=== PATIENT | female | born 1975 | race Caucasian/White ===

== ENCOUNTER 2017-10-17 12:09 | Inpatient (IN) | payer OTHER ==
[~2017-10-17] VITALS: Ht 172.7 cm; Wt 99.3 kg
[~2017-10-17 12:09] MED LIST: ALPRAZOLAM1 M2 PO; DILAUDID2 M1 PO; FISH OIL500 M1 PO; FLEXERIL10 MG PO; MOTRIN800 MG PO; NAPROXEN500 M2 PO; NEXIUM 40MG40 MG PO; NEXIUM40 M1 PO; PERCOCET 325 MG1 TA2 PO; PERCOCET 5-3251 EACH PO; PRILOSEC OTC20 M1 PO; TRAMADOL HCL50 M1 PO; ULTRAM50 M1 PO; VENTOLIN HFA18 GM INH; ZITHROMAX250 M2 PO; ZOFRAN ODT4 M1 SL
--- NOTE | 2017-10-17 15:16 | ED GI/GU/ABDOMINAL COMPLAINT ---
History of Present Illness General Chief Complaint: Abdominal Pain/Flank Pain Stated Complaint: BIBA FOR ABD PAIN Source: patient, old records, EMS Exam Limitations: no limitations Vital Signs & Intake/Output Vital Signs & Intake/Output Vital Signs Date Time Temp Pulse Resp B/P B/P Pulse O2 O2 Flow FiO2 Mean Ox Delivery Rate 10/19 1414 98.8 100 18 132/80 98 Room Air 10/19 1139 98.1 97 18 126/76 95 Room Air 10/19 0623 98.6 84 18 134/82 96 Room Air 10/18 2206 99.1 95 20 130/80 95 Room Air 10/18 1450 98.1 84 20 118/70 95 Room Air ED Intake and Output 10/19 0000 10/18 1200 Intake Total 2450 1250 Output Total 600 Balance 1850 1250 Intake, IV 2400 1200 Intake, Oral 50 50 Number 0 Bowel Movements Output, Urine 600 Allergies Coded Allergies: lisinopril (ABD PAIN AND COLD SWEATS, DIZZY, NAUSEA 08/21/17) Reconcile Medications Albuterol Sulfate (Ventolin Hfa) 18 GM HFA.AER.AD 2 PUF INH Q4-6 PRN PRN breathing (Reported) Alprazolam 1 MG TABLET 1 TAB PO TIDPRN ANXIETY (Reported) Esomeprazole (Nexium) 40 MG CAPSULE.DR 1 CAP PO DAILY GI (Reported) Hydromorphone HCl (Dilaudid) 2 MG TABLET 1 TAB PO Q6P PRN PAIN Omeprazole Magnesium (Prilosec Otc) 20 MG TABLET.DR 1 TAB PO DAILY UPSET STOMACH Ondansetron (Zofran Odt) 4 MG TAB.RAPDIS 1 TAB SL TID PRN NAUSEA Oxycodone HCl/Acetaminophen (Percocet 5-325 MG Tablet) 5 MG-325 MG TABLET 1 TAB PO 4XDP PRN PAIN SIX...[id number] Triage Note: PT BIBA TO TRIAGE FROM WORK FOR C/O ABD PAIN AND BACK PAIN SINCE 0930 THIS AM. C/O N/V. DENIES DIARRHEA. Triage Nurses Notes Reviewed? yes ? N Is pt currently ? No Duration: hour(s): (SEVERAL) Timing: multiple episodes today Quality/Severity: cramping, sharpness, severe Severity Numbers: 10 Location: epigastric Radiation: back Activities at Onset: DRANK ALCOHOL ON NEW YEARS ARMANDO Prior Abdominal Problems: similar symptoms Modifying Factors: Worsens With: eating. Associated Symptoms: abdominal pain, nausea/vomiting HPI: This is a 41 year old female with history of alcohol abuse, recurrent pancreatitis who presents via EMS from work for chief complaint of epigastric abdominal pain, nausea and vomiting. She states "I have pancreatitis again". Patient states she last drank on new armando at home. Today at work she was vomiting and her boss called 911. Past History Travel History Traveled to [place] past 21 day No Medical History Any Pertinent Medical History? 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 No Review of Systems Review of Systems Constitutional: Denies: chills, fever. EENTM: Reports: no symptoms. Respiratory: Denies: cough, short of breath, sputum production. Cardiovascular: Denies: chest pain, palpitations. GI: Reports: abdominal pain, nausea, vomiting. Genitourinary: Reports: no symptoms. Musculoskeletal: Reports: back pain. Skin: Reports: no symptoms. Neurological/Psychological: Reports: no symptoms. Hematologic/Endocrine: Denies: bruising, bleeding, polyuria, polydipsia. Immunologic/Allergic: Denies: splenectomy. All Other Systems: Reviewed and Negative Physical Exam Physical Exam General Appearance: well developed/nourished, alert, awake, anxious, moderate distress, severe distress, obese Head: atraumatic, normal appearance Eyes: Bilateral: normal appearance, PERRL, EOMI. Ears, Nose, Throat, Mouth: hearing grossly normal, moist mucous membrane Neck: normal inspection, supple, full range of motion Respiratory: normal breath sounds, chest non-tender, no respiratory distress Cardiovascular: regular rate/rhythm Peripheral Pulses: 2+ radial (R), 2+ radial (L) Gastrointestinal: normal bowel sounds, soft, tenderness (EPIGASTRIC, RUQ, LUQ) Back: normal inspection, normal range of motion Extremities: normal range of motion Neurologic/Psych: no motor/sensory deficits, awake, alert, oriented x 3 Skin: intact, normal color, warm/dry Core Measures ACS in differential dx? No Sepsis Present: No Sepsis Focused Exam Completed? No Progress Differential Diagnosis: biliary colic, cholecystitis, esophageal varices, gastritis, hepatitis, hernia, pancreatitis, peptic ulcer, PUD/GERD, perforated viscous, SBO Plan of Care: Orders Procedure Date/time Status Clear Liquid Diet 10/19 B Active LIPASE 10/19 08 Complete HEPATIC FUNCTION PANEL 10/19 08 Complete MAGNESIUM 10/19 06 Complete IgG SUBCLASSES Ref$ 10/19 0600 Active HIGH SENSITIVITY CRP 10/19 06 Complete C-REACTIVE PROTEIN 10/19 0600 Complete CBC WITHOUT DIFFERENTIAL 10/19 0600 Complete BASIC ELECTROLYTES PLUS BUN&CR 10/19 0600 Complete CIWA 10/19 0017 Active Lab Add-on Test 10/19 UNK Active Nothing by Mouth 10/18 D Complete MAGNESIUM 10/18 0757 Complete LDH (LACT ACID DEHYDROGENASE) 10/18 0757 Complete Lab Add-on Test 10/18 UNK Active Current Medications Sig/Adam Start time Last Medication Dose Stop Time Status Admin Magnesium Sulfate 1 GM Q2H 10/19 1415 AC (Mag Sulfate in D5) 10/19 1814 Dextrose/Water 100 ML (D5W) Potassium Chloride 10 MEQ Q1H 10/19 1415 AC 10/19 1516 Pantoprazole Sodium 40 MG DAILY 10/19 1400 AC (Protonix) Oxycodone HCl 10 MG Q12 10/19 1100 AC 10/19 (OxyCONTIN) 1337 Hydromorphone HCl 1 MG Q4P PRN 10/19 1045 AC 10/19 (Dilaudid) 1309 Enoxaparin Sodium 40 MG DAILY 10/18 1000 AC 10/19 (Lovenox) 0925 Fenofibrate 48 MG DAILY 10/18 1000 AC 10/19 (Tricor) 0924 Lorazepam 0 Q1P PRN 10/17 1830 AC 10/19 (Ativan) 0024 Acetaminophen 650 MG Q6P PRN 10/17 1730 AC (Tylenol) Acetaminophen 1,000 MG Q6P PRN 10/17 1730 AC 10/18 (Ofirmev) 0700 Lactated Ringer's 1,000 ML .Q5H 10/17 1730 AC 10/19 (Lactated Ringers) 0652 Ondansetron HCl 4 MG Q6-PRN PRN 10/17 173 AC 10/18 (Zofran) 0015 Laboratory Tests 10/19/17 1040: Total Bilirubin Cancelled, Direct Bilirubin Cancelled, AST Cancelled, ALT Cancelled, Alkaline Phosphatase Cancelled, Total Protein Cancelled, Albumin Cancelled, Lipase Cancelled 10/19/17 0805: Anion Gap 7, Estimated GFR > 60, BUN/Creatinine Ratio 6.7 L, Magnesium 1.6, Total Bilirubin 1.0, Direct Bilirubin 0.5 H, AST 19, ALT 33, Alkaline Phosphatase 59, C-Reactive Prot, Quant > 9.0 H, C-React Prot High Sens > 15.0 H, Total Protein 4.9 L, Albumin 2.6 L, Lipase 745 H, CBC w Diff NO MAN DIFF REQ, RBC 3.11 L, MCV 93.1, MCH 32.4 H, RDW 14.0, MPV 6.7 L, Gran % 74.0, Lymphocytes % 19.5 L, Monocytes % 3.7, Eosinophils % 2.5, Basophils % 0.3, Absolute Granulocytes 4.3, Absolute Lymphocytes 1.1 L, Absolute Monocytes 0.2, Absolute Eosinophils 0.1, Absolute Basophils 0, PUBS MCHC 34.8, IgG Total Pending, IgG1 Pending, IgG2 Pending, IgG3 Pending, IgG4 Pending 10/19/17 0600: Ref Lab Test Result Cancelled NO RELIEF WITH MORPHINE/PHENERGEN. IV DILAUDID, LR ORDERED. LIPASE OVER 6000, HIGHEST COMPARED WITH PREVIOUS. OUTPATIENT MRI 2 WEEKS AGO WHICH SHOWED MILD ACUTE PANCREATITIS, NO NECROSIS OR COLLECTIONS. PAIN SINCE THIS MORNING. WILL DEFER IMAGING TO GI. ADMITTED TO HOSPITALIST SERVICE. Initial ED EKG: none Departure Departure Time of Disposition: 1711 Disposition: STILL A PATIENT Condition: Stable Clinical Impression Primary Impression: Acute pancreatitis Referrals: Marjorie De Santiago (PCP/Family) Departure Forms: Customer Survey General Discharge Information Admission Note Spoke With: Christen Coffman MD Documentation of Exam: Documentation of any treatments & extenuating circumstances including Concerns Regarding Discharge (functional status, medication knowledge or non-compliance, living conditions, etc.) that warrant an admission rather than observation: [ LACTATED RINGERS, PAIN CONTROL, ANTIEMETICS, MONITOR ELECTROLYTES, GI CONSULTATION ([facility] HAD MRI WITH DR VU)]
[2017-10-17 16:01] LABS: ABSOLUTE BASOPHIL COUNT 0 /CUMM (0.0-0.2); ABSOLUTE EOSINOPHIL COUNT 0 /CUMM (0.0-0.7); ABSOLUTE GRANULOCYTE CT 8.5 /CUMM (1.4-6.5); ABSOLUTE LYMPH COUNT 0.7 /CUMM (1.2-3.4); ABSOLUTE MONOCYTE COUNT 0.2 /CUMM (0.10-0.60); BASOPHIL % 0 % (0.0-2.0); EOSINOPHIL % 0.1 % (0-5); GRANULOCYTE % 90.3 % (42.2-75.2); HEMATOCRIT 39.4 % (37-47); MEAN CORPUSCULAR HGB CONC 34.1 G/DL (33.0-37.0); MEAN CORPUSCULAR VOLUME 93.8 FL (81.0-99.0); PLATELET COUNT 330 /CUMM (130-400); RBC DISTRIBUTION WIDTH 14.6 % (11.5-14.5); WHITE BLOOD CELL COUNT 9.4 /CUMM (4.8-10.8)
[2017-10-17 16:43] LABS: PT 11.5 SEC (9.4-12.5); PTT 26 SEC (25-37)
--- NOTE | 2017-10-17 17:26 | History & Physical ---
See Addendum Micah ALBA,[facility] 10/17/17 9860: General Information and HPI MD Statement: I have seen and personally examined ISRAEL TJIERINA and documented this H&P. The patient is a 41 year old F who presented with a patient stated chief complaint of [pancreatits]. Source of Information: patient History of Present Illness: 41 yo F pmhx of pancreatitis (etoh vs hypertriglycerides), ?etoh abuse, htn - no longer on hctz, asthma, gerd, IBS, fibromyalgia, chronic back pain presenting for acute epigastric pain. States that the pain started 930 AM this AM. States her last etoh drink was new years. Unsure of how many drinks she had but at least several glasses of wine. States the pain is a 10/10 constant band likke pain around her upper abd. Has had 3 episodes of nonbloody bilious vomiting. States she was supposed to be started on a statin by her pcp. Allergies/Medications Allergies: Coded Allergies: lisinopril (ABD PAIN AND COLD SWEATS, DIZZY, NAUSEA 08/21/17) Home Med list Albuterol Sulfate (Ventolin Hfa) 18 GM HFA.AER.AD 2 PUF INH Q4-6 PRN PRN breathing (Reported) Alprazolam 1 MG TABLET 1 TAB PO TIDPRN ANXIETY (Reported) Esomeprazole (Nexium) 40 MG CAPSULE.DR 1 CAP PO DAILY GI (Reported) Hydromorphone HCl (Dilaudid) 2 MG TABLET 1 TAB PO Q6P PRN PAIN Omeprazole Magnesium (Prilosec Otc) 20 MG TABLET.DR 1 TAB PO DAILY UPSET STOMACH Ondansetron (Zofran Odt) 4 MG TAB.RAPDIS 1 TAB SL TID PRN NAUSEA Oxycodone HCl/Acetaminophen (Percocet 5-325 MG Tablet) 5 MG-325 MG TABLET 1 TAB PO 4XDP PRN PAIN SIX...[id number] Past History Travel History Traveled to [place] past 21 day No Medical History Neurological: NONE EENT: NONE Cardiovascular: hypertension, hyperlipidemia Respiratory: asthma Gastrointestinal: GERD, pancreatitis Hepatic: fatty liver Renal: NONE Musculoskeletal: disk herniation Psychiatric: anxiety Endocrine: NONE Blood Disorders: NONE Cancer(s): endometrial cancer, BARTHOLIN'S 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 child Services at Home: None Primary Language: Libyan ETOH Use: denies use Illicit Drug Use: denies illicit drug use Living Will? no Power of Brand Marketing Manager/HCP? no Functional Ability ADLs Independent: dressing, eating, toileting, bathing. Ambulation: independent IADLs Independent: shopping, housework, finances, food prep, telephone, transportation , medication admin. Review of Systems Review of Systems Constitutional: Reports: see HPI. Denies: chills, fever. Cardiovascular: Denies: chest pain. Respiratory: Denies: short of breath. GI: Reports: abdominal pain. Denies: melena, changes in stool. Genitourinary: Reports: no symptoms. Exam & Diagnostic Data Last 24 Hrs of Vital Signs/I&O Vital Signs Date Time Temp Pulse Resp B/P B/P Pulse O2 O2 Flow FiO2 Mean Ox Delivery Rate 10/17 2011 99.0 94 20 150/92 98 10/17 1830 99.0 97 18 151/89 98 Room Air Room Air 10/17 1540 98.4 91 20 155/87 96 10/17 1223 97.0 90 20 166/100 98 Room Air Intake & Output 10/18 0800 10/18 0000 10/17 1600 Intake Total 3100 Output Total Balance 3100 Intake, IV 3100 Patient 220 lb 220 lb Weight Weight Estimated Measurement Method Physical Exam General Appearance Alert, Oriented X3, Cooperative, Severe Distress Cardiovascular Regular Rate, Normal S1, Normal S2 Lungs decrease air movement b/l due to effort Abdomen Soft, diffusely tender ruq and luq tenderness., decrease bowel sounds Extremities no back tenderness Vascular 2+ radial pulses Last 24 Hrs of Labs/Hansel: Laboratory Tests 10/17/17 1740: Urinalysis LIGHT H, Urine Color YEL, Urine Clarity HAZY H, Urine pH 6.0, Ur Specific Ideal >= 1.030, Urine Protein TRACE H, Urine Ketones NEG, Urine Nitrite NEG, Urine Bilirubin NEG, Urine Urobilinogen 0.2, Ur Leukocyte Esterase NEG, Ur Microscopic SEDIMENT EXAMINED, Urine RBC RARE, Urine WBC RARE, Ur Epithelial Cells RARE, Urine Bacteria RARE H, Urine Mucus FEW, Urine Hemoglobin NEG, Urine Glucose NEG, Urine Test NEGATIVE 10/17/17 1535: Anion Gap 14, Estimated GFR > 60, BUN/Creatinine Ratio 12.9, Glucose 106 H, Calcium 9.6, Magnesium 1.4 L, Total Bilirubin 0.7, AST 43 H, ALT 43, Alkaline Phosphatase 106, Total Protein 7.5, Albumin 4.4, Globulin 3.1, Albumin/Globulin Ratio 1.4, Triglycerides 912 H, Cholesterol 284 H, LDL Cholesterol Direct 87.63, LDL Cholesterol, Calc ND, HDL Cholesterol 62 H, Cholesterol/HDL Ratio 4.6 H, Amylase 255 H, Lipase 6057 H, Total Beta HCG NEGATIVE, PT 11.5, INR 1.10, APTT 26, CBC w Diff MAN DIFF ORDERED, RBC 4.20, MCV 93.8, MCH 32.0 H, RDW 14.6 H, MPV 6.0 L, Gran % 90.3 H, Lymphocytes % 7.6 L, Monocytes % 2.0, Eosinophils % 0.1, Basophils % 0, Absolute Granulocytes 8.5 H, Absolute Lymphocytes 0.7 L, Absolute Monocytes 0.2, Absolute Eosinophils 0, Absolute Basophils 0, Platelet Estimate ADEQUATE, Normocytic RBCs VERIFIED, Normochromic RBCs VERIFIED, PUBS MCHC 34.1, Serum Alcohol < 10.0 10/17/17 1525: Magnesium Cancelled, Serum Alcohol Cancelled Assessment/Plan As Ranked By This Provider Problem List: 1. Acute pancreatitis 2. Hypomagnesemia 3. Hypertriglyceridemia Core Measures/Misc (07/02) Acute Coronary Syndrome ACS Diagnosis: No Congestive Heart Failure Congestive Heart Failure Diagnosis No Cerebrovascular Accident CVA/TIA Diagnosis: No VTE (View Protocol) VTE Risk Factors Acute Medical Illness No Mechanical VTE Prophylaxis d/t Other No VTE Pharm Prophylaxis d/t NA PharmProphylax ordered Sepsis (View protocol) Sepsis Present: No Tati Horton 10/17/17 1815: Assessment/Plan Assessment: Resident Review Statement Resident Statement: examined this patient, discussed with commander internal affairs Other Findings: Pt is a 41-year-old obese woman with past medical history significant for asthma recurrent pancreatitis (? Alcohol related/hypertriglyceridemia), anxiety, GERD, irritable bowel syndrome (diarrhea-type), chronic pain syndrome 2/2 cervical/ lumbar disc herniation, fibromyalgia presented to the ED through ambulance with a chief complaint of sudden onset epigastric pain started this morning. Patient mentioned that her symptoms were sudden onset, started around 9:30 this morning described the pain as epigastric colicky in character, constant, radiating to back getting worse. Pain was associated with nonbloody bilious vomiting without any diarrhea or constipation. At work her symptoms goten worse , to the point that she couldn't tolerate any more pain and was brought in to the ER for further assessment. In the ED patient was having 10 on 10 severe epigastric pain labs revealed elevated lipase. She denied any recent infections fevers denies any chest discomfort or trouble breathing palpitations no urinary complaints. As mentioned above patient has been repeatedly admitted for pancreatitis related to probable alcohol abuse, last drink was on new year had couple of glasses of red wine. She also mentioned that apparently she has a history of hypertriglyceridemia, and has been prescribed statin(but not started yet). On examination : General Appearance :Alert, Oriented X3, moderate distress. Skin No Rashes, No Breakdown HEENT Atraumatic, PERRLA Neck Supple, No JVD Cardiovascular Regular Rate, Normal S1, Normal S2 Lungs decreased breath sounds bilaerally Abdomen: Normal Bowel Sounds, Soft with epigastric tenderness without any rebound Neurological Normal Gait, Normal Speech Extremities bilateral skin changes Vascular Normal Pulses. Vitals on admission temp: 97.0, pulse 90, respiratory rate 20, blood pressure 166/100 room air Pertinent labs on admission normal WBC count, H&H stable, hypomagnesemia 1.4, elevated lipase 6057: Amylase 255, elevated TGs:912 Assessment and plan: Pt is a 41-year-old obese woman with past medical history significant for asthma recurrent pancreatitis (? Alcohol related/hypertriglyceridemia), anxiety, GERD, irritable bowel syndrome (diarrhea-type), chronic pain syndrome 2/2 cervical/ lumbar disc herniation, fibromyalgia presented to the ED through ambulance with a chief complaint of sudden onset epigastric pain started this morning. Labs are in consistent with acute appendicitis likely related to alcohol abuse. Problem list Severe epigastric pain acute appendicitis likely related to alcohol abuse History of alcohol abuse/dependence Hypomagnesemia history of anxiety and depression History of irritable bowel syndrome Plan Severe epigastric pain acute appendicitis likely related to alcohol abuse / hypertriglyceridemia * Admit the patient Gen[facility] floor * Keep the patient nothing by mouth for now * Aggressive hydration with Ringer lactate at the rate of 200 mL per our * Adequate pain control with Dilaudid and IV Tylenol and * Zofran as needed for nausea and vomiting. * start the pt on ticor(Fenofibrate ) * Monitor vitals every 4 hours * Watch for any hemodynamic instability. History of alcohol abuse/dependence : * Start the patient on Ativan as per [facility] protocol. * Maintain seizure and aspiration precautions. Hypomagnesemia * Repeat and repeat magnesium. history of anxiety and depression * Continue as needed Xanax. History of irritable bowel syndrome * Bentyl as needed for cramps Moderate to severe pain control with Dilaudid DVT prophylaxis with subcutaneous Lovenox Patient is full code Christen Coffman MD 10/17/17 1830: Attending MD Review Statement Attending Statement Attending MD Statement: examined this patient, discuss w/resident/PA/CARD HAND, agreed w/resident/PA/CARD HAND, reviewed EMR data (avail) Attending Assessment/Plan: 41F PMH HTN, HLD, IBS-D, chronic pain, fibromyalgia, history of pancreatitis presenting with severe epigastric pain in the setting of acute pancreatitis. Drank on BILLY, has abdominal pain with nausea and vomiting today. Afebrile, vitals stable, labs show elevated triglycerides and lipase, otherwise normal. Will admit to general medicine for nicole treatment of acute pancreatitis, IV hydration, Morphine PRN, start Fenofibrate for triglycerides, continue home meds , advance diet as tolerated, DVT PPx
[2017-10-17 20:12] VITALS: BP 150/92
[2017-10-18 06:56] VITALS: BP 128/74
--- NOTE | 2017-10-18 07:50 | PN- Housestaff ---
Micah ALBA,[facility] 10/18/17 0750: Subjective Follow-up For: pancreatitis Subjective: Pt still having severe abd pain, better than yday but worst with movement. Still cant take breaths due to pain. Unable to sleep last night. States she would like to try clears. Review of Systems Constitutional: Reports: see HPI (insomnia). Cardiovascular: Reports: no symptoms. Respiratory: Reports: see HPI. Gastrointestinal: Reports: abdominal pain. Genitourinary: Reports: no symptoms. Musculoskeletal: Reports: no symptoms. Objective Last 24 Hrs of Vital Signs/I&O Vital Signs Date Time Temp Pulse Resp B/P B/P Pulse O2 O2 Flow FiO2 Mean Ox Delivery Rate 10/18 1450 98.1 84 20 118/70 95 Room Air 10/18 0656 98.6 96 18 128/74 96 Room Air 10/18 0000 98 Room Air Intake & Output 10/18 1600 10/18 0800 10/18 0000 Intake Total 1650 1250 3100 Output Total 600 Balance 1050 1250 3100 Intake, IV 1600 1200 3100 Intake, Oral 50 50 Number 0 Bowel Movements Output, Urine 600 Patient 220 lb Weight Physical Exam General Appearance: Alert, Oriented X3, Cooperative Skin Temp/Moisture Exam: Warm/Dry Cardiovascular: Regular Rate, Normal S1, Normal S2 Lungs: Clear to Auscultation, Normal Air Movement Abdomen: diffusely tender, more prominent on left Extremities: 2+ radial pulses Current Medications: Current Medications Sig/Adam Start time Last Medication Dose Route Stop Time Status Admin Acetaminophen 1,000 MG .STK-MED ONE 10/18 0659 DC IV 10/18 0700 Acetaminophen 650 MG Q6P PRN 10/17 1730 AC PO Acetaminophen 1,000 MG Q6P PRN 10/17 1730 AC 10/18 IV 0700 Enoxaparin Sodium 40 MG DAILY 10/18 1000 AC 10/18 SC 0923 Fenofibrate 48 MG DAILY 10/18 1000 AC 10/18 PO 0923 Hydromorphone HCl 1 MG Q4-6 PRN PRN 10/18 1030 AC 10/18 IV 1827 Hydromorphone HCl 1 MG ONCE ONE 10/18 0015 DC 10/18 IV 10/18 0016 0015 Hydromorphone HCl 1 MG Q6P PRN 10/17 1730 DC 10/18 IV 0927 Lactated Ringer's 1,000 ML .Q5H 10/17 1730 AC 10/18 IV 2042 Lactated Ringer's 1,000 ML ONCE ONE 10/17 1700 DC IV 10/17 2339 Lorazepam 0 Q1P PRN 10/17 1830 AC IV Ondansetron HCl 4 MG Q6-PRN PRN 10/17 1730 AC 10/18 PO 0015 Patient Medication 1 ED ONE ONE 10/18 1230 DC Teaching ED 10/18 1231 Last 24 Hrs of Lab/Hansel Results Last 24 Hrs of Labs/Mics: Laboratory Tests 10/18/17 0757: Anion Gap 6, Estimated GFR > 60, BUN/Creatinine Ratio 7.1, Magnesium 1.6, Lactate Dehydrogenase 367, CBC w Diff NO MAN DIFF REQ, RBC 3.36 L, MCV 94.4, MCH 32.4 H, RDW 14.6 H, MPV 6.6 L, Gran % 75.5 H, Lymphocytes % 19.0 L, Monocytes % 2.7, Eosinophils % 2.4, Basophils % 0.4, Absolute Granulocytes 3.2, Absolute Lymphocytes 0.8 L, Absolute Monocytes 0.1, Absolute Eosinophils 0.1, Absolute Basophils 0, PUBS MCHC 34.3 Assessment/Plan Assessment: 41 yo F pmhx of pancreatitis (etoh vs hypertriglycerides), ?etoh abuse, htn - no longer on hctz, asthma, gerd, IBS, fibromyalgia, chronic back pain presenting for acute pancreatitis #acute pancreatitis WBC 9.4 AST 43, ALT 43, ALP 106 Triglycerides 912, cholesterol 284 amylase 255, l ipase 6047 beta hcg negative CXR: Unremarkable examination. There is no pleural effusion. LDH normal -NPO for now per GI, zofran prn -continue fenofibrate -cont lactated ringers, zofran prn, pain control -strict I/O -consider endo consult -AVOID NSAIDS -Risk factor modification for fatty liver -crp for prognostic purposes -consider fecal elastase, outpatient EUS #hx of ?etoh abuse -continue CIWA and ativan prn #low mg MG 1.6 -replenish as needed #GERD -start PPI #lovenox for DVT prophylaxis #FULL CODE Problem List: 1. Acute pancreatitis Pain Ratin Pain Location: left abd Pain Goal: Pain 4 or less Pain Plan: pain pathway Tomorrow's Labs & Rationales: cbc bep mg crp Aparna,Manik 10/18/17 1107: Attending MD Review Statement Attending Statement Attending MD Statement: examined this patient, discuss w/resident/PA/REPAIRER GENERAL, agreed w/resident/PA/REPAIRER GENERAL, discussed with family, reviewed EMR data (avail), discussed with nursing, discussed with case mgmt, reviewed images, amended to note Attending Assessment/Plan: 41F PMH HTN, HLD, IBS-D, chronic pain, fibromyalgia, history of pancreatitis presenting with severe epigastric pain in the setting of acute and recurrent pancreatitis. Afebrile, vitals stable, labs show elevated triglycerides and lipase, Abnormal MRI abdomen with dilated CBD and pancreatic duct 2 weeks ago. LFTS AST/ALT 43/43 ALP 106 Bili 0.7 c/w NPO, IV hydration, Morphine PRN, Fenofibrate for triglycerides, GI conuslt for recurrent pancereatitis and abnormal MRI abdomen findings. continue home meds, advance diet as tolerated, DVT PPx.
[2017-10-18 10:22] LABS: ABSOLUTE BASOPHIL COUNT 0 /CUMM (0.0-0.2); ABSOLUTE EOSINOPHIL COUNT 0.1 /CUMM (0.0-0.7); ABSOLUTE GRANULOCYTE CT 3.2 /CUMM (1.4-6.5); ABSOLUTE LYMPH COUNT 0.8 /CUMM (1.2-3.4); ABSOLUTE MONOCYTE COUNT 0.1 /CUMM (0.10-0.60); BASOPHIL % 0.4 % (0.0-2.0); EOSINOPHIL % 2.4 % (0-5); GRANULOCYTE % 75.5 % (42.2-75.2); MEAN CORPUSCULAR HGB 32.4 PG (27.0-31.0); MEAN CORPUSCULAR HGB CONC 34.3 G/DL (33.0-37.0); MEAN CORPUSCULAR VOLUME 94.4 FL (81.0-99.0); MEAN PLATELET VOLUME 6.6 FL (7.4-10.4); PLATELET COUNT 203 /CUMM (130-400); RBC DISTRIBUTION WIDTH 14.6 % (11.5-14.5); RED BLOOD CELL CT 3.36 /CUMM (4.20-5.40)
[2017-10-18 10:38] LABS: HEMATOCRIT 31.7 % (37-47); WHITE BLOOD CELL COUNT 4.2 /CUMM (4.8-10.8)
[2017-10-18 14:50] VITALS: BP 118/70
--- NOTE | 2017-10-18 15:27 | Cons- Gastroenterology ---
General Information and HPI Consulting Request Date of Consult: 10/18/17 Requested By: Christen Coffman MD Reason for Consult: Called today at 11:18 a.m. to assess pancreatitis in a patient with hyperTG, EtOH & cigarette smkoking Source of Information: patient, old records Exam Limitations: andrea historian; nost of the patient's GI records are in the [place] area. History of Present Illness: 41 y/o female, fair historian, HTN, non-DM, HLD, obese, FCBD, fibromyalgia, asthma, seen by myself in inpatient GI consultation 05/25/16 for hypertriglyceride-induced pancreatitis, with TG 1277 then. For some reason, she was never put on anti-lipid medications. She has a history of cigarette smoking & moderate EtOH, the latter of which she appeared to be down playing. She previously drank heavily years ago, but now admitted to "a few drinks a week". She drank again over New Year's. She denied any illicit drug use. Her gallbladder is intact. Additionally, she has fatty liver. Since I last saw her year and a half ago, she changed essentially all of her physicians. She previously was followed by Dr. Ayse Angeles for GI, in [place], [place], but switched to Dr. Linares, whom she saw as an outpt in 08/2017. She also switched to Marjorie Valdivia for primary care, & sees Dr. Guajardo for SIGNAL PERSON, who apparently put her on HCTZ (*note- hx pancreatitis). Finally, she saw Dr. Mcneill, of cardiology, for atypical CP & reportedly had a negative w/u, with : echocardiogram- WNL. She does not follow up with outpatient endocrine for her HLD. The patient claimed she had EGD and colonoscopy in 04/2016 at [facility] in [place], [place], per Dr. Luna, & was told of "IBS, gastritis, & GERD". There is a family history of Crohn's disease (pt's F). The patient's mother who passed her lungs CTA had diverticulitis. There is no family history of any additional GI disease, GI CA, inherited pancreatitis, GBD, PUD, hypertriglyceridemia, or inherited liver disease. She claimed she had multiple ultrasounds and HIDA scans per Dr. Angeles, all "negative except fatty liver". She claimed she had a FibroScan of her liver in [address] Angeles, which reportedly showed "fatty liver & some fibrosis". She never had a liver biopsy. She denied any hx cirrhosis or prior abdominal surgery. Her last 08/21/17: CT AP with IV cont- no acute pancreatic process, just chronic dilated CBD. *She was on chronic narcotics for back pain, which could be contributing to her chronically dilated CBD, by increasing tone at the Sphincter of Oddi. After switching from Dr. Angeles to Dr. Linares, she had: 09/25/17: MR ABDOMEN WITH AND WITHOUT CONTRAST- 1. Mild acute pancreatitis at the pancreatic head at the pancreaticoduodenal groove. No evidence of fluid collections or pancreatic necrosis. No obstructing lesions or calculi. 2. Dilatation of the common bile duct 1.6 cm (w/o change) and pancreatic duct (6 mm), likely related to the inflammation at the pancreatic head. No pancreatic cysts or lesions seen. Mild intrahepatic dilitation. No choledocholithiasis. 3. Hydropic GB without cholelithiasis or cholecystitis. 4. Tiny fat-containing umbilical hernia. When last seen at [facility] 05/25/16, Utox was positive for benzodiazepines. She denied any Sulfa medications, NSAIDs, or herbal medications. Aparently, she was on HCTZ, as above. She was not admitted to the hospital again for pancreatitis until 10/17/17, although she had multiple ER visits for abdominal pain. The patient presented to the [facility] ER 10/17/17 at 12:09 p.m., c/o upper abdominal/epigastric sharp, burning, stabbing pain ("10 out of 10") x 1 day, in a bandlike pattern to the back, somewhat worse with deep inspiration. There was no definite positional component. She had nausea and vomiting x 2-> clear/bile, without blood. There was no melena. She had no sx of odynophagia, dysphagia, or early satiety, but noted occasional GERD. She denied any fevers (but ? chills), FFI, jaundice, dark urine, light stool, pruritus, or weight loss. She noted weight gain. She denied any prior abdominal surgery. Upon arrival to the ER, BP 166/100, P 90, R 20, T 97, O2 sat RA 98%. She was txd in the ER with IV NS/RL, MS, Phenergan, Zofran, Dilaudid, & Mg. She seemed to have poor insight into her HLD. She denied any constipation, obstipation, tnesmus, or BRBPR. She initially denied diarrhea, then admitted to it intermittently as an outpt (? IBS-D). She was NPO at the time of her GI consult. 10/17/17: Admission labs- WBC 9.4 (90% gran/9 gran Ab), H/H 13.4/39.4, MCV 93.8, RDW 14.6, PLT 330, PT 11.5, INR 1.10, PTt 26, glu 106, BUN/Cr 9/0.7, GFR > 60, Na 138, K 4,4, HCO3 23, AG 14, amylase 255, *lipase 6057, Mg 1.4, Ca 9.6, alb 4.4, glob 2.9, TBil 0.7, alk phos 106, AST 43, ALT 43, *[EtOH] < 10, *TG 912, TChol 284, HDL 62 (not able to calculate LDL due to TG), serum HCG- neg. 10/17/16: U/A- hazy, yellow, > 1.030, 6.0, tr prot, micro- otherwise essentially negative; negative nitrite, negative esterase; Urine - negative: Utox- not sent. 10/18/16: WBC 4.2, H/H 10.9/31.7, PLT 203, BUN/Cr 5/0.7, GFR > 60, Na 136, K 3.5 , HCO3 25, AG 6. Allergies/Medications Allergies: Coded Allergies: lisinopril (ABD PAIN AND COLD SWEATS, DIZZY, NAUSEA 08/21/17) Home Med List: Albuterol Sulfate (Ventolin Hfa) 18 GM HFA.AER.AD 2 PUF INH Q4-6 PRN PRN breathing (Reported) Alprazolam 1 MG TABLET 1 TAB PO TIDPRN ANXIETY (Reported) Esomeprazole (Nexium) 40 MG CAPSULE.DR 1 CAP PO DAILY GI (Reported) Hydromorphone HCl (Dilaudid) 2 MG TABLET 1 TAB PO Q6P PRN PAIN Omeprazole Magnesium (Prilosec Otc) 20 MG TABLET.DR 1 TAB PO DAILY UPSET STOMACH Ondansetron (Zofran Odt) 4 MG TAB.RAPDIS 1 TAB SL TID PRN NAUSEA Oxycodone HCl/Acetaminophen (Percocet 5-325 MG Tablet) 5 MG-325 MG TABLET 1 TAB PO 4XDP PRN PAIN SIX...[id number] Past History Travel History Traveled to [place] past 21 day No Medical History Blood Transfusion Hx: No Neurological: NONE EENT: NONE Cardiovascular: hypertension, hyperlipidemia (TG) Respiratory: asthma Gastrointestinal: GERD, pancreatitis Hepatic: fatty liver Renal: NONE Musculoskeletal: disk herniation Psychiatric: anxiety, opioid dependence (on rx percocet) Endocrine: obesity Blood Disorders: NONE Cancer(s): NONE SIGNAL PERSON/Reproductive: NONE Surgical History Surgical History: breast biopsy (FCBD) Family History Relations & Conditions If Any: FATHER (Crohns). MOTHER (diverticulitis). , Age 55; Cause: Lung cancer. Psychosocial History Where Do You Live? Home Who Do You Live With? child Services at Home: None Primary Language: Slovak Smoking Status: Light Tobacco Smoker ETOH Use: occasional use (previously heavy yrs ago) Illicit Drug Use: denies illicit drug use (on rx percocet) Living Will? no Power of Yard Associate/HCP? no Other Social History: Single. 2 daughters and 1 son- alive and well. Lives with her children. > 1 pack of cigarettes per week. Moderate EtOH (3 margaritas & 3 shots vodka/wk). Denies illicit drug use, but on rx Percocet. Moderate caffeine. 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 Functional Ability ADLs Independent: dressing, eating, toileting, bathing. Ambulation: independent IADLs Independent: shopping, housework, finances, food prep, telephone, transportation , medication admin. Employment History Employment: Employed Profession/Employer: [employer] ECHO Results (as available) Date of last Echo 08/31/15 EF% 65 Review of Systems Review of Systems: Full 14 point ROS otherwise noncontributory and as per HPI. Review of Systems Constitutional: Reports: chills (possible). Denies: diaphoresis, fever, malaise, weakness, unexplained weight loss. EENTM: Denies: blurred vision, double vision, visual changes, eye pain, eye drainage, eye tearing, icterus, ear discharge, ear pain, ear redness, hearing changes, nasal congestion, epistaxis, nasal pain, throat pain, throat swelling, mouth pain, tooth pain. Cardiovascular: Denies: chest pain, edema, orthopena, palpitations, peripheral edema, syncope. Respiratory: Denies: cough, hemoptysis, orthopnea, short of breath, sputum production, stridor, wheezing. GI: Reports: abdominal pain, nausea, vomiting. Denies: bloating, constipation, diarrhea, distention, bowel incontinence, melena, bloody stool, changes in stool , steatorrhea. Genitourinary: Denies: discharge, dysuria, frequency, hematuria, hesitation, nocturia, pain, urgency. Musculoskeletal: Reports: back pain (chronic). Denies: gout, joint pain, joint swelling, muscle pain, muscle stiffness, neck pain. Skin: Denies: cysts, change in skin color, change in hair/nails, dryness, erythema, jaundice, lesions, lymphangitis, lumps, moles, rash. Neurological/Psychological: Reports: anxiety, emotional problems. Denies: ataxia, cognitive dysfunction, confusion, depressed, dementia, headache, numbness, paresthesia, pre-existing deficit, petit mal seizures, tingling, tremors, tonic-clonic seizures, unable to move lower ext, unable to move upper ext, weakness. Hematologic/Endocrine: Denies: bruising, bleeding, polyuria, polydipsia. Immunologic/Allergic: Denies: splenectomy, HIV/AIDS, lymphadenopathy. All Other Systems: Reviewed and Negative Exam & Diagnostic Data Vital Signs and I&O Vital Signs Date Time Temp Pulse Resp B/P B/P Pulse O2 O2 Flow FiO2 Mean Ox Delivery Rate 10/18 1450 98.1 84 20 118/70 95 Room Air 10/18 0656 98.6 96 18 128/74 96 Room Air 10/18 0000 98 Room Air 10/17 2011 99.0 94 20 150/92 98 10/17 1830 99.0 97 18 151/89 98 Room Air Room Air Intake & Output 10/18 1600 10/18 0400 10/17 1600 10/17 0400 10/16 1600 10/16 0400 Intake Total 2900 3100 Output Total 600 Balance 2300 3100 Intake, IV 2800 3100 Intake, Oral 100 Number 0 Bowel Movements Output, Urine 600 Patient 220 lb 220 lb Weight Weight Estimated Measurement Method Physical Exam: Well-developed, well-nourished, obese female, in NAD. Sclera anicteric. Conjunctiva pink. Oropharynx clear. No oral thrush. No apthous ulcers. There is no adenopathy, thyromegaly, or JVD. No peripheral stigmata of inflammatory bowel disease or chronic liver disease on exam. No spiders on the anterior chest wall. No CVA tenderness. Lungs: clear to A&P. No wheezing, rales, or rhonchi. Heart exam: regular rate rhythm, S1 and S2, without any murmur. Abdominal exam: normal bowel sounds, soft obese belly, diffuse epigastric tenderness, without guarding or rebound. Tiny reducible umbilical hernia, otherwise, no mass. No splenomegaly. Enlarged liver approximately 15 cm. Negative Naik sign. No fluid shift. No pulsatile mass. Digital rectal exam: deferred by patient ( "recently normal at Dr. Guajardo"). Extremities: without cyanosis or clubbing. Trace pedal edema B/L. No palpable cords. No acute arthropathy. No rash. No palmar erythema. No Dupuytren's contractures. Distal pulses 1+ bilaterally. DTRs 1+ bilaterally. Alert and oriented x 3. No tremor or asterixis. Results Pertinent Lab Results: Laboratory Tests 10/18 10/17 0757 1740 Chemistry Sodium (137 - 145 mmol/L) 136 L Potassium (3.5 - 5.1 mmol/L) 3.5 Chloride (98 - 107 mmol/L) 105 Carbon Dioxide (22 - 30 mmol/L) 25 Anion Gap (5 - 16) 6 BUN (7 - 17 mg/dL) 5 L Creatinine (0.5 - 1.0 mg/dL) 0.7 Estimated GFR (>60 ml/min) > 60 BUN/Creatinine Ratio (7 - 25 %) 7.1 Hematology CBC w Diff NO MAN DIFF REQ WBC (4.8 - 10.8 /CUMM) 4.2 L RBC (4.20 - 5.40 /CUMM) 3.36 L Hgb (12.0 - 16.0 G/DL) 10.9 L Hct (37 - 47 %) 31.7 L MCV (81.0 - 99.0 FL) 94.4 MCH (27.0 - 31.0 PG) 32.4 H RDW (11.5 - 14.5 %) 14.6 H Plt Count (130 - 400 /CUMM) 203 MPV (7.4 - 10.4 FL) 6.6 L Gran % (42.2 - 75.2 %) 75.5 H Lymphocytes % (20.5 - 51.1 %) 19.0 L Monocytes % (1.7 - 9.3 %) 2.7 Eosinophils % (0 - 5 %) 2.4 Basophils % (0.0 - 2.0 %) 0.4 Absolute Granulocytes (1.4 - 6.5 /CUMM) 3.2 Absolute Lymphocytes (1.2 - 3.4 /CUMM) 0.8 L Absolute Monocytes (0.10 - 0.60 /CUMM) 0.1 Absolute Eosinophils (0.0 - 0.7 /CUMM) 0.1 Absolute Basophils (0.0 - 0.2 /CUMM) 0 PUBS MCHC (33.0 - 37.0 G/DL) 34.3 Urines Urinalysis LIGHT H Urine Color (YEL,AMB,STR) YEL Urine Clarity (CLEAR) HAZY H Urine pH (5.0 - 8.0) 6.0 Ur Specific Lehr (1.001 - 1.035) >= 1.030 Urine Protein (NEG,<30 MG/DL) TRACE H Urine Ketones (NEG) NEG Urine Nitrite (NEG) NEG Urine Bilirubin (NEG) NEG Urine Urobilinogen (0.1 - 1.0 EU/dl) 0.2 Ur Leukocyte Esterase (NEG) NEG Ur Microscopic SEDIMENT EXAMINED Urine RBC (0 - 5 /HPF) RARE Urine WBC (0 - 2 /HPF) RARE Ur Epithelial Cells (NONE,FEW) RARE Urine Bacteria (NEG/NONE) RARE H Urine Mucus (FEW,NONE) FEW Urine Hemoglobin (NEG) NEG Urine Glucose (N MG/DL) NEG Urine Test NEGATIVE 10/17 10/17 1535 1525 Chemistry Sodium (137 - 145 mmol/L) 138 Potassium (3.5 - 5.1 mmol/L) 4.4 Chloride (98 - 107 mmol/L) 101 Carbon Dioxide (22 - 30 mmol/L) 23 Anion Gap (5 - 16) 14 BUN (7 - 17 mg/dL) 9 Creatinine (0.5 - 1.0 mg/dL) 0.7 Estimated GFR (>60 ml/min) > 60 BUN/Creatinine Ratio (7 - 25 %) 12.9 Glucose (65 - 99 mg/dL) 106 H Calcium (8.4 - 10.2 mg/dL) 9.6 Magnesium (1.6 - 2.3 mg/dL) 1.4 L Cancelled Total Bilirubin (0.2 - 1.3 mg/dL) 0.7 AST (14 - 36 U/L) 43 H ALT (9 - 52 U/L) 43 Alkaline Phosphatase (<127 U/L) 106 Total Protein (6.3 - 8.2 g/dL) 7.5 Albumin (3.5 - 5.0 g/dL) 4.4 Globulin (1.9 - 4.2 gm/dL) 3.1 Albumin/Globulin Ratio (1.1 - 2.2 %) 1.4 Triglycerides (<150 mg/dL) 912 H Cholesterol (<200 MG/DL) 284 H LDL Cholesterol Direct (<100 mg/dL) 87.63 LDL Cholesterol, Calc (65 - 129 mg/dL) ND HDL Cholesterol (40 - 60 mg/dL) 62 H Cholesterol/HDL Ratio (0.00 - 4.23 %) 4.6 H Amylase (30 - 110 U/L) 255 H Lipase (23 - 300 U/L) 6057 H Total Beta HCG (NEGATIVE) NEGATIVE Coagulation PT (9.4 - 12.5 SEC) 11.5 INR (0.90 - 1.19) 1.10 APTT (25 - 37 SEC) 26 Hematology CBC w Diff MAN DIFF ORDERED WBC (4.8 - 10.8 /CUMM) 9.4 RBC (4.20 - 5.40 /CUMM) 4.20 Hgb (12.0 - 16.0 G/DL) 13.4 Hct (37 - 47 %) 39.4 MCV (81.0 - 99.0 FL) 93.8 MCH (27.0 - 31.0 PG) 32.0 H RDW (11.5 - 14.5 %) 14.6 H Plt Count (130 - 400 /CUMM) 330 MPV (7.4 - 10.4 FL) 6.0 L Gran % (42.2 - 75.2 %) 90.3 H Lymphocytes % (20.5 - 51.1 %) 7.6 L Monocytes % (1.7 - 9.3 %) 2.0 Eosinophils % (0 - 5 %) 0.1 Basophils % (0.0 - 2.0 %) 0 Absolute Granulocytes (1.4 - 6.5 /CUMM) 8.5 H Absolute Lymphocytes (1.2 - 3.4 /CUMM) 0.7 L Absolute Monocytes (0.10 - 0.60 /CUMM) 0.2 Absolute Eosinophils (0.0 - 0.7 /CUMM) 0 Absolute Basophils (0.0 - 0.2 /CUMM) 0 Platelet Estimate (ADEQUATE) ADEQUATE Normocytic RBCs VERIFIED Normochromic RBCs VERIFIED PUBS MCHC (33.0 - 37.0 G/DL) 34.1 Toxicology Serum Alcohol (<10 MG/DL) < 10.0 Cancelled Imaging/Other Studies: [No EKG this admission, as of yet]. 09/25/17: MR ABDOMEN WITH AND WITHOUT CONTRAST- 1. Mild acute pancreatitis at the pancreatic head at the pancreaticoduodenal groove. No evidence of fluid collections or pancreatic necrosis. No obstructing lesions or calculi. 2. Dilatation of the common bile duct 1.6 cm (w/o change) and pancreatic duct (6 mm), likely related to the inflammation at the pancreatic head. No pancreatic cysts or lesions seen. Mild intrahepatic dilitation. No choledocholithiasis. 3. Hydropic GB without cholelithiasis or cholecystitis. 4. Tiny fat-containing umbilical hernia. [No imaging studies on 10/17/17 admission] Assessment/Plan Assessment/Recommendations: 41 y/o female, fair historian, HTN, non-DM, HLD, obese, FCBD, fibromyalgia, asthma, seen by myself in inpatient GI consultation 05/25/16 for hypertriglyceride-induced pancreatitis, with TG 1277 then. For some reason, she was never put on anti-lipid medications. She has a history of cigarette smoking & moderate EtOH, the latter of which she appeared to be down playing. She previously drank heavily years ago, but now admitted to "a few drinks a week". She drank again over New Year's. She denied any illicit drug use. Her gallbladder is intact. Additionally, she has fatty liver. Since I last saw her year and a half ago, she changed essentially all of her physicians. She previously was followed by Dr. Ayse Angeles for GI, in [place], [place], but switched to Dr. Linares, whom she saw as an outpt in 08/2017. She also switched to [facility] Valdivia for primary care, & sees Dr. Guajardo for SIGNAL PERSON, who apparently put her on HCTZ (*note- hx pancreatitis). Finally, she saw Dr. Mcneill, of cardiology, for atypical CP & reportedly had a negative w/u, with : echocardiogram- WNL. She does not follow up with outpatient endocrine for her HLD. The patient claimed she had EGD and colonoscopy in 04/2016 at [facility] in [place], [place], per Dr. Luna, & was told of "IBS, gastritis, & GERD". There is a family history of Crohn's disease (pt's F). The patient's mother who passed her lungs CTA had diverticulitis. There is no family history of any additional GI disease, GI CA, inherited pancreatitis, GBD, PUD, hypertriglyceridemia, or inherited liver disease. She claimed she had multiple ultrasounds and HIDA scans per Dr. Angeles, all "negative except fatty liver". She claimed she had a FibroScan of her liver in [address] Angeles, which reportedly showed "fatty liver & some fibrosis". She never had a liver biopsy. She denied any hx cirrhosis or prior abdominal surgery. Her last 08/21/17: CT AP with IV cont- no acute pancreatic process, just chronic dilated CBD. *She was on chronic narcotics for back pain, which could be contributing to her chronically dilated CBD, by increasing tone at the Sphincter of Oddi. After switching from Dr. Angeles to Dr. Linares, she had: 09/25/17: MR ABDOMEN WITH AND WITHOUT CONTRAST- 1. Mild acute pancreatitis at the pancreatic head at the pancreaticoduodenal groove. No evidence of fluid collections or pancreatic necrosis. No obstructing lesions or calculi. 2. Dilatation of the common bile duct 1.6 cm (w/o change) and pancreatic duct (6 mm), likely related to the inflammation at the pancreatic head. No pancreatic cysts or lesions seen. Mild intrahepatic dilitation. No choledocholithiasis. 3. Hydropic GB without cholelithiasis or cholecystitis. 4. Tiny fat-containing umbilical hernia. When last seen at [facility] 05/25/16, Utox was positive for benzodiazepines. She denied any Sulfa medications, NSAIDs, or herbal medications. Aparently, she was on HCTZ, as above. She was not admitted to the hospital again for pancreatitis until 10/17/17, although she had multiple ER visits for abdominal pain. The patient presented to the [facility] ER 10/17/17 at 12:09 p.m., c/o upper abdominal/epigastric sharp, burning, stabbing pain ("10 out of 10") x 1 day, in a bandlike pattern to the back, somewhat worse with deep inspiration. There was no definite positional component. She had nausea and vomiting x 2-> clear/bile, without blood. There was no melena. She had no sx of GERD, odynophagia, dysphagia, or early satiety, She denied any fevers (but ? chills), FFI, jaundice , dark urine, light stool, pruritus, or weight loss. She noted weight gain. She denied any prior abdominal surgery. Upon arrival to the ER, BP 166/100, P 90, R 20, T 97, O2 sat RA 98%. She was txd in the ER with IV NS/RL, MS, Phenergan, Zofran, Dilaudid, & Mg. She seemed to have poor insight into her HLD. She denied any constipation, obstipation, tnesmus, or BRBPR. She initially denied diarrhea, then admitted to it intermittently as an outpt (? IBS-D). She was NPO at the time of her GI consult. 10/17/17: Admission labs- WBC 9.4 (90% gran/9 gran Ab), H/H 13.4/39.4, MCV 93.8, RDW 14.6, PLT 330, PT 11.5, INR 1.10, PTt 26, glu 106, BUN/Cr 9/0.7, GFR > 60, Na 138, K 4,4, HCO3 23, AG 14, amylase 255, *lipase 6057, Mg 1.4, Ca 9.6, alb 4.4, glob 2.9, TBil 0.7, alk phos 106, AST 43, ALT 43, *[EtOH] < 10, *TG 912, TChol 284, HDL 62 (not able to calculate LDL due to TG), serum HCG- neg. 10/17/16: U/A- hazy, yellow, > 1.030, 6.0, tr prot, micro- otherwise essentially negative; negative nitrite, negative esterase; Urine - negative: Utox- not sent. 10/18/16: WBC 4.2, H/H 10.9/31.7, PLT 203, BUN/Cr 5/0.7, GFR > 60, Na 136, K 3.5 , HCO3 25, AG 6. *The patient's recurrent pancreatitis is undoubtedly due to her poorly controlled hyperTG, superimposed on additional risk factors for pancreatitis, including cigarette smoking and intermittent EtOH. Numerous imaging studies have failed to reveal any acute biliary process.*She is on chronic narcotics ( Percocet & Dilaudid) for chronic back pain, which could be contributing to her chronically dilated CBD, by increasing tone at the Sphincter of Oddi. Her LFTs were essentially normal, keeping in mind her fatty liver. *On admission, 0 grave signs by Mabel criteria, but no LDH sent. *On admission, 0 grave signs by BiSAP criteria, but no CXR done to rule out pleural effusions. *She had no imaging studies on admission, however she recently had 08/21/17: CT AP with IV contrast & 09/25/17: MRI abdomen with & w/o contrast, failure to reveal any evidence of pancreatic necrosis. I feel that at present, the only reason to repeat a CT AP with IV contrast would be to exclude pancreatic necrosis, which clinically is unlikely. I would only pursue this if the patient deteriorated. Her mildly decreased magnesium is noted, and it should be kept in mind that she is on PPI, which can cause this. Please note, the level of lipase elevation has no bearing on prognosis regarding pancreatitis. In fact, lipase levels may go up when the TG improve. *SUGGEST- NPO for now. *Aggressive IVF-> increase IVF to Ringer's lactate to 200cc/hr. Strict I/O's. Supplemental O2 as needed. *Get CXR (r/o pleural effusion). *Add LDH to 10/17/17: admission labs. *Continue Tricor as per medical team. *Consider endocrine consult re: HLD. Discontiue cigarettes & EtOH (poor insight). Analgesics per medical team. Avoid NSAIDs. Ativan as needed. DVT prophylaxis. Replete Mg. Carefully continue PPI for GERD. *Zofran as needed. Risk factor modification for fatty liver (ie.- strict control of body weight, glucose, lipids, BP, avoid EtOH, etc). Consider eventual Vitamin E 800 IU po daily. Watch for hemoconcentration (i.e.- rising BUN or Hgb), despite IV fluids, which would be a poor prognostic sign. *Check CRP for prognostic purposes. *Consider checking fecal elastase (probable IBS-D; rule out pancreatic insufficiency, but no pancreatic calcifications seen on previous imaging studies). *Consider outpt EUS to better define CBD, PD, ampulla, & pancreatic head, but most likely, the patient's chronically dilated ducts are from chronic narcotic use for her back pain. In view of the markedly elevated TG, will defer checking IgG4 levels ( doubt autoimmune pancreatitis), and/or genetic markers such as CFTR, SPINK mutation, and/or PRSS1 (in view of the patient's age, as well). The above was discussed with the medical house staff. The patient will follow-up with Dr. Linares for GI after discharge. Further GI recommendations to follow, depending on clinical course. Problem List: 1. Pancreatitis 2. Abdominal pain 3. Nausea & vomiting 4. Hypertriglyceridemia 5. Fatty liver 6. GERD (gastroesophageal reflux disease) Copies To: Augustus ALBA,Christen; Bennett ALBA,Chevy; Shea MEDINA,Marjorie Monge; Vijay ALBA, Lois; Osito ALBA PHD,Arash Sam Consult Acknowledgment - Thank you for your consult request.
--- NOTE | 2017-10-18 19:10 | RADIOLOGY REPORT ---
EXAMINATION: XR PORTABLE CHEST CLINICAL INFORMATION: Pleural effusion due to pancreatitis. Abdominal pain. COMPARISON: Chest x-ray 08/21/2017. MR abdomen 09/25/2017 TECHNIQUE: Portable frontal view of the chest was obtained. 5:50 PM FINDINGS: No significant abnormality is noted involving the heart, lungs, mediastinum, bony thorax or soft tissues. There is no pleural effusion. IMPRESSION: Unremarkable examination. There is no pleural effusion.
[2017-10-18 22:06] VITALS: BP 130/80
[2017-10-19 06:23] VITALS: BP 134/82
--- NOTE | 2017-10-19 07:51 | PN- Housestaff ---
Micah ALBA,[facility] 10/19/17 0751: Subjective Follow-up For: Pancreatitis Subjective: Patient states that her shortness of breath abdominal pain with the same. Continues to have worsening left-sided abdominal pain compared to the right or epigastric pain.. Review of Systems Constitutional: Reports: no symptoms. Cardiovascular: Reports: no symptoms. Respiratory: Reports: short of breath. Gastrointestinal: Reports: see HPI, abdominal pain. Genitourinary: Reports: no symptoms. Objective Last 24 Hrs of Vital Signs/I&O Vital Signs Date Time Temp Pulse Resp B/P B/P Pulse O2 O2 Flow FiO2 Mean Ox Delivery Rate 10/19 1414 98.8 100 18 132/80 98 Room Air 10/19 1139 98.1 97 18 126/76 95 Room Air 10/19 0623 98.6 84 18 134/82 96 Room Air 10/18 2206 99.1 95 20 130/80 95 Room Air Intake & Output 10/19 1600 10/19 0800 10/19 0000 Intake Total 1600 800 Output Total Balance 1600 800 Intake, IV 1600 800 Physical Exam General Appearance: Alert, Oriented X3, Cooperative, Moderate Distress Skin Temp/Moisture Exam: Warm/Dry Cardiovascular: Regular Rate, Normal S1, Normal S2 Lungs: Clear to Auscultation, Normal Air Movement Abdomen: hyperactive bowel sounds, diffuse abd tenderness more prominent on L Extremities: 2+ radial pulses Current Medications: Current Medications Sig/Adam Start time Last Medication Dose Route Stop Time Status Admin Acetaminophen 650 MG Q6P PRN 10/17 1730 AC PO Acetaminophen 1,000 MG Q6P PRN 10/17 1730 AC 10/18 IV 0700 Enoxaparin Sodium 40 MG DAILY 10/18 1000 10/19 SC 0925 Fenofibrate 48 MG DAILY 10/18 1000 10/19 PO 0924 Hydromorphone HCl 1 MG Q4P PRN 10/19 1045 AC 10/19 IV 1309 Hydromorphone HCl 1 MG Q4-6 PRN PRN 10/18 1030 DC 10/19 IV 0835 Lactated Ringer's 1,000 ML .Q5H 10/17 1730 AC 10/19 IV 0652 Lorazepam 0 Q1P PRN 10/17 1830 AC 10/19 IV 0024 Magnesium Sulfate 1 GM Q2H 10/19 1415 AC Dextrose/Water 100 ML IV 10/19 1814 Magnesium Sulfate 1 GM ONCE ONE 10/19 0545 DC 10/19 Dextrose/Water 100 ML IV 10/19 0944 0926 Ondansetron HCl 4 MG Q6-PRN PRN 10/17 1730 AC 10/18 PO 0015 Oxycodone HCl 10 MG Q12 10/19 1100 AC 10/19 PO 1337 Pantoprazole Sodium 40 MG DAILY 10/19 1400 AC IV Potassium Chloride 10 MEQ Q1H 10/19 1415 AC IV 10/19 1516 Last 24 Hrs of Lab/Hansel Results Last 24 Hrs of Labs/Mics: Laboratory Tests 10/19/17 1040: Total Bilirubin Cancelled, Direct Bilirubin Cancelled, AST Cancelled, ALT Cancelled, Alkaline Phosphatase Cancelled, Total Protein Cancelled, Albumin Cancelled, Lipase Cancelled 10/19/17 0805: Anion Gap 7, Estimated GFR > 60, BUN/Creatinine Ratio 6.7 L, Magnesium 1.6, Total Bilirubin 1.0, Direct Bilirubin 0.5 H, AST 19, ALT 33, Alkaline Phosphatase 59, C-Reactive Prot, Quant > 9.0 H, C-React Prot High Sens > 15.0 H, Total Protein 4.9 L, Albumin 2.6 L, Lipase 745 H, CBC w Diff NO MAN DIFF REQ, RBC 3.11 L, MCV 93.1, MCH 32.4 H, RDW 14.0, MPV 6.7 L, Gran % 74.0, Lymphocytes % 19.5 L, Monocytes % 3.7, Eosinophils % 2.5, Basophils % 0.3, Absolute Granulocytes 4.3, Absolute Lymphocytes 1.1 L, Absolute Monocytes 0.2, Absolute Eosinophils 0.1, Absolute Basophils 0, PUBS MCHC 34.8, IgG Total Pending, IgG1 Pending, IgG2 Pending, IgG3 Pending, IgG4 Pending 10/19/17 0600: Ref Lab Test Result Cancelled Orders CIWA Score (last 24 hrs): 0 Assessment/Plan Assessment: 41 yo F pmhx of pancreatitis (etoh vs hypertriglycerides), ?etoh abuse, htn - no longer on hctz, asthma, gerd, IBS, fibromyalgia, chronic back pain presenting for acute pancreatitis #acute pancreatitis WBC 5.8 AST 19, ALT 33, ALP 59 Total bili 1.0, direct bili 0.5, Triglycerides 912, cholesterol 284 amylase 255, lipase 6047 -> 745 beta hcg negative CXR: Unremarkable examination. There is no pleural effusion. LDH normal CRP elevated >9 -f/u endocrinology consult for HLD -Currently on clear liquid diet, -continue fenofibrate -cont lactated ringers, zofran prn, pain control -strict I/O -consider endo consult -AVOID NSAIDS -Risk factor modification for fatty liver -crp for prognostic purposes -consider fecal elastase, outpatient EUS #hx of ?etoh abuse -continue CIWA and ativan prn #low mg, low K+ MG 1.6, k 3.5 -replenish as needed #GERD -CONT protonix #lovenox for DVT prophylaxis #FULL CODE Problem List: 1. Acute pancreatitis Pain Ratin Pain Location: L abd Pain Goal: Pain 4 or less Pain Plan: pain pathway Tomorrow's Labs & Rationales: cbc bep mg Carlos Braun 10/19/17 1128: Attending MD Review Statement Attending Statement Attending MD Statement: examined this patient, discuss w/resident/PA/AIRCRAFT MACHINIST HELPER, agreed w/resident/PA/AIRCRAFT MACHINIST HELPER, discussed with family, reviewed EMR data (avail), discussed with nursing, discussed with case mgmt, reviewed images, amended to note Attending Assessment/Plan: 41F PMH HTN, HLD, IBS-D, chronic pain, fibromyalgia, history of pancreatitis presenting with severe epigastric pain in the setting of acute and recurrent pancreatitis. Patient is still c.o severe pain and requesting increase of pain meds. Afebrile, vitals stable, labs show elevated triglycerides and lipase, Abnormal MRI abdomen with dilated CBD and pancreatic duct 2 weeks ago. LFTS AST/ALT 43/43 ALP 106 Bili 0.7 Obtain LFTs today c/w advance diet as tolerated,, IV hydration, pain control with dialudid, Fenofibrate for triglycerides, GI f/u recurrent pancereatitis and abnormal MRI abdomen findings. Follow LFTs. Endo consult. continue home meds, DVT PPx. F/u O /P GI for possible EUS in future.
[2017-10-19 09:27] LABS: ABSOLUTE BASOPHIL COUNT 0 /CUMM (0.0-0.2); ABSOLUTE EOSINOPHIL COUNT 0.1 /CUMM (0.0-0.7); ABSOLUTE GRANULOCYTE CT 4.3 /CUMM (1.4-6.5); ABSOLUTE LYMPH COUNT 1.1 /CUMM (1.2-3.4); ABSOLUTE MONOCYTE COUNT 0.2 /CUMM (0.10-0.60); BASOPHIL % 0.3 % (0.0-2.0); EOSINOPHIL % 2.5 % (0-5); HEMATOCRIT 28.9 % (37-47); MEAN CORPUSCULAR HGB 32.4 PG (27.0-31.0); MEAN CORPUSCULAR HGB CONC 34.8 G/DL (33.0-37.0); MEAN CORPUSCULAR VOLUME 93.1 FL (81.0-99.0); MEAN PLATELET VOLUME 6.7 FL (7.4-10.4); PLATELET COUNT 189 /CUMM (130-400); RED BLOOD CELL CT 3.11 /CUMM (4.20-5.40); WHITE BLOOD CELL COUNT 5.8 /CUMM (4.8-10.8)
[2017-10-19 11:39] VITALS: BP 126/76
[2017-10-19 14:14] VITALS: BP 132/80
--- NOTE | 2017-10-19 16:42 | PN- Gastroenterology ---
Assessment/Plan Assessment/Recommendations: 41 y/o female, fair historian, HTN, non-DM, HLD, obese, FCBD, fibromyalgia, asthma, seen by myself in inpatient GI consultation 05/25/16 for hypertriglyceride-induced pancreatitis, with TG 1277 then. For some reason, she was never put on anti-lipid medications. She has a history of cigarette smoking & moderate EtOH, the latter of which she appeared to be down playing. She previously drank heavily years ago, but now admitted to "a few drinks a week". She drank again over New Year's. She denied any illicit drug use. Her gallbladder is intact. Additionally, she has fatty liver. Since I last saw her year and a half ago, she changed essentially all of her physicians. She previously was followed by Dr. Ayse Angeles for GI, in [place], [place], but switched to Dr. Linares, whom she saw as an outpt in 08/2017. She also switched to [facility] for primary care, & sees Dr. Guajardo for [facility], who apparently put her on HCTZ (*note- hx pancreatitis). Finally, she saw Dr. Mcneill, of cardiology, for atypical CP & reportedly had a negative w/u, with : echocardiogram- WNL. She does not follow up with outpatient endocrine for her HLD. The patient claimed she had EGD and colonoscopy in 04/2016 at [facility] in [place], [place], per Dr. Luna, & was told of "IBS, gastritis, & GERD". There is a family history of Crohn's disease (pt's F). The patient's mother who passed her lungs CTA had diverticulitis. There is no family history of any additional GI disease, GI CA, inherited pancreatitis, GBD, PUD, hypertriglyceridemia, or inherited liver disease. She claimed she had multiple ultrasounds and HIDA scans per Dr. Angeles, all "negative except fatty liver". She claimed she had a FibroScan of her liver in [address] Angeles, which reportedly showed "fatty liver & some fibrosis". She never had a liver biopsy. She denied any hx cirrhosis or prior abdominal surgery. Her last 08/21/17: CT AP with IV cont- no acute pancreatic process, just chronic dilated CBD. *She was on chronic narcotics for back pain, which could be contributing to her chronically dilated CBD, by increasing tone at the Sphincter of Oddi. After switching from Dr. Angeles to Dr. Linares, she had: 09/25/17: MR ABDOMEN WITH AND WITHOUT CONTRAST- 1. Mild acute pancreatitis at the pancreatic head at the pancreaticoduodenal groove. No evidence of fluid collections or pancreatic necrosis. No obstructing lesions or calculi. 2. Dilatation of the common bile duct 1.6 cm (w/o change) and pancreatic duct (6 mm), likely related to the inflammation at the pancreatic head. No pancreatic cysts or lesions seen. Mild intrahepatic dilitation. No choledocholithiasis. 3. Hydropic GB without cholelithiasis or cholecystitis. 4. Tiny fat-containing umbilical hernia. When last seen at [facility] 05/25/16, Utox was positive for benzodiazepines. She denied any Sulfa medications, NSAIDs, or herbal medications. Aparently, she was on HCTZ, as above. She was not admitted to the hospital again for pancreatitis until 10/17/17, although she had multiple ER visits for abdominal pain. The patient presented to the [facility] ER 10/17/17 at 12:09 p.m., c/o upper abdominal/epigastric sharp, burning, stabbing pain ("10 out of 10") x 1 day, in a bandlike pattern to the back, somewhat worse with deep inspiration. There was no definite positional component. She had nausea and vomiting x 2-> clear/bile, without blood. There was no melena. She had no sx of GERD, odynophagia, dysphagia, or early satiety, She denied any fevers (but ? chills), FFI, jaundice , dark urine, light stool, pruritus, or weight loss. She noted weight gain. She denied any prior abdominal surgery. Upon arrival to the ER, BP 166/100, P 90, R 20, T 97, O2 sat RA 98%. She was txd in the ER with IV NS/RL, MS, Phenergan, Zofran, Dilaudid, & Mg. She seemed to have poor insight into her HLD. She denied any constipation, obstipation, tnesmus, or BRBPR. She initially denied diarrhea, then admitted to it intermittently as an outpt (? IBS-D). She was NPO at the time of her GI consult. 10/17/17: Admission labs- WBC 9.4 (90% gran/9 gran Ab), H/H 13.4/39.4, MCV 93.8, RDW 14.6, PLT 330, PT 11.5, INR 1.10, PTt 26, glu 106, BUN/Cr 9/0.7, GFR > 60, Na 138, K 4,4, HCO3 23, AG 14, amylase 255, *lipase 6057, Mg 1.4, Ca 9.6, alb 4.4, glob 2.9, TBil 0.7, alk phos 106, AST 43, ALT 43, *[EtOH] < 10, *TG 912, TChol 284, HDL 62 (not able to calculate LDL due to TG), serum HCG- neg. 10/17/16: U/A- hazy, yellow, > 1.030, 6.0, tr prot, micro- otherwise essentially negative; negative nitrite, negative esterase; Urine - negative: Utox- not sent. 10/18/16: WBC 4.2, H/H 10.9/31.7, PLT 203, BUN/Cr 5/0.7, GFR > 60, Na 136, K 3.5 , HCO3 25, AG 6. *The patient's recurrent pancreatitis is undoubtedly due to her poorly controlled hyperTG, superimposed on additional risk factors for pancreatitis, including cigarette smoking and intermittent EtOH. Numerous imaging studies have failed to reveal any acute biliary process.*She is on chronic narcotics ( Percocet & Dilaudid) for chronic back pain, which could be contributing to her chronically dilated CBD, by increasing tone at the Sphincter of Oddi. Her LFTs were essentially normal, keeping in mind her fatty liver. *On admission, 0 grave signs by [place] criteria, but no LDH sent. *On admission, 0 grave signs by [facility] criteria, but no CXR done to rule out pleural effusions. *She had no imaging studies on admission, however she recently had 08/21/17: CT AP with IV contrast & 09/25/17: MRI abdomen with & w/o contrast, failure to reveal any evidence of pancreatic necrosis. I feel that at present, the only reason to repeat a CT AP with IV contrast would be to exclude pancreatic necrosis, which clinically is unlikely. I would only pursue this if the patient deteriorated. Her mildly decreased magnesium is noted, and it should be kept in mind that she is on PPI, which can cause this. Please note, the level of lipase elevation has no bearing on prognosis regarding pancreatitis. In fact, lipase levels may go up when the TG improve. 10/18/17: XRY-PORTABLE CHEST XRAY- Unremarkable examination. There is no pleural effusion, CHF, or infiltrate. 10/18/17: LDH 367 (*obtained HD #2). 10/19/17: WBC 5.8, H/H 10.1/28.9, MCV 93.1, RDW 14.0, PLT 189, BUN/Cr 4/0.6, GFR > 60, Na 136, K 3.5, HCO3 24, AG 7, Mg 1.6, albumin 2.6, globulin 2.3, TBil 1.0, DBil 0.5, alk phos 59, AST 19, ALT 33, lipase 745 (6057) 10/19/17: *CRP > 9.0 (< 1.0). 10/19/17: *IgG4 level- pending. *As of 10/19/17, the patient remained hemodynamically stable (borderline tachycardic) & afebrile, with O2 sat RA 98%. There was no evidence of hemoconcentration. The patient's Hgb & BUN dropped appropriately after IVF. * Tricor 48 mg daily was rxd by the medical team 10/18/17 for hyperTG. Endocrine consult was pending. She tolerated clears po. Her abdominal pain was much improved. She denied any significant nausea or vomiting. She did have chronic symptoms of fibromyalgia and her usual chronic IBS. There was no jaundice. She denied any fevers or chills. She was ambulating. *SUGGEST- *Continue clears po as tolerated & if stable, full liquids po tomorrow a.m. * Aggressive IVF-> Ringer's lactate @ 200cc/hr. Strict I/O's. Supplemental O2 as needed. *Continue Tricor as per medical team. *Consider endocrine consult re: HLD. Discontiue cigarettes & EtOH (poor insight). Analgesics per medical team. Avoid NSAIDs. Ativan as needed. DVT prophylaxis. Replete Mg. Carefully continue PPI for GERD. *Zofran as needed. Risk factor modification for fatty liver (ie. - strict control of body weight, glucose, lipids, BP, avoid EtOH, etc). Consider eventual Vitamin E 800 IU po daily. Watch for hemoconcentration (i.e.- rising BUN or Hgb), despite IV fluids, which would be a poor prognostic sign. Consider checking fecal elastase (probable IBS-D; rule out pancreatic insufficiency, but no pancreatic calcifications seen on previous imaging studies ). Consider outpt EUS to better define CBD, PD, ampulla, & pancreatic head, but most likely, the patient's chronically dilated ducts are from chronic narcotic use for her back pain. In view of the markedly elevated TG & age, will defer checking genetic markers such as CFTR, SPINK mutation, and/or PRSS1. Await 10/19/17: *IgG4 level (doubt autoimmune pancreatitis). The above was discussed with the medical house staff. The patient will follow-up with Dr. Linares for GI after discharge. Further GI recommendations to follow, depending on clinical course. Hopeful D/C to home soon, if the patient continues to clinically improve. Problem List: 1. Pancreatitis 2. Abdominal pain 3. Nausea & vomiting 4. Hypertriglyceridemia 5. Fatty liver 6. GERD (gastroesophageal reflux disease) 7. Malnutrition Subjective Subjective: 10/18/17: XRY-PORTABLE CHEST XRAY- Unremarkable examination. There is no pleural effusion, CHF, or infiltrate. 10/18/17: LDH 367 (*obtained HD #2). 10/19/17: WBC 5.8, H/H 10.1/28.9, MCV 93.1, RDW 14.0, PLT 189, BUN/Cr 4/0.6, GFR > 60, Na 136, K 3.5, HCO3 24, AG 7, Mg 1.6, albumin 2.6, globulin 2.3, TBil 1.0, DBil 0.5, alk phos 59, AST 19, ALT 33, lipase 745 (6057) 10/19/17: *CRP > 9.0 (< 1.0). 10/19/17: *IgG4 level- pending. *As of 10/19/17, the patient remained hemodynamically stable (borderline tachycardic) & afebrile, with O2 sat RA 98%. There was no evidence of hemoconcentration. The patient's Hgb & BUN dropped appropriately after IVF. * Tricor 48 mg daily was rxd by the medical team 10/18/17 for hyperTG. Endocrine consult was pending. She tolerated clears po. Her abdominal pain was much improved. She denied any significant nausea or vomiting. She did have chronic symptoms of fibromyalgia and her usual chronic IBS. There was no jaundice. She denied any fevers or chills. She was ambulating. Review of Systems: Full 14 point ROS otherwise noncontributory and as per HPI. Review of Systems Constitutional: Denies: diaphoresis, fever, chills, malaise, weakness, unexplained weight loss. EENTM: Denies: blurred vision, double vision, visual changes, eye pain, eye drainage, eye tearing, icterus, ear discharge, ear pain, ear redness, hearing changes, nasal congestion, epistaxis, nasal pain, throat pain, throat swelling, mouth pain, tooth pain. Cardiovascular: Denies: chest pain, edema, orthopena, palpitations, peripheral edema, syncope. Respiratory: Denies: cough, hemoptysis, orthopnea, short of breath, sputum production, stridor, wheezing. GI: Reports: abdominal pain- much improved; nausea & vomiting- resolved. Denies: bloating, constipation, diarrhea, distention, bowel incontinence, melena , bloody stool, changes in stool, steatorrhea. Genitourinary: Denies: discharge, dysuria, frequency, hematuria, hesitation, nocturia, pain, urgency. Musculoskeletal: Reports: back pain (chronic). Denies: gout, joint pain, joint swelling, muscle pain, muscle stiffness, neck pain. Skin: Denies: cysts, change in skin color, change in hair/nails, dryness, erythema, jaundice, lesions, lymphangitis, lumps, moles, rash. Neurological/Psychological: Reports: anxiety, emotional problems. Denies: ataxia, cognitive dysfunction, confusion, depressed, dementia, headache, numbness, paresthesia, pre-existing deficit, petit mal seizures, tingling, tremors, tonic-clonic seizures, unable to move lower ext, unable to move upper ext, weakness. Hematologic/Endocrine: Denies: bruising, bleeding, polyuria, polydipsia. Immunologic/Allergic: Denies: splenectomy, HIV/AIDS, lymphadenopathy. All Other Systems: Reviewed and Negative Objective Vital Signs and I&Os Vital Signs Date Time Temp Pulse Resp B/P B/P Pulse O2 O2 Flow FiO2 Mean Ox Delivery Rate 10/19 1414 98.8 100 18 132/80 98 Room Air 10/19 1139 98.1 97 18 126/76 95 Room Air 10/19 0623 98.6 84 18 134/82 96 Room Air 10/18 2206 99.1 95 20 130/80 95 Room Air Intake & Output 10/19 1600 10/19 0400 10/18 1600 10/18 0400 10/17 1600 10/17 0400 Intake Total 2000 800 2900 3100 Output Total 600 Balance 2000 800 2300 3100 Intake, IV 0727 105 8232 3100 Intake, Oral 400 100 Number 0 Bowel Movements Output, Urine 600 Patient 220 lb 220 lb Weight Weight Estimated Measurement Method Physical Exam: Well-developed, well-nourished, obese female, in NAD. Sclera anicteric. Conjunctiva pink. Oropharynx clear. No oral thrush. No apthous ulcers. There is no adenopathy, thyromegaly, or JVD. No peripheral stigmata of inflammatory bowel disease or chronic liver disease on exam. No spiders on the anterior chest wall. No CVA tenderness. Lungs: clear to A&P. No wheezing, rales, or rhonchi. Heart exam: regular rate rhythm, S1 and S2, without any murmur. Abdominal exam: normal bowel sounds, soft obese belly, currently nontender, without guarding or rebound. Tiny reducible umbilical hernia, otherwise, no mass. No splenomegaly. Enlarged liver approximately 15 cm. Negative Naik sign. No fluid shift. No pulsatile mass. Digital rectal exam: deferred by patient ("recently normal at Dr. Guajardo"). Extremities: without cyanosis or clubbing. Trace pedal edema B/ L. No palpable cords. No acute arthropathy. No rash. No palmar erythema. No Dupuytren's contractures. Distal pulses 1+ bilaterally. DTRs 1+ bilaterally. Alert and oriented x 3. No tremor or asterixis. Current Medications: Current Medications Sig/Adam Start time Last Medication Dose Route Stop Time Status Admin Acetaminophen 650 MG Q6P PRN 10/17 1730 AC PO Acetaminophen 1,000 MG Q6P PRN 10/17 1730 AC 10/18 IV 0700 Enoxaparin Sodium 40 MG DAILY 10/18 1000 AC 10/19 SC 0925 Fenofibrate 48 MG DAILY 10/18 1000 AC 10/19 PO 0924 Hydromorphone HCl 1 MG Q4P PRN 10/19 1045 AC 10/19 IV 1309 Hydromorphone HCl 1 MG Q4-6 PRN PRN 10/18 1030 DC 10/19 IV 0835 Lactated Ringer's 1,000 ML .Q5H 10/17 1730 AC 10/19 IV 0652 Lorazepam 0 Q1P PRN 10/17 1830 AC 10/19 IV 0024 Magnesium Sulfate 1 GM Q2H 10/19 1415 AC Dextrose/Water 100 ML IV 10/19 1814 Magnesium Sulfate 1 GM ONCE ONE 10/19 0545 DC 10/19 Dextrose/Water 100 ML IV 10/19 0944 0926 Ondansetron HCl 4 MG Q6-PRN PRN 10/17 1730 AC 10/18 PO 0015 Oxycodone HCl 10 MG Q12 10/19 1100 AC 10/19 PO 1337 Pantoprazole Sodium 40 MG DAILY 10/19 1400 AC IV Potassium Chloride 10 MEQ Q1H 10/19 1415 DC IV 10/19 1516 Results Pertinent Lab Results: Laboratory Tests 10/19 10/19 10/19 1040 0805 0600 Chemistry Sodium (137 - 145 mmol/L) 136 L Potassium (3.5 - 5.1 mmol/L) 3.5 Chloride (98 - 107 mmol/L) 104 Carbon Dioxide (22 - 30 mmol/L) 24 Anion Gap (5 - 16) 7 BUN (7 - 17 mg/dL) 4 L Creatinine (0.5 - 1.0 mg/dL) 0.6 Estimated GFR (>60 ml/min) > 60 BUN/Creatinine Ratio (7 - 25 %) 6.7 L Magnesium (1.6 - 2.3 mg/dL) 1.6 Total Bilirubin (0.2 - 1.3 mg/dL) Cancelled 1.0 Direct Bilirubin (< 0.4 mg/dL) Cancelled 0.5 H AST (14 - 36 U/L) Cancelled 19 ALT (9 - 52 U/L) Cancelled 33 Alkaline Phosphatase (<127 U/L) Cancelled 59 C-Reactive Prot, Quant (<1.0 mg/dL) > 9.0 H C-React Prot High Sens (1.0 - 3.0 mg/L) > 15.0 H Total Protein (6.3 - 8.2 g/dL) Cancelled 4.9 L Albumin (3.5 - 5.0 g/dL) Cancelled 2.6 L Lipase (23 - 300 U/L) Cancelled 745 H Hematology CBC w Diff NO MAN DIFF REQ WBC (4.8 - 10.8 /CUMM) 5.8 RBC (4.20 - 5.40 /CUMM) 3.11 L Hgb (12.0 - 16.0 G/DL) 10.1 L Hct (37 - 47 %) 28.9 L MCV (81.0 - 99.0 FL) 93.1 MCH (27.0 - 31.0 PG) 32.4 H RDW (11.5 - 14.5 %) 14.0 Plt Count (130 - 400 /CUMM) 189 MPV (7.4 - 10.4 FL) 6.7 L Gran % (42.2 - 75.2 %) 74.0 Lymphocytes % (20.5 - 51.1 %) 19.5 L Monocytes % (1.7 - 9.3 %) 3.7 Eosinophils % (0 - 5 %) 2.5 Basophils % (0.0 - 2.0 %) 0.3 Absolute Granulocytes (1.4 - 6.5 /CUMM) 4.3 Absolute Lymphocytes (1.2 - 3.4 /CUMM) 1.1 L Absolute Monocytes (0.10 - 0.60 /CUMM) 0.2 Absolute Eosinophils (0.0 - 0.7 /CUMM) 0.1 Absolute Basophils (0.0 - 0.2 /CUMM) 0 PUBS MCHC (33.0 - 37.0 G/DL) 34.8 Immunology IgG Total Pending IgG1 Pending IgG2 Pending IgG3 Pending IgG4 Pending Miscellaneous Ref Lab Test Result Cancelled 10/18 10/17 8188 5130 Chemistry Sodium (137 - 145 mmol/L) 136 L Potassium (3.5 - 5.1 mmol/L) 3.5 Chloride (98 - 107 mmol/L) 105 Carbon Dioxide (22 - 30 mmol/L) 25 Anion Gap (5 - 16) 6 BUN (7 - 17 mg/dL) 5 L Creatinine (0.5 - 1.0 mg/dL) 0.7 Estimated GFR (>60 ml/min) > 60 BUN/Creatinine Ratio (7 - 25 %) 7.1 Magnesium (1.6 - 2.3 mg/dL) 1.6 Lactate Dehydrogenase (313 - 618 U/L) 367 Hematology CBC w Diff NO MAN DIFF REQ WBC (4.8 - 10.8 /CUMM) 4.2 L RBC (4.20 - 5.40 /CUMM) 3.36 L Hgb (12.0 - 16.0 G/DL) 10.9 L Hct (37 - 47 %) 31.7 L MCV (81.0 - 99.0 FL) 94.4 MCH (27.0 - 31.0 PG) 32.4 H RDW (11.5 - 14.5 %) 14.6 H Plt Count (130 - 400 /CUMM) 203 MPV (7.4 - 10.4 FL) 6.6 L Gran % (42.2 - 75.2 %) 75.5 H Lymphocytes % (20.5 - 51.1 %) 19.0 L Monocytes % (1.7 - 9.3 %) 2.7 Eosinophils % (0 - 5 %) 2.4 Basophils % (0.0 - 2.0 %) 0.4 Absolute Granulocytes (1.4 - 6.5 /CUMM) 3.2 Absolute Lymphocytes (1.2 - 3.4 /CUMM) 0.8 L Absolute Monocytes (0.10 - 0.60 /CUMM) 0.1 Absolute Eosinophils (0.0 - 0.7 /CUMM) 0.1 Absolute Basophils (0.0 - 0.2 /CUMM) 0 PUBS MCHC (33.0 - 37.0 G/DL) 34.3 Urines Urinalysis LIGHT H Urine Color (YEL,AMB,STR) YEL Urine Clarity (CLEAR) HAZY H Urine pH (5.0 - 8.0) 6.0 Ur Specific [place] (1.001 - 1.035) >= 1.030 Urine Protein (NEG,<30 MG/DL) TRACE H Urine Ketones (NEG) NEG Urine Nitrite (NEG) NEG Urine Bilirubin (NEG) NEG Urine Urobilinogen (0.1 - 1.0 EU/dl) 0.2 Ur Leukocyte Esterase (NEG) NEG Ur Microscopic SEDIMENT EXAMINED Urine RBC (0 - 5 /HPF) RARE Urine WBC (0 - 2 /HPF) RARE Ur Epithelial Cells (NONE,FEW) RARE Urine Bacteria (NEG/NONE) RARE H Urine Mucus (FEW,NONE) FEW Urine Hemoglobin (NEG) NEG Urine Glucose (N MG/DL) NEG Urine Test NEGATIVE 10/17 10/17 1535 1526 Chemistry Sodium (137 - 145 mmol/L) 138 Potassium (3.5 - 5.1 mmol/L) 4.4 Chloride (98 - 107 mmol/L) 101 Carbon Dioxide (22 - 30 mmol/L) 23 Anion Gap (5 - 16) 14 BUN (7 - 17 mg/dL) 9 Creatinine (0.5 - 1.0 mg/dL) 0.7 Estimated GFR (>60 ml/min) > 60 BUN/Creatinine Ratio (7 - 25 %) 12.9 Glucose (65 - 99 mg/dL) 106 H Calcium (8.4 - 10.2 mg/dL) 9.6 Magnesium (1.6 - 2.3 mg/dL) 1.4 L Total Bilirubin (0.2 - 1.3 mg/dL) 0.7 AST (14 - 36 U/L) 43 H ALT (9 - 52 U/L) 43 Alkaline Phosphatase (<127 U/L) 106 Total Protein (6.3 - 8.2 g/dL) 7.5 Albumin (3.5 - 5.0 g/dL) 4.4 Globulin (1.9 - 4.2 gm/dL) 3.1 Albumin/Globulin Ratio (1.1 - 2.2 %) 1.4 Triglycerides (<150 mg/dL) 912 H Cholesterol (<200 MG/DL) 284 H LDL Cholesterol Direct (<100 mg/dL) 87.63 LDL Cholesterol, Calc (65 - 129 mg/dL) ND HDL Cholesterol (40 - 60 mg/dL) 62 H Cholesterol/HDL Ratio (0.00 - 4.23 %) 4.6 H Amylase (30 - 110 U/L) 255 H Lipase (23 - 300 U/L) 6057 H Total Beta HCG (NEGATIVE) NEGATIVE Coagulation PT (9.4 - 12.5 SEC) 11.5 INR (0.90 - 1.19) 1.10 APTT (25 - 37 SEC) 26 Hematology CBC w Diff MAN DIFF ORDERED WBC (4.8 - 10.8 /CUMM) 9.4 RBC (4.20 - 5.40 /CUMM) 4.20 Hgb (12.0 - 16.0 G/DL) 13.4 Hct (37 - 47 %) 39.4 MCV (81.0 - 99.0 FL) 93.8 MCH (27.0 - 31.0 PG) 32.0 H RDW (11.5 - 14.5 %) 14.6 H Plt Count (130 - 400 /CUMM) 330 MPV (7.4 - 10.4 FL) 6.0 L Gran % (42.2 - 75.2 %) 90.3 H Lymphocytes % (20.5 - 51.1 %) 7.6 L Monocytes % (1.7 - 9.3 %) 2.0 Eosinophils % (0 - 5 %) 0.1 Basophils % (0.0 - 2.0 %) 0 Absolute Granulocytes (1.4 - 6.5 /CUMM) 8.5 H Absolute Lymphocytes (1.2 - 3.4 /CUMM) 0.7 L Absolute Monocytes (0.10 - 0.60 /CUMM) 0.2 Absolute Eosinophils (0.0 - 0.7 /CUMM) 0 Absolute Basophils (0.0 - 0.2 /CUMM) 0 Platelet Estimate (ADEQUATE) ADEQUATE Normocytic RBCs VERIFIED Normochromic RBCs VERIFIED PUBS MCHC (33.0 - 37.0 G/DL) 34.1 Toxicology Methadone Screen Cancelled Barbiturate Screen Cancelled Ur Phencyclidine Scrn Cancelled Amphetamines Screen Cancelled U Benzodiazepines Scrn Cancelled Urine Cocaine Screen Cancelled Urine Cannabis Screen Cancelled Serum Alcohol (<10 MG/DL) < 10.0 10/17 1525 Chemistry Magnesium Cancelled Toxicology Serum Alcohol Cancelled Imaging/Other Studies: [No EKG this admission, as of yet]. 09/25/17: MR ABDOMEN WITH AND WITHOUT CONTRAST- 1. Mild acute pancreatitis at the pancreatic head at the pancreaticoduodenal groove. No evidence of fluid collections or pancreatic necrosis. No obstructing lesions or calculi. 2. Dilatation of the common bile duct 1.6 cm (w/o change) and pancreatic duct (6 mm), likely related to the inflammation at the pancreatic head. No pancreatic cysts or lesions seen. Mild intrahepatic dilitation. No choledocholithiasis. 3. Hydropic GB without cholelithiasis or cholecystitis. 4. Tiny fat-containing umbilical hernia. [No imaging studies at time of 10/17/17: admission] 10/18/17: XRY-PORTABLE CHEST XRAY- Unremarkable examination. There is no pleural effusion, CHF, or infiltrate.
[2017-10-19 22:01] VITALS: BP 132/80
[2017-10-20 07:01] VITALS: BP 122/78
--- NOTE | 2017-10-20 07:14 | PN- Housestaff ---
Micah ALBA,[facility] 10/20/17 0714: Subjective Follow-up For: pancreatitis Subjective: No acute events overnight. Patient still complaining of diffuse abdominal pain. States that is worse on left side. States it is better than before. States the pain is 7 out of 10. States that she was tolerating clear liquids without any nausea. Review of Systems Constitutional: Reports: see HPI. Cardiovascular: Reports: no symptoms. Respiratory: Reports: no symptoms. Gastrointestinal: Reports: abdominal pain. Genitourinary: Reports: no symptoms. Musculoskeletal: Reports: no symptoms. Objective Last 24 Hrs of Vital Signs/I&O Vital Signs Date Time Temp Pulse Resp B/P B/P Pulse O2 O2 Flow FiO2 Mean Ox Delivery Rate 10/20 1512 97.9 98 18 128/72 97 10/20 0701 98.2 84 20 122/78 97 Room Air 10/19 2201 98.1 88 20 132/80 96 Intake & Output 10/20 1600 10/20 0800 10/20 0000 Intake Total 500 1720 540 Output Total Balance 500 1720 540 Intake, IV 1600 400 Intake, Oral 500 120 140 Patient 219 lb Weight Physical Exam General Appearance: Alert, Oriented X3, Cooperative, No Acute Distress Skin Temp/Moisture Exam: Warm/Dry Cardiovascular: Regular Rate, Normal S1, Normal S2 Lungs: Clear to Auscultation, Normal Air Movement Abdomen: Normal Bowel Sounds, diffuse abd tenderness worst on L side Extremities: 2+ radial pulses Current Medications: Current Medications Sig/Adam Start time Last Medication Dose Route Stop Time Status Admin Acetaminophen 650 MG Q6P PRN 10/17 1730 AC PO Acetaminophen 1,000 MG Q6P PRN 10/17 1730 AC 10/18 IV 0700 Enoxaparin Sodium 40 MG DAILY 10/18 1000 AC 10/20 SC 1322 Fenofibrate 48 MG DAILY 10/18 1000 AC 10/20 PO 1009 Fish Oil 2,100 MG DAILY 10/20 1445 AC PO Hydromorphone HCl 1 MG Q4P PRN 10/19 1045 AC 10/20 IV 1518 Lactated Ringer's 1,000 ML .Q8H 10/17 1730 AC 10/20 IV 1534 Lorazepam 0 Q1P PRN 10/17 1830 AC 10/19 IV 0024 Magnesium Sulfate 1 GM Q2H 10/19 1415 DC 10/19 Dextrose/Water 100 ML IV 10/19 [id number] Omeprazole 40 MG DAILY AC 10/21 0700 AC PO Ondansetron HCl 4 MG Q6-PRN PRN 10/17 1730 AC 10/18 PO 0015 Oxycodone HCl 10 MG Q12 10/19 1100 AC 10/20 PO 1010 Pantoprazole Sodium 40 MG DAILY 10/19 1400 DC 10/19 IV 1711 Potassium Chloride 40 MEQ ONCE ONE 10/19 184 DC 10/19 PO 10/19 Last 24 Hrs of Lab/Hansel Results Last 24 Hrs of Labs/Mics: Laboratory Tests 10/20/17 0730: Magnesium 2.0, Total Bilirubin 0.7, Direct Bilirubin 0.3, AST 22, ALT 34, Alkaline Phosphatase 70, Total Protein 5.1 L, Albumin 2.6 L, Triglycerides 204 H, Cholesterol 166, LDL Cholesterol, Calc 89, HDL Cholesterol 37 L, Cholesterol/HDL Ratio 5 H, Lipase 384 H Assessment/Plan Assessment: 41 yo F pmhx of pancreatitis (etoh vs hypertriglycerides), ?etoh abuse, htn - no longer on hctz, asthma, gerd, IBS, fibromyalgia, chronic back pain presenting for acute pancreatitis #acute pancreatitis AST 19, ALT 33, ALP 59 Total bili 1.0, direct bili 0.5, Triglycerides 912 -> 204, cholesterol 284 ->166 amylase 255, lipase 6047 -> 384 beta hcg negative CXR: Unremarkable examination. There is no pleural effusion. LDH normal CRP elevated >9 HgbA1c 5.0 -Currently on full liquid diet -continue fenofibrate, add fish oil 2gm daily -cont lactated ringers, zofran prn, pain control -strict I/O -AVOID NSAIDS -Risk factor modification for fatty liver -consider fecal elastase, outpatient EUS -monitor lft, fasting lipid panel in 1 month #hx of ?etoh abuse -continue CIWA and ativan prn #low mg, low K+ MG 1.6, k 3.5 -replenish as needed #GERD -CONT protonix #lovenox for DVT prophylaxis #FULL CODE Problem List: 1. Acute pancreatitis Pain Ratin Pain Location: abd Pain Goal: Pain 4 or less Pain Plan: pain pathway Tomorrow's Labs & Rationales: cbc bep Carlos Braun 10/20/17 1213: Attending MD Review Statement Attending Statement Attending MD Statement: examined this patient, discuss w/resident/PA/BAND BIAS MACHINE OPERATOR, agreed w/resident/PA/BAND BIAS MACHINE OPERATOR, discussed with family, reviewed EMR data (avail), discussed with nursing, discussed with case mgmt, reviewed images, amended to note Attending Assessment/Plan: 41F PMH HTN, HLD, IBS-D, chronic pain, fibromyalgia, history of pancreatitis presenting with severe epigastric pain in the setting of acute and recurrent pancreatitis. Patient is feeling better than yesterday, feels hungry. Afebrile, vitals stable, labs show elevated triglycerides and lipase, Abnormal MRI abdomen with dilated CBD and pancreatic duct 2 weeks ago. LFTS trend stable. c/w advance diet as tolerated, taper IV hydration, pain control with dialudid and oxycodone. Fenofibrate for triglycerides, GI f/u recurrent pancereatitis and abnormal MRI abdomen findings. Follow LFTs. Endo consulted for hypertriglyceridemia. continue home meds, DVT PPx. F/u O/P GI for possible EUS in future. Consider pain management referral as outpatient. Patient encouraged complaince with outpatient follow up visits and her medications. There is insurance issues also, f/u case management.
--- NOTE | 2017-10-20 08:48 | PN- Gastroenterology ---
Assessment/Plan Assessment/Recommendations: 41 y/o female, fair historian, HTN, non-DM, HLD, obese, FCBD, fibromyalgia, asthma, seen by myself in inpatient GI consultation 05/25/16 for hypertriglyceride-induced pancreatitis, with TG 1277 then. For some reason, she was never put on anti-lipid medications. She has a history of cigarette smoking & moderate EtOH, the latter of which she appeared to be down playing. She previously drank heavily years ago, but now admitted to "a few drinks a week". She drank again over New Year's. She denied any illicit drug use. Her gallbladder is intact. Additionally, she has fatty liver. Since I last saw her year and a half ago, she changed essentially all of her physicians. She previously was followed by Dr. Ayse Angeles for GI, in [place], [place], but switched to Dr. Linares, whom she saw as an outpt in 08/2017. 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 Finally, she saw Dr. Mcneill, of cardiology, for atypical CP & reportedly had a negative w/u, with : echocardiogram- WNL. She does not follow up with outpatient endocrine for her HLD. The patient claimed she had EGD and colonoscopy in 04/2016 at [facility] in [place], [place], per Dr. Luna, & was told of "IBS, gastritis, & GERD". There is a family history of Crohn's disease (pt's F). The patient's mother who passed her lungs CTA had diverticulitis. There is no family history of any additional GI disease, GI CA, inherited pancreatitis, GBD, PUD, hypertriglyceridemia, or inherited liver disease. She claimed she had multiple ultrasounds and HIDA scans per Dr. Angeles, all "negative except fatty liver". She claimed she had a FibroScan of her liver in [address] Angeles, which reportedly showed "fatty liver & some fibrosis". She never had a liver biopsy. She denied any hx cirrhosis or prior abdominal surgery. Her last 08/21/17: CT AP with IV cont- no acute pancreatic process, just chronic dilated CBD. *She was on chronic narcotics for back pain, which could be contributing to her chronically dilated CBD, by increasing tone at the Sphincter of Oddi. After switching from Dr. Angeles to Dr. Linares, she had: 09/25/17: MR ABDOMEN WITH AND WITHOUT CONTRAST- 1. Mild acute pancreatitis at the pancreatic head at the pancreaticoduodenal groove. No evidence of fluid collections or pancreatic necrosis. No obstructing lesions or calculi. 2. Dilatation of the common bile duct 1.6 cm (w/o change) and pancreatic duct (6 mm), likely related to the inflammation at the pancreatic head. No pancreatic cysts or lesions seen. Mild intrahepatic dilitation. No choledocholithiasis. 3. Hydropic GB without cholelithiasis or cholecystitis. 4. Tiny fat-containing umbilical hernia. When last seen at [facility] 05/25/16, Utox was positive for benzodiazepines. She denied any Sulfa medications, NSAIDs, or herbal medications. Aparently, she was on HCTZ, as above. She was not admitted to the hospital again for pancreatitis until 10/17/17, although she had multiple ER visits for abdominal pain. The patient presented to the [facility] ER 10/17/17 at 12:09 p.m., c/o upper abdominal/epigastric sharp, burning, stabbing pain ("10 out of 10") x 1 day, in a bandlike pattern to the back, somewhat worse with deep inspiration. There was no definite positional component. She had nausea and vomiting x 2-> clear/bile, without blood. There was no melena. She had no sx of GERD, odynophagia, dysphagia, or early satiety, She denied any fevers (but ? chills), FFI, jaundice , dark urine, light stool, pruritus, or weight loss. She noted weight gain. She denied any prior abdominal surgery. Upon arrival to the ER, BP 166/100, P 90, R 20, T 97, O2 sat RA 98%. She was txd in the ER with IV NS/RL, MS, Phenergan, Zofran, Dilaudid, & Mg. She seemed to have poor insight into her HLD. She denied any constipation, obstipation, tnesmus, or BRBPR. She initially denied diarrhea, then admitted to it intermittently as an outpt (? IBS-D). She was NPO at the time of her GI consult. 10/17/17: Admission labs- WBC 9.4 (90% gran/9 gran Ab), H/H 13.4/39.4, MCV 93.8, RDW 14.6, PLT 330, PT 11.5, INR 1.10, PTt 26, glu 106, BUN/Cr 9/0.7, GFR > 60, Na 138, K 4,4, HCO3 23, AG 14, amylase 255, *lipase 6057, Mg 1.4, Ca 9.6, alb 4.4, glob 2.9, TBil 0.7, alk phos 106, AST 43, ALT 43, *[EtOH] < 10, *TG 912, TChol 284, HDL 62 (not able to calculate LDL due to TG), serum HCG- neg. 10/17/16: U/A- hazy, yellow, > 1.030, 6.0, tr prot, micro- otherwise essentially negative; negative nitrite, negative esterase; Urine - negative: Utox- not sent. 10/18/16: WBC 4.2, H/H 10.9/31.7, PLT 203, BUN/Cr 5/0.7, GFR > 60, Na 136, K 3.5 , HCO3 25, AG 6. *The patient's recurrent pancreatitis is undoubtedly due to her poorly controlled hyperTG, superimposed on additional risk factors for pancreatitis, including cigarette smoking and intermittent EtOH. Numerous imaging studies have failed to reveal any acute biliary process.*She is on chronic narcotics ( Percocet & Dilaudid) for chronic back pain, which could be contributing to her chronically dilated CBD, by increasing tone at the Sphincter of Oddi. Her LFTs were essentially normal, keeping in mind her fatty liver. *On admission, 0 grave signs by [place] criteria, but no LDH sent. *On admission, 0 grave signs by BiSAP criteria, but no CXR done to rule out pleural effusions. *She had no imaging studies on admission, however she recently had 08/21/17: CT AP with IV contrast & 09/25/17: MRI abdomen with & w/o contrast, failure to reveal any evidence of pancreatic necrosis. I feel that at present, the only reason to repeat a CT AP with IV contrast would be to exclude pancreatic necrosis, which clinically is unlikely. I would only pursue this if the patient deteriorated. Her mildly decreased magnesium is noted, and it should be kept in mind that she is on PPI, which can cause this. Please note, the level of lipase elevation has no bearing on prognosis regarding pancreatitis. In fact, lipase levels may go up when the TG improve. 10/18/17: XRY-PORTABLE CHEST XRAY- Unremarkable examination. There is no pleural effusion, CHF, or infiltrate. 10/18/17: LDH 367 (*obtained HD #2). 10/19/17: WBC 5.8, H/H 10.1/28.9, MCV 93.1, RDW 14.0, PLT 189, BUN/Cr 4/0.6, GFR > 60, Na 136, K 3.5, HCO3 24, AG 7, Mg 1.6, albumin 2.6, globulin 2.3, TBil 1.0, DBil 0.5, alk phos 59, AST 19, ALT 33, lipase 745 (6057) 10/19/17: *CRP > 9.0 (< 1.0). 10/19/17: *IgG4 level- pending. *As of 10/19/17, the patient remained hemodynamically stable (borderline tachycardic) & afebrile, with O2 sat RA 98%. There was no evidence of hemoconcentration. The patient's Hgb & BUN dropped appropriately after IVF. * Tricor 48 mg daily was rxd by the medical team 10/18/17 for hyperTG. Endocrine consult was pending. She tolerated clears po. Her abdominal pain was much improved. She denied any significant nausea or vomiting. She did have chronic symptoms of fibromyalgia and her usual chronic IBS. There was no jaundice. She denied any fevers or chills. She was ambulating. *As of 10/20/17, the patient remained hemodynamically stable & afebrile, with O2 sat RA 97%. She remained on IV RL @ 200cc/hr. She tolerated clears po & was ambulating in her room. She had minimal epigastric discomfort (superimposed on her IBS & fibromyalgia). She denied any nausea, vomiting, jaundice, fevers, chills, CP, or SOB. *SUGGEST- *Low fat, full liquids po today, & advance diet as tolerated. *May taper IVF-> Ringer's lactate, as po intake improves. Strict I/O's. Supplemental O2 as needed. *Continue Tricor as per medical team. *Consider endocrine consult re: HLD. *Follow-up TG levels. *Discontinue cigarettes & EtOH (poor insight). No need for serial lipase levels (this has no prognostic implications). Analgesics per medical team. Avoid NSAIDs. Ativan as needed. DVT prophylaxis. Replete Mg. Carefully continue PPI for GERD. *Zofran as needed. Risk factor modification for fatty liver (ie.- strict control of body weight, glucose, lipids, BP, avoid EtOH, etc). Consider eventual Vitamin E 800 IU po daily. Watch for hemoconcentration (i.e.- rising BUN or Hgb), despite IV fluids, which would be a poor prognostic sign. Consider checking fecal elastase (probable IBS-D; rule out pancreatic insufficiency, but no pancreatic calcifications seen on previous imaging studies). Consider outpt EUS to better define CBD, PD, ampulla, & pancreatic head, but most likely, the patient's chronically dilated ducts are from chronic narcotic use for her back pain. *Doubt need for biliary manometry ( r/o Type III SOD with essentially nl LFTs, which is now classified as a variant of IBS, & is high risk for complications if papillotomy is performed). In view of the markedly elevated TG & age, will defer checking genetic markers such as CFTR, SPINK mutation, and/or PRSS1. Await 10/19/17: *IgG4 level (doubt autoimmune pancreatitis). The above was again discussed with the medical house staff. *Further inpt GI follow-up as needed. *Hopeful D/C to home soon, if the patient continues to clinically improve. *The patient will follow-up with Dr. Linares for GI after discharge. Problem List: 1. Pancreatitis 2. Abdominal pain 3. Nausea & vomiting 4. Hypertriglyceridemia 5. Fatty liver 6. GERD (gastroesophageal reflux disease) 7. Malnutrition Subjective Subjective: *As of 10/20/17, the patient remained hemodynamically stable & afebrile, with O2 sat RA 97%. She remained on IV RL @ 200cc/hr. She tolerated clears po & was ambulating in her room. She had minimal epigastric discomfort (superimposed on her IBS & fibromyalgia). She denied any nausea, vomiting, jaundice, fevers, chills, CP, or SOB. Review of Systems: Full 14 point ROS otherwise noncontributory and as per HPI. Review of Systems Constitutional: Denies: diaphoresis, fever, chills, malaise, weakness, unexplained weight loss. EENTM: Denies: blurred vision, double vision, visual changes, eye pain, eye drainage, eye tearing, icterus, ear discharge, ear pain, ear redness, hearing changes, nasal congestion, epistaxis, nasal pain, throat pain, throat swelling, mouth pain, tooth pain. Cardiovascular: Denies: chest pain, edema, orthopena, palpitations, peripheral edema, syncope. Respiratory: Denies: cough, hemoptysis, orthopnea, short of breath, sputum production, stridor, wheezing. GI: Reports: abdominal pain- much improved; nausea & vomiting- resolved. Denies: bloating, constipation, diarrhea, distention, bowel incontinence, melena , bloody stool, changes in stool, steatorrhea. Genitourinary: Denies: discharge, dysuria, frequency, hematuria, hesitation, nocturia, pain, urgency. Musculoskeletal: Reports: back pain (chronic). Denies: gout, joint pain, joint swelling, muscle pain, muscle stiffness, neck pain. Skin: Denies: cysts, change in skin color, change in hair/nails, dryness, erythema, jaundice, lesions, lymphangitis, lumps, moles, rash. Neurological/Psychological: Reports: anxiety, emotional problems. Denies: ataxia, cognitive dysfunction, confusion, depressed, dementia, headache, numbness, paresthesia, pre-existing deficit, petit mal seizures, tingling, tremors, tonic-clonic seizures, unable to move lower ext, unable to move upper ext, weakness. Hematologic/Endocrine: Denies: bruising, bleeding, polyuria, polydipsia. Immunologic/Allergic: Denies: splenectomy, HIV/AIDS, lymphadenopathy. All Other Systems: Reviewed and Negative Objective Vital Signs and I&Os Vital Signs Date Time Temp Pulse Resp B/P B/P Pulse O2 O2 Flow FiO2 Mean Ox Delivery Rate 10/20 0701 98.2 84 20 122/78 97 Room Air 10/19 2201 98.1 88 20 132/80 96 10/19 1414 98.8 100 18 132/80 98 Room Air 10/19 1139 98.1 97 18 126/76 95 Room Air Intake & Output 10/20 1600 10/20 0400 10/19 1600 10/19 0400 10/18 1600 10/18 0400 Intake Total 9395 575 6799 800 2900 3100 Output Total 600 Balance 7276 492 3193 800 2300 3100 Intake, IV 9356 053 6722 800 2800 3100 Intake, Oral 120 140 400 100 Number 0 Bowel Movements Output, Urine 600 Patient 220 lb Weight Physical Exam: Well-developed, well-nourished, obese female, in NAD. Sclera anicteric. Conjunctiva pink. Oropharynx clear. No oral thrush. No apthous ulcers. There is no adenopathy, thyromegaly, or JVD. No peripheral stigmata of inflammatory bowel disease or chronic liver disease on exam. No spiders on the anterior chest wall. No CVA tenderness. Lungs: clear to A&P. No wheezing, rales, or rhonchi. Heart exam: regular rate rhythm, S1 and S2, without any murmur. Abdominal exam: normal bowel sounds, soft obese belly, minimal epigastric/LUQ tenderness, without guarding or rebound. Tiny reducible umbilical hernia, otherwise, no mass. No splenomegaly. Enlarged liver approximately 15 cm. Negative Naik sign. No fluid shift. No pulsatile mass. Digital rectal exam: deferred by patient ("recently normal at Dr. Guajardo"). Extremities: without cyanosis or clubbing. Trace pedal edema B/L. No palpable cords. No acute arthropathy. No rash. No palmar erythema. No Dupuytren's contractures. Distal pulses 1+ bilaterally. DTRs 1+ bilaterally.Alert and oriented x 3. No tremor or asterixis. Current Medications: Current Medications Sig/Adam Start time Last Medication Dose Route Stop Time Status Admin Acetaminophen 650 MG Q6P PRN 10/17 1730 AC PO Acetaminophen 1,000 MG Q6P PRN 10/17 1730 AC 10/18 IV 0700 Enoxaparin Sodium 40 MG DAILY 10/18 1000 AC 10/19 SC 0925 Fenofibrate 48 MG DAILY 10/18 1000 AC 10/19 PO 0924 Hydromorphone HCl 1 MG Q4P PRN 10/19 1045 AC 10/20 IV 0621 Hydromorphone HCl 1 MG Q4-6 PRN PRN 10/18 1030 DC 10/19 IV 0835 Lactated Ringer's 1,000 ML .Q8H 10/17 1730 10/20 IV 0411 Lorazepam 0 Q1P PRN 10/17 1830 AC 10/19 IV 0024 Magnesium Sulfate 1 GM Q2H 10/19 1415 DC 10/19 Dextrose/Water 100 ML IV 10/19 1814 2030 Magnesium Sulfate 1 GM ONCE ONE 10/19 0545 DC 10/19 Dextrose/Water 100 ML IV 10/19 0944 0926 Ondansetron HCl 4 MG Q6-PRN PRN 10/17 1730 AC 10/18 PO 0015 Oxycodone HCl 10 MG Q12 10/19 1100 AC 10/19 PO 2208 Pantoprazole Sodium 40 MG DAILY 10/19 1400 AC 10/19 IV 1711 Potassium Chloride 40 MEQ ONCE ONE 10/19 1845 DC 10/19 PO 10/19 1846 2030 Potassium Chloride 10 MEQ Q1H 10/19 1415 DC IV 10/19 1516 Results Pertinent Lab Results: Laboratory Tests 10/20 10/19 10/19 0730 1040 0805 Chemistry Sodium (137 - 145 mmol/L) 136 L Potassium (3.5 - 5.1 mmol/L) 3.5 Chloride (98 - 107 mmol/L) 104 Carbon Dioxide (22 - 30 mmol/L) 24 Anion Gap (5 - 16) 7 BUN (7 - 17 mg/dL) 4 L Creatinine (0.5 - 1.0 mg/dL) 0.6 Estimated GFR (>60 ml/min) > 60 BUN/Creatinine Ratio (7 - 25 %) 6.7 L Magnesium (1.6 - 2.3 mg/dL) Pending 1.6 Total Bilirubin (0.2 - 1.3 mg/dL) Cancelled 1.0 Direct Bilirubin (< 0.4 mg/dL) Cancelled 0.5 H AST (14 - 36 U/L) Cancelled 19 ALT (9 - 52 U/L) Cancelled 33 Alkaline Phosphatase (<127 U/L) Cancelled 59 C-Reactive Prot, Quant (<1.0 mg/dL) > 9.0 H C-React Prot High Sens (1.0 - 3.0 mg/L) > 15.0 H Total Protein (6.3 - 8.2 g/dL) Cancelled 4.9 L Albumin (3.5 - 5.0 g/dL) Cancelled 2.6 L Lipase (23 - 300 U/L) Pending Cancelled 745 H Hematology CBC w Diff NO MAN DIFF REQ WBC (4.8 - 10.8 /CUMM) 5.8 RBC (4.20 - 5.40 /CUMM) 3.11 L Hgb (12.0 - 16.0 G/DL) 10.1 L Hct (37 - 47 %) 28.9 L MCV (81.0 - 99.0 FL) 93.1 MCH (27.0 - 31.0 PG) 32.4 H RDW (11.5 - 14.5 %) 14.0 Plt Count (130 - 400 /CUMM) 189 MPV (7.4 - 10.4 FL) 6.7 L Gran % (42.2 - 75.2 %) 74.0 Lymphocytes % (20.5 - 51.1 %) 19.5 L Monocytes % (1.7 - 9.3 %) 3.7 Eosinophils % (0 - 5 %) 2.5 Basophils % (0.0 - 2.0 %) 0.3 Absolute Granulocytes (1.4 - 6.5 /CUMM) 4.3 Absolute Lymphocytes (1.2 - 3.4 /CUMM) 1.1 L Absolute Monocytes (0.10 - 0.60 /CUMM) 0.2 Absolute Eosinophils (0.0 - 0.7 /CUMM) 0.1 Absolute Basophils (0.0 - 0.2 /CUMM) 0 PUBS MCHC (33.0 - 37.0 G/DL) 34.8 Immunology IgG Total Pending IgG1 Pending IgG2 Pending IgG3 Pending IgG4 Pending 10/19 10/18 0600 0757 Chemistry Sodium (137 - 145 mmol/L) 136 L Potassium (3.5 - 5.1 mmol/L) 3.5 Chloride (98 - 107 mmol/L) 105 Carbon Dioxide (22 - 30 mmol/L) 25 Anion Gap (5 - 16) 6 BUN (7 - 17 mg/dL) 5 L Creatinine (0.5 - 1.0 mg/dL) 0.7 Estimated GFR (>60 ml/min) > 60 BUN/Creatinine Ratio (7 - 25 %) 7.1 Magnesium (1.6 - 2.3 mg/dL) 1.6 Lactate Dehydrogenase (313 - 618 U/L) 367 Hematology CBC w Diff NO MAN DIFF REQ WBC (4.8 - 10.8 /CUMM) 4.2 L RBC (4.20 - 5.40 /CUMM) 3.36 L Hgb (12.0 - 16.0 G/DL) 10.9 L Hct (37 - 47 %) 31.7 L MCV (81.0 - 99.0 FL) 94.4 MCH (27.0 - 31.0 PG) 32.4 H RDW (11.5 - 14.5 %) 14.6 H Plt Count (130 - 400 /CUMM) 203 MPV (7.4 - 10.4 FL) 6.6 L Gran % (42.2 - 75.2 %) 75.5 H Lymphocytes % (20.5 - 51.1 %) 19.0 L Monocytes % (1.7 - 9.3 %) 2.7 Eosinophils % (0 - 5 %) 2.4 Basophils % (0.0 - 2.0 %) 0.4 Absolute Granulocytes (1.4 - 6.5 /CUMM) 3.2 Absolute Lymphocytes (1.2 - 3.4 /CUMM) 0.8 L Absolute Monocytes (0.10 - 0.60 /CUMM) 0.1 Absolute Eosinophils (0.0 - 0.7 /CUMM) 0.1 Absolute Basophils (0.0 - 0.2 /CUMM) 0 PUBS MCHC (33.0 - 37.0 G/DL) 34.3 Miscellaneous Ref Lab Test Result Cancelled 10/17 10/17 1740 1535 Chemistry Sodium (137 - 145 mmol/L) 138 Potassium (3.5 - 5.1 mmol/L) 4.4 Chloride (98 - 107 mmol/L) 101 Carbon Dioxide (22 - 30 mmol/L) 23 Anion Gap (5 - 16) 14 BUN (7 - 17 mg/dL) 9 Creatinine (0.5 - 1.0 mg/dL) 0.7 Estimated GFR (>60 ml/min) > 60 BUN/Creatinine Ratio (7 - 25 %) 12.9 Glucose (65 - 99 mg/dL) 106 H Calcium (8.4 - 10.2 mg/dL) 9.6 Magnesium (1.6 - 2.3 mg/dL) 1.4 L Total Bilirubin (0.2 - 1.3 mg/dL) 0.7 AST (14 - 36 U/L) 43 H ALT (9 - 52 U/L) 43 Alkaline Phosphatase (<127 U/L) 106 Total Protein (6.3 - 8.2 g/dL) 7.5 Albumin (3.5 - 5.0 g/dL) 4.4 Globulin (1.9 - 4.2 gm/dL) 3.1 Albumin/Globulin Ratio (1.1 - 2.2 %) 1.4 Triglycerides (<150 mg/dL) 912 H Cholesterol (<200 MG/DL) 284 H LDL Cholesterol Direct (<100 mg/dL) 87.63 LDL Cholesterol, Calc (65 - 129 mg/dL) ND HDL Cholesterol (40 - 60 mg/dL) 62 H Cholesterol/HDL Ratio (0.00 - 4.23 %) 4.6 H Amylase (30 - 110 U/L) 255 H Lipase (23 - 300 U/L) 6057 H Total Beta HCG (NEGATIVE) NEGATIVE Coagulation PT (9.4 - 12.5 SEC) 11.5 INR (0.90 - 1.19) 1.10 APTT (25 - 37 SEC) 26 Hematology CBC w Diff MAN DIFF ORDERED WBC (4.8 - 10.8 /CUMM) 9.4 RBC (4.20 - 5.40 /CUMM) 4.20 Hgb (12.0 - 16.0 G/DL) 13.4 Hct (37 - 47 %) 39.4 MCV (81.0 - 99.0 FL) 93.8 MCH (27.0 - 31.0 PG) 32.0 H RDW (11.5 - 14.5 %) 14.6 H Plt Count (130 - 400 /CUMM) 330 MPV (7.4 - 10.4 FL) 6.0 L Gran % (42.2 - 75.2 %) 90.3 H Lymphocytes % (20.5 - 51.1 %) 7.6 L Monocytes % (1.7 - 9.3 %) 2.0 Eosinophils % (0 - 5 %) 0.1 Basophils % (0.0 - 2.0 %) 0 Absolute Granulocytes (1.4 - 6.5 /CUMM) 8.5 H Absolute Lymphocytes (1.2 - 3.4 /CUMM) 0.7 L Absolute Monocytes (0.10 - 0.60 /CUMM) 0.2 Absolute Eosinophils (0.0 - 0.7 /CUMM) 0 Absolute Basophils (0.0 - 0.2 /CUMM) 0 Platelet Estimate (ADEQUATE) ADEQUATE Normocytic RBCs VERIFIED Normochromic RBCs VERIFIED PUBS MCHC (33.0 - 37.0 G/DL) 34.1 Toxicology Serum Alcohol (<10 MG/DL) < 10.0 Urines Urinalysis LIGHT H Urine Color (YEL,AMB,STR) YEL Urine Clarity (CLEAR) HAZY H Urine pH (5.0 - 8.0) 6.0 Ur Specific [place] (1.001 - 1.035) >= 1.030 Urine Protein (NEG,<30 MG/DL) TRACE H Urine Ketones (NEG) NEG Urine Nitrite (NEG) NEG Urine Bilirubin (NEG) NEG Urine Urobilinogen (0.1 - 1.0 EU/dl) 0.2 Ur Leukocyte Esterase (NEG) NEG Ur Microscopic SEDIMENT EXAMINED Urine RBC (0 - 5 /HPF) RARE Urine WBC (0 - 2 /HPF) RARE Ur Epithelial Cells (NONE,FEW) RARE Urine Bacteria (NEG/NONE) RARE H Urine Mucus (FEW,NONE) FEW Urine Hemoglobin (NEG) NEG Urine Glucose (N MG/DL) NEG Urine Test NEGATIVE 10/17 10/17 1526 1525 Chemistry Magnesium Cancelled Toxicology Methadone Screen Cancelled Barbiturate Screen Cancelled Ur Phencyclidine Scrn Cancelled Amphetamines Screen Cancelled U Benzodiazepines Scrn Cancelled Urine Cocaine Screen Cancelled Urine Cannabis Screen Cancelled Serum Alcohol Cancelled Imaging/Other Studies: [No EKG this admission, as of yet]. 09/25/17: MR ABDOMEN WITH AND WITHOUT CONTRAST- 1. Mild acute pancreatitis at the pancreatic head at the pancreaticoduodenal groove. No evidence of fluid collections or pancreatic necrosis. No obstructing lesions or calculi. 2. Dilatation of the common bile duct 1.6 cm (w/o change) and pancreatic duct (6 mm), likely related to the inflammation at the pancreatic head. No pancreatic cysts or lesions seen. Mild intrahepatic dilitation. No choledocholithiasis. 3. Hydropic GB without cholelithiasis or cholecystitis. 4. Tiny fat-containing umbilical hernia. [No imaging studies at time of 10/17/17: admission] 10/18/17: XRY-PORTABLE CHEST XRAY- Unremarkable examination. There is no pleural effusion, CHF, or infiltrate.
--- NOTE | 2017-10-20 11:45 | Cons- Endocrinology ---
General Information and HPI Consulting Request Date of Consult: 10/20/17 Requested By: Medical team Reason for Consult: management of hypertriglyceridemia Source of Information: patient, old records Exam Limitations: no limitations History of Present Illness: 41 yo female with PMH significant for HTN, dyslipidemia, asthma, anxiety, GERD, irritable bowel syndrome and chronic pain syndrome due to cervical/lumbar disc, weight gain of 60 pounds since 2014, was admitted on 10/17/2017 for acute pancreatitis ( lipase 6057 )due to elevated triglyceride of 912 and ? ETOH (she had several drinks on ). Repeat am lab on 10/20/2017 showed TRIG 204, CHOL 166, HDL 37 and LDL 89; lipasr 384. She still has 7/10 pain at epigatric area. Allergies/Medications Allergies: Coded Allergies: lisinopril (ABD PAIN AND COLD SWEATS, DIZZY, NAUSEA 08/21/17) Home Med List: Albuterol Sulfate (Ventolin Hfa) 18 GM HFA.AER.AD 2 PUF INH Q4-6 PRN PRN breathing (Reported) Alprazolam 1 MG TABLET 1 TAB PO TIDPRN ANXIETY (Reported) Esomeprazole (Nexium) 40 MG CAPSULE.DR 1 CAP PO DAILY GI (Reported) Hydromorphone HCl (Dilaudid) 2 MG TABLET 1 TAB PO Q6P PRN PAIN Omeprazole Magnesium (Prilosec Otc) 20 MG TABLET.DR 1 TAB PO DAILY UPSET STOMACH Ondansetron (Zofran Odt) 4 MG TAB.RAPDIS 1 TAB SL TID PRN NAUSEA Oxycodone HCl/Acetaminophen (Percocet 5-325 MG Tablet) 5 MG-325 MG TABLET 1 TAB PO 4XDP PRN PAIN SIX...[id number] Review of Systems Review of Systems Constitutional: Reports: see HPI. Cardiovascular: Denies: chest pain. Respiratory: Denies: short of breath. GI: Reports: abdominal pain. Genitourinary: Denies: dysuria. Musculoskeletal: Reports: back pain (chronic). Hematologic/Endocrine: Reports: see HPI. 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 MOTHER (diverticulitis). , Age 55; Cause: Lung cancer. Psychosocial History Where Do You Live? Home Who Do You Live With? child Services at Home: None Primary Language: Swazi Smoking Status: Light Tobacco Smoker ETOH Use: occasional use (previously heavy yrs ago) Illicit Drug Use: denies illicit drug use (on rx percocet) Living Will? no Power of Library Science Instructor/HCP? no Other Social History: Single. 2 daughters and 1 son- alive and well. Lives with her children. > 1 pack of cigarettes per week. Moderate EtOH (3 margaritas & 3 shots vodka/wk). Denies illicit drug use, but on rx Percocet. Moderate caffeine. 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 Functional Ability ADLs Independent: dressing, eating, toileting, bathing. Ambulation: independent IADLs Independent: shopping, housework, finances, food prep, telephone, transportation , medication admin. Employment History Employment: Employed Profession/Employer: [employer] company ECHO Results (as available) Date of last Echo 08/31/15 EF% 65 Exam & Diagnostic Data Last 24 Hrs of Vital Signs/I&O Vital Signs Date Time Temp Pulse Resp B/P B/P Pulse O2 O2 Flow FiO2 Mean Ox Delivery Rate 10/20 0701 98.2 84 20 122/78 97 Room Air 10/19 2201 98.1 88 20 132/80 96 10/19 1414 98.8 100 18 132/80 98 Room Air 10/19 1139 98.1 97 18 126/76 95 Room Air Intake & Output 10/20 1600 10/20 0800 10/20 0000 Intake Total 1720 540 Output Total Balance 1720 540 Intake, IV 1600 400 Intake, Oral 120 140 Patient 219 lb Weight Physical Exam General Appearance: no apparent distress Neck: normal inspection, supple Respiratory: lungs clear Cardiovascular: regular rate/rhythm Gastrointestinal: tenderness (at epigastric area) Extremities: no edema Labs/Hansel Results: Laboratory Tests 10/20 10/19 10/19 0730 1040 0805 Chemistry Sodium (137 - 145 mmol/L) 136 L Potassium (3.5 - 5.1 mmol/L) 3.5 Chloride (98 - 107 mmol/L) 104 Carbon Dioxide (22 - 30 mmol/L) 24 Anion Gap (5 - 16) 7 BUN (7 - 17 mg/dL) 4 L Creatinine (0.5 - 1.0 mg/dL) 0.6 Estimated GFR (>60 ml/min) > 60 BUN/Creatinine Ratio (7 - 25 %) 6.7 L Magnesium (1.6 - 2.3 mg/dL) 2.0 1.6 Total Bilirubin (0.2 - 1.3 mg/dL) 0.7 Cancelled 1.0 Direct Bilirubin (< 0.4 mg/dL) 0.3 Cancelled 0.5 H AST (14 - 36 U/L) 22 Cancelled 19 ALT (9 - 52 U/L) 34 Cancelled 33 Alkaline Phosphatase (<127 U/L) 70 Cancelled 59 C-Reactive Prot, Quant (<1.0 mg/dL) > 9.0 H C-React Prot High Sens (1.0 - 3.0 mg/L) > 15.0 H Total Protein (6.3 - 8.2 g/dL) 5.1 L Cancelled 4.9 L Albumin (3.5 - 5.0 g/dL) 2.6 L Cancelled 2.6 L Triglycerides (<150 mg/dL) 204 H Cholesterol (<200 MG/DL) 166 LDL Cholesterol, Calc (65 - 129 mg/dL) 89 HDL Cholesterol (40 - 60 mg/dL) 37 L Cholesterol/HDL Ratio (0.00 - 4.23 %) 5 H Lipase (23 - 300 U/L) 384 H Cancelled 745 H Hematology CBC w Diff NO MAN DIFF REQ WBC (4.8 - 10.8 /CUMM) 5.8 RBC (4.20 - 5.40 /CUMM) 3.11 L Hgb (12.0 - 16.0 G/DL) 10.1 L Hct (37 - 47 %) 28.9 L MCV (81.0 - 99.0 FL) 93.1 MCH (27.0 - 31.0 PG) 32.4 H RDW (11.5 - 14.5 %) 14.0 Plt Count (130 - 400 /CUMM) 189 MPV (7.4 - 10.4 FL) 6.7 L Gran % (42.2 - 75.2 %) 74.0 Lymphocytes % (20.5 - 51.1 %) 19.5 L Monocytes % (1.7 - 9.3 %) 3.7 Eosinophils % (0 - 5 %) 2.5 Basophils % (0.0 - 2.0 %) 0.3 Absolute Granulocytes (1.4 - 6.5 /CUMM) 4.3 Absolute Lymphocytes (1.2 - 3.4 /CUMM) 1.1 L Absolute Monocytes (0.10 - 0.60 /CUMM) 0.2 Absolute Eosinophils (0.0 - 0.7 /CUMM) 0.1 Absolute Basophils (0.0 - 0.2 /CUMM) 0 PUBS MCHC (33.0 - 37.0 G/DL) 34.8 Immunology IgG Total Pending IgG1 Pending IgG2 Pending IgG3 Pending IgG4 Pending 10/19 10/18 0600 0757 Chemistry Sodium (137 - 145 mmol/L) 136 L Potassium (3.5 - 5.1 mmol/L) 3.5 Chloride (98 - 107 mmol/L) 105 Carbon Dioxide (22 - 30 mmol/L) 25 Anion Gap (5 - 16) 6 BUN (7 - 17 mg/dL) 5 L Creatinine (0.5 - 1.0 mg/dL) 0.7 Estimated GFR (>60 ml/min) > 60 BUN/Creatinine Ratio (7 - 25 %) 7.1 Magnesium (1.6 - 2.3 mg/dL) 1.6 Lactate Dehydrogenase (313 - 618 U/L) 367 Hematology CBC w Diff NO MAN DIFF REQ WBC (4.8 - 10.8 /CUMM) 4.2 L RBC (4.20 - 5.40 /CUMM) 3.36 L Hgb (12.0 - 16.0 G/DL) 10.9 L Hct (37 - 47 %) 31.7 L MCV (81.0 - 99.0 FL) 94.4 MCH (27.0 - 31.0 PG) 32.4 H RDW (11.5 - 14.5 %) 14.6 H Plt Count (130 - 400 /CUMM) 203 MPV (7.4 - 10.4 FL) 6.6 L Gran % (42.2 - 75.2 %) 75.5 H Lymphocytes % (20.5 - 51.1 %) 19.0 L Monocytes % (1.7 - 9.3 %) 2.7 Eosinophils % (0 - 5 %) 2.4 Basophils % (0.0 - 2.0 %) 0.4 Absolute Granulocytes (1.4 - 6.5 /CUMM) 3.2 Absolute Lymphocytes (1.2 - 3.4 /CUMM) 0.8 L Absolute Monocytes (0.10 - 0.60 /CUMM) 0.1 Absolute Eosinophils (0.0 - 0.7 /CUMM) 0.1 Absolute Basophils (0.0 - 0.2 /CUMM) 0 PUBS MCHC (33.0 - 37.0 G/DL) 34.3 Miscellaneous Ref Lab Test Result Cancelled 10/17 10/17 1740 1535 Chemistry Sodium (137 - 145 mmol/L) 138 Potassium (3.5 - 5.1 mmol/L) 4.4 Chloride (98 - 107 mmol/L) 101 Carbon Dioxide (22 - 30 mmol/L) 23 Anion Gap (5 - 16) 14 BUN (7 - 17 mg/dL) 9 Creatinine (0.5 - 1.0 mg/dL) 0.7 Estimated GFR (>60 ml/min) > 60 BUN/Creatinine Ratio (7 - 25 %) 12.9 Glucose (65 - 99 mg/dL) 106 H Calcium (8.4 - 10.2 mg/dL) 9.6 Magnesium (1.6 - 2.3 mg/dL) 1.4 L Total Bilirubin (0.2 - 1.3 mg/dL) 0.7 AST (14 - 36 U/L) 43 H ALT (9 - 52 U/L) 43 Alkaline Phosphatase (<127 U/L) 106 Total Protein (6.3 - 8.2 g/dL) 7.5 Albumin (3.5 - 5.0 g/dL) 4.4 Globulin (1.9 - 4.2 gm/dL) 3.1 Albumin/Globulin Ratio (1.1 - 2.2 %) 1.4 Triglycerides (<150 mg/dL) 912 H Cholesterol (<200 MG/DL) 284 H LDL Cholesterol Direct (<100 mg/dL) 87.63 LDL Cholesterol, Calc (65 - 129 mg/dL) ND HDL Cholesterol (40 - 60 mg/dL) 62 H Cholesterol/HDL Ratio (0.00 - 4.23 %) 4.6 H Amylase (30 - 110 U/L) 255 H Lipase (23 - 300 U/L) 6057 H Total Beta HCG (NEGATIVE) NEGATIVE Coagulation PT (9.4 - 12.5 SEC) 11.5 INR (0.90 - 1.19) 1.10 APTT (25 - 37 SEC) 26 Hematology CBC w Diff MAN DIFF ORDERED WBC (4.8 - 10.8 /CUMM) 9.4 RBC (4.20 - 5.40 /CUMM) 4.20 Hgb (12.0 - 16.0 G/DL) 13.4 Hct (37 - 47 %) 39.4 MCV (81.0 - 99.0 FL) 93.8 MCH (27.0 - 31.0 PG) 32.0 H RDW (11.5 - 14.5 %) 14.6 H Plt Count (130 - 400 /CUMM) 330 MPV (7.4 - 10.4 FL) 6.0 L Gran % (42.2 - 75.2 %) 90.3 H Lymphocytes % (20.5 - 51.1 %) 7.6 L Monocytes % (1.7 - 9.3 %) 2.0 Eosinophils % (0 - 5 %) 0.1 Basophils % (0.0 - 2.0 %) 0 Absolute Granulocytes (1.4 - 6.5 /CUMM) 8.5 H Absolute Lymphocytes (1.2 - 3.4 /CUMM) 0.7 L Absolute Monocytes (0.10 - 0.60 /CUMM) 0.2 Absolute Eosinophils (0.0 - 0.7 /CUMM) 0 Absolute Basophils (0.0 - 0.2 /CUMM) 0 Platelet Estimate (ADEQUATE) ADEQUATE Normocytic RBCs VERIFIED Normochromic RBCs VERIFIED PUBS MCHC (33.0 - 37.0 G/DL) 34.1 Toxicology Serum Alcohol (<10 MG/DL) < 10.0 Urines Urinalysis LIGHT H Urine Color (YEL,AMB,STR) YEL Urine Clarity (CLEAR) HAZY H Urine pH (5.0 - 8.0) 6.0 Ur Specific Perkins (1.001 - 1.035) >= 1.030 Urine Protein (NEG,<30 MG/DL) TRACE H Urine Ketones (NEG) NEG Urine Nitrite (NEG) NEG Urine Bilirubin (NEG) NEG Urine Urobilinogen (0.1 - 1.0 EU/dl) 0.2 Ur Leukocyte Esterase (NEG) NEG Ur Microscopic SEDIMENT EXAMINED Urine RBC (0 - 5 /HPF) RARE Urine WBC (0 - 2 /HPF) RARE Ur Epithelial Cells (NONE,FEW) RARE Urine Bacteria (NEG/NONE) RARE H Urine Mucus (FEW,NONE) FEW Urine Hemoglobin (NEG) NEG Urine Glucose (N MG/DL) NEG Urine Test NEGATIVE 10/17 10/17 1526 1525 Chemistry Magnesium Cancelled Toxicology Methadone Screen Cancelled Barbiturate Screen Cancelled Ur Phencyclidine Scrn Cancelled Amphetamines Screen Cancelled U Benzodiazepines Scrn Cancelled Urine Cocaine Screen Cancelled Urine Cannabis Screen Cancelled Serum Alcohol Cancelled Assessment/Plan Assessment/Plan 41 yo female with PMH significant for HTN, dyslipidemia, asthma, anxiety, GERD, irritable bowel syndrome and chronic pain syndrome due to cervical/lumbar disc, weight gain of 60 pounds since 2014, was admitted on 10/17/2017 for acute pancreatitis ( lipase 6057 )due to elevated triglyceride of 912 and ETOH (she had several drinks on ). Repeat am lab on 10/20/2017 showed TRIG 204, CHOL 166, HDL 37 and LDL 89; lipasr 384. She still has 7/10 pain at epigatric area. With regarsd to the further manasgement of hypertriglyceridemia, I will recommend: 1. ETOH cessation; 2. Fish oil 2 grams per day; 3. fenofibrate 48 mg daily; the possible side effects related to fenofibrate have been discussed with her; 4. monitor LFT, lipid panel in one month; 5. check SuO9j--ujgkf on to am lab; 6. f/u in office after discharge. Consult Acknowledgment - Thank you for your consult request.
[2017-10-20 15:12] VITALS: BP 128/72
[2017-10-20 20:00] VITALS: BP 134/86
[2017-10-20 22:00] VITALS: BP 134/86
[2017-10-21] VITALS: BP 134/86; BP 134/92
[2017-10-21 02:00] VITALS: BP 134/96
[2017-10-21 04:00] VITALS: BP 124/90
[2017-10-21 08:03] VITALS: BP 122/84
[2017-10-21 08:28] LABS: ABSOLUTE BASOPHIL COUNT 0 /CUMM (0.0-0.2); ABSOLUTE EOSINOPHIL COUNT 0.2 /CUMM (0.0-0.7); ABSOLUTE GRANULOCYTE CT 3.2 /CUMM (1.4-6.5); ABSOLUTE LYMPH COUNT 1.2 /CUMM (1.2-3.4); ABSOLUTE MONOCYTE COUNT 0.3 /CUMM (0.10-0.60); BASOPHIL % 0.2 % (0.0-2.0); EOSINOPHIL % 3.3 % (0-5); GRANULOCYTE % 65.9 % (42.2-75.2); HEMATOCRIT 28.7 % (37-47); MEAN CORPUSCULAR HGB 32.6 PG (27.0-31.0); MEAN CORPUSCULAR HGB CONC 34.6 G/DL (33.0-37.0); MEAN CORPUSCULAR VOLUME 94.2 FL (81.0-99.0); MEAN PLATELET VOLUME 6.7 FL (7.4-10.4); PLATELET COUNT 222 /CUMM (130-400); RBC DISTRIBUTION WIDTH 14.8 % (11.5-14.5); RED BLOOD CELL CT 3.05 /CUMM (4.20-5.40); WHITE BLOOD CELL COUNT 4.9 /CUMM (4.8-10.8)
--- NOTE | 2017-10-21 10:34 | PN- Housestaff ---
Micah ALBA,[facility] 10/21/17 1033: Subjective Follow-up For: pancreatitis Subjective: Patient states that she was intensely +. States that her pains about 5.5 out of 10. States that she continues to have worsening left abdominal pain compared to right. States that this is consistent with her previous pancreatitis episodes. Is able to tolerate a full liquid diet without any problems. Says she was able to eat her low-fat diet without any issues. Review of Systems Constitutional: Reports: no symptoms. Cardiovascular: Reports: no symptoms. Respiratory: Reports: no symptoms. Gastrointestinal: Reports: abdominal pain. Genitourinary: Reports: no symptoms. Musculoskeletal: Reports: no symptoms. Objective Last 24 Hrs of Vital Signs/I&O Vital Signs Date Time Temp Pulse Resp B/P B/P Pulse O2 O2 Flow FiO2 Mean Ox Delivery Rate 10/21 0803 98.2 94 20 122/84 97 Room Air 10/21 0400 98.3 71 20 124/90 10/21 0400 98.3 79 20 124/90 96 Room Air 10/21 0200 99.2 93 20 134/96 10/21 0000 99.2 93 20 134/86 10/21 0000 99.2 93 20 134/92 94 Room Air 10/20 2200 98.4 82 20 134/86 10/20 2000 96.0 82 20 134/86 10/20 2000 98.4 82 20 134/86 96 Room Air 10/20 1512 97.9 98 18 128/72 97 Intake & Output 10/21 1600 10/21 0800 10/21 0000 Intake Total 1480 980 Output Total Balance 1480 980 Intake, IV 1000 500 Intake, Oral 480 480 Physical Exam General Appearance: Alert, Oriented X3, Cooperative, Mild Distress Skin Temp/Moisture Exam: Warm/Dry Cardiovascular: Regular Rate, Normal S1, Normal S2 Lungs: Clear to Auscultation, Normal Air Movement Abdomen: Normal Bowel Sounds, Soft, diffuse tenderness greater on the left Vascular: 2+ radial pulses Assessment/Plan Assessment: 41 yo F pmhx of pancreatitis (etoh vs hypertriglycerides), ?etoh abuse, htn - no longer on hctz, asthma, gerd, IBS, fibromyalgia, chronic back pain presenting for acute pancreatitis #acute pancreatitis AST 19, ALT 33, ALP 59 Total bili 1.0, direct bili 0.5, Triglycerides 912 -> 204, cholesterol 284 ->166 amylase 255, lipase 6047 -> 384 -> 363 beta hcg negative CXR: Unremarkable examination. There is no pleural effusion. LDH normal CRP elevated >9 HgbA1c 5.0 -Plan for discharge today -continue fenofibrate, fish oil 2gm daily -Discharge with oxycodone 10 mg twice a day, Percocet 5 every 8 when necessary -Continue low-fat diet -Risk factor modification for fatty liver -Outpatient follow-up with GI for possible EUS to better define CBD, PD, ampulla , & pancreatic head, but most likely, the patient's chronically dilated ducts are from chronic narcotic use for her back pain, -Follow-up with endocrinology -monitor lft, fasting lipid panel in 1 month #hx of ?etoh abuse -continue CIWA and ativan prn #low mg, low K+ MG 1.6, k 3.5 -replenish as needed #GERD -CONT protonix #lovenox for DVT prophylaxis #FULL CODE Problem List: 1. Acute pancreatitis Pain Ratin Pain Location: Left abdomen Pain Goal: Pain 4 or less Pain Plan: Oxycodone Percocet Tomorrow's Labs & Rationales: None Carlos Braun 10/21/17 1502: Attending MD Review Statement Attending Statement Attending MD Statement: examined this patient, discuss w/resident/PA/PARKING LOT SUPERVISOR, agreed w/resident/PA/PARKING LOT SUPERVISOR, discussed with family, reviewed EMR data (avail), discussed with nursing, discussed with case mgmt, reviewed images, amended to note Attending Assessment/Plan: 41F PMH HTN, HLD, IBS-D, chronic pain, fibromyalgia, history of pancreatitis presenting with severe epigastric pain in the setting of acute and recurrent pancreatitis. Patient is feeling better than yesterday, feels hungry. Afebrile, vitals stable, labs show elevated triglycerides and lipase, Abnormal MRI abdomen with dilated CBD and pancreatic duct few weeks ago. LFTS trend stable. c/w advance diet as tolerated, dc IV hydration, pain control with PO. Fenofibrate for triglycerides, Endo consulted for hypertriglyceridemia. continue home meds, DVT PPx. Consider pain management referral as outpatient. GI f/u recurrent pancereatitis and abnormal MRI abdomen findings. F/u O/P GI for possible EUS in future. Patient encouraged complaince with outpatient follow up visits and her medications. There is insurance issues also, f/u case management. Patient feeling clinically better and expressed interest to be discharged. Patient is medically stable for disharge with follow up PCP and GI closely as outpatient. Discharge instructions given to patient.
[2017-10-21] MEDS ORDERED: TRICOR48 M1 PO (10:46)
[2017-10-21] MEDS ORDERED: OMEGA-3 1,0501 EACH PO (10:46)
--- NOTE | 2017-10-21 10:52 | Patient Discharge Instructions ---
Discharge Instructions General Discharge Information Special Instructions: Please f/u with your pcp in 1-2 weeks. Please have your lft and lipid panel repeated in 1 month. Please f/u with your GI specialist (Dr. Lino in 1-2 weeks). Please f/u with Endrocrinologist (Dr. Ramires). Please take your medications as tolerated Please continue a low fat diet. Diet Continue normal diet: No Recommended Diet: Low Fat Acute Coronary Syndrome Inclusion Criteria At DC or during hospital stay patient has or had the following: Discharge Core Measures Meds if any: Prescribed or Continued at Discharge Meds if any: NOT Prescribed or Continued at Discharge Congestive Heart Failure Inclusion Criteria At DC or during hospital stay patient has or had the following: Discharge Core Measures Meds if any: Prescribed or Continued at Discharge Meds if any: NOT Prescribed or Continued at Discharge Cerebrovascular accident Inclusion Criteria At DC or during hospital stay patient has or had the following: CVA/TIA Diagnosis No Discharge Core Measures Meds if any: Prescribed or Continued at Discharge Meds if any: NOT Prescribed or Continued at Discharge Venous thromboembolism Discharge Core Measures - Per Current guidelines, there needs to be overlap - treatment for the first 5 days of Warfarin therapy. - If discharged on Warfarin prior to 5 days of - overlap therapy, the patient will need to be - assessed for post discharge needs including - *Post discharge parental anticoagulation - *Warfarin and/or parental anticoagulation education - *Follow up date to check INR post discharge Meds if any: Prescribed or Continued at Discharge Note: Overlap Therapy is Warfarin and Anticoagulant Meds if any: NOT Prescribed or Continued at Discharge
--- NOTE | 2017-10-23 00:59 | Discharge Summary ---
Visit Information Visit Dates Admission Date: 10/17/17 Discharge Date: 10/21/17 Hospital Course Course Attending Physician: Carlos Braun MD Primary Care Physician: Marjorie De Santiago Hospital Course: A: 41 yo F pmhx of pancreatitis (etoh vs hypertriglycerides), ?etoh abuse, htn - no longer on hctz, asthma, gerd, IBS, fibromyalgia, chronic back pain presenting for acute pancreatitis P: #acute pancreatitis The patient presented with severe band like abd pain which she stated felt very similar to her prior pancreatitis episode. Initial labs revealed, elevated lipase 6057, Amylase 255, elevated TGs 912, CRP >9. She was held NPO and then her diet was slowly advanced as tolerated. Her pain was controlled with IV dilaudid. She was started on fenofibrate and fish oil 2gm daily. She was discharged with oxycodone 10 mg twice a day, Percocet 5 every 8 when necessary. She was advised to continue low-fat diet. She was also advised to follow up with endocrinology for risk factor modifcaiton control and to monitor lft, fasting lipid panel in 1 month. She should follow GI outpatient for possible EUS to better define CBD, PD, ampulla, & pancreatic head, but most likely, the patient' s chronically dilated ducts are from chronic narcotic use for her back pain. #hx of possble etoh abuse She was monitored on a CIWA protocol and given ativan prn given her history of heavy alcohol use. Allergies: Coded Allergies: lisinopril (ABD PAIN AND COLD SWEATS, DIZZY, NAUSEA 08/21/17) Disposition Summary Disposition Principal Diagnosis: Pancreatitis Additional Diagnosis: hisotry of etoh abuse Discharge Disposition: home or self care Discharge Instructions General Discharge Information Code Status: Full Code Patient's Diet: Low fat Patient's Activity: As tolerated Follow-Up Instructions/Appts: Please f/u with your pcp in 1-2 weeks. Please have your lft and lipid panel repeated in 1 month. Please f/u with your GI specialist (Dr. Lino in 1-2 weeks). Please f/u with Endrocrinologist (Dr. Ramires). Please take your medications as tolerated Please continue a low fat diet. Medications at Discharge Discharge Medications: Stop taking the following medications: Hydromorphone HCl (Dilaudid) 2 MG TABLET ORAL EVERY SIX HOURS NEEDED as needed for PAIN Qty = 20 Omeprazole Magnesium (Prilosec Otc) 20 MG TABLET.DR ORAL DAILY Qty = 30 Oxycodone HCl/Acetaminophen (Percocet 5-325 MG Tablet) 5 MG-325 MG TABLET ORAL 4 times daily as needed as needed for PAIN Qty = 6 Continue taking these medications: Alprazolam (Alprazolam) 1 MG TABLET 1 Tablet ORAL THREE TIMES A DAY NEEDED Albuterol Sulfate (Ventolin Hfa) 18 GM HFA.AER.AD 2 Puff Inhale through mouth EVERY 4-6 HOURS NEEDED as needed for breathing Days = 30 Esomeprazole (Nexium) 40 MG CAPSULE.DR 1 Capsule ORAL DAILY Qty = 30 Ondansetron (Zofran Odt) 4 MG TAB.RAPDIS 1 Tablet SUBLINGUAL THREE TIMES DAILY as needed for NAUSEA Qty = 20 Start taking the following new medications: Fenofibrate (Tricor) 48 MG TABLET 1 Tablet ORAL DAILY Qty = 30 No Refills Comments: Last Taken: 10/21/17 Time: 10:00AM Sabine-3/Dha/Epa/Dpa/Fish Oil (Sabine-3 1,050 MG Softgel) 1,050-1200 CAPSULE 1 Tablet ORAL DAILY Qty = 30 No Refills Comments: Last Taken: 10/21/17 Time: 10:00AM Copies To: Marjorie De Santiago
== END 2017-10-21 15:12 | DRG 282 ==
LOC: ERH 12:09 → ERHI 17:11 → 2NA 17:11 → ENRESERV 17:40 → ENTRNSPT 19:39 → 2NA 20:03 → CMPTRNSPT 20:20 → 2NA 10-20 08:47 → ENPENDDIS 10-21 11:17 → 2NA 10-21 15:12
PROVIDERS: Emergency Medicine; Student in an Organized Health Care Education/Training Program
DX: K85.90 Acute pancreatitis without necrosis or infection, unspecified (principal); E46 Unspecified protein-calorie malnutrition; K76.0 Fatty (change of) liver, not elsewhere classified; E83.42 Hypomagnesemia; Z68.33 Body mass index [BMI] 33.0-33.9, adult; J45.909 Unspecified asthma, uncomplicated; K21.9 Gastro-esophageal reflux disease without esophagitis; M51.26 Other intervertebral disc displacement, lumbar region; M50.20 Other cervical disc displacement, unspecified cervical region; E66.9 Obesity, unspecified; M79.7 Fibromyalgia; G89.29 Other chronic pain; M54.9 Dorsalgia, unspecified; Z85.42 Personal history of malignant neoplasm of other parts of uterus; E78.1 Pure hyperglyceridemia; K58.9 Irritable bowel syndrome, unspecified; F32.9 Major depressive disorder, single episode, unspecified; F41.9 Anxiety disorder, unspecified; F17.210 Nicotine dependence, cigarettes, uncomplicated; Z87.898 Personal history of other specified conditions
CPT/HCPCS: 2NASP; 36415; 71045; 80307; 81001; 81025; 82436; 96361; 96374; 96375; G0480; J0131; J1170; J1650; J2405; J2550; J3101; J7120

== ENCOUNTER 2017-11-24 02:56 | Inpatient (IN) | payer OTHER ==
[~2017-11-24] VITALS: Ht 172.7 cm; Wt 96.6 kg
[~2017-11-24 02:56] MED LIST changes: +OMEGA-3 1,0501 EACH PO; +TRICOR48 M1 PO
--- NOTE | 2017-11-24 03:27 | ED GI/GU/ABDOMINAL COMPLAINT ---
History of Present Illness General Chief Complaint: Abdominal Pain/Flank Pain Stated Complaint: "THINK ITS MY PANCREAS AGAIN" ABD PAIN PER PT Source: patient Exam Limitations: no limitations Vital Signs & Intake/Output Vital Signs & Intake/Output Vital Signs Date Time Temp Pulse Resp B/P B/P Pulse O2 O2 Flow FiO2 Mean Ox Delivery Rate 11/24 0310 97.7 105 20 142/95 97 Room Air Allergies Coded Allergies: lisinopril (ABD PAIN AND COLD SWEATS, DIZZY, NAUSEA 08/21/17) Reconcile Medications Albuterol Sulfate (Ventolin Hfa) 18 GM HFA.AER.AD 2 PUF INH Q4-6 PRN PRN breathing (Reported) Alprazolam 1 MG TABLET 1 TAB PO TIDPRN ANXIETY (Reported) Butalbit/Acetamin/Caff/Codeine (Zfhslk-Wwme-Vfqmvverxto-Codein) 50 MG-325 MG-40 MG-30 MG CAPSULE 1 CAP PO Q12 PRN HEADACHE (Reported) Esomeprazole (Nexium) 40 MG CAPSULE.DR 1 CAP PO DAILY GI (Reported) Fenofibrate (Tricor) 48 MG TABLET 1 TAB PO DAILY LIPID [place]-3/Dha/Epa/Dpa/Fish Oil ([place]-3 1,050 MG Softgel) 1,050-1200 CAPSULE 1 TAB PO DAILY LIPID Ondansetron (Zofran Odt) 4 MG TAB.RAPDIS 1 TAB SL TID PRN NAUSEA Triage Note: PT REPORTS PAIN ACROSS MID ABD RADIATING TO BACK 10/10 AND ASSOCIATED NAUSEA. DENIES VOMITING. PT HAS HX PANCREATITIS AND HAS BEEN ADMITTED HERE FOR THE SAME SEVERAL TIMES, STATES THESE SYMPTOMS FEEL SIMILAR. PT DRY HEAVING IN TRAIGE. STATES SHE TOOK 650MG TYLENOL AT 10PM. Triage Nurses Notes Reviewed? yes ? n Is pt currently ? No Onset: Gradual Duration: day(s): Timing: recent history Quality/Severity: cramping Location: epigastric Radiation: back Activities at Onset: none Prior Abdominal Problems: similar symptoms Modifying Factors: Worsens With: movement, palpation. Associated Symptoms: abdominal pain, nausea/vomiting HPI: 41 yo woman h/o recurrent/chronic pancreatitis, presents with mid epigastric discomfort, consistent with prior episodes of pancreatitis. Her symptoms began around 6:30am on 11/23, the morning after she had eaten a significant amount of cheese. She notes nausea, dry heaves, no fever, diarrhea, chest pain, dizziness, diaphoresis. She is otherwise well. Past History Travel History Traveled to [place] past 21 day No Medical History Any Pertinent Medical History? 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 MOTHER (diverticulitis). , Age 55; Cause: Lung cancer. Hx Contributory? No Review of Systems Review of Systems Constitutional: Reports: no symptoms. EENTM: Reports: no symptoms. Respiratory: Reports: no symptoms. Cardiovascular: Reports: no symptoms. GI: Reports: no symptoms. Genitourinary: Reports: no symptoms. Musculoskeletal: Reports: no symptoms. Skin: Reports: no symptoms. Neurological/Psychological: Reports: no symptoms. Hematologic/Endocrine: Reports: no symptoms. Immunologic/Allergic: Reports: no symptoms. All Other Systems: Reviewed and Negative Physical Exam Physical Exam General Appearance: well developed/nourished, moderate distress Head: atraumatic, normal appearance Eyes: Bilateral: normal appearance. Ears, Nose, Throat, Mouth: moist mucous membrane Neck: normal inspection, supple, full range of motion Respiratory: normal breath sounds, chest non-tender, no respiratory distress, quiet respiration, lungs clear Gastrointestinal: normal bowel sounds, soft, mid and left upper quadrant tenderness to palpation. no rebound, no guarding. no RUQ or RLQ tenderness to palpation Back: normal inspection, normal range of motion Extremities: normal range of motion Neurologic/Psych: no motor/sensory deficits, awake, alert, oriented x 3 Skin: intact, normal color, warm/dry Core Measures ACS in differential dx? No Sepsis Present: No Sepsis Focused Exam Completed? No Progress Differential Diagnosis: pancreatitis vs other. Plan of Care: Orders Procedure Date/time Status Clear Liquid Diet 11/24 B Active Patient Data 11/24 505 Active Saline Lock 11/24 501 Active Misc Message 11/24 501 Active ED Holding Orders 11/24 501 Active Admit to inpatient 11/24 501 Active Vital Signs 11/24 501 Active Code Status 11/24 501 Active Add-on Test (ER Only) 11/24 044 Active Add-on Test (ER Only) 11/24 034 Active Add-on Test (ER Only) 11/24 0334 Active TRIGLYCERIDES 11/24 328 Active HUMAN BETA HCG SCREEN 11/24 328 Active ETHANOL 11/24 328 Active TROPONIN LEVEL 11/24 258 Active LIPASE 11/24 258 Active HEPATIC FUNCTION PANEL 11/24 258 Active CBC WITHOUT DIFFERENTIAL 11/24 258 Complete BASIC METABOLIC PANEL 11/24 258 Active AMYLASE 11/24 258 Active EKG 11/24 258 Active Current Medications Sig/Adam Start time Last Medication Dose Stop Time Status Admin Hydromorphone HCl 1 MG ONCE ONE 11/24 514 AC (Dilaudid) 11/24 515 Sodium Chloride 1,000 ML BOLUS ONE 11/24 514 AC (Normal Saline 0.9%) 11/24 613 Laboratory Tests 11/24/17 0329: Anion Gap 11, Estimated GFR > 60, BUN/Creatinine Ratio 11.7, Glucose 95, Calcium 8.8, Total Bilirubin 0.8, Direct Bilirubin 0.3, AST 38 H, ALT 66 H, Alkaline Phosphatase 92, Troponin I < 0.01, Total Protein 6.6, Albumin 4.0, Triglycerides Pending, Amylase 826 H, Lipase H, Total Beta HCG NEGATIVE, CBC w Diff NO MAN DIFF REQ, RBC 4.35, MCV 90.9, MCH 29.8, MCHC 32.8 L, RDW 14.4, MPV 6.2 L, Gran % 78.1 H, Lymphocytes % 15.7 L, Monocytes % 3.2, Eosinophils % 2.5, Basophils % 0.5, Absolute Granulocytes 5.7, Absolute Lymphocytes 1.1 L, Absolute Monocytes 0.2, Absolute Eosinophils 0.2, Absolute Basophils 0, Serum Alcohol < 10.0 Diagnostic Imaging: Viewed by Me: MRI. Discussed w/RAD: MRI. Radiology Impression: PATIENT: ISRAEL TIJERINA PRESENT AGE: 41 PATIENT ACCOUNT NO: [id number] : 74 LOCATION: [facility]MRI ORDERING PHYSICIAN: Lois Linares MD SERVICE DATE: 09/25/17 EXAM TYPE: MRI - MRI-ABD W/O-W VANGIE EXAMINATION: MR ABDOMEN WITHOUT AND WITH CONTRAST CLINICAL INFORMATION: Acute pancreatitis. COMPARISON: CT dated 08/21/2017. TECHNIQUE: MRI of the abdomen before and after the IV administration of 10 mL of Gadavist was obtained using routine sequences on a 1.2 Safia magnet. Dynamic postcontrast images and heavily T2-weighted MRCP images were obtained. FINDINGS: LUNG BASES: Clear. LIVER, GALLBLADDER, AND BILIARY TREE: There is mild intrahepatic ductal dilatation. Common bile duct is dilated to 1.6 cm, not significantly changed the prior CT. The common bile duct tapers within the pancreatic body, just proximal to the ampulla of Vater. No filling defects are identified. The hepatic parenchyma is normal in signal intensity without evidence of steatosis. No focal lesions are identified. No abnormal enhancement. The gallbladder is borderline hydropic (4 cm). No cholelithiasis or surrounding inflammatory changes are identified. PANCREAS: As seen on axial fat saturated sequences, there is mild peripancreatic edema at the pancreatic head within the pancreaticoduodenal groove, consistent with mild pancreatitis. A thin band of fluid extends into the anterior pararenal fascia as well. No discrete fluid collections. No evidence of pancreatic necrosis. Pancreatic duct is mildly dilated at the pancreatic head ( 0.6 cm), likely due to the inflammation near the ampulla of Vater. The duct is normal in caliber at the pancreatic body and tail. No cystic lesions are identified. ADRENAL GLANDS: Normal. SPLEEN: Normal. KIDNEYS: Normal in size and contour. No hydronephrosis. Enhancement is symmetric. No cortical thinning. Intra-abdominal bowel: Stomach, small bowel, and colon are normal in caliber. There is mild colonic wall thickening at the second and third portions, reactive to the adjacent pancreatitis. No evidence of obstruction. No intraperitoneal free fluid. VASCULAR: There is normal in caliber. The visceral branches of the aorta are patent without evidence of stenoses or significant atherosclerotic change. Portal vein is patent. LYMPH NODES: No adenopathy. ABDOMINAL WALL: Tiny fat-containing umbilical hernia. No bowel involvement. OSSEOUS STRUCTURES: Lumbar spine is unremarkable. IMPRESSION: 1. Mild acute pancreatitis at the pancreatic head at the pancreaticoduodenal groove. No evidence of fluid collections or pancreatic necrosis. No obstructing lesions or calculi. 2. Dilatation of the common bile duct and pancreatic duct, likely related to the inflammation at the pancreatic head. DICTATED BY: Melchor Byrne MD DATE/TIME DICTATED:09/26/171652 PROGRAM COORDINATOR:[email or web address] DATE/TIME TRANSCRIBED:1652 CONFIDENTIAL, DO NOT COPY WITHOUT APPROPRIATE AUTHORIZATION. < Electronically signed in Other Vendor System> SIGNED BY: Melchor Byrne MD 09/26/17 7948 Initial ED EKG: normal axis, normal intervals, normal p-waves, normal QRS complex, normal sinus rhythm Departure Departure Disposition: STILL A PATIENT Condition: Stable Clinical Impression Primary Impression: Abdominal pain Secondary Impressions: Pancreatitis Referrals: Marjorie De Santiago (PCP/Family) Departure Forms: Customer Survey General Discharge Information Admission Note Spoke With: Miguelina Villalobos MD Documentation of Exam: Documentation of any treatments & extenuating circumstances including Concerns Regarding Discharge (functional status, medication knowledge or non-compliance, living conditions, etc.) that warrant an admission rather than observation: pt with h/o medical pancreatitis, presenting with lipase 19K, MRI in 09/2017 revealed edema of pancreatic head without gall stones.... lft's only slightly elevated with normal t/d bili. Pt merits bowel rest, iv fluids, iv pain meds.
[2017-11-24 03:40] LABS: ABSOLUTE BASOPHIL COUNT 0 /CUMM (0.0-0.2); ABSOLUTE EOSINOPHIL COUNT 0.2 /CUMM (0.0-0.7); ABSOLUTE GRANULOCYTE CT 5.7 /CUMM (1.4-6.5); ABSOLUTE LYMPH COUNT 1.1 /CUMM (1.2-3.4); ABSOLUTE MONOCYTE COUNT 0.2 /CUMM (0.10-0.60); BASOPHIL % 0.5 % (0.0-2.0); EOSINOPHIL % 2.5 % (0-5); GRANULOCYTE % 78.1 % (42.2-75.2); HEMATOCRIT 39.5 % (37-47); MEAN CORPUSCULAR HGB 29.8 PG (27.0-31.0); MEAN CORPUSCULAR HGB CONC 32.8 G/DL (33.0-37.0); MEAN CORPUSCULAR VOLUME 90.9 FL (81.0-99.0); MEAN PLATELET VOLUME 6.2 FL (7.4-10.4); PLATELET COUNT 255 /CUMM (130-400); RBC DISTRIBUTION WIDTH 14.4 % (11.5-14.5); RED BLOOD CELL CT 4.35 /CUMM (4.20-5.40); WHITE BLOOD CELL COUNT 7.3 /CUMM (4.8-10.8)
[2017-11-24] MEDS ORDERED: BUTALB-CAFF-AC1 EACH PO (04:15)
--- NOTE | 2017-11-24 05:16 | History & Physical ---
See Addendum General Information and HPI MD Statement: I have seen and personally examined ISRAEL MCNAMARA and documented this H&P. The patient is a 41 year old F who presented with a patient stated chief complaint of [ABDOMINAL PAIN]. Source of Information: patient Exam Limitations: no limitations History of Present Illness: Ms. Mcnamara is a 41 year old female with past medical history significant for acute pancreatitis 2, ethanol abuse, hypertension, asthma, GERD, irritable bowel syndrome, fibromyalgia, anxiety who presented to ED with chief complain of bandlike epigastric pain for 1 day. She reported that this is her sixth ED visit for pancreatitis however was admitted only 2 times before 05/2017 and 2017. No history of admission to other hospitals. Patient was recently discharged from [facility] after treating acute pancreatitis on 10/23/2017 , follow up with Dr. Linares, last follow-up was last week. Patient mentioned that she follow appropriate diet mostly full liquid diet after discharge however last week started to eat her regular diet. 1 day before symptoms started she ate crackers, cheese, and soup woke up in the morning 6 AM with bandlike epigastric abdominal pain, nausea, denied any vomiting or diarrhea, change in color of urine, skin color change, itchiness, chest pain, shortness of breath or cough, upper respiratory infection. Patient reported mild dizziness and blurry vision. She reported fever of 99.0 responded to acetaminophen and chills for 1 day. Patient didn't take the Fenofibrate for the last 2 days because she forgot it at work. She was holding coming to ED for almost 12 hours after symptoms started because she is scared from long waiting time however symptoms got worse and decided to drove to ED for evaluation. Patient denied any alcohol consumption since discharge, no smoking or illicit drug. Allergies/Medications Allergies: Coded Allergies: lisinopril (ABD PAIN AND COLD SWEATS, DIZZY, NAUSEA 08/21/17) Home Med list Albuterol Sulfate (Ventolin Hfa) 18 GM HFA.AER.AD 2 PUF INH Q4-6 PRN PRN breathing (Reported) Alprazolam 1 MG TABLET 1 TAB PO TIDPRN ANXIETY (Reported) Butalbit/Acetamin/Caff/Codeine (Jepzqt-Rvwf-Mdxhwqblzcd-Codein) 50 MG-325 MG-40 MG-30 MG CAPSULE 1 CAP PO Q12 PRN HEADACHE (Reported) Esomeprazole (Nexium) 40 MG CAPSULE.DR 1 CAP PO DAILY GI (Reported) Fenofibrate (Tricor) 48 MG TABLET 1 TAB PO DAILY LIPID [place]-3/Dha/Epa/Dpa/Fish Oil ([place]-3 1,050 MG Softgel) 1,050-1200 CAPSULE 1 TAB PO DAILY LIPID Ondansetron (Zofran Odt) 4 MG TAB.RAPDIS 1 TAB SL TID PRN NAUSEA Past History Travel History Traveled to [place] past 21 day No Medical History Neurological: NONE EENT: NONE Cardiovascular: hypertension, hyperlipidemia (TG) Respiratory: asthma Gastrointestinal: GERD, pancreatitis Hepatic: fatty liver Renal: NONE Musculoskeletal: disk herniation Psychiatric: anxiety, opioid dependence (on rx percocet) Endocrine: obesity Blood Disorders: NONE Cancer(s): NONE 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 MOTHER (diverticulitis). , Age 55; Cause: Lung cancer. Psychosocial History Who Do You Live With? child Services at Home: None Primary Language: Lithuanian ETOH Use: occasional use Illicit Drug Use: denies illicit drug use Living Will? no Power of Product Safety Specialist/HCP? no Functional Ability ADLs Independent: dressing, eating, toileting, bathing. Ambulation: independent IADLs Independent: shopping, housework, finances, food prep, telephone, transportation , medication admin. Review of Systems Review of Systems Constitutional: Reports: see HPI. Denies: weakness. EENTM: Reports: blurred vision. Denies: ear pain, hearing changes, nasal congestion, nasal pain, throat pain. Cardiovascular: Denies: chest pain, palpitations. Respiratory: Denies: cough, short of breath. Genitourinary: Denies: dysuria, frequency, hematuria. Musculoskeletal: Denies: joint pain, muscle pain. Neurological/Psychological: Denies: confusion, headache. Exam & Diagnostic Data Last 24 Hrs of Vital Signs/I&O Vital Signs Date Time Temp Pulse Resp B/P B/P Pulse O2 O2 Flow FiO2 Mean Ox Delivery Rate 11/24 0654 98.2 83 20 126/80 97 11/24 0520 97.0 92 20 147/95 98 Room Air 11/24 0310 97.7 105 20 142/95 97 Room Air Intake & Output 11/24 0800 11/24 0000 11/23 1600 Intake Total Output Total Balance Patient 96.644 kg Weight Weight Bed scale Measurement Method Physical Exam General Appearance Alert, Oriented X3, Cooperative, No Acute Distress Skin No Rashes, No Breakdown, No Significant Lesion Skin Temp/Moisture Exam: Warm/Dry HEENT Atraumatic, PERRLA, EOMI, Mucous Membr. moist/pink Neck Supple Lymphatic no cervical lymphadenopathy Cardiovascular Regular Rate, Normal S1, Normal S2, No Murmurs Lungs Clear to Auscultation, Normal Air Movement Abdomen Normal Bowel Sounds, Soft Neurological Normal Speech, Strength at 5/5 X4 Ext, Normal Tone, Sensation Intact, Cranial Nerves 3-12 NL Extremities No Clubbing, No Cyanosis, No Edema, Normal Pulses Vascular Normal Pulses Last 24 Hrs of Labs/Hansel: Laboratory Tests 11/24/17 0329: Anion Gap 11, Estimated GFR > 60, BUN/Creatinine Ratio 11.7, Glucose 95, Calcium 8.8, Total Bilirubin 0.8, Direct Bilirubin 0.3, AST 38 H, ALT 66 H, Alkaline Phosphatase 92, Troponin I < 0.01, Total Protein 6.6, Albumin 4.0, Triglycerides 364 H, Amylase 826 H, Lipase 24591 H, Total Beta HCG NEGATIVE, PT Pending, INR Pending, APTT Pending, CBC w Diff NO MAN DIFF REQ, RBC 4.35, MCV 90.9, MCH 29.8, MCHC 32.8 L, RDW 14.4, MPV 6.2 L, Gran % 78.1 H, Lymphocytes % 15.7 L, Monocytes % 3.2, Eosinophils % 2.5, Basophils % 0.5, Absolute Granulocytes 5.7, Absolute Lymphocytes 1.1 L, Absolute Monocytes 0.2, Absolute Eosinophils 0.2, Absolute Basophils 0, Serum Alcohol < 10.0 Assessment/Plan Assessment: Ms. Mcnamara is a 41 year old female with past medical history significant for acute pancreatitis 4, ethanol abuse, hypertension, asthma, GERD, irritable bowel syndrome, fibromyalgia, anxiety who presented to ED with chief complain of bandlike epigastric pain for 1 day. Vitals and labs as above Problem list #Acute pancreatitis #Hypertriglyceridemia #Transaminitis Plan Admit to general medical floor Patient received 2 L of IV fluid normal saline ED, will give another 2 L of IV normal saline and then continue with lactated Ringer 200 mL/h as a maintenance Dilaudid 1 mg every 4 when necessary for severe pain Nothing by mouth Zofran for nausea, please check EKG as is still pending for QTC GI consultation Repeat CBC, BMP in a.m. Obtain coagulation profile Obtain lactic acid Obtain trops and EKG Repeat liver function test Repeat triglyceride after patient starts eating her regular diet to visualize the actual level Consider nutritional consultation however the patient reported having this discussion before Holding off imaging pending GI consultation as patient doesn't have any signs of pancreatic complication, no leukocytosis, no fever or chills MAXIMUM TEMPERATURE since admission 98.2 and hemodynamically stable Hold home medication PPI 20 IV daily Code full DVT prophylaxis Lovenox Diet nothing by mouth As Ranked By This Provider Problem List: 1. Pancreatitis Core Measures/Misc (07/02) Acute Coronary Syndrome ACS Diagnosis: No Congestive Heart Failure Congestive Heart Failure Diagnosis No Cerebrovascular Accident CVA/TIA Diagnosis: No VTE (View Protocol) VTE Risk Factors Age>40 No Mechanical VTE Prophylaxis d/t N/A MechProphylax Ordered No VTE Pharm Prophylaxis d/t NA PharmProphylax ordered Sepsis (View protocol) Sepsis Present: No
[2017-11-24 06:54] VITALS: BP 126/80
--- NOTE | 2017-11-24 07:31 | PN- Housestaff ---
Subjective Follow-up For: Recurrent pancreatitis in the setting of poorly controlled hypertriglyceridemia along with alcohol abuse. History of anxiety Subjective: Patient is seen and examined this morning still reports nausea with abdominal discomfort. His sleep well overnight feels exhausted vitals are stable. Will keep the patient nothing by mouth for now continue with IV Ringer lactate patient will be evaluated by GI today Review of Systems Constitutional: Denies: diaphoresis, fever, malaise. EENTM: Denies: blurred vision, double vision, visual changes. Cardiovascular: Denies: chest pain, edema, orthopena. Respiratory: Denies: cough, hemoptysis, orthopnea. Gastrointestinal: Denies: abdominal pain, bloating, constipation, diarrhea. Genitourinary: Denies: discharge, dysuria, frequency. Musculoskeletal: Denies: back pain, gout, joint pain, joint swelling. Skin: Denies: change in skin color, change in hair/nails, dryness. Objective Last 24 Hrs of Vital Signs/I&O Vital Signs Date Time Temp Pulse Resp B/P B/P Pulse O2 O2 Flow FiO2 Mean Ox Delivery Rate 11/24 0654 98.2 83 20 126/80 97 11/24 0520 97.0 92 20 147/95 98 Room Air 11/24 0310 97.7 105 20 142/95 97 Room Air Intake & Output 11/24 1600 11/24 0800 11/24 0000 Intake Total 500 Output Total Balance 500 Intake, IV 500 Intake, Oral 0 Patient 213 lb Weight Weight Bed scale Measurement Method Physical Exam General Appearance: Alert, Oriented X3 Skin: No Rashes, No Breakdown Skin Temp/Moisture Exam: Warm/Dry HEENT: Atraumatic, PERRLA Neck: Supple, No JVD Cardiovascular: Regular Rate, Normal S1, Normal S2 Lungs: Clear to Auscultation Current Medications: Current Medications Sig/Adam Start time Last Medication Dose Route Stop Time Status Admin Acetaminophen 0 .STK-MED ONE 11/24 0353 DC IV Acetaminophen 1,000 MG ONCE ONE 11/24 0345 DC 11/24 N/A 1 UNIT IV 11/24 358 035 Alprazolam 1 MG TID PRN 11/24 1000 AC 11/24 PO 12/01 0959 1003 Enoxaparin Sodium 40 MG DAILY 11/24 1000 AC 11/24 SC 0955 Fenofibrate 48 MG DAILY 11/24 1000 AC PO Hydromorphone HCl 1 MG Q4 HRS NEEDED PRN 11/24 0645 AC 11/24 IV 1111 Hydromorphone HCl 0 .STK-MED ONE 11/24 0520 DC .ROUTE Hydromorphone HCl 1 MG ONCE ONE 11/24 0515 DC 11/24 IV 11/24 0516 0519 Hydromorphone HCl 0 .STK-MED ONE 11/24 0353 DC .ROUTE Hydromorphone HCl 1 MG ONCE ONE 11/24 0345 DC 11/24 IV 11/24 0346 0354 Lactated Ringer's 1,000 ML .Q5H 11/24 0545 AC 11/24 IV 0815 Ondansetron HCl 4 MG Q6P PRN 11/24 0545 AC IV Ondansetron HCl 0 .STK-MED ONE 11/24 0353 DC .ROUTE Ondansetron HCl 4 MG ONCE ONE 11/24 0345 DC 11/24 IV 11/24 0346 0355 Pantoprazole Sodium 40 MG DAILY 11/24 1000 AC 11/24 IV 0953 Potassium Chloride 40 MEQ ONCE ONE 11/24 1330 UNVr PO 11/24 1331 Sodium Chloride 1,000 ML BOLUS ONE 11/24 0645 DC 11/24 IV 11/24 0844 0641 Sodium Chloride 1,000 ML BOLUS ONE 11/24 0515 DC 11/24 IV 11/24 0614 0513 Sodium Chloride 1,000 ML BOLUS ONE 11/24 0345 DC 11/24 IV 11/24 0444 0346 Trimethobenzamide HCl 200 MG ONCE ONE 11/24 0800 DC 11/24 IM 11/24 0801 0816 Last 24 Hrs of Lab/Hansel Results Last 24 Hrs of Labs/Mics: Laboratory Tests 11/24/17934: Lactic Acid Cancelled 11/24/17934: Anion Gap 10, Estimated GFR > 60, BUN/Creatinine Ratio 10.0, Lactic Acid 0.8, Total Bilirubin 0.6, Direct Bilirubin 0.3, AST 26, ALT 50, Alkaline Phosphatase 78, Total Protein 5.6 L, Albumin 3.1 L 11/24/17934: Total Bilirubin Cancelled, Direct Bilirubin Cancelled, AST Cancelled, ALT Cancelled, Alkaline Phosphatase Cancelled, Total Protein Cancelled, Albumin Cancelled, CBC w Diff NO MAN DIFF REQ, RBC 3.72 L, MCV 90.5, MCH 30.1, MCHC 33.3, RDW 14.2, MPV 6.5 L, Gran % 77.7 H, Lymphocytes % 15.9 L, Monocytes % 3.7, Eosinophils % 2.3, Basophils % 0.4, Absolute Granulocytes 4.4, Absolute Lymphocytes 0.9 L, Absolute Monocytes 0.2, Absolute Eosinophils 0.1, Absolute Basophils 0 11/24/17 0329: Anion Gap 11, Estimated GFR > 60, BUN/Creatinine Ratio 11.7, Glucose 95, Calcium 8.8, Total Bilirubin 0.8, Direct Bilirubin 0.3, AST 38 H, ALT 66 H, Alkaline Phosphatase 92, Troponin I < 0.01, Total Protein 6.6, Albumin 4.0, Triglycerides 364 H, Amylase 826 H, Lipase 82444 H, Total Beta HCG NEGATIVE, PT 10.0, INR 0.95, APTT 26, CBC w Diff NO MAN DIFF REQ, RBC 4.35, MCV 90.9, MCH 29.8, MCHC 32.8 L, RDW 14.4, MPV 6.2 L, Gran % 78.1 H, Lymphocytes % 15.7 L, Monocytes % 3.2, Eosinophils % 2.5, Basophils % 0.5, Absolute Granulocytes 5.7, Absolute Lymphocytes 1.1 L, Absolute Monocytes 0.2, Absolute Eosinophils 0.2, Absolute Basophils 0, Serum Alcohol < 10.0 Assessment/Plan Assessment: Patient is a 41-year-old with past medical history significant for recurrent pancreatitis due to poorly controlled hypertriglyceridemia and alcohol abuse, history of hypertension, hyperlipidemia, fibromyalgia, asthma presented to the ED for the evaluation of severe epigastric pain and nausea vomiting for the last 1 day. Vitals on admission: Temperature 97.7, pulse 105, respiratory 20, blood pressure: 142/95 on room air. But her labs on admission, WBC count normal, H&H stable. Normal BEP on admission, U tox showed serum alcohol less than 10. Problem list 1.Recurrent pancreatitis in the setting of poorly controlled hypertriglyceridemia along with alcohol abuse. 2. Acute drop in H&H 3. Hypokalemia 4. History of hypertension 5 History of anxiety Plan 1.Recurrent pancreatitis in the setting of poorly controlled hypertriglyceridemia along with alcohol abuse. * Continue to monitor patient on the [facility] * Continue with nothing by mouth and Ringer lactate at the rate of 200 mL per hour. * Zofran as needed for nausea. * Dilaudid 1 mg every 4 when necessary for severe pain. * Patient has been evaluated by GI, recommended conservative management for now. If patient's symptoms get any worse we will consider imaging studies. * Continue on [employer] for hypertriglyceridemia. Will obtain endocrinology consult for hypertriglyceridemia. * consider LFTs tomorrow along with amylase and lipase, if symptoms get any worse 2. Acute drop in H&H * Likely due to hemodilution after fluids * Check stool guaiac. 3. Hypokalemia * Will give K-Lissa 40 mg equivalents today recheck labs tomorrow 4. History of alcohol abuse * Monitor CIWA scores. * if Scoring high consider as needed Ativan for alcohol abuse/withdrawal. 5. History of anxiety * Will resume nasal Xanax. Maintain DVT prophylaxis with Lovenox Patient is full Problem List: 1. Nausea 2. Acute pancreatitis Pain Ratin Pain Location: abdominl discomfort Pain Goal: Remain pain free Pain Plan: prn dilaudid Tomorrow's Labs & Rationales: bep
--- NOTE | 2017-11-24 08:02 | Cons- Gastroenterology ---
General Information and HPI Consulting Request Date of Consult: 11/24/17 Requested By: Estevan ALBA,Laurie Reason for Consult: I was just notified of a request by the hospitalist service to assess this patient with recurrent pancreatitis, with documented hypertriglyceridemia. *Please refer to my relatively recent inpatient GI consult of 10/18/17. Source of Information: patient, old records Exam Limitations: fair historian; the majority of the patient's prior GI records were in the [place], [place] area. History of Present Illness: 42 y/o female, recently seem by myself in inpt GI consultation 10/18/17 for TG- induced pancreatitis, & followed for GI as an outpt by Dr. Linares (last seen by her in the office 11/13/17), andrea historian, HTN, non-DM, HLD, obese, FCBD, fibromyalgia, asthma, also seen by myself in inpatient GI consultation 05/25/16 for hypertriglyceride- induced pancreatitis, with TG 1277 then. For some reason, she was never put on anti-lipid medications, at that point. She has a history of cigarette smoking ( reportedly stopped since 10/2017), & moderate EtOH, the latter of which she appeared to be down playing. She previously drank heavily years ago, but now admitted to "a few drinks a week". She drank again over New Year's. She denied any illicit drug use. Her gallbladder was intact. Additionally, she has fatty liver. She changed essentially all of her physicians since 2015. She previously was followed by Dr. Ayse Angeles for GI, in [place], [place], but switched to Dr. Linares, whom she initially saw as a GI outpt in 08/2017. She also switched to [facility] for primary care, & sees Dr. Guajardo for REACTOR OPERATOR, who had previously put her on HCTZ (*note- hx pancreatitis). Finally, she saw Dr. Mcneill, of cardiology, for atypical CP & reportedly had a negative w/u, with 08/31/15: echocardiogram- WNL. She previously did not follow up with outpatient endocrine for her HLD, but most recently has been followed for this by Dr. Ramires. Previous 08/21/17: *CT AP with IV cont- no acute pancreatic process , just chronic dilated CBD. *She was on chronic narcotics for back pain, which could be contributing to her chronically dilated CBD, by increasing tone at the Sphincter of Oddi. *After switching from Dr. Angeles to Dr. Linares, she had: 09/25/17: MR ABDOMEN WITH AND WITHOUT CONTRAST- 1. Mild acute pancreatitis at the pancreatic head at the pancreaticoduodenal groove. No evidence of fluid collections or pancreatic necrosis. No obstructing lesions or calculi. 2. Dilatation of the common bile duct 1.6 cm (w/o change) and pancreatic duct (6 mm), likely related to the inflammation at the pancreatic head. No pancreatic cysts or lesions seen. Mild intrahepatic dilitation. No choledocholithiasis. 3. Hydropic GB without cholelithiasis or cholecystitis. 4. Tiny fat-containing umbilical hernia. When previously seen at [facility] 05/25/16, Utox was positive for benzodiazepines. She denied any Sulfa medications, NSAIDs, or herbal medications. Aparently, she was on HCTZ then, as above. She was not admitted to the hospital again for pancreatitis until 10/17/17, although she had multiple ER visits for abdominal pain. The pt was last admitted to [facility] 10/17/17 to 10/21/17, with hyperTG (912) induced pancreatitis. She did have a few drinks of EtOH over New Year's, prior to that flare.*Her HCTZ was stopped. She was not on Sulfa medications, BCP, NSAIDs, herbal medications, or ZACK inhibitors. She reportedly stopped cigarette smoking after that. He had since been followed by endocrine, and was placed on TriCor and fish oil. Again, the patient last saw Dr. Linares in the office for GI follow-up 11/13/17 , and arrangements were being made to get an *outpatient EUS. Her chronically dilated CBD was most likely from chronic narcotic use. *Please note, 10/19/17: nl IgG4 = 7, going against autoimmune pancreatitis. *I do not believe the patient ever had genetic testing for pancreatitis. *Current outpt meds WINEMAKER included TriCor, fish oil, Fioricet, Xanax, Albuterol, Nexium 40 mg daily, & Zofran ODT. The patient called the GI office 11/23/17 complaining of abdominal pain x 1 day, and was sent to the [facility]. The patient arrived to the [facility] 11/24/17 at 2:56 a.m., complaining of diffuse band-like pain across the mid-abdomen/ epigastric region, radiating to the back "10 out of 10" associated with nausea, but no definite vomiting. Upon arrival, BP 142/95, P 105, RR 20, T 97.7, O2 sat RA 97%. She did not spike any fevers. She was dry heaving in triage. Try Tylenol prior to arriving at 10 PM the night before, without help. She claimed her symptoms were similar to her multiple recurrent bouts of pancreatitis. She received IV NS, Dilaudid, Tylenol, & Zofran in the ER. Her pain transiently went down to "7 out of 10". No repeat imaging studies were obtained in the ER, aside from an EKG. One day prior to the onset of her symptoms, she ate crackers, cheese, salad with ranch dressig, & soup, awakening the next morning at 6 AM with pain as above. She was then essentially NPO xc clears x 24 hrs WINEMAKER. She did note hx FFI. There was no diarrhea. She denied any jaundice, dark urine, light stools, or pruritus. She denied any chest pain or shortness of breath. She denied any unintentional weight loss. She had no symptoms of odynophagia, dysphagia, or early satiety. Her reflux was well controlled on Nexium. There was no overt constipation, obstipation, tenesmus, or rectal bleeding, although she did carry a tentative diagnosis of questionable IBS-D (keeping in mind her fibromyalgia). She had no symptoms of UTI or URI. There was mild dizziness without LOC. She did not take her TriCor for 2 days WINEMAKER as she "forgot it at work". She initially claimed she had not drink any alcohol or smoked cigarettes since her 10/21/17 [facility] discharge, but then later stated she had "a couple of beers when watching the Super Bowl". She denied any illicit street drugs. 11/24/17: Admission labs- WBC 7.3, H/H 13.4/39.5, MCV 90.9, RDW 14.4, PLT 255, glucose 95, BUN/Cr 7/0.6, GFR > 60, Na 137, K 3.5, HCO3 21, Ca 8.8, albumin 4.0, globulin 2.6, TBil 0.8, DBil 0.3, alk phos 92, AST 38, ALT 66 (*hx fatty liver) , amylase/lipase 826/19,832, troponin < 0.01, [EtOH] < 10, serum HCG- neg, *TG 364. Allergies/Medications Allergies: Coded Allergies: lisinopril (ABD PAIN AND COLD SWEATS, DIZZY, NAUSEA 08/21/17) Home Med List: Albuterol Sulfate (Ventolin Hfa) 18 GM HFA.AER.AD 2 PUF INH Q4-6 PRN PRN breathing (Reported) Alprazolam 1 MG TABLET 1 TAB PO TIDPRN ANXIETY (Reported) Butalbit/Acetamin/Caff/Codeine (Mquqpq-Fkvd-Adsejwcvvbv-Codein) 50 MG-325 MG-40 MG-30 MG CAPSULE 1 CAP PO Q12 PRN HEADACHE (Reported) Esomeprazole (Nexium) 40 MG CAPSULE.DR 1 CAP PO DAILY GI (Reported) Fenofibrate (Tricor) 48 MG TABLET 1 TAB PO DAILY LIPID [place]-3/Dha/Epa/Dpa/Fish Oil ([place]-3 1,050 MG Softgel) 1,050-1200 CAPSULE 1 TAB PO DAILY LIPID Ondansetron (Zofran Odt) 4 MG TAB.RAPDIS 1 TAB SL TID PRN NAUSEA Current Medications: Current Medications Sig/Adam Start time Last Medication Dose Route Stop Time Status Admin Acetaminophen 0 .STK-MED ONE 11/24 352 DC IV Acetaminophen 1,000 MG ONCE ONE 11/24 344 DC 11/24 N/A 1 UNIT IV 11/24 Enoxaparin Sodium 40 MG DAILY 11/24 1000 AC SC Hydromorphone HCl 1 MG Q4 HRS NEEDED PRN 11/24 0545 AC 11/24 IV 0710 Hydromorphone HCl 0 .STK-MED ONE 11/24 519 DC .ROUTE Hydromorphone HCl 1 MG ONCE ONE 11/24 514 DC 11/24 IV 11/24 515 0519 Hydromorphone HCl 0 .STK-MED ONE 11/24 352 DC .ROUTE Hydromorphone HCl 1 MG ONCE ONE 11/24 344 DC 11/24 IV 11/24 345 035 Lactated Ringer's 1,000 ML .Q5H 11/24 0645 AC 11/24 IV 0815 Ondansetron HCl 4 MG Q6P PRN 11/24 0545 AC IV Ondansetron HCl 0 .STK-MED ONE 11/24 0353 DC .ROUTE Ondansetron HCl 4 MG ONCE ONE 11/24 0345 DC 11/24 IV 11/24 0346 0355 Pantoprazole Sodium 40 MG DAILY 11/24 1000 AC IV Sodium Chloride 1,000 ML BOLUS ONE 11/24 0545 DC 11/24 IV 11/24 0844 0641 Sodium Chloride 1,000 ML BOLUS ONE 11/24 0515 DC 11/24 IV 11/24 0614 0513 Sodium Chloride 1,000 ML BOLUS ONE 11/24 0345 DC 11/24 IV 11/24 0444 0346 Trimethobenzamide HCl 200 MG ONCE ONE 11/24 0800 DC 11/24 IM 11/24 0801 0816 Past History Travel History Traveled to [place] past 21 day No Medical History Blood Transfusion Hx: No Neurological: NONE EENT: NONE Cardiovascular: hypertension, hyperlipidemia (TG) Respiratory: asthma Gastrointestinal: GERD, pancreatitis Hepatic: fatty liver Renal: NONE Musculoskeletal: disk herniation Psychiatric: anxiety, opioid dependence (on Fioricet; prev on Percocet) Endocrine: obesity Blood Disorders: NONE Cancer(s): NONE REACTOR OPERATOR/Reproductive: NONE Surgical History Surgical History: breast biopsy (FCBD) Family History Relations & Conditions If Any: FATHER (Crohns). MOTHER (diverticulitis). , Age 55; Cause: Lung cancer. Psychosocial History Where Do You Live? Home Who Do You Live With? child Services at Home: None Primary Language: Syriac Smoking Status: Former Smoker ETOH Use: denies use (prev heavier yrs ago), occasional use Illicit Drug Use: denies illicit drug use Living Will? no Power of Video Production Specialist/HCP? no Other Social History: Single. 2 daughters and 1 son- alive and well. Lives with her children. > 1 pack of cigarettes per week (reportedly stopped since 10/2017). Moderate EtOH in past (3 margaritas & 3 shots vodka/wk). Denies illicit drug use, but was on rx Percocet & Fioricet. Moderate caffeine. 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 Functional Ability ADLs Independent: dressing, eating, toileting, bathing. Ambulation: independent IADLs Independent: shopping, housework, finances, food prep, telephone, transportation , medication admin. Employment History Employment: Employed Profession/Employer: [employer] ECHO Results (as available) Date of last Echo 08/31/15 EF% 65 Review of Systems Review of Systems: Full 14 point review of systems otherwise noncontributory, and as per HPI. Review of Systems Constitutional: Denies: diaphoresis, fever, chills, malaise, weakness, unexplained weight loss. EENTM: Denies: blurred vision, double vision, visual changes, eye pain, eye drainage, eye tearing, icterus, ear discharge, ear pain, ear redness, hearing changes, nasal congestion, epistaxis, nasal pain, throat pain, throat swelling, mouth pain, tooth pain. Cardiovascular: Denies: chest pain, edema, orthopena, palpitations, peripheral edema, syncope. Respiratory: Denies: cough, hemoptysis, orthopnea, short of breath, sputum production, stridor, wheezing. GI: Reports: abdominal pain, nausea, vomiting, GERD-> Nexium. Denies: bloating, constipation, diarrhea, distention, bowel incontinence, melena , bloody stool, changes in stool, steatorrhea. Genitourinary: Denies: discharge, dysuria, frequency, hematuria, hesitation, nocturia, pain, urgency. Musculoskeletal: Reports: back pain (chronic). Denies: gout, joint pain, joint swelling, muscle pain, muscle stiffness, neck pain. Skin: Denies: cysts, change in skin color, change in hair/nails, dryness, erythema, jaundice, lesions, lymphangitis, lumps, moles, rash. Neurological/Psychological: Reports: anxiety, emotional problems. Denies: ataxia, cognitive dysfunction, confusion, depressed, dementia, headache, numbness, paresthesia, pre-existing deficit, petit mal seizures, tingling, tremors, tonic-clonic seizures, unable to move lower ext, unable to move upper ext, weakness. Hematologic/Endocrine: Reports: HLD, ck *TG. Denies: bruising, bleeding, polyuria, polydipsia. Immunologic/Allergic: Denies: splenectomy, HIV/AIDS, lymphadenopathy. All Other Systems: Reviewed and Negative Exam & Diagnostic Data Vital Signs and I&O Vital Signs Date Time Temp Pulse Resp B/P B/P Pulse O2 O2 Flow FiO2 Mean Ox Delivery Rate 11/24 653 98.2 83 20 126/80 97 11/24 0520 97.0 92 20 147/95 98 Room Air 11/24 0310 97.7 105 20 142/95 97 Room Air Intake & Output 11/24 0400 11/23 040 Intake Total 500 Output Total Balance 500 Intake, IV 500 Intake, Oral 0 Patient 213 lb 214 lb Weight Weight Bed scale Reported by Patient Measurement Method Physical Exam: Well-developed, well-nourished, obese female, in NAD. Sclera anicteric. Conjunctiva pink. Oropharynx clear. No oral thrush. No apthous ulcers. There is no adenopathy, thyromegaly, or JVD. No peripheral stigmata of inflammatory bowel disease or chronic liver disease on exam. No spiders on the anterior chest wall. No CVA tenderness. Lungs: clear to A&P. No wheezing, rales, or rhonchi. Heart exam: regular rate rhythm, S1 and S2, without any murmur. Abdominal exam: normal bowel sounds, soft obese belly, mild to moderate diffuse epigastric tenderness, without guarding or rebound. Tiny reducible umbilical hernia, otherwise, no mass. No splenomegaly. Enlarged liver approximately 15 cm. Negative Naik sign. No fluid shift. No pulsatile mass. Digital rectal exam: deferred by patient ("recently normal at Dr. Guajardo"). Extremities: without cyanosis or clubbing. Trace pedal edema B/L. No palpable cords. No acute arthropathy. No rash. No palmar erythema. No Dupuytren's contractures. Distal pulses 1+ bilaterally. DTRs 1+ bilaterally. Alert and oriented x 3. No tremor or asterixis. Motor 5/5 B/L. Results Pertinent Lab Results: Laboratory Tests 11/24 328 Chemistry Sodium (137 - 145 mmol/L) 137 Potassium (3.5 - 5.1 mmol/L) 3.5 Chloride (98 - 107 mmol/L) 105 Carbon Dioxide (22 - 30 mmol/L) 21 L Anion Gap (5 - 16) 11 BUN (7 - 17 mg/dL) 7 Creatinine (0.5 - 1.0 mg/dL) 0.6 Estimated GFR (>60 ml/min) > 60 BUN/Creatinine Ratio (7 - 25 %) 11.7 Glucose (65 - 99 mg/dL) 95 Calcium (8.4 - 10.2 mg/dL) 8.8 Total Bilirubin (0.2 - 1.3 mg/dL) 0.8 Direct Bilirubin (< 0.4 mg/dL) 0.3 AST (14 - 36 U/L) 38 H ALT (9 - 52 U/L) 66 H Alkaline Phosphatase (<127 U/L) 92 Troponin I (< 0.11 ng/ml) < 0.01 Total Protein (6.3 - 8.2 g/dL) 6.6 Albumin (3.5 - 5.0 g/dL) 4.0 Triglycerides (<150 mg/dL) 364 H Amylase (30 - 110 U/L) 826 H Lipase (23 - 300 U/L) 85267 H Total Beta HCG (NEGATIVE) NEGATIVE Coagulation PT (9.4 - 12.5 SEC) 10.0 INR (0.90 - 1.19) 0.95 APTT (25 - 37 SEC) 26 Hematology CBC w Diff NO MAN DIFF REQ WBC (4.8 - 10.8 /CUMM) 7.3 RBC (4.20 - 5.40 /CUMM) 4.35 Hgb (12.0 - 16.0 G/DL) 13.0 Hct (37 - 47 %) 39.5 MCV (81.0 - 99.0 FL) 90.9 MCH (27.0 - 31.0 PG) 29.8 MCHC (33.0 - 37.0 G/DL) 32.8 L RDW (11.5 - 14.5 %) 14.4 Plt Count (130 - 400 /CUMM) 255 MPV (7.4 - 10.4 FL) 6.2 L Gran % (42.2 - 75.2 %) 78.1 H Lymphocytes % (20.5 - 51.1 %) 15.7 L Monocytes % (1.7 - 9.3 %) 3.2 Eosinophils % (0 - 5 %) 2.5 Basophils % (0.0 - 2.0 %) 0.5 Absolute Granulocytes (1.4 - 6.5 /CUMM) 5.7 Absolute Lymphocytes (1.2 - 3.4 /CUMM) 1.1 L Absolute Monocytes (0.10 - 0.60 /CUMM) 0.2 Absolute Eosinophils (0.0 - 0.7 /CUMM) 0.2 Absolute Basophils (0.0 - 0.2 /CUMM) 0 Toxicology Serum Alcohol (<10 MG/DL) < 10.0 Imaging/Other Studies: 09/25/17: MR ABDOMEN WITH AND WITHOUT CONTRAST- 1. Mild acute pancreatitis at the pancreatic head at the pancreaticoduodenal groove. No evidence of fluid collections or pancreatic necrosis. No obstructing lesions or calculi. 2. Dilatation of the common bile duct 1.6 cm (w/o change) and pancreatic duct (6 mm), likely related to the inflammation at the pancreatic head. No pancreatic cysts or lesions seen. Mild intrahepatic dilitation. No choledocholithiasis. 3. Hydropic GB without cholelithiasis or cholecystitis. 4. Tiny fat-containing umbilical hernia. [No imaging studies obtained from ER at time of 10/17/17: admission, nor at time of 11/24/17 admission]. 10/18/17: XRY-PORTABLE CHEST XRAY- Unremarkable examination. There is no pleural effusion, CHF, or infiltrate. 11/24/17: EKG-NSR @ 71, nl axis, nl intervals,w/o acute ischemic changes. Assessment/Plan Assessment/Recommendations: 42 y/o female, recently seem by myself in inpt GI consultation 10/18/17 for TG- induced pancreatitis, & followed for GI as an outpt by Dr. Linares (last seen by her in the office 11/13/17), fair historian, HTN, non-DM, HLD, obese, FCBD, fibromyalgia, asthma, also seen by myself in inpatient GI consultation 05/25/16 for hypertriglyceride- induced pancreatitis, with TG 1277 then. For some reason, she was never put on anti-lipid medications, at that point. She has a history of cigarette smoking ( reportedly stopped since 10/2017), & moderate EtOH, the latter of which she appeared to be down playing. She previously drank heavily years ago, but now admitted to "a few drinks a week". She drank again over New Year's. She denied any illicit drug use. Her gallbladder was intact. Additionally, she has fatty liver. She changed essentially all of her physicians since 2015. She previously was followed by Dr. Ayse Angeles for GI, in [place], [place], but switched to Dr. Linares, whom she initially saw as a GI outpt in 08/2017. She also switched to [facility] for primary care, & sees Dr. Guajardo for REACTOR OPERATOR, who had previously put her on HCTZ (*note- hx pancreatitis). Finally, she saw Dr. Mcneill, of cardiology, for atypical CP & reportedly had a negative w/u, with 08/31/15: echocardiogram- WNL. She previously did not follow up with outpatient endocrine for her HLD, but most recently has been followed for this by Dr. Ramires. Previous 08/21/17: *CT AP with IV cont- no acute pancreatic process , just chronic dilated CBD. *She was on chronic narcotics for back pain, which could be contributing to her chronically dilated CBD, by increasing tone at the Sphincter of Oddi. *After switching from Dr. Angeles to Dr. Linares, she had: 09/25/17: MR ABDOMEN WITH AND WITHOUT CONTRAST- 1. Mild acute pancreatitis at the pancreatic head at the pancreaticoduodenal groove. No evidence of fluid collections or pancreatic necrosis. No obstructing lesions or calculi. 2. Dilatation of the common bile duct 1.6 cm (w/o change) and pancreatic duct (6 mm), likely related to the inflammation at the pancreatic head. No pancreatic cysts or lesions seen. Mild intrahepatic dilitation. No choledocholithiasis. 3. Hydropic GB without cholelithiasis or cholecystitis. 4. Tiny fat-containing umbilical hernia. When previously seen at [facility] 05/25/16, Utox was positive for benzodiazepines. She denied any Sulfa medications, NSAIDs, or herbal medications. Aparently, she was on HCTZ then, as above. She was not admitted to the hospital again for pancreatitis until 10/17/17, although she had multiple ER visits for abdominal pain. The pt was last admitted to [facility] 10/17/17 to 10/21/17, with hyperTG (912) induced pancreatitis. She did have a few drinks of EtOH over New Year's, prior to that flare.*Her HCTZ was stopped. She was not on Sulfa medications, BCP, NSAIDs, herbal medications, or ZACK inhibitors. She reportedly stopped cigarette smoking after that. He had since been followed by endocrine, and was placed on TriCor and fish oil. Again, the patient last saw Dr. Linares in the office for GI follow-up 11/13/17 , and arrangements were being made to get an *outpatient EUS. Her chronically dilated CBD was most likely from chronic narcotic use. *Please note, 10/19/17: nl IgG4 = 7, going against autoimmune pancreatitis. *I do not believe the patient ever had genetic testing for pancreatitis. *Current outpt meds WINEMAKER included TriCor, fish oil, Fioricet, Xanax, Albuterol, Nexium 40 mg daily, & Zofran ODT. The patient called the GI office 11/23/17 complaining of abdominal pain x 1 day, and was sent to the [facility] ER. The patient arrived to the [facility] ER 11/24/17 at 2:56 a.m., complaining of diffuse band-like pain across the mid-abdomen/ epigastric region, radiating to the back "10 out of 10" associated with nausea, but no definite vomiting. Upon arrival, BP 142/95, P 105, RR 20, T 97.7, O2 sat RA 97%. She did not spike any fevers. She was dry heaving in triage. Try Tylenol prior to arriving at 10 PM the night before, without help. She claimed her symptoms were similar to her multiple recurrent bouts of pancreatitis. She received IV NS, Dilaudid, Tylenol, & Zofran in the ER. Her pain transiently went down to "7 out of 10". No repeat imaging studies were obtained in the ER, aside from an EKG. One day prior to the onset of her symptoms, she ate crackers, cheese, salad with ranch dressig, & soup, awakening the next morning at 6 AM with pain as above. She was then essentially NPO xc clears x 24 hrs WINEMAKER. She did note hx FFI. There was no diarrhea. She denied any jaundice, dark urine, light stools, or pruritus. She denied any chest pain or shortness of breath. She denied any unintentional weight loss. She had no symptoms of odynophagia, dysphagia, or early satiety. Her reflux was well controlled on Nexium. There was no overt constipation, obstipation, tenesmus, or rectal bleeding, although she did carry a tentative diagnosis of questionable IBS-D (keeping in mind her fibromyalgia). She had no symptoms of UTI or URI. There was mild dizziness without LOC. She did not take her TriCor for 2 days WINEMAKER as she "forgot it at work". She initially claimed she had not drink any alcohol or smoked cigarettes since her 10/21/17 [facility] discharge, but then later stated she had "a couple of beers when watching the Super Bowl". She denied any illicit street drugs. 11/24/17: Admission labs- WBC 7.3, H/H 13.4/39.5, MCV 90.9, RDW 14.4, PLT 255, glucose 95, BUN/Cr 7/0.6, GFR > 60, Na 137, K 3.5, HCO3 21, Ca 8.8, albumin 4.0, globulin 2.6, TBil 0.8, DBil 0.3, alk phos 92, AST 38, ALT 66 (*hx fatty liver) , amylase/lipase 826/19,832, troponin < 0.01, [EtOH] < 10, serum HCG- neg, *TG 364. *The patient's recurrent pancreatitis in the past was undoubtedly due to her poorly controlled hyperTG, superimposed on additional risk factors for pancreatitis, including cigarette smoking and intermittent EtOH. She claimed she stopped cigarettes at the end of 10/2017, and "had a couple of beers over the Super Bowl". Her admission 11/24/17: TG 364 was noted. In the past, the feelings were that TG had to be > 1000 to cause pancreatitis, but recent data shows that even moderate hyperTG can do this, especially in someone that is predisposed. 10/19/17: nl IgG4 = 7 goes against autoimmune pancreatitis. She does have a history of FFI and her GB is intact, rule out biliary sludge and/or microcrystals. Her minimally elevated transaminases are most likely from fatty liver. Numerous imaging studies have failed to reveal any acute biliary process.*She was previously on chronic narcotics (Percocet & Dilaudid) for chronic back pain, which could be contributing to her chronically dilated CBD, by increasing tone at the Sphincter of Oddi. *On admission, 0 grave signs by Lola criteria, but no LDH sent. *On admission, 0 grave signs by BiSAP criteria , but no CXR done to rule out pleural effusions. *She had no imaging studies on admission, however she recently had 08/21/17: CT AP with IV contrast & 09/25/17: MRI abdomen with & w/o contrast, failure to reveal any evidence of pancreatic necrosis. *She is awaiting outpatient EUS to be arranged at [facility], per Dr. Linares. I feel that at present, the only reason to repeat a CT AP with IV contrast would be to exclude pancreatic necrosis, which clinically is unlikely. I would only pursue this if the patient deteriorated. *Please note, the level of lipase elevation has no bearing on prognosis regarding pancreatitis. In fact, lipase levels may go up when the TG improve. *SUGGEST- NPO for now. *Aggressive IVF-> increase IVF to Ringer's lactate to 200cc/hr. Strict I/O's. Supplemental O2 as needed. *Get CXR (r/o pleural effusion). *Add LDH to 11/24/17: admission labs. *Continue Tricor & fish oil, as per medical team. *Consider endocrine follow-up re: HLD. Discontinue cigarettes (reportedly stopped 10/2017) & EtOH (poor insight- had a few beers recently). Analgesics per medical team. Avoid NSAIDs. Ativan as needed. DVT prophylaxis. Continue PPI for GERD. *Zofran as needed. Risk factor modification for fatty liver (ie.- strict control of body weight, glucose, lipids, BP, avoid EtOH, etc). Consider eventual Vitamin E 800 IU po daily. Watch for hemoconcentration (i.e.- rising BUN or Hgb), despite IV fluids, which would be a poor prognostic sign. *Check CRP for prognostic purposes (NOT high sensitivity CRP). *Consider checking fecal elastase (probable IBS-D; rule out pancreatic insufficiency, but no pancreatic calcifications seen on previous imaging studies). *Await outpt E[facility] at [facility], per Dr. Linares, to better define CBD, PD, ampulla, & pancreatic head, but most likely, the patient's chronically dilated ducts are from chronic narcotic use for her back pain. *Consider genetic markers such as CFTR, SPINK mutation, and/or PRSS1. The patient will follow-up with Dr. Linares for GI after discharge. Further GI recommendations to follow, depending on clinical course. Problem List: 1. Pancreatitis 2. Hypertriglyceridemia 3. Abdominal pain 4. Fatty liver 5. GERD (gastroesophageal reflux disease) 6. Nausea Copies To: Bennett ALBA,Chevy; Estevan ALBA,Laurie; Shea MEDINA,Marjorie Monge; Vijay ALBA, Lois; Wilfredo ALBA,[facility]; Ike ALBA,Kimberlee; Osito ALBA PHD,Arash Sam Consult Acknowledgment - Thank you for your consult request.
[2017-11-24 08:18] LABS: PTT 26 SEC (25-37)
[2017-11-24 10:24] LABS: ABSOLUTE BASOPHIL COUNT 0 /CUMM (0.0-0.2); ABSOLUTE EOSINOPHIL COUNT 0.1 /CUMM (0.0-0.7); ABSOLUTE GRANULOCYTE CT 4.4 /CUMM (1.4-6.5); ABSOLUTE LYMPH COUNT 0.9 /CUMM (1.2-3.4); ABSOLUTE MONOCYTE COUNT 0.2 /CUMM (0.10-0.60); BASOPHIL % 0.4 % (0.0-2.0); EOSINOPHIL % 2.3 % (0-5); GRANULOCYTE % 77.7 % (42.2-75.2); MEAN CORPUSCULAR HGB 30.1 PG (27.0-31.0); MEAN CORPUSCULAR HGB CONC 33.3 G/DL (33.0-37.0); MEAN CORPUSCULAR VOLUME 90.5 FL (81.0-99.0); MEAN PLATELET VOLUME 6.5 FL (7.4-10.4); PLATELET COUNT 201 /CUMM (130-400); RBC DISTRIBUTION WIDTH 14.2 % (11.5-14.5); RED BLOOD CELL CT 3.72 /CUMM (4.20-5.40); WHITE BLOOD CELL COUNT 5.6 /CUMM (4.8-10.8)
[2017-11-24 10:35] LABS: HEMATOCRIT 33.7 % (37-47)
[2017-11-24] MEDS ORDERED: DICYCLOMINE HCL10 M1 PO (11:14)
[2017-11-24] MEDS ORDERED: LOMOTIL 2.5-0.1 EACH PO (11:15)
[2017-11-24 14:06] VITALS: BP 120/80
--- NOTE | 2017-11-24 17:11 | Discharge Summary ---
Visit Information Visit Dates Admission Date: 11/24/17 Discharge Date: 11/28/17 Hospital Course Course Attending Physician: Laurie Barreto MD Primary Care Physician: Marjorie De Santiago Hospital Course: Patient is a 41-year-old with past medical history significant for recurrent pancreatitis due to poorly controlled hypertriglyceridemia and alcohol abuse, history of hypertension, hyperlipidemia, fibromyalgia, asthma, IBS presented to the ED for the evaluation of severe epigastric pain and nausea vomiting for the last 1 day. Vitals on admission: Temperature 97.7, pulse 105, respiratory 20, blood pressure: 142/95 on room air. But her labs on admission, WBC count normal, H&H stable. Normal BEP on admission, U tox showed serum alcohol less than 10. Following problems are as this while patient was on the [facility] floor. Plan 1.Recurrent pancreatitis in the setting of poorly controlled hypertriglyceridemia along with alcohol abuse; Patient was admitted to general floor, kept nothing by mouth treated with Ringer lactate. She was evaluated by GI as per recommendations conservative management was continued without imaging studies. Patient was also evaluated by endocrinology due to poorly controlled hypertriglyceridemia , recommended to continue with Tricor 48 mg daily. Patient clinically improved during the hospitalization, fluids were discontinued, diet was advanced gradually to low- fat diet. Patient was advised to follow-up with a cell tender( Dr. Munson) within 1 week after discharge to schedule EUS at [facility](for better assessment of CBD, PD, ampulla, & pancreatic head) 2. Chronic opioid dependence Patient had a history of chronic opioid dependence due to chronic pancreatitis and back /neck issues she was discharged home on a few pills of Percocet, advised to follow-up appointment her pain specialist as an outpatient. She was also given referral to Dr. Heath Albert for possible medical marijuana(requested by the patient). 3. Electrolyte derangements(hypokalemia and hypomagnesemia) Electrolytes were monitored and repleted during the admission, hypokalemia and hypomagnesemia was resolved on discharge. 4. History of alcohol abuse CIWA scores were monitored ,patient didn't require any Ativan during the admission * if Scoring high consider as needed Ativan for alcohol abuse/withdrawal. 5. History of anxiety Home dose of Xanax was continued during the admission. 6. History of IBS Home medications were continued on discharge Maintain DVT prophylaxis with Lovenox Patient is full Allergies: Coded Allergies: lisinopril (ABD PAIN AND COLD SWEATS, DIZZY, NAUSEA 08/21/17) Pertinent Lab Results: XAM TYPE: RAD - XRY-PORTABLE CHEST XRAY EXAMINATION: XR PORTABLE CHEST CLINICAL INFORMATION: Pleural effusion COMPARISON: October 2017 TECHNIQUE: Portable frontal view of the chest was obtained. FINDINGS: No significant abnormality is noted involving the heart, lungs, mediastinum, bony thorax or soft tissues. IMPRESSION: Unremarkable examination. DICTATED BY: Goldy Dowling MD DATE/TIME DICTATED:11/26/171999 SOLAR POOL HEATING INSTALLER:TAMIKO DATE/TIME TRANSCRIBED:11/26/171999 CONFIDENTIAL, DO NOT COPY WITHOUT APPROPRIATE AUTHORIZATION. <Electronically signed in Other Vendor System> SIGNED BY: Goldy Dowling MD 2004 Disposition Summary Disposition Principal Diagnosis: Recurrent pancreatitis in the setting of poorly controlled hypertriglyceridemia along with alcohol abuse Additional Diagnosis: History of alcohol abuse Discharge Disposition: home health services Discharge Instructions General Discharge Information Code Status: Full Code Patient's Diet: Low-fat diet Patient's Activity: As tolerated Follow-Up Instructions/Appts: 1. Please follow up with your primary care physician within 1 week after discharge. 2. Please f/u with your cell tender within [address] Munson's office [place] to schedule EUS at [facility]. Medications at Discharge Discharge Medications: Continue taking these medications: Alprazolam (Alprazolam) 1 MG TABLET 1 Tablet ORAL THREE TIMES A DAY NEEDED Comments: Last Taken:11/28/17 Time:8:14a.m Albuterol Sulfate (Ventolin Hfa) 18 GM HFA.AER.AD 2 Puff Inhale through mouth EVERY 4-6 HOURS NEEDED as needed for breathing Days = 30 Esomeprazole (Nexium) 40 MG CAPSULE.DR 1 Capsule ORAL DAILY Qty = 30 Comments: NOT GIVEN THIS ADMISSION Ondansetron (Zofran Odt) 4 MG TAB.RAPDIS 1 Tablet SUBLINGUAL THREE TIMES DAILY as needed for NAUSEA Qty = 20 Comments: NOT GIVEN THIS ADMISSION Fenofibrate (Tricor) 48 MG TABLET 1 Tablet ORAL DAILY Qty = 30 Comments: Last Taken: 11/28/17 Time: 9:40A.M [place]-3/Dha/Epa/Dpa/Fish Oil ([place]-3 1,050 MG Softgel) 1,050-1200 CAPSULE 1 Tablet ORAL DAILY Qty = 30 Comments: Last Taken: 11/28/17 Time: 9:40A.M Butalbit/Acetamin/Caff/Codeine (Doybej-Ogcw-Ujixyvbghcv-Codein) 50 MG-325 MG-40 MG-30 MG CAPSULE 1 Capsule ORAL EVERY 12 HOURS as needed for HEADACHE Qty = 30 Comments: Last Taken:11/27/17 Time:08:02A.M Dicyclomine HCl (Dicyclomine HCl) 10 MG CAPSULE 1 Capsule ORAL EVERY SIX HOURS NEEDED as needed for IBS Qty = 90 Comments: NOT GIVEN THIS ADMISSION Diphenoxylate HCl/Atropine (Lomotil 2.5-0.025 MG Tablet) 2.5 MG-0.025 MG TABLET 1 Tablet ORAL THREE TIMES DAILY as needed for IBS Qty = 60 Comments: NOT GIVEN THIS ADMISSION Start taking the following new medications: Oxycodone HCl/Acetaminophen (Percocet 5-325 MG Tablet) 5 MG-325 MG TABLET 1 Tablet ORAL Every 6-8 Hours Qty = 14 No Refills Comments: Last Taken:11/28/17 Time:12:40P.M Copies To: Marjorie De Santiago
--- NOTE | 2017-11-24 17:33 | Cons- Endocrinology ---
General Information and HPI Consulting Request Date of Consult: 11/24/17 Requested By: medical team Reason for Consult: hypertriglyceridemia Source of Information: patient, old records Exam Limitations: no limitations History of Present Illness: 41 yo female with PMH significant for HTN, dyslipidemia, asthma, anxiety, GERD, irritable bowel syndrome and chronic pain syndrome due to cervical/lumbar disc, weight gain of 60 pounds since 2014, was admitted on 10/17/2017 for acute pancreatitis ( lipase 6057 ) due to elevated triglyceride of 912 and ? ETOH. Upon discharge, she was put on Tricor 48 mg daily and fish oil. She was readmitted for acute pancreatitis again with TRIG 364, amylase 826 and lipase 56447. Her ETOH level was < 10; AST was 38 and ALT was 66. Now she is on IVF and has been kept NPO. She denied any ETOH uses this time. Allergies/Medications Allergies: Coded Allergies: lisinopril (ABD PAIN AND COLD SWEATS, DIZZY, NAUSEA 08/21/17) Home Med List: Albuterol Sulfate (Ventolin Hfa) 18 GM HFA.AER.AD 2 PUF INH Q4-6 PRN PRN breathing (Reported) Alprazolam 1 MG TABLET 1 TAB PO TIDPRN ANXIETY (Reported) Butalbit/Acetamin/Caff/Codeine (Nvocbi-Bsyw-Wraibuhsrzs-Codein) 50 MG-325 MG-40 MG-30 MG CAPSULE 1 CAP PO Q12 PRN HEADACHE (Reported) Dicyclomine HCl 10 MG CAPSULE 1 CAP PO Q6P PRN IBS (Reported) Diphenoxylate HCl/Atropine (Lomotil 2.5-0.025 MG Tablet) 2.5 MG-0.025 MG TABLET 1 TAB PO TID PRN IBS (Reported) Esomeprazole (Nexium) 40 MG CAPSULE.DR 1 CAP PO DAILY GI (Reported) Fenofibrate (Tricor) 48 MG TABLET 1 TAB PO DAILY LIPID [place]-3/Dha/Epa/Dpa/Fish Oil ([place]-3 1,050 MG Softgel) 1,050-1200 CAPSULE 1 TAB PO DAILY LIPID Ondansetron (Zofran Odt) 4 MG TAB.RAPDIS 1 TAB SL TID PRN NAUSEA Review of Systems Review of Systems Constitutional: Reports: see HPI. Cardiovascular: Denies: chest pain. Respiratory: Denies: short of breath. GI: Reports: abdominal pain. Genitourinary: Denies: dysuria. Hematologic/Endocrine: Denies: bleeding, polyuria. Past History Travel History Traveled to [place] past 21 day No Medical History Blood Transfusion Hx: No Neurological: NONE EENT: NONE Cardiovascular: hypertension, hyperlipidemia (TG) Respiratory: asthma Gastrointestinal: GERD, pancreatitis Hepatic: fatty liver Renal: NONE Musculoskeletal: disk herniation Psychiatric: anxiety, opioid dependence (on Fioricet; prev on Percocet) Endocrine: obesity Blood Disorders: NONE Cancer(s): NONE DIRECTOR OF PROMOTIONS/Reproductive: NONE Surgical History Surgical History: breast biopsy (FCBD) Family History Relations & Conditions If Any: FATHER (Crohns). MOTHER (diverticulitis). , Age 55; Cause: Lung cancer. Psychosocial History Where Do You Live? Home Who Do You Live With? child Services at Home: None Primary Language: Hebrew Smoking Status: Former Smoker ETOH Use: denies use (prev heavier yrs ago), occasional use Illicit Drug Use: denies illicit drug use Living Will? no Power of Employment Trainer/HCP? no Other Social History: Single. 2 daughters and 1 son- alive and well. Lives with her children. > 1 pack of cigarettes per week (reportedly stopped since 10/2017). Moderate EtOH in past (3 margaritas & 3 shots vodka/wk). Denies illicit drug use, but was on rx Percocet & Fioricet. Moderate caffeine. 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 Functional Ability ADLs Independent: dressing, eating, toileting, bathing. Ambulation: independent IADLs Independent: shopping, housework, finances, food prep, telephone, transportation , medication admin. Employment History Employment: Employed Profession/Employer: [employer] ECHO Results (as available) Date of last Echo 08/31/15 EF% 65 Exam & Diagnostic Data Last 24 Hrs of Vital Signs/I&O Vital Signs Date Time Temp Pulse Resp B/P B/P Pulse O2 O2 Flow FiO2 Mean Ox Delivery Rate 11/24 1406 98.0 82 18 120/80 98 11/24 0654 98.2 83 20 126/80 97 11/24 0520 97.0 92 20 147/95 98 Room Air 11/24 0310 97.7 105 20 142/95 97 Room Air Intake & Output 11/24 1600 11/24 0800 11/24 0000 Intake Total 1720 500 Output Total Balance 1720 500 Intake, IV 1600 500 Intake, Oral 120 0 Number 3 Bowel Movements Patient 213 lb Weight Weight Bed scale Measurement Method Physical Exam General Appearance: no apparent distress Neck: normal inspection Respiratory: lungs clear Cardiovascular: regular rate/rhythm Gastrointestinal: soft Extremities: no edema Labs/Hansel Results: Laboratory Tests 11/24 11/24 11/24 0935 0935 0935 Chemistry Sodium (137 - 145 mmol/L) 138 Potassium (3.5 - 5.1 mmol/L) 3.4 L Chloride (98 - 107 mmol/L) 107 Carbon Dioxide (22 - 30 mmol/L) 21 L Anion Gap (5 - 16) 10 BUN (7 - 17 mg/dL) 5 L Creatinine (0.5 - 1.0 mg/dL) 0.5 Estimated GFR (>60 ml/min) > 60 BUN/Creatinine Ratio (7 - 25 %) 10.0 Lactic Acid (0.7 - 2.1 mmol/L) Cancelled 0.8 Total Bilirubin (0.2 - 1.3 mg/dL) 0.6 Cancelled Direct Bilirubin (< 0.4 mg/dL) 0.3 Cancelled AST (14 - 36 U/L) 26 Cancelled ALT (9 - 52 U/L) 50 Cancelled Alkaline Phosphatase (<127 U/L) 78 Cancelled Total Protein (6.3 - 8.2 g/dL) 5.6 L Cancelled Albumin (3.5 - 5.0 g/dL) 3.1 L Cancelled Hematology CBC w Diff NO MAN DIFF REQ WBC (4.8 - 10.8 /CUMM) 5.6 RBC (4.20 - 5.40 /CUMM) 3.72 L Hgb (12.0 - 16.0 G/DL) 11.2 L Hct (37 - 47 %) 33.7 L MCV (81.0 - 99.0 FL) 90.5 MCH (27.0 - 31.0 PG) 30.1 MCHC (33.0 - 37.0 G/DL) 33.3 RDW (11.5 - 14.5 %) 14.2 Plt Count (130 - 400 /CUMM) 201 MPV (7.4 - 10.4 FL) 6.5 L Gran % (42.2 - 75.2 %) 77.7 H Lymphocytes % (20.5 - 51.1 %) 15.9 L Monocytes % (1.7 - 9.3 %) 3.7 Eosinophils % (0 - 5 %) 2.3 Basophils % (0.0 - 2.0 %) 0.4 Absolute Granulocytes (1.4 - 6.5 /CUMM) 4.4 Absolute Lymphocytes (1.2 - 3.4 /CUMM) 0.9 L Absolute Monocytes (0.10 - 0.60 /CUMM) 0.2 Absolute Eosinophils (0.0 - 0.7 /CUMM) 0.1 Absolute Basophils (0.0 - 0.2 /CUMM) 0 11/24 0329 Chemistry Sodium (137 - 145 mmol/L) 137 Potassium (3.5 - 5.1 mmol/L) 3.5 Chloride (98 - 107 mmol/L) 105 Carbon Dioxide (22 - 30 mmol/L) 21 L Anion Gap (5 - 16) 11 BUN (7 - 17 mg/dL) 7 Creatinine (0.5 - 1.0 mg/dL) 0.6 Estimated GFR (>60 ml/min) > 60 BUN/Creatinine Ratio (7 - 25 %) 11.7 Glucose (65 - 99 mg/dL) 95 Calcium (8.4 - 10.2 mg/dL) 8.8 Total Bilirubin (0.2 - 1.3 mg/dL) 0.8 Direct Bilirubin (< 0.4 mg/dL) 0.3 AST (14 - 36 U/L) 38 H ALT (9 - 52 U/L) 66 H Alkaline Phosphatase (<127 U/L) 92 Troponin I (< 0.11 ng/ml) < 0.01 Total Protein (6.3 - 8.2 g/dL) 6.6 Albumin (3.5 - 5.0 g/dL) 4.0 Triglycerides (<150 mg/dL) 364 H Amylase (30 - 110 U/L) 826 H Lipase (23 - 300 U/L) H Total Beta HCG (NEGATIVE) NEGATIVE Coagulation PT (9.4 - 12.5 SEC) 10.0 INR (0.90 - 1.19) 0.95 APTT (25 - 37 SEC) 26 Hematology CBC w Diff NO MAN DIFF REQ WBC (4.8 - 10.8 /CUMM) 7.3 RBC (4.20 - 5.40 /CUMM) 4.35 Hgb (12.0 - 16.0 G/DL) 13.0 Hct (37 - 47 %) 39.5 MCV (81.0 - 99.0 FL) 90.9 MCH (27.0 - 31.0 PG) 29.8 MCHC (33.0 - 37.0 G/DL) 32.8 L RDW (11.5 - 14.5 %) 14.4 Plt Count (130 - 400 /CUMM) 255 MPV (7.4 - 10.4 FL) 6.2 L Gran % (42.2 - 75.2 %) 78.1 H Lymphocytes % (20.5 - 51.1 %) 15.7 L Monocytes % (1.7 - 9.3 %) 3.2 Eosinophils % (0 - 5 %) 2.5 Basophils % (0.0 - 2.0 %) 0.5 Absolute Granulocytes (1.4 - 6.5 /CUMM) 5.7 Absolute Lymphocytes (1.2 - 3.4 /CUMM) 1.1 L Absolute Monocytes (0.10 - 0.60 /CUMM) 0.2 Absolute Eosinophils (0.0 - 0.7 /CUMM) 0.2 Absolute Basophils (0.0 - 0.2 /CUMM) 0 Toxicology Serum Alcohol (<10 MG/DL) < 10.0 Assessment/Plan Assessment/Plan 41 yo female with PMH significant for HTN, dyslipidemia, asthma, anxiety, GERD, irritable bowel syndrome and chronic pain syndrome due to cervical/lumbar disc, weight gain of 60 pounds since 2014, was admitted on 10/17/2017 for acute pancreatitis ( lipase 6057 ) due to elevated triglyceride of 912 and ? ETOH. Upon discharge, she was put on Tricor 48 mg daily and fish oil. She was readmitted for acute pancreatitis again with TRIG 364, amylase 826 and lipase 64186. Her ETOH level was < 10; AST was 38 and ALT was 66. Since she was discharged in , she stated that she wasn't drinking ETOH. Her TRIG level was only in the 300s. The underlying etiology is not clear. Plan: 1. continue keeping patient NPO for now; 2. continue the IVF; 3. replete K; 4. monitoring FSGs once a day; 5. check HbA1c; 6. continue current Tricor 48 mg daily; 7. repeat TRIG level tomorrow morning. will follow. Consult Acknowledgment - Thank you for your consult request.
[2017-11-24 22:03] VITALS: BP 126/80
[2017-11-25] VITALS: BP 126/80
[2017-11-25 02:00] VITALS: BP 126/80
[2017-11-25 04:00] VITALS: BP 126/80
[2017-11-25 06:29] VITALS: BP 108/76
--- NOTE | 2017-11-25 09:18 | PN- Housestaff ---
Irving ALBA,[facility] 11/25/17 0918: Subjective Follow-up For: Recurrent pancreatitis in the setting of poorly controlled hypertriglyceridemia along with alcohol abuse. Subjective: Afebrile, hemodynamically stable and mildly hypotensive, and saturating well on room air. The patient still complaining of mild abdominal pain however he reports significant improvement compared to yesterday. Nausea and vomiting resolved. Review of Systems Constitutional: Reports: see HPI. Objective Last 24 Hrs of Vital Signs/I&O Vital Signs Date Time Temp Pulse Resp B/P B/P Pulse O2 O2 Flow FiO2 Mean Ox Delivery Rate 11/25 1440 98.3 71 20 110/80 97 11/25 0629 98.6 86 18 108/76 98 Room Air 11/25 0400 97.6 73 20 126/80 11/25 0200 97.6 73 20 126/80 11/25 0000 97.6 73 20 126/80 11/24 2203 97.6 73 20 126/80 98 Intake & Output 11/25 1600 11/25 0800 11/25 0000 Intake Total 1600 1600 1880 Output Total Balance 1600 1600 1880 Intake, IV 1600 1600 1600 Intake, Oral 0 280 Physical Exam General Appearance: Alert, Oriented X3, Cooperative, No Acute Distress Skin: No Rashes HEENT: Atraumatic, PERRLA, EOMI, Mucous Membr. moist/pink Neck: No JVD Cardiovascular: Regular Rate, Normal S1, Normal S2, No Murmurs Lungs: Clear to Auscultation, Normal Air Movement Abdomen: Soft, No Tenderness, epi tenderness Neurological: Normal Speech Extremities: No Clubbing, No Cyanosis, No Edema Current Medications: Current Medications Sig/Adam Start time Last Medication Dose Route Stop Time Status Admin Acetaminophen 650 MG ONCE ONE 11/25 1745 DC PO 11/25 1746 Alprazolam 1 MG TID PRN 11/24 1000 AC 11/24 PO 12/01 0959 2257 Calcium Carbonate 500 MG DAILY 11/25 1000 DC PO Calcium Carbonate 500 MG DAILY 11/25 0115 AC 11/25 PO 1003 Enoxaparin Sodium 40 MG DAILY 11/24 1000 AC 11/25 SC 1003 Fenofibrate 48 MG DAILY 11/24 1000 AC 11/25 PO 1003 Hydromorphone HCl 1 MG Q4 HRS NEEDED PRN 11/24 0645 AC 11/25 IV 1505 Lactated Ringer's 1,000 ML .Q5H 11/24 0645 AC 11/25 IV 1556 Ondansetron HCl 4 MG Q6P PRN 11/24 0645 AC 11/24 IV 1502 Pantoprazole Sodium 40 MG DAILY 11/24 1000 AC 11/25 IV 1002 Last 24 Hrs of Lab/Hansel Results Last 24 Hrs of Labs/Mics: Laboratory Tests 11/25/17 0805: Hemoglobin A1c Pending, Triglycerides 212 H Assessment/Plan Assessment: Patient is a 41-year-old with past medical history significant for recurrent pancreatitis due to poorly controlled hypertriglyceridemia and alcohol abuse Plan 1.Recurrent pancreatitis in the setting of poorly controlled hypertriglyceridemia along with alcohol abuse. * We will start clear liquid diet * Zofran as needed for nausea. * Dilaudid 1 mg every 4 when necessary for severe pain. * Continue on TriCor for hypertriglyceridemia. * We will follow endocrinology recommendations hypertriglyceridemia. * consider LFTs tomorrow along with amylase and lipase, if symptoms get any worse 2. Acute drop in H&H * Likely due to hemodilution after fluids * We will check CBCs tomorrow 3. Hypokalemia * recheck labs tomorrow 4. History of alcohol abuse * Monitor CIWA scores. * if Scoring high consider as needed Ativan for alcohol abuse/withdrawal. 5. History of anxiety * Will resume nasal Xanax. Maintain DVT prophylaxis with Lovenox Patient is full Problem List: 1. Acute pancreatitis Pain Ratin Pain Location: epi Pain Goal: Remain pain free Pain Plan: See A&P Tomorrow's Labs & Rationales: CBC and BEP Estevan ALBA,[facility] 11/25/17 1432: Attending MD Review Statement Attending Statement Attending MD Statement: examined this patient, discuss w/resident/PA/IN SCHOOL SUSPENSION COORDINATOR, agreed w/resident/PA/IN SCHOOL SUSPENSION COORDINATOR, reviewed EMR data (avail), discussed with nursing, discussed with case mgmt, reviewed images, amended to note Attending Assessment/Plan: Patient seen and examined, slightly better today. Still has some pain but improved than before. Vital Signs Date Time Temp Pulse Resp B/P B/P Pulse O2 O2 Flow FiO2 Mean Ox Delivery Rate 11/25 0629 98.6 86 18 108/76 98 Room Air 11/25 0400 97.6 73 20 126/80 11/25 0200 97.6 73 20 126/80 11/25 0000 97.6 73 20 126/80 11/24 2203 97.6 73 20 126/80 98 on exam; aox3, nad. cv; s1,s2 rrr resp; clear abd; soft,tender on left side, bs+ ext; no edema Laboratory Tests 11/25 804 Chemistry Hemoglobin A1c (4.2 - 5.8 %) Pending Triglycerides (<150 mg/dL) 212 H A/P; 41-year-old female with past medical history significant for pancreatitis 2, ethanol abuse, hypertension, asthma, GERD, irritable bowel syndrome, fibromyalgia, anxiety admitted medicine floor with abdominal pain and nausea and found to have acute pancreatitis. Please start the patient on clear liquid diet. Patient's diet can be advanced tomorrow if she is able to tolerate clear liquid diet. If patient tolerates, will decrease today to fluids to 150/hr. Patient has been continued on her TriCor for hypertriglyceridemia. Continue all current medications. DVT px: Lovenox.
--- NOTE | 2017-11-25 10:23 | PN- Gastroenterology ---
Assessment/Plan Assessment/Recommendations: 42 y/o female, recently seem by myself in inpt GI consultation 10/18/17 for *TG- induced pancreatitis, & followed for GI as an outpt by Dr. Linares (last seen by her in the office 11/13/17), fair historian, HTN, non-DM, HLD, obese, FCBD, fibromyalgia, asthma, also seen by myself in inpatient GI consultation 05/25/16 for hypertriglyceride- induced pancreatitis, with TG 1277 then. For some reason, she was never put on anti-lipid medications, at that point. She has a history of cigarette smoking ( reportedly stopped since 10/2017), & moderate EtOH, the latter of which she appeared to be down playing. She previously drank heavily years ago, but now admitted to "a few drinks a week". She drank again over New Year's. She denied any illicit drug use. Her gallbladder was intact. Additionally, she has fatty liver. She changed essentially all of her physicians since 2015. She previously was followed by Dr. Ayse Angeles for GI, in [place], [place], but switched to Dr. Linares, whom she initially saw as a GI outpt in 08/2017. She also switched to [facility] for primary care, & sees Dr. Guajardo for [employer], who had previously put her on HCTZ (*note- hx pancreatitis). Finally, she saw Dr. Mcneill, of cardiology, for atypical CP & reportedly had a negative w/u, with 08/31/15: echocardiogram- WNL. She previously did not follow up with outpatient endocrine for her HLD, but most recently has been followed for this by Dr. Ramires. Previous 08/21/17: *CT AP w/o IV cont (*per ER- limited study)- no acute pancreatic process, just chronic dilated CBD. *She was on chronic narcotics for back pain, which could be contributing to her chronically dilated CBD, by increasing tone at the Sphincter of Oddi. *After switching from Dr. Angeles to Dr. Linares, she had: 09/25/17: MR ABDOMEN WITH AND WITHOUT CONTRAST- 1. Mild acute pancreatitis at the pancreatic head at the pancreaticoduodenal groove. No evidence of fluid collections or pancreatic necrosis. No obstructing lesions or calculi. 2. Dilatation of the common bile duct 1.6 cm (w/o change) and pancreatic duct (6 mm), likely related to the inflammation at the pancreatic head. No pancreatic cysts or lesions seen. Mild intrahepatic dilitation. No choledocholithiasis. 3. Hydropic GB without cholelithiasis or cholecystitis. 4. Tiny fat-containing umbilical hernia. When previously seen at [facility] 05/25/16, Utox was positive for benzodiazepines. She denied any Sulfa medications, NSAIDs, or herbal medications. Aparently, she was on HCTZ then, as above. She was not admitted to the hospital again for pancreatitis until 10/17/17, although she had multiple ER visits for abdominal pain. The pt was last admitted to [facility] 10/17/17 to 10/21/17, with hyperTG (912) induced pancreatitis. She did have a few drinks of EtOH over New Year's, prior to that flare.*Her HCTZ was stopped. She was not on Sulfa medications, BCP, NSAIDs, herbal medications, or ZACK inhibitors. She reportedly stopped cigarette smoking after that. He had since been followed by endocrine, and was placed on TriCor and fish oil. Again, the patient last saw Dr. Linares in the office for GI follow-up 11/13/17 , and arrangements were being made to get an *outpatient EUS. Her chronically dilated CBD was most likely from chronic narcotic use. *Please note, 10/19/17: nl IgG4 = 7, going against autoimmune pancreatitis. *I do not believe the patient ever had genetic testing for pancreatitis. *Current outpt meds [employer]OR [employer] included TriCor, fish oil, Fioricet, Xanax, Albuterol, Nexium 40 mg daily, & Zofran ODT. The patient called the GI office 11/23/17 complaining of abdominal pain x 1 day, and was sent to the [facility] ER. The patient arrived to the [facility] ER 11/24/17 at 2:56 a.m., complaining of diffuse band-like pain across the mid-abdomen/ epigastric region, radiating to the back "10 out of 10" associated with nausea, but no definite vomiting. Upon arrival, BP 142/95, P 105, RR 20, T 97.7, O2 sat RA 97%. She did not spike any fevers. She was dry heaving in triage. Try Tylenol prior to arriving at 10 PM the night before, without help. She claimed her symptoms were similar to her multiple recurrent bouts of pancreatitis. She received IV NS, Dilaudid, Tylenol, & Zofran in the ER. Her pain transiently went down to "7 out of 10". No repeat imaging studies were obtained in the ER, aside from an EKG. One day prior to the onset of her symptoms, she ate crackers, cheese, salad with ranch dressig, & soup, awakening the next morning at 6 AM with pain as above. She was then essentially NPO xc clears x 24 hrs [employer]OR [employer]. She did note hx FFI. There was no diarrhea. She denied any jaundice, dark urine, light stools, or pruritus. She denied any chest pain or shortness of breath. She denied any unintentional weight loss. She had no symptoms of odynophagia, dysphagia, or early satiety. Her reflux was well controlled on Nexium. There was no overt constipation, obstipation, tenesmus, or rectal bleeding, although she did carry a tentative diagnosis of questionable IBS-D (keeping in mind her fibromyalgia). She had no symptoms of UTI or URI. There was mild dizziness without LOC. She did not take her TriCor for 2 days [employer] as she "forgot it at work". She initially claimed she had not drink any alcohol or smoked cigarettes since her 10/21/17 [facility] discharge, but then later stated she had "a couple of beers when watching the Super Bowl". She denied any illicit street drugs. 11/24/17: Admission labs- WBC 7.3, H/H 13.4/39.5, MCV 90.9, RDW 14.4, PLT 255, glucose 95, BUN/Cr 7/0.6, GFR > 60, Na 137, K 3.5, HCO3 21, Ca 8.8, albumin 4.0, globulin 2.6, TBil 0.8, DBil 0.3, alk phos 92, AST 38, ALT 66 (*hx fatty liver) , amylase/lipase 826/19,832, troponin < 0.01, [EtOH] < 10, serum HCG- neg, *TG 364. *The patient's recurrent pancreatitis in the past was undoubtedly due to her poorly controlled hyperTG, superimposed on additional risk factors for pancreatitis, including cigarette smoking and intermittent EtOH. She claimed she stopped cigarettes at the end of 10/2017, and "had a couple of beers over the Super Bowl". Her admission 11/24/17: TG 364 was noted. In the past, feelings were that TG had to be > 1000 to cause pancreatitis, but recent data shows that even moderate hyperTG can do this, especially in someone that is predisposed. *Additionally, the patient had minimal po intake x > 1 day [employer], & so her TG levels were undoubtedly higher 1-2 days [employer]. 10/19/17: nl IgG4 = 7 goes against autoimmune pancreatitis. She does have a history of FFI and her GB is intact, rule out biliary sludge and/or microlithiasis. Rule out PD stricture. Doubt IPMN and/or pancreatic lesion (* none seen on 09/25/17: MRI abdomen with & w/o gadolinium). Her minimally elevated transaminases are most likely from fatty liver. Numerous imaging studies have failed to reveal any acute biliary process.*She was previously on chronic narcotics (Percocet & Dilaudid) for chronic back pain, which could be contributing to her chronically dilated CBD, by increasing tone at the Sphincter of Oddi. *On 11/24/17: admission, 0 grave signs by Lola criteria, but no LDH sent. *Also on admission, 0 grave signs by BiSAP criteria, but no CXR done to rule out pleural effusions. *The severity, clinical course, & prognosis of pancreatitis are not dependent on the level of lipase elevation. In fact, lipase levels may go up when the TG improve. *She had no imaging studies on 07/03: admission, however she recently had 08/21/17: CT AP with IV contrast & : MRI abdomen with & w/o contrast, failure to reveal any evidence of pancreatic necrosis. *She is awaiting outpatient EUS to be arranged at [facility], per Dr. Linares. I feel that at present, the only reason to repeat a CT AP with IV contrast would be to exclude pancreatic necrosis, which clinically is unlikely. I would only pursue this if the patient deteriorated, to avoid unnecessary radiation. 11/24/17: 9:35 a.m.- WBC 5.6, H/H 11.2/33.7, MCV 90.5, RDW 14.2, PLT 201, BUN/Cr 5/0.5, GFR > 60, Na 138, K 3.4, HCO3 21, AG 10, lactate 0.8, alb 3.1, glob 2.5, TBil 0.6, DBil 0.3, alk phos 78, AST 26, ALT 50. 11/25/17: TG 212, *HgbA1C- pending. *As of 11/25/17, the patient remained hemodynamically stable & afebrile, with O2 sat RA 98%. A CXR was still not obtained, nor LDH or CRP. Repeat labs on 11/24/17 fortunately did not show evidence of hemoconcentration, with appropriate drop in H/H & BUN, post IVF. The patient was seen in endocrine consultation by Dr. Ramires 11/24/17. Tricor was continued. *Admission TG 364, but keep in mind, the patient had minimal po intake x 24 hours [employer]. She received CaCO3 & KCl repletion. She remained on IV Lactated Ringers at 200 cc/hr. She has been receiving Dilaudid as needed, most recently 11/24/17 at 7 AM, about 3 & 1/2 hrs prior to my exam. The patient was ambulating in her room. Her nausea was improved. She remained without vomiting or diarrhea. She denied any chest pain or shortness of breath. Her abdominal pain was improved, down to "5 out of 10," & she was hungry. *SUGGEST- Trial of clears po. *If patient tolerates clears po, can decrease IVF-> Ringer's lactate to 150 cc/hr. Strict I/O's. Replete electrolytes (i.e.- K+). Mobilize patient. Supplemental O2 as needed. *Get CXR (r/o pleural effusion). *Add LDH to 11/24/17: admission labs. *Continue Tricor & add fish oil, as per medical team. *Follow-up with endocrine re: HLD & serial TG. Await 11/25/17: HgbA1C. * Discontinue cigarettes (reportedly stopped 10/2017) & EtOH (poor insight- had a few beers recently). Analgesics per medical team. Avoid NSAIDs. Ativan as needed. DVT prophylaxis. Continue PPI for GERD. *Zofran as needed. Risk factor modification for fatty liver (ie.- strict control of body weight, glucose, lipids, BP, avoid EtOH, etc). Consider eventual Vitamin E 800 IU po daily. Watch for hemoconcentration (i.e.- rising BUN or Hgb), despite IV fluids, which would be a poor prognostic sign. *Check CRP for prognostic purposes (NOT high sensitivity CRP). Consider checking fecal elastase (probable IBS-D; rule out pancreatic insufficiency, but no pancreatic calcifications seen on previous imaging studies). *Await outpt EUS at [facility], per Dr. Linares, to better define CBD, PD, ampulla, & pancreatic head, but most likely, the patient's chronically dilated ducts are from chronic narcotic use for her back pain. *Consider genetic markers such as CFTR, SPINK mutation, and/or PRSS1. The patient will follow-up with Dr. Linares for GI after discharge. Hopefully, adelia patient can be D/C in 1 -2 days. Further GI recommendations to follow, depending on clinical course. Problem List: 1. Pancreatitis 2. Hypertriglyceridemia 3. Abdominal pain 4. Nausea 5. GERD (gastroesophageal reflux disease) 6. Fatty liver Subjective Subjective: 11/24/17: 9:35 a.m.- WBC 5.6, H/H 11.2/33.7, MCV 90.5, RDW 14.2, PLT 201, BUN/Cr 5/0.5, GFR > 60, Na 138, K 3.4, HCO3 21, AG 10, lactate 0.8, alb 3.1, glob 2.5, TBil 0.6, DBil 0.3, alk phos 78, AST 26, ALT 50. 11/25/17: TG 212, *HgbA1C- pending. *As of 11/25/17, the patient remained hemodynamically stable & afebrile, with O2 sat RA 98%. A CXR was still not obtained, nor LDH or CRP. Repeat labs on 11/24/17 fortunately did not show evidence of hemoconcentration, with appropriate drop in H/H & BUN, post IVF. The patient was seen in endocrine consultation by Dr. Ramires 11/24/17. Tricor was continued. *Admission TG 364, but keep in mind, the patient had minimal po intake x 24 hours [employer]OR [employer]. She received CaCO3 & KCl repletion. She remained on IV Lactated Ringers at 200 cc/hr. She has been receiving Dilaudid as needed, most recently 11/24/17 at 7 AM, about 3 & 1/2 hrs prior to my exam. The patient was ambulating in her room. Her nausea was improved. She remained without vomiting or diarrhea. She denied any chest pain or shortness of breath. Her abdominal pain was improved, down to "5 out of 10," & she was hungry. Review of Systems: Full 14 point review of systems otherwise noncontributory, and as per HPI. Review of Systems Constitutional: Denies: diaphoresis, fever, chills, malaise, weakness, unexplained weight loss. EENTM: Denies: blurred vision, double vision, visual changes, eye pain, eye drainage, eye tearing, icterus, ear discharge, ear pain, ear redness, hearing changes, nasal congestion, epistaxis, nasal pain, throat pain, throat swelling, mouth pain, tooth pain. Cardiovascular: Denies: chest pain, edema, orthopena, palpitations, peripheral edema, syncope. Respiratory: Denies: cough, hemoptysis, orthopnea, short of breath, sputum production, stridor, wheezing. GI: Reports: abdominal pain-> improved, nausea-> improved, GERD-> stable on PPI. Denies: vomiting, bloating, constipation, diarrhea, distention, bowel incontinence, melena, bloody stool, changes in stool, steatorrhea. Genitourinary: Denies: discharge, dysuria, frequency, hematuria, hesitation, nocturia, pain, urgency. Musculoskeletal: Reports: back pain (chronic). Denies: gout, joint pain, joint swelling, muscle pain, muscle stiffness, neck pain. Skin: Denies: cysts, change in skin color, change in hair/nails, dryness, erythema, jaundice, lesions, lymphangitis, lumps, moles, rash. Neurological/Psychological: Reports: anxiety, emotional problems. Denies: ataxia, cognitive dysfunction, confusion, depressed, dementia, headache, numbness, paresthesia, pre-existing deficit, petit mal seizures, tingling, tremors, tonic-clonic seizures, unable to move lower ext, unable to move upper ext, weakness. Hematologic/Endocrine: Reports: HLD, ck *TG. Denies: bruising, bleeding, polyuria, polydipsia. Immunologic/Allergic: Denies: splenectomy, HIV/AIDS, lymphadenopathy. All Other Systems: Reviewed and Negative. Objective Vital Signs and I&Os Vital Signs Date Time Temp Pulse Resp B/P B/P Pulse O2 O2 Flow FiO2 Mean Ox Delivery Rate 11/25 0629 98.6 86 18 108/76 98 Room Air 11/25 0400 97.6 73 20 126/80 11/25 0200 97.6 73 20 126/80 02 0000 97.6 73 20 126/80 11/24 2203 97.6 73 20 126/80 98 11/24 1406 98.0 82 18 120/80 98 Intake & Output 11/25 1600 11/25 0400 11/24 1600 11/24 0400 11/23 1600 11/23 0400 Intake Total 1600 1880 2220 Output Total Balance 1600 1880 2220 Intake, IV 1600 1600 2100 Intake, Oral 0 280 120 Number 3 Bowel Movements Patient 213 lb 214 lb Weight Weight Bed scale Reported by Patient Measurement Method Physical Exam: Well-developed, well-nourished, obese female, in NAD. Sclera anicteric. Conjunctiva pink. Oropharynx clear. No oral thrush. No apthous ulcers. There is no adenopathy, thyromegaly, or JVD. No peripheral stigmata of inflammatory bowel disease or chronic liver disease on exam. No spiders on the anterior chest wall. No CVA tenderness. Lungs: clear to A&P. No wheezing, rales, or rhonchi. Heart exam: regular rate rhythm, S1 and S2, without any murmur. Abdominal exam: normal bowel sounds, soft obese belly, *currently nontender, without guarding or rebound. Tiny reducible umbilical hernia, otherwise, no mass. No splenomegaly. Enlarged liver approximately 15 cm. Negative Naik sign. No fluid shift. No pulsatile mass. Digital rectal exam: deferred by patient ("recently normal at Dr. Guajardo"). Extremities: without cyanosis or clubbing. Trace pedal edema B/ L. No palpable cords. No acute arthropathy. No rash. No palmar erythema. No Dupuytren's contractures. Distal pulses 1+ bilaterally. DTRs 1+ bilaterally. Alert and oriented x 3. No tremor or asterixis. Motor 5/5 B/L. Current Medications: Current Medications Sig/Adam Start time Last Medication Dose Route Stop Time Status Admin Alprazolam 1 MG TID PRN 11/24 1000 AC 11/24 PO 12/01 0959 2257 Calcium Carbonate 500 MG DAILY 11/25 1000 DC PO Calcium Carbonate 500 MG DAILY 11/25 0115 AC 11/25 PO 1003 Enoxaparin Sodium 40 MG DAILY 11/24 1000 AC 11/25 SC 1003 Fenofibrate 48 MG DAILY 11/24 1000 AC 11/25 PO 1003 Hydromorphone HCl 1 MG Q4 HRS NEEDED PRN 11/24 06 AC 11/25 IV 1105 Lactated Ringer's 1,000 ML .Q5H 11/24 644 AC 11/25 IV 1000 Ondansetron HCl 4 MG Q6P PRN 11/24 644 AC 11/24 IV 1502 Pantoprazole Sodium 40 MG DAILY 11/24 1000 AC 11/25 IV 1002 Potassium Chloride 40 MEQ ONCE ONE 11/24 1330 DC 11/24 PO 11/24 1331 1351 Results Pertinent Lab Results: Laboratory Tests 11/25 11/24 11/24 0805 0935 0935 Chemistry Sodium (137 - 145 mmol/L) 138 Potassium (3.5 - 5.1 mmol/L) 3.4 L Chloride (98 - 107 mmol/L) 107 Carbon Dioxide (22 - 30 mmol/L) 21 L Anion Gap (5 - 16) 10 BUN (7 - 17 mg/dL) 5 L Creatinine (0.5 - 1.0 mg/dL) 0.5 Estimated GFR (>60 ml/min) > 60 BUN/Creatinine Ratio (7 - 25 %) 10.0 Hemoglobin A1c (4.2 - 5.8 %) Pending Lactic Acid (0.7 - 2.1 mmol/L) Cancelled 0.8 Total Bilirubin (0.2 - 1.3 mg/dL) 0.6 Direct Bilirubin (< 0.4 mg/dL) 0.3 AST (14 - 36 U/L) 26 ALT (9 - 52 U/L) 50 Alkaline Phosphatase (<127 U/L) 78 Total Protein (6.3 - 8.2 g/dL) 5.6 L Albumin (3.5 - 5.0 g/dL) 3.1 L Triglycerides (<150 mg/dL) 212 H 11/24 11/24 0935 0329 Chemistry Sodium (137 - 145 mmol/L) 137 Potassium (3.5 - 5.1 mmol/L) 3.5 Chloride (98 - 107 mmol/L) 105 Carbon Dioxide (22 - 30 mmol/L) 21 L Anion Gap (5 - 16) 11 BUN (7 - 17 mg/dL) 7 Creatinine (0.5 - 1.0 mg/dL) 0.6 Estimated GFR (>60 ml/min) > 60 BUN/Creatinine Ratio (7 - 25 %) 11.7 Glucose (65 - 99 mg/dL) 95 Calcium (8.4 - 10.2 mg/dL) 8.8 Total Bilirubin (0.2 - 1.3 mg/dL) Cancelled 0.8 Direct Bilirubin (< 0.4 mg/dL) Cancelled 0.3 AST (14 - 36 U/L) Cancelled 38 H ALT (9 - 52 U/L) Cancelled 66 H Alkaline Phosphatase (<127 U/L) Cancelled 92 Troponin I (< 0.11 ng/ml) < 0.01 Total Protein (6.3 - 8.2 g/dL) Cancelled 6.6 Albumin (3.5 - 5.0 g/dL) Cancelled 4.0 Triglycerides (<150 mg/dL) 364 H Amylase (30 - 110 U/L) 826 H Lipase (23 - 300 U/L) H Total Beta HCG (NEGATIVE) NEGATIVE Coagulation PT (9.4 - 12.5 SEC) 10.0 INR (0.90 - 1.19) 0.95 APTT (25 - 37 SEC) 26 Hematology CBC w Diff NO MAN DIFF REQ NO MAN DIFF REQ WBC (4.8 - 10.8 /CUMM) 5.6 7.3 RBC (4.20 - 5.40 /CUMM) 3.72 L 4.35 Hgb (12.0 - 16.0 G/DL) 11.2 L 13.0 Hct (37 - 47 %) 33.7 L 39.5 MCV (81.0 - 99.0 FL) 90.5 90.9 MCH (27.0 - 31.0 PG) 30.1 29.8 MCHC (33.0 - 37.0 G/DL) 33.3 32.8 L RDW (11.5 - 14.5 %) 14.2 14.4 Plt Count (130 - 400 /CUMM) 201 255 MPV (7.4 - 10.4 FL) 6.5 L 6.2 L Gran % (42.2 - 75.2 %) 77.7 H 78.1 H Lymphocytes % (20.5 - 51.1 %) 15.9 L 15.7 L Monocytes % (1.7 - 9.3 %) 3.7 3.2 Eosinophils % (0 - 5 %) 2.3 2.5 Basophils % (0.0 - 2.0 %) 0.4 0.5 Absolute Granulocytes (1.4 - 6.5 /CUMM) 4.4 5.7 Absolute Lymphocytes (1.2 - 3.4 /CUMM) 0.9 L 1.1 L Absolute Monocytes (0.10 - 0.60 /CUMM) 0.2 0.2 Absolute Eosinophils (0.0 - 0.7 /CUMM) 0.1 0.2 Absolute Basophils (0.0 - 0.2 /CUMM) 0 0 Toxicology Serum Alcohol (<10 MG/DL) < 10.0 Imaging/Other Studies: 08/21/17: CT ABDOMEN AND PELVIS WITHOUT CONTRAST (*per ER, limited study w/o IV cont)- Mild dilatation of the common bile duct measuring up to 1 cm in diameter. It appears slightly increased when compared to prior. Otherwise, no acute findings in the abdomen or pelvis. No significant inflammatory changes of the pancreas are seen. 09/25/17: MR ABDOMEN WITH AND WITHOUT CONTRAST- 1. Mild acute pancreatitis at the pancreatic head at the pancreaticoduodenal groove. No evidence of fluid collections or pancreatic necrosis. No obstructing lesions or calculi. 2. Dilatation of the common bile duct 1.6 cm (w/o change) and pancreatic duct (6 mm), likely related to the inflammation at the pancreatic head. No pancreatic cysts or lesions seen. Mild intrahepatic dilitation. No choledocholithiasis. 3. Hydropic GB without cholelithiasis or cholecystitis. 4. Tiny fat-containing umbilical hernia. [No imaging studies obtained from ER at time of 10/17/17: admission, nor at time of 11/24/17 admission]. 10/18/17: XRY-PORTABLE CHEST XRAY- Unremarkable examination. There is no pleural effusion, CHF, or infiltrate. 11/24/17: EKG-NSR @ 71, nl axis, nl intervals,w/o acute ischemic changes.
[2017-11-25 14:40] VITALS: BP 110/80
--- NOTE | 2017-11-25 15:27 | PN- Endocrinology ---
Assessment/Plan Assessment: 41 yo female with PMH significant for HTN, dyslipidemia, asthma, anxiety, GERD, irritable bowel syndrome and chronic pain syndrome due to cervical/lumbar disc, weight gain of 60 pounds since 2014, was admitted on 10/17/2017 for acute pancreatitis ( lipase 6057 ) due to elevated triglyceride of 912 and ? ETOH. Upon discharge, she was put on Tricor 48 mg daily and fish oil. She was readmitted for acute pancreatitis again with TRIG 364, amylase 826 and lipase 42268. Her ETOH level was < 10; AST was 38 and ALT was 66. Since she was discharged in , she stated that she wasn't drinking ETOH. Her TRIG level was only in the 300s. Repeat TRIG this am was down to 212. Plan: continue Tricor 48 mg daily for now. will follow. Subjective Subjective: She feels better this morning. Objective Last 24 Hrs of Vital Signs/I&O Vital Signs Date Time Temp Pulse Resp B/P B/P Pulse O2 O2 Flow FiO2 Mean Ox Delivery Rate 11/25 1440 98.3 71 20 110/80 97 11/25 0629 98.6 86 18 108/76 98 Room Air 11/25 0400 97.6 73 20 126/80 11/25 0200 97.6 73 20 126/80 11/25 0000 97.6 73 20 126/80 11/24 2203 97.6 73 20 126/80 98 Intake & Output 11/25 1600 11/25 0800 11/25 0000 Intake Total 1600 1600 1880 Output Total Balance 1600 1600 1880 Intake, IV 1600 1600 1600 Intake, Oral 0 280 Results Pertinent Lab/Hansel Results: Laboratory Tests 11/25 08 Chemistry Hemoglobin A1c (4.2 - 5.8 %) Pending Triglycerides (<150 mg/dL) 212 H
[2017-11-25 22:40] VITALS: BP 130/90
[2017-11-26 06:41] VITALS: BP 120/74
[2017-11-26 08:35] LABS: ABSOLUTE BASOPHIL COUNT 0 /CUMM (0.0-0.2); ABSOLUTE EOSINOPHIL COUNT 0.2 /CUMM (0.0-0.7); ABSOLUTE GRANULOCYTE CT 1.8 /CUMM (1.4-6.5); ABSOLUTE LYMPH COUNT 1.5 /CUMM (1.2-3.4); ABSOLUTE MONOCYTE COUNT 0.2 /CUMM (0.10-0.60); BASOPHIL % 0.6 % (0.0-2.0); EOSINOPHIL % 4.1 % (0-5); GRANULOCYTE % 48.6 % (42.2-75.2); MEAN CORPUSCULAR HGB 30.8 PG (27.0-31.0); MEAN CORPUSCULAR HGB CONC 33.9 G/DL (33.0-37.0); MEAN CORPUSCULAR VOLUME 91.1 FL (81.0-99.0); MEAN PLATELET VOLUME 6.6 FL (7.4-10.4); PLATELET COUNT 196 /CUMM (130-400); RBC DISTRIBUTION WIDTH 14.6 % (11.5-14.5); WHITE BLOOD CELL COUNT 3.7 /CUMM (4.8-10.8)
--- NOTE | 2017-11-26 08:49 | PN- Housestaff ---
See Addendum Subjective Follow-up For: Recurrent pancreatitis in the setting of poorly controlled hypertriglyceridemia along with alcohol abuse. Subjective: Afebrile, hemodynamically stable, and saturating well on room air. Abdominal pain significant improvement compared to yesterday. Nausea and vomiting resolved. The patinet would like to advnace diet Review of Systems Constitutional: Reports: see HPI. Objective Last 24 Hrs of Vital Signs/I&O Vital Signs Date Time Temp Pulse Resp B/P B/P Pulse O2 O2 Flow FiO2 Mean Ox Delivery Rate 11/26 0641 98.4 74 18 120/74 98 Room Air 11/25 2240 97.9 63 20 130/90 98 Room Air 11/25 1440 98.3 71 20 110/80 97 Intake & Output 11/26 1600 11/26 0800 11/26 0000 Intake Total 1200 1200 Output Total Balance 1200 1200 Intake, IV 1200 1200 Physical Exam General Appearance: Alert, Oriented X3, Cooperative, No Acute Distress Skin: No Rashes HEENT: Atraumatic, PERRLA, EOMI, Mucous Membr. moist/pink Neck: No JVD Cardiovascular: Regular Rate, Normal S1, Normal S2, No Murmurs Lungs: Clear to Auscultation, Normal Air Movement Abdomen: very mild tenderness over the LUQ Neurological: Normal Speech Extremities: No Clubbing, No Cyanosis, No Edema Current Medications: Current Medications Sig/Adam Start time Last Medication Dose Route Stop Time Status Admin Acetaminophen 650 MG ONCE ONE 11/25 1745 DC 11/25 PO 11/25 1746 1750 Acetaminophen/ 1 TAB Q4P PRN 11/25 2115 AC 11/25 Butalbital/Caffeine PO 2138 Alprazolam 1 MG TID PRN 11/24 1000 AC 11/25 PO 12/01 0959 2302 Calcium Carbonate 500 MG DAILY 11/25 0115 AC 11/26 PO 0923 Enoxaparin Sodium 40 MG DAILY 11/24 1000 AC 11/26 SC 0925 Fenofibrate 48 MG DAILY 11/24 1000 AC 11/26 PO 0921 Fish Oil 1,050 MG DAILY 11/25 1846 AC 11/26 PO 0921 Hydromorphone HCl 1 MG Q4 HRS NEEDED PRN 11/24 0645 AC 11/26 IV 0653 Lactated Ringer's 1,000 ML .[id number] 11/24 644 AC 11/26 IV 1031 Ondansetron HCl 4 MG Q6P PRN 11/24 0645 AC 11/24 IV 1502 Pantoprazole Sodium 40 MG DAILY 11/24 1000 11/26 IV 0918 Potassium Chloride 40 MEQ ONCE ONE 11/25 1899 DC 11/25 PO 11/25 Last 24 Hrs of Lab/Hansel Results Last 24 Hrs of Labs/Mics: Laboratory Tests 11/26/17 0755: Anion Gap 8, Estimated GFR > 60, BUN/Creatinine Ratio 4.0 L, Magnesium 1.5 L, CBC w Diff NO MAN DIFF REQ, RBC 3.40 L, MCV 91.1, MCH 30.8, MCHC 33.9, RDW 14.6 H, MPV 6.6 L, Gran % 48.6, Lymphocytes % 40.0, Monocytes % 6.7, Eosinophils % 4.1, Basophils % 0.6, Absolute Granulocytes 1.8, Absolute Lymphocytes 1.5, Absolute Monocytes 0.2, Absolute Eosinophils 0.2, Absolute Basophils 0 Assessment/Plan Assessment: Patient is a 41-year-old with past medical history significant for recurrent pancreatitis due to poorly controlled hypertriglyceridemia and alcohol abuse Plan 1.Recurrent pancreatitis in the setting of poorly controlled hypertriglyceridemia along with alcohol abuse. * Advance diet to full liq * Zofran as needed for nausea. * Dilaudid 1 mg every 4 when necessary for severe pain. * Continue on TriCor for hypertriglyceridemia. 2. Acute drop in H&H * Likely due to hemodilution after fluids * We will check CBCs tomorrow 3. Hypokalemia/hypomagnesemia * recheck labs tomorrow 4. History of alcohol abuse * Monitor CIWA scores. * if Scoring high consider as needed Ativan for alcohol abuse/withdrawal. 5. History of anxiety * Will resume nasal Xanax. Maintain DVT prophylaxis with Lovenox Patient is full Problem List: 1. Acute pancreatitis Pain Ratin Pain Location: LUQ Pain Goal: Remain pain free Pain Plan: See A&P Tomorrow's Labs & Rationales: cbc for drop Hgb bep and mg to follow K and Mg
[2017-11-26 15:28] VITALS: BP 128/86
--- NOTE | 2017-11-26 15:48 | PN- Gastroenterology ---
Assessment/Plan Assessment/Recommendations: 42 y/o female, recently seem by myself in inpt GI consultation 10/18/17 for *TG- induced pancreatitis, & followed for GI as an outpt by Dr. Linares (last seen by her in the office 11/13/17), fair historian, HTN, non-DM, HLD, obese, FCBD, fibromyalgia, asthma, also seen by myself in inpatient GI consultation 05/25/16 for hypertriglyceride-induced pancreatitis, with TG 1277 then. For some reason, she was never put on anti-lipid medications, at that point. She has a history of cigarette smoking (reportedly stopped since 10/2017), & moderate EtOH, the latter of which she appeared to be down playing. She previously drank heavily years ago, but now admitted to "a few drinks a week". She drank again over New Year's. She denied any illicit drug use. Her gallbladder was intact. Additionally, she has fatty liver. She changed essentially all of her physicians since 2015. She previously was followed by Dr. Ayse Angeles for GI, in [place], [place], but switched to Dr. Linares, whom she initially saw as a GI outpt in 08/2017. She also switched to [facility] for primary care, & sees Dr. Guajardo for [facility], who had previously put her on HCTZ (*note- hx pancreatitis). Finally, she saw Dr. Mcneill, of cardiology, for atypical CP & reportedly had a negative w/u, with 08/31/15: echocardiogram- WNL. She previously did not follow up with outpatient endocrine for her HLD, but most recently has been followed for this by Dr. Ramires. Previous 08/21/17: *CT AP w/o IV cont (*per ER- limited study)- no acute pancreatic process, just chronic dilated CBD. *She was on chronic narcotics for back pain, which could be contributing to her chronically dilated CBD, by increasing tone at the Sphincter of Oddi. *After switching from Dr. Angeles to Dr. Linares, she had: 09/25/17: MR ABDOMEN WITH AND WITHOUT CONTRAST- 1. Mild acute pancreatitis at the pancreatic head at the pancreaticoduodenal groove. No evidence of fluid collections or pancreatic necrosis. No obstructing lesions or calculi. 2. Dilatation of the common bile duct 1.6 cm (w/o change) and pancreatic duct (6 mm), likely related to the inflammation at the pancreatic head. No pancreatic cysts or lesions seen. Mild intrahepatic dilitation. No choledocholithiasis. 3. Hydropic GB without cholelithiasis or cholecystitis. 4. Tiny fat-containing umbilical hernia. When previously seen at [facility] 05/25/16, Utox was positive for benzodiazepines. She denied any Sulfa medications, NSAIDs, or herbal medications. Aparently, she was on HCTZ then, as above. She was not admitted to the hospital again for pancreatitis until 10/17/17, although she had multiple ER visits for abdominal pain. The pt was last admitted to [facility] 10/17/17 to 10/21/17, with hyperTG (912) induced pancreatitis. She did have a few drinks of EtOH over New Year's, prior to that flare.*Her HCTZ was stopped. She was not on Sulfa medications, BCP, NSAIDs, herbal medications, or ZACK inhibitors. She reportedly stopped cigarette smoking after that. He had since been followed by endocrine, and was placed on TriCor and fish oil. Again, the patient last saw Dr. Linares in the office for GI follow-up 11/13/17 , and arrangements were being made to get an *outpatient EUS. Her chronically dilated CBD was most likely from chronic narcotic use. *Please note, 10/19/17: nl IgG4 = 7, going against autoimmune pancreatitis. *I do not believe the patient ever had genetic testing for pancreatitis. *Current outpt meds OPHTHALMIC ASST included TriCor, fish oil, Fioricet, Xanax, Albuterol, Nexium 40 mg daily, & Zofran ODT. The patient called the GI office 11/23/17 complaining of abdominal pain x 1 day, and was sent to the [facility]. The patient arrived to the [facility] ER 11/24/17 at 2:56 a.m., complaining of diffuse band-like pain across the mid-abdomen/ epigastric region, radiating to the back "10 out of 10" associated with nausea, but no definite vomiting. Upon arrival, BP 142/95, P 105, RR 20, T 97.7, O2 sat RA 97%. She did not spike any fevers. She was dry heaving in triage. Try Tylenol prior to arriving at 10 PM the night before, without help. She claimed her symptoms were similar to her multiple recurrent bouts of pancreatitis. She received IV NS, Dilaudid, Tylenol, & Zofran in the ER. Her pain transiently went down to "7 out of 10". No repeat imaging studies were obtained in the ER, aside from an EKG. One day prior to the onset of her symptoms, she ate crackers, cheese, salad with ranch dressig, & soup, awakening the next morning at 6 AM with pain as above. She was then essentially NPO xc clears x 24 hrs OPHTHALMIC ASST. She did note hx FFI. There was no diarrhea. She denied any jaundice, dark urine, light stools, or pruritus. She denied any chest pain or shortness of breath. She denied any unintentional weight loss. She had no symptoms of odynophagia, dysphagia, or early satiety. Her reflux was well controlled on Nexium. There was no overt constipation, obstipation, tenesmus, or rectal bleeding, although she did carry a tentative diagnosis of questionable IBS-D (keeping in mind her fibromyalgia). She had no symptoms of UTI or URI. There was mild dizziness without LOC. She did not take her TriCor for 2 days OPHTHALMIC ASST as she "forgot it at work". She initially claimed she had not drink any alcohol or smoked cigarettes since her 10/21/17 [facility] discharge, but then later stated she had "a couple of beers when watching the Super Bowl". She denied any illicit street drugs. 11/24/17: Admission labs- WBC 7.3, H/H 13.4/39.5, MCV 90.9, RDW 14.4, PLT 255, glucose 95, BUN/Cr 7/0.6, GFR > 60, Na 137, K 3.5, HCO3 21, Ca 8.8, albumin 4.0, globulin 2.6, TBil 0.8, DBil 0.3, alk phos 92, AST 38, ALT 66 (*hx fatty liver) , amylase/lipase 826/19,832, troponin < 0.01, [EtOH] < 10, serum HCG- neg, *TG 364. *The patient's recurrent pancreatitis in the past was undoubtedly due to her poorly controlled hyperTG, superimposed on additional risk factors for pancreatitis, including cigarette smoking and intermittent EtOH. She claimed she stopped cigarettes at the end of 10/2017, and "had a couple of beers over the Super Bowl". Her admission 11/24/17: TG 364 was noted. In the past, feelings were that TG had to be > 1000 to cause pancreatitis, but recent data shows that even moderate hyperTG can do this, especially in someone that is predisposed. *Additionally, the patient had minimal po intake x > 1 day OPHTHALMIC ASST, & so her TG levels were undoubtedly higher 1-2 days OPHTHALMIC ASST. 10/19/17: nl IgG4 = 7 goes against autoimmune pancreatitis. She does have a history of FFI and her GB is intact, rule out biliary sludge and/or microlithiasis. Rule out PD stricture. Doubt IPMN and/or pancreatic lesion (* none seen on 09/25/17: MRI abdomen with & w/o gadolinium). Her minimally elevated transaminases are most likely from fatty liver. Numerous imaging studies have failed to reveal any acute biliary process.*She was previously on chronic narcotics (Percocet & Dilaudid) for chronic back pain, which could be contributing to her chronically dilated CBD, by increasing tone at the Sphincter of Oddi. *On 11/24/17: admission, 0 grave signs by Bennett criteria, but no LDH sent. *Also on admission, 0 grave signs by BiSAP criteria, but no CXR done to rule out pleural effusions. *The severity, clinical course, & prognosis of pancreatitis are not dependent on the level of lipase elevation. In fact, lipase levels may go up when the TG improve. *She had no imaging studies on 07/03: admission, however she recently had 08/21/17: CT AP with IV contrast & : MRI abdomen with & w/o contrast, failure to reveal any evidence of pancreatic necrosis. *She is awaiting outpatient EUS to be arranged at [facility], per Dr. Linares. I feel that at present, the only reason to repeat a CT AP with IV contrast would be to exclude pancreatic necrosis, which clinically is unlikely. I would only pursue this if the patient deteriorated, to avoid unnecessary radiation. 11/24/17: 9:35 a.m.- WBC 5.6, H/H 11.2/33.7, MCV 90.5, RDW 14.2, PLT 201, BUN/Cr 5/0.5, GFR > 60, Na 138, K 3.4, HCO3 21, AG 10, lactate 0.8, alb 3.1, glob 2.5, TBil 0.6, DBil 0.3, alk phos 78, AST 26, ALT 50. 11/25/17: TG 212, *HgbA1C- pending. *As of 11/25/17, the patient remained hemodynamically stable & afebrile, with O2 sat RA 98%. A CXR was still not obtained, nor LDH or CRP. Repeat labs on fortunately did not show evidence of hemoconcentration, with appropriate drop in H/H & BUN, post IVF. The patient was seen in endocrine consultation by Dr. Ramires 11/24/17. Tricor was continued. *Admission TG 364, but keep in mind, the patient had minimal po intake x 24 hours OPHTHALMIC ASST. She received CaCO3 & KCl repletion. She remained on IV Lactated Ringers at 200 cc/hr. She has been receiving Dilaudid as needed, most recently 11/24/17 at 7 AM, about 3 & 1/2 hrs prior to my exam. The patient was ambulating in her room. Her nausea was improved. She remained without vomiting or diarrhea. She denied any chest pain or shortness of breath. Her abdominal pain was improved, down to "5 out of 10, " & she was hungry. 11/24/17: *CRP 4.6, *LDH 337 11/26/17: WBC 3.7, H/H 10.5/31, MCV 91.1, RDW 14.6, PLT 196, BUN/Cr 2/0.5, GFR > 60, Na 139, K 3.8, HCO3 28, AG 8, *Mg 1.5 *As of 11/26/17, the patient was hemodynamically stable & afebrile, with O2 sat RA 99%. Her abdominal pain had improved, but she was still requesting narcotic analgesics. There was no nausea or vomiting. She denied any CP, SOB, jaundice, fevers, or chills. She had tolerated clears po. For some reason, she was not yet advanced to full liquids po. There was no laboratory evidence of hemoconcentration. She was currently on IV Lactated Ringers @ 150cc/hr. Fish oil was added to Tricor. Mg was being repleted (on PPI- Protonix). She was still getting Dilaudid Q4h as needed, last dose 11/26/17 at 3:38 p.m. She was still getting Xanax. Fioricet was rxd, as needed. She was ambulating uneventfully. *SUGGEST- *Advance to full liquids po now & if stable, low fat diet (*d/w RN). *If patient tolerates diet advancement, can decrease IVF-> Ringer's lactate to 100 cc/hr. Strict I/O's. Replete electrolytes (i.e.- K+). Mobilize patient. Supplemental O2 as needed. *Get CXR (r/o pleural effusion).*Continue Tricor & add fish oil, as per medical team. *Follow-up with endocrine re: HLD & serial TG. Await : HgbA1C. *Discontinue cigarettes (reportedly stopped 10/2017) & EtOH (poor insight- had a few beers recently). *Advise switching narcotic analgesics to po route (consider milder version-> i.e.- Tramadol). Avoid NSAIDs. Ativan as needed. DVT prophylaxis. Continue PPI for GERD. *Replete Mg (on PPI). *Zofran as needed. Risk factor modification for fatty liver (ie.- strict control of body weight, glucose, lipids, BP, avoid EtOH, etc). Consider eventual Vitamin E 800 IU po daily. Watch for hemoconcentration (i.e.- rising BUN or Hgb), despite IV fluids, which would be a poor prognostic sign. Consider checking fecal elastase (probable IBS-D; rule out pancreatic insufficiency, but no pancreatic calcifications seen on previous imaging studies). *Await outpt EUS at [facility], per Dr. Linares, to better define CBD, PD, ampulla, & pancreatic head, but most likely, the patient's chronically dilated ducts are from chronic narcotic use for her back pain. *Consider genetic markers such as CFTR, SPINK mutation, and/ or PRSS1. The patient will follow-up with Dr. Linares for GI after discharge. Hopefully, the patient can be D/C tomorrow, if stable. Further GI recommendations to follow, depending on clinical course. Problem List: 1. Pancreatitis 2. Hypertriglyceridemia 3. Abdominal pain 4. Nausea 5. GERD (gastroesophageal reflux disease) 6. Fatty liver Subjective Subjective: 11/24/17: *CRP 4.6, *LDH 337 11/26/17: WBC 3.7, H/H 10.5/31, MCV 91.1, RDW 14.6, PLT 196, BUN/Cr 2/0.5, GFR > 60, Na 139, K 3.8, HCO3 28, AG 8, *Mg 1.5 *As of 11/26/17, the patient was hemodynamically stable & afebrile, with O2 sat RA 99%. Her abdominal pain had improved, but she was still requesting narcotic analgesics. There was no nausea or vomiting. She denied any CP, SOB, jaundice, fevers, or chills. She had tolerated clears po. For some reason, she was not yet advanced to full liquids po. There was no laboratory evidence of hemoconcentration. She was currently on IV Lactated Ringers @ 150cc/hr. Fish oil was added to Tricor. Mg was being repleted (on PPI- Protonix). She was still getting Dilaudid Q4h as needed, last dose 11/26/17 at 3:38 p.m. She was still getting Xanax. Fioricet was rxd, as needed. She was ambulating uneventfully. Review of Systems: Full 14 point review of systems otherwise noncontributory, and as per HPI. Review of Systems Constitutional: Denies: diaphoresis, fever, chills, malaise, weakness, unexplained weight loss. EENTM: Denies: blurred vision, double vision, visual changes, eye pain, eye drainage, eye tearing, icterus, ear discharge, ear pain, ear redness, hearing changes, nasal congestion, epistaxis, nasal pain, throat pain, throat swelling, mouth pain, tooth pain. Cardiovascular: Denies: chest pain, edema, orthopena, palpitations, peripheral edema, syncope. Respiratory: Denies: cough, hemoptysis, orthopnea, short of breath, sputum production, stridor, wheezing. GI: Reports: abdominal pain-> improved, nausea-> improved, GERD-> stable on PPI. Denies: vomiting, bloating, constipation, diarrhea, distention, bowel incontinence, melena, bloody stool, changes in stool, steatorrhea. Genitourinary: Denies: discharge, dysuria, frequency, hematuria, hesitation, nocturia, pain, urgency. Musculoskeletal: Reports: back pain (chronic). Denies: gout, joint pain, joint swelling, muscle pain, muscle stiffness, neck pain. Skin: Denies: cysts, change in skin color, change in hair/nails, dryness, erythema, jaundice, lesions, lymphangitis, lumps, moles, rash. Neurological/Psychological: Reports: anxiety, emotional problems. Denies: ataxia, cognitive dysfunction, confusion, depressed, dementia, headache, numbness, paresthesia, pre-existing deficit, petit mal seizures, tingling, tremors, tonic-clonic seizures, unable to move lower ext, unable to move upper ext, weakness. Hematologic/Endocrine: Reports: HLD, ck *TG. Denies: bruising, bleeding, polyuria, polydipsia. Immunologic/Allergic: Denies: splenectomy, HIV/AIDS, lymphadenopathy. All Other Systems: Reviewed and Negative. Objective Vital Signs and I&Os Vital Signs Date Time Temp Pulse Resp B/P B/P Pulse O2 O2 Flow FiO2 Mean Ox Delivery Rate 11/26 1528 98.6 76 20 128/86 99 11/26 0641 98.4 74 18 120/74 98 Room Air 11/25 2240 97.9 63 20 130/90 98 Room Air Intake & Output 11/26 1600 11/26 0400 11/25 1600 11/25 0400 11/24 1600 11/24 0400 Intake Total 2700 1200 3200 1880 2220 Output Total Balance 2700 1200 3200 1880 2220 Intake, IV 2200 1200 3200 1600 2100 Intake, Oral 500 0 280 120 Number 3 Bowel Movements Patient 213 lb 214 lb Weight Weight Bed scale Reported by Patient Measurement Method Physical Exam: Well-developed, well-nourished, obese female, in NAD. Sclera anicteric. Conjunctiva pink. Oropharynx clear. No oral thrush. No apthous ulcers. There is no adenopathy, thyromegaly, or JVD. No peripheral stigmata of inflammatory bowel disease or chronic liver disease on exam. No spiders on the anterior chest wall. No CVA tenderness. Lungs: clear to A&P. No wheezing, rales, or rhonchi. Heart exam: regular rate rhythm, S1 and S2, without any murmur. Abdominal exam: normal bowel sounds, soft obese belly, *currently nontender, without guarding or rebound. Tiny reducible umbilical hernia, otherwise, no mass. No splenomegaly. Enlarged liver approximately 15 cm. Negative Naik sign. No fluid shift. No pulsatile mass. Digital rectal exam: deferred by patient ("recently normal at Dr. Guajardo"). Extremities: without cyanosis or clubbing. Trace pedal edema B/ L. No palpable cords. No acute arthropathy. No rash. No palmar erythema. No Dupuytren's contractures. Distal pulses 1+ bilaterally. DTRs 1+ bilaterally. Alert and oriented x 3. No tremor or asterixis. Motor 5/5 B/L. Current Medications: Current Medications Sig/Adma Start time Last Medication Dose Route Stop Time Status Admin Acetaminophen 650 MG ONCE ONE 11/25 1745 DC 11/25 PO 11/25 1746 1750 Acetaminophen/ 1 TAB Q4P PRN 11/25 2115 AC 11/25 Butalbital/Caffeine PO 2138 Alprazolam 1 MG TID PRN 11/24 1000 AC 11/25 PO 12/01 0959 2302 Calcium Carbonate 500 MG DAILY 11/25 0115 AC 11/26 PO 0923 Enoxaparin Sodium 40 MG DAILY 11/24 1000 AC 11/26 SC 0925 Fenofibrate 48 MG DAILY 11/24 1000 AC 11/26 PO 0921 Fish Oil 1,050 MG DAILY 11/25 1846 AC 11/26 PO 0921 Hydromorphone HCl 1 MG Q4 HRS NEEDED PRN 11/24 0645 AC 11/26 IV 1537 Lactated Ringer's 1,000 ML .Q10H 11/24 0645 r 11/26 IV 1031 Magnesium Chloride 64 MG BID 11/26 1132 AC 11/26 PO 11/26 2201 1408 Ondansetron HCl 4 MG Q6P PRN 11/24 0645 AC 11/24 IV 1502 Pantoprazole Sodium 40 MG DAILY 11/24 1000 AC 11/26 IV 0918 Potassium Chloride 40 MEQ ONCE ONE 11/25 1900 DC 11/25 PO 11/25 190 205 Results Pertinent Lab Results: Laboratory Tests 11/26 11/25 11/24 0755 0805 0935 Chemistry Sodium (137 - 145 mmol/L) 139 Potassium (3.5 - 5.1 mmol/L) 3.8 Chloride (98 - 107 mmol/L) 103 Carbon Dioxide (22 - 30 mmol/L) 28 Anion Gap (5 - 16) 8 BUN (7 - 17 mg/dL) 2 L Creatinine (0.5 - 1.0 mg/dL) 0.5 Estimated GFR (>60 ml/min) > 60 BUN/Creatinine Ratio (7 - 25 %) 4.0 L Hemoglobin A1c (4.2 - 5.8 %) Pending Lactic Acid Cancelled Magnesium (1.6 - 2.3 mg/dL) 1.5 L Lactate Dehydrogenase (313 - 618 U/L) Pending Triglycerides (<150 mg/dL) 212 H Hematology CBC w Diff NO MAN DIFF REQ WBC (4.8 - 10.8 /CUMM) 3.7 L RBC (4.20 - 5.40 /CUMM) 3.40 L Hgb (12.0 - 16.0 G/DL) 10.5 L Hct (37 - 47 %) 31.0 L MCV (81.0 - 99.0 FL) 91.1 MCH (27.0 - 31.0 PG) 30.8 MCHC (33.0 - 37.0 G/DL) 33.9 RDW (11.5 - 14.5 %) 14.6 H Plt Count (130 - 400 /CUMM) 196 MPV (7.4 - 10.4 FL) 6.6 L Gran % (42.2 - 75.2 %) 48.6 Lymphocytes % (20.5 - 51.1 %) 40.0 Monocytes % (1.7 - 9.3 %) 6.7 Eosinophils % (0 - 5 %) 4.1 Basophils % (0.0 - 2.0 %) 0.6 Absolute Granulocytes (1.4 - 6.5 /CUMM) 1.8 Absolute Lymphocytes (1.2 - 3.4 /CUMM) 1.5 Absolute Monocytes (0.10 - 0.60 /CUMM) 0.2 Absolute Eosinophils (0.0 - 0.7 /CUMM) 0.2 Absolute Basophils (0.0 - 0.2 /CUMM) 0 11/24 11/24 0935 0935 Chemistry Sodium (137 - 145 mmol/L) 138 Potassium (3.5 - 5.1 mmol/L) 3.4 L Chloride (98 - 107 mmol/L) 107 Carbon Dioxide (22 - 30 mmol/L) 21 L Anion Gap (5 - 16) 10 BUN (7 - 17 mg/dL) 5 L Creatinine (0.5 - 1.0 mg/dL) 0.5 Estimated GFR (>60 ml/min) > 60 BUN/Creatinine Ratio (7 - 25 %) 10.0 Lactic Acid (0.7 - 2.1 mmol/L) 0.8 Total Bilirubin (0.2 - 1.3 mg/dL) 0.6 Cancelled Direct Bilirubin (< 0.4 mg/dL) 0.3 Cancelled AST (14 - 36 U/L) 26 Cancelled ALT (9 - 52 U/L) 50 Cancelled Alkaline Phosphatase (<127 U/L) 78 Cancelled Lactate Dehydrogenase (313 - 618 U/L) 337 C-Reactive Prot, Quant (<1.0 mg/dL) 4.6 H Total Protein (6.3 - 8.2 g/dL) 5.6 L Cancelled Albumin (3.5 - 5.0 g/dL) 3.1 L Cancelled Hematology CBC w Diff NO MAN DIFF REQ WBC (4.8 - 10.8 /CUMM) 5.6 RBC (4.20 - 5.40 /CUMM) 3.72 L Hgb (12.0 - 16.0 G/DL) 11.2 L Hct (37 - 47 %) 33.7 L MCV (81.0 - 99.0 FL) 90.5 MCH (27.0 - 31.0 PG) 30.1 MCHC (33.0 - 37.0 G/DL) 33.3 RDW (11.5 - 14.5 %) 14.2 Plt Count (130 - 400 /CUMM) 201 MPV (7.4 - 10.4 FL) 6.5 L Gran % (42.2 - 75.2 %) 77.7 H Lymphocytes % (20.5 - 51.1 %) 15.9 L Monocytes % (1.7 - 9.3 %) 3.7 Eosinophils % (0 - 5 %) 2.3 Basophils % (0.0 - 2.0 %) 0.4 Absolute Granulocytes (1.4 - 6.5 /CUMM) 4.4 Absolute Lymphocytes (1.2 - 3.4 /CUMM) 0.9 L Absolute Monocytes (0.10 - 0.60 /CUMM) 0.2 Absolute Eosinophils (0.0 - 0.7 /CUMM) 0.1 Absolute Basophils (0.0 - 0.2 /CUMM) 0 11/24 0329 Chemistry Sodium (137 - 145 mmol/L) 137 Potassium (3.5 - 5.1 mmol/L) 3.5 Chloride (98 - 107 mmol/L) 105 Carbon Dioxide (22 - 30 mmol/L) 21 L Anion Gap (5 - 16) 11 BUN (7 - 17 mg/dL) 7 Creatinine (0.5 - 1.0 mg/dL) 0.6 Estimated GFR (>60 ml/min) > 60 BUN/Creatinine Ratio (7 - 25 %) 11.7 Glucose (65 - 99 mg/dL) 95 Calcium (8.4 - 10.2 mg/dL) 8.8 Total Bilirubin (0.2 - 1.3 mg/dL) 0.8 Direct Bilirubin (< 0.4 mg/dL) 0.3 AST (14 - 36 U/L) 38 H ALT (9 - 52 U/L) 66 H Alkaline Phosphatase (<127 U/L) 92 Troponin I (< 0.11 ng/ml) < 0.01 Total Protein (6.3 - 8.2 g/dL) 6.6 Albumin (3.5 - 5.0 g/dL) 4.0 Triglycerides (<150 mg/dL) 364 H Amylase (30 - 110 U/L) 826 H Lipase (23 - 300 U/L) H Total Beta HCG (NEGATIVE) NEGATIVE Coagulation PT (9.4 - 12.5 SEC) 10.0 INR (0.90 - 1.19) 0.95 APTT (25 - 37 SEC) 26 Hematology CBC w Diff NO MAN DIFF REQ WBC (4.8 - 10.8 /CUMM) 7.3 RBC (4.20 - 5.40 /CUMM) 4.35 Hgb (12.0 - 16.0 G/DL) 13.0 Hct (37 - 47 %) 39.5 MCV (81.0 - 99.0 FL) 90.9 MCH (27.0 - 31.0 PG) 29.8 MCHC (33.0 - 37.0 G/DL) 32.8 L RDW (11.5 - 14.5 %) 14.4 Plt Count (130 - 400 /CUMM) 255 MPV (7.4 - 10.4 FL) 6.2 L Gran % (42.2 - 75.2 %) 78.1 H Lymphocytes % (20.5 - 51.1 %) 15.7 L Monocytes % (1.7 - 9.3 %) 3.2 Eosinophils % (0 - 5 %) 2.5 Basophils % (0.0 - 2.0 %) 0.5 Absolute Granulocytes (1.4 - 6.5 /CUMM) 5.7 Absolute Lymphocytes (1.2 - 3.4 /CUMM) 1.1 L Absolute Monocytes (0.10 - 0.60 /CUMM) 0.2 Absolute Eosinophils (0.0 - 0.7 /CUMM) 0.2 Absolute Basophils (0.0 - 0.2 /CUMM) 0 Toxicology Serum Alcohol (<10 MG/DL) < 10.0 Imaging/Other Studies: 08/21/17: CT ABDOMEN AND PELVIS WITHOUT CONTRAST (*per ER, limited study w/o IV cont)- Mild dilatation of the common bile duct measuring up to 1 cm in diameter. It appears slightly increased when compared to prior. Otherwise, no acute findings in the abdomen or pelvis. No significant inflammatory changes of the pancreas are seen. 09/25/17: MR ABDOMEN WITH AND WITHOUT CONTRAST- 1. Mild acute pancreatitis at the pancreatic head at the pancreaticoduodenal groove. No evidence of fluid collections or pancreatic necrosis. No obstructing lesions or calculi. 2. Dilatation of the common bile duct 1.6 cm (w/o change) and pancreatic duct (6 mm), likely related to the inflammation at the pancreatic head. No pancreatic cysts or lesions seen. Mild intrahepatic dilitation. No choledocholithiasis. 3. Hydropic GB without cholelithiasis or cholecystitis. 4. Tiny fat-containing umbilical hernia. [No imaging studies obtained from ER at time of 10/17/17: admission, nor at time of 11/24/17 admission]. 10/18/17: XRY-PORTABLE CHEST XRAY- Unremarkable examination. There is no pleural effusion, CHF, or infiltrate. 11/24/17: EKG-NSR @ 71, nl axis, nl intervals,w/o acute ischemic changes.
--- NOTE | 2017-11-26 20:05 | RADIOLOGY REPORT ---
EXAMINATION: XR PORTABLE CHEST CLINICAL INFORMATION: Pleural effusion COMPARISON: October 2017 TECHNIQUE: Portable frontal view of the chest was obtained. FINDINGS: No significant abnormality is noted involving the heart, lungs, mediastinum, bony thorax or soft tissues. IMPRESSION: Unremarkable examination.
[2017-11-26 22:47] VITALS: BP 116/80
[2017-11-27 07:34] VITALS: BP 120/76
--- NOTE | 2017-11-27 07:54 | PN- Housestaff ---
Tati Horton 11/27/17 0754: Subjective Follow-up For: Recurrent pancreatitis in the setting of poorly controlled hypertriglyceridemia along with alcohol abuse. History of anxiety Subjective: Patient is seen and examined this morning, reports some chest heaviness with nausea. Still has some epigastric tenderness, vitals are stable Denies any shortness of breath palpitations Review of Systems Constitutional: Denies: chills, diaphoresis, fever. EENTM: Denies: blurred vision, double vision, eye pain. Cardiovascular: Reports: chest pain. Respiratory: Denies: cough. Gastrointestinal: Denies: abdominal pain, bloating, constipation. Genitourinary: Denies: discharge, dysuria, hematuria. Musculoskeletal: Denies: back pain, gout. Objective Last 24 Hrs of Vital Signs/I&O Vital Signs Date Time Temp Pulse Resp B/P B/P Pulse O2 O2 Flow FiO2 Mean Ox Delivery Rate 11/27 1420 98.3 86 18 110/80 96 11/27 0734 97.9 77 20 120/76 97 Room Air 11/26 2247 98.2 79 20 116/80 97 Room Air 11/26 1528 98.6 76 20 128/86 99 Intake & Output 11/27 1600 11/27 0800 11/27 0000 Intake Total 1250 1100 700 Output Total Balance 1250 1100 700 Intake, IV 450 800 400 Intake, Oral 800 300 300 Physical Exam General Appearance: Alert, Oriented X3 Skin: No Rashes, No Breakdown Skin Temp/Moisture Exam: Warm/Dry HEENT: Atraumatic, PERRLA Neck: Supple, No JVD Cardiovascular: Regular Rate, Normal S1, Normal S2 Lungs: Clear to Auscultation, Normal Air Movement Assessment/Plan Assessment: Patient is a 41-year-old with past medical history significant for recurrent pancreatitis due to poorly controlled hypertriglyceridemia and alcohol abuse Plan 1.Recurrent pancreatitis in the setting of poorly controlled hypertriglyceridemia along with alcohol abuse. * Advance diet to full liq * Zofran as needed for nausea. * We'll switch her to by mouth Percocet for pain control. * Stopped the fluids and start her on low fat diet * Continue on TriCor for hypertriglyceridemia. 2. Chest heaviness(less likely cardiac) * Will do troponin EKG to rule out any underlying cardiac issues. 3. Acute drop in H&H * Likely due to hemodilution after fluids * We will check CBCs tomorrow 4. Hypokalemia/hypomagnesemia * recheck labs tomorrow 5 History of alcohol abuse * Monitor CIWA scores. * if Scoring high consider as needed Ativan for alcohol abuse/withdrawal. 6. History of anxiety * Will resume nasal Xanax. Maintain DVT prophylaxis with Lovenox Patient is full Problem List: 1. Acute pancreatitis 2. Chest pain Pain Ratin Pain Location: Abdominal discomfort Pain Goal: Remain pain free Pain Plan: Percocet Tomorrow's Labs & Rationales: BEP tomorrow in the setting of hypokalemia DVT/Prophylaxis: pharmacological Laurie Barreto MD 11/27/17 1138: Attending MD Review Statement Attending Statement Attending MD Statement: examined this patient, discuss w/resident/PA/[employer]OADB[employer] ENGINEER, agreed w/resident/PA/[employer]OADBAND ENGINEER, reviewed EMR data (avail), discussed with nursing, discussed with case mgmt, reviewed images, amended to note Attending Assessment/Plan: Patient seen and examined, overall feeling better. This morning did complain of some chest heaviness but denies any shortness of breath. No further nausea or vomiting. vss. aox3, nad. cv; s1,s2, rrr resp; clear abd; soft, nt, bs+ ext; no edema. Laboratory Tests 11/27 0758 Chemistry Sodium (137 - 145 mmol/L) 140 Potassium (3.5 - 5.1 mmol/L) 3.4 L Chloride (98 - 107 mmol/L) 104 Carbon Dioxide (22 - 30 mmol/L) 27 Anion Gap (5 - 16) 9 BUN (7 - 17 mg/dL) < 2 L Creatinine (0.5 - 1.0 mg/dL) 0.5 Estimated GFR (>60 ml/min) > 60 BUN/Creatinine Ratio (7 - 25 %) 4.0 L Magnesium (1.6 - 2.3 mg/dL) 1.5 L Troponin I (< 0.11 ng/ml) < 0.01 Hematology CBC w Diff NO MAN DIFF REQ WBC (4.8 - 10.8 /CUMM) 3.5 L RBC (4.20 - 5.40 /CUMM) 3.60 L Hgb (12.0 - 16.0 G/DL) 11.1 L Hct (37 - 47 %) 33.0 L MCV (81.0 - 99.0 FL) 91.7 MCH (27.0 - 31.0 PG) 30.7 MCHC (33.0 - 37.0 G/DL) 33.5 RDW (11.5 - 14.5 %) 14.6 H Plt Count (130 - 400 /CUMM) 227 MPV (7.4 - 10.4 FL) 6.6 L Gran % (42.2 - 75.2 %) 47.3 Lymphocytes % (20.5 - 51.1 %) 40.9 Monocytes % (1.7 - 9.3 %) 7.3 Eosinophils % (0 - 5 %) 3.9 Basophils % (0.0 - 2.0 %) 0.6 Absolute Granulocytes (1.4 - 6.5 /CUMM) 1.6 Absolute Lymphocytes (1.2 - 3.4 /CUMM) 1.4 Absolute Monocytes (0.10 - 0.60 /CUMM) 0.3 Absolute Eosinophils (0.0 - 0.7 /CUMM) 0.1 Absolute Basophils (0.0 - 0.2 /CUMM) 0 A/P; 41-year-old female with past medical history significant for pancreatitis 2, ethanol abuse, hypertension, asthma, GERD, irritable bowel syndrome, fibromyalgia, anxiety admitted medicine floor with acute pancreatitis. Overall improving. Will check an EKG and a set of troponin for this chest heaviness. No clinical signs of CHF. We'll stop the fluids. Will advance her diet to low-fat. We'll switch her pain medications to oral Percocet. Patient was encouraged to ambulate. Please replete magnesium as well as potassium. DVT prophylaxis: Lovenox.
[2017-11-27 08:56] LABS: ABSOLUTE BASOPHIL COUNT 0 /CUMM (0.0-0.2); ABSOLUTE EOSINOPHIL COUNT 0.1 /CUMM (0.0-0.7); ABSOLUTE GRANULOCYTE CT 1.6 /CUMM (1.4-6.5); ABSOLUTE LYMPH COUNT 1.4 /CUMM (1.2-3.4); ABSOLUTE MONOCYTE COUNT 0.3 /CUMM (0.10-0.60); BASOPHIL % 0.6 % (0.0-2.0); EOSINOPHIL % 3.9 % (0-5); GRANULOCYTE % 47.3 % (42.2-75.2); MEAN CORPUSCULAR HGB 30.7 PG (27.0-31.0); MEAN CORPUSCULAR HGB CONC 33.5 G/DL (33.0-37.0); MEAN CORPUSCULAR VOLUME 91.7 FL (81.0-99.0); MEAN PLATELET VOLUME 6.6 FL (7.4-10.4); PLATELET COUNT 227 /CUMM (130-400); RBC DISTRIBUTION WIDTH 14.6 % (11.5-14.5); WHITE BLOOD CELL COUNT 3.5 /CUMM (4.8-10.8)
--- NOTE | 2017-11-27 13:23 | PN- Gastroenterology ---
Assessment/Plan Assessment/Recommendations: 42 y/o female, recently seem by myself in inpt GI consultation 10/18/17 for *TG- induced pancreatitis, & followed for GI as an outpt by Dr. Linares (last seen by her in the office 11/13/17), fair historian, HTN, non-DM, HLD, obese, FCBD, fibromyalgia, asthma, also seen by myself in inpatient GI consultation 05/25/16 for hypertriglyceride-induced pancreatitis, with TG 1277 then. For some reason, she was never put on anti-lipid medications, at that point. She has a history of cigarette smoking (reportedly stopped since 10/2017), & moderate EtOH, the latter of which she appeared to be down playing. She previously drank heavily years ago, but now admitted to "a few drinks a week". She drank again over New Year's. She denied any illicit drug use. Her gallbladder was intact. Additionally, she has fatty liver. She changed essentially all of her physicians since 2015. She previously was followed by Dr. Ayse Angeles for GI, in [place], [place], but switched to Dr. Linares, whom she initially saw as a GI outpt in 08/2017. She also switched to [facility] for primary care, & sees Dr. Guajardo for PATHOLOGY TECHNICIAN, who had previously put her on HCTZ (*note- hx pancreatitis). Finally, she saw Dr. Mcneill, of cardiology, for atypical CP & reportedly had a negative w/u, with 08/31/15: echocardiogram- WNL. She previously did not follow up with outpatient endocrine for her HLD, but most recently has been followed for this by Dr. Ramires. Previous 08/21/17: *CT AP w/o IV cont (*per ER- limited study)- no acute pancreatic process, just chronic dilated CBD. *She was on chronic narcotics for back pain, which could be contributing to her chronically dilated CBD, by increasing tone at the Sphincter of Oddi. *After switching from Dr. Angeles to Dr. Linares, she had: 09/25/17: MR ABDOMEN WITH AND WITHOUT CONTRAST- 1. Mild acute pancreatitis at the pancreatic head at the pancreaticoduodenal groove. No evidence of fluid collections or pancreatic necrosis. No obstructing lesions or calculi. 2. Dilatation of the common bile duct 1.6 cm (w/o change) and pancreatic duct (6 mm), likely related to the inflammation at the pancreatic head. No pancreatic cysts or lesions seen. Mild intrahepatic dilitation. No choledocholithiasis. 3. Hydropic GB without cholelithiasis or cholecystitis. 4. Tiny fat-containing umbilical hernia. When previously seen at [facility] 05/25/16, Utox was positive for benzodiazepines. She denied any Sulfa medications, NSAIDs, or herbal medications. Aparently, she was on HCTZ then, as above. She was not admitted to the hospital again for pancreatitis until 10/17/17, although she had multiple ER visits for abdominal pain. The pt was last admitted to [facility] 10/17/17 to 10/21/17, with hyperTG (912) induced pancreatitis. She did have a few drinks of EtOH over New Year's, prior to that flare.*Her HCTZ was stopped. She was not on Sulfa medications, BCP, NSAIDs, herbal medications, or ZACK inhibitors. She reportedly stopped cigarette smoking after that. He had since been followed by endocrine, and was placed on TriCor and fish oil. Again, the patient last saw Dr. Linares in the office for GI follow-up 11/13/17 , and arrangements were being made to get an *outpatient EUS. Her chronically dilated CBD was most likely from chronic narcotic use. *Please note, 10/19/17: nl IgG4 = 7, going against autoimmune pancreatitis. *I do not believe the patient ever had genetic testing for pancreatitis. *Current outpt meds [employer] included TriCor, fish oil, Fioricet, Xanax, Albuterol, Nexium 40 mg daily, & Zofran ODT. The patient called the GI office 11/23/17 complaining of abdominal pain x 1 day, and was sent to the [facility]. The patient arrived to the [facility] ER 11/24/17 at 2:56 a.m., complaining of diffuse band-like pain across the mid-abdomen/ epigastric region, radiating to the back "10 out of 10" associated with nausea, but no definite vomiting. Upon arrival, BP 142/95, P 105, RR 20, T 97.7, O2 sat RA 97%. She did not spike any fevers. She was dry heaving in triage. Try Tylenol prior to arriving at 10 PM the night before, without help. She claimed her symptoms were similar to her multiple recurrent bouts of pancreatitis. She received IV NS, Dilaudid, Tylenol, & Zofran in the ER. Her pain transiently went down to "7 out of 10". No repeat imaging studies were obtained in the ER, aside from an EKG. One day prior to the onset of her symptoms, she ate crackers, cheese, salad with ranch dressig, & soup, awakening the next morning at 6 AM with pain as above. She was then essentially NPO xc clears x 24 hrs [employer]. She did note hx FFI. There was no diarrhea. She denied any jaundice, dark urine, light stools, or pruritus. She denied any chest pain or shortness of breath. She denied any unintentional weight loss. She had no symptoms of odynophagia, dysphagia, or early satiety. Her reflux was well controlled on Nexium. There was no overt constipation, obstipation, tenesmus, or rectal bleeding, although she did carry a tentative diagnosis of questionable IBS-D (keeping in mind her fibromyalgia). She had no symptoms of UTI or URI. There was mild dizziness without LOC. She did not take her TriCor for 2 days [employer] as she "forgot it at work". She initially claimed she had not drink any alcohol or smoked cigarettes since her 10/21/17 [facility] discharge, but then later stated she had "a couple of beers when watching the Super Bowl". She denied any illicit street drugs. 11/24/17: Admission labs- WBC 7.3, H/H 13.4/39.5, MCV 90.9, RDW 14.4, PLT 255, glucose 95, BUN/Cr 7/0.6, GFR > 60, Na 137, K 3.5, HCO3 21, Ca 8.8, albumin 4.0, globulin 2.6, TBil 0.8, DBil 0.3, alk phos 92, AST 38, ALT 66 (*hx fatty liver) , amylase/lipase 826/19,832, troponin < 0.01, [EtOH] < 10, serum HCG- neg, *TG 364. *The patient's recurrent pancreatitis in the past was undoubtedly due to her poorly controlled hyperTG, superimposed on additional risk factors for pancreatitis, including cigarette smoking and intermittent EtOH. She claimed she stopped cigarettes at the end of 10/2017, and "had a couple of beers over the Super Bowl". Her admission 11/24/17: TG 364 was noted. In the past, feelings were that TG had to be > 1000 to cause pancreatitis, but recent data shows that even moderate hyperTG can do this, especially in someone that is predisposed. *Additionally, the patient had minimal po intake x > 1 day [employer], & so her TG levels were undoubtedly higher 1-2 days [employer]. 10/19/17: nl IgG4 = 7 goes against autoimmune pancreatitis. She does have a history of FFI and her GB is intact, rule out biliary sludge and/or microlithiasis. Rule out PD stricture. Doubt IPMN and/or pancreatic lesion (* none seen on 09/25/17: MRI abdomen with & w/o gadolinium). Her minimally elevated transaminases are most likely from fatty liver. Numerous imaging studies have failed to reveal any acute biliary process.*She was previously on chronic narcotics (Percocet & Dilaudid) for chronic back pain, which could be contributing to her chronically dilated CBD, by increasing tone at the Sphincter of Oddi. *On 11/24/17: admission, 0 grave signs by Lola criteria, but no LDH sent. *Also on admission, 0 grave signs by BiSAP criteria, but no CXR done to rule out pleural effusions. *The severity, clinical course, & prognosis of pancreatitis are not dependent on the level of lipase elevation. In fact, lipase levels may go up when the TG improve. *She had no imaging studies on 07/03: admission, however she recently had 08/21/17: CT AP with IV contrast & : MRI abdomen with & w/o contrast, failure to reveal any evidence of pancreatic necrosis. *She is awaiting outpatient EUS to be arranged at [facility], per Dr. Linares. I feel that at present, the only reason to repeat a CT AP with IV contrast would be to exclude pancreatic necrosis, which clinically is unlikely. I would only pursue this if the patient deteriorated, to avoid unnecessary radiation. 11/24/17: 9:35 a.m.- WBC 5.6, H/H 11.2/33.7, MCV 90.5, RDW 14.2, PLT 201, BUN/Cr 5/0.5, GFR > 60, Na 138, K 3.4, HCO3 21, AG 10, lactate 0.8, alb 3.1, glob 2.5, TBil 0.6, DBil 0.3, alk phos 78, AST 26, ALT 50. 11/25/17: TG 212, HgbA1C- 5.0. *As of 11/25/17, the patient remained hemodynamically stable & afebrile, with O2 sat RA 98%. A CXR was still not obtained, nor LDH or CRP. Repeat labs on fortunately did not show evidence of hemoconcentration, with appropriate drop in H/H & BUN, post IVF. The patient was seen in endocrine consultation by Dr. Ramires 11/24/17. Tricor was continued. *Admission TG 364, but keep in mind, the patient had minimal po intake x 24 hours [employer]. She received CaCO3 & KCl repletion. She remained on IV Lactated Ringers at 200 cc/hr. She has been receiving Dilaudid as needed, most recently 11/24/17 at 7 AM, about 3 & 1/2 hrs prior to my exam. The patient was ambulating in her room. Her nausea was improved. She remained without vomiting or diarrhea. She denied any chest pain or shortness of breath. Her abdominal pain was improved, down to "5 out of 10, " & she was hungry. 11/24/17: *CRP 4.6, *LDH 337 11/26/17: WBC 3.7, H/H 10.5/31, MCV 91.1, RDW 14.6, PLT 196, BUN/Cr 2/0.5, GFR > 60, Na 139, K 3.8, HCO3 28, AG 8, *Mg 1.5 *As of 11/26/17, the patient was hemodynamically stable & afebrile, with O2 sat RA 99%. Her abdominal pain had improved, but she was still requesting narcotic analgesics. There was no nausea or vomiting. She denied any CP, SOB, jaundice, fevers, or chills. She had tolerated clears po. For some reason, she was not yet advanced to full liquids po. There was no laboratory evidence of hemoconcentration. She was currently on IV Lactated Ringers @ 150cc/hr. Fish oil was added to Tricor. Mg was being repleted (on PPI- Protonix). She was still getting Dilaudid Q4h as needed, last dose 11/26/17 at 3:38 p.m. She was still getting Xanax. Fioricet was rxd, as needed. She was ambulating uneventfully. 11/27/17: WBC 3.5, H/H 11.1/33, MCV 91.7, RDW 14.6, PLT 227, BUN/Cr BUN/Cr < 2/ 0.5, GFR > 60, Na 140, K 3.4, HCO3 27, AG 9, Mg 1.5, troponin < 0.01. 11/26/17: XRY-PORTABLE CHEST XRAY- Unremarkable examination. *As of 11/27/17, the patient remained hemodynamically stable and afebrile, with O2 sat RA 97%. She tolerated a low-fat regular diet for lunch uneventfully, and was ambulating. She had minimal nausea, but no vomiting. Her IV narcotic analgesics (Diluadid) were switched to po Percocet. She remained on TriCor & fish oil for her hyperTG. KCl & Mg were repleted. IVF were D/C'd 11/27/17. She looked very comfortable. *SUGGEST- *Continue low fat diet. Agree with D/C to home today. Replete electrolytes ( i.e.- K+/Mg2+). Mobilize patient. Supplemental O2 as needed. *Continue Tricor & add fish oil, as per medical team. *Follow-up with endocrine re: HLD & serial TG. *Discontinue cigarettes (reportedly stopped 10/2017) & EtOH (poor insight- had a few beers recently). *po analgesics (i.e.- Percocet vs. Tramadol). Avoid NSAIDs. Ativan as needed. Continue PPI for GERD ( watch Mg on PPI. Zofran as needed. Risk factor modification for fatty liver ( ie.- strict control of body weight, glucose, lipids, BP, avoid EtOH, etc). Consider eventual Vitamin E 800 IU po daily. There have been no signs of hemoconcentration. Consider checking fecal elastase (probable IBS-D; rule out pancreatic insufficiency, but no pancreatic calcifications seen on previous imaging studies). *Await outpt EUS at [facility], per Dr. Linares, to better define CBD, PD, ampulla, & pancreatic head, but most likely, the patient's chronically dilated ducts are from chronic narcotic use for her back pain. *Consider genetic markers such as CFTR, SPINK mutation, and/or PRSS1. The patient will follow-up with Dr. Linares for GI after discharge (it would make most sense for her to get the EUS at [facility] prior to her next GI OV & the patient was again told to call our office to facilitate this). *Further inpatient GI follow-up as needed. Problem List: 1. Pancreatitis 2. Hypertriglyceridemia 3. Abdominal pain 4. Nausea 5. GERD (gastroesophageal reflux disease) 6. Fatty liver Subjective Subjective: 11/27/17: WBC 3.5, H/H 11.1/33, MCV 91.7, RDW 14.6, PLT 227, BUN/Cr BUN/Cr < 2/ 0.5, GFR > 60, Na 140, K 3.4, HCO3 27, AG 9, Mg 1.5, troponin < 0.01. 11/26/17: XRY-PORTABLE CHEST XRAY- Unremarkable examination. *As of 11/27/17, the patient remained hemodynamically stable and afebrile, with O2 sat RA 97%. She tolerated a low-fat regular diet for lunch uneventfully, and was ambulating. She had minimal nausea, but no vomiting. Her IV narcotic analgesics (Diluadid) were switched to po Percocet. She remained on TriCor & fish oil for her hyperTG. KCl & Mg were repleted. IVF were D/C'd 11/27/17. She looked very comfortable. Review of Systems: Full 14 point review of systems otherwise noncontributory, and as per HPI. Review of Systems Constitutional: Denies: diaphoresis, fever, chills, malaise, weakness, unexplained weight loss. EENTM: Denies: blurred vision, double vision, visual changes, eye pain, eye drainage, eye tearing, icterus, ear discharge, ear pain, ear redness, hearing changes, nasal congestion, epistaxis, nasal pain, throat pain, throat swelling, mouth pain, tooth pain. Cardiovascular: Denies: chest pain, edema, orthopena, palpitations, peripheral edema, syncope. Respiratory: Denies: cough, hemoptysis, orthopnea, short of breath, sputum production, stridor, wheezing. GI: Reports: abdominal pain-> improved, nausea-> improved, GERD-> stable on PPI. Denies: vomiting, bloating, constipation, diarrhea, distention, bowel incontinence, melena, bloody stool, changes in stool, steatorrhea. Genitourinary: Denies: discharge, dysuria, frequency, hematuria, hesitation, nocturia, pain, urgency. Musculoskeletal: Reports: back pain (chronic). Denies: gout, joint pain, joint swelling, muscle pain, muscle stiffness, neck pain. Skin: Denies: cysts, change in skin color, change in hair/nails, dryness, erythema, jaundice, lesions, lymphangitis, lumps, moles, rash. Neurological/Psychological: Reports: anxiety, emotional problems. Denies: ataxia, cognitive dysfunction, confusion, depressed, dementia, headache, numbness, paresthesia, pre-existing deficit, petit mal seizures, tingling, tremors, tonic-clonic seizures, unable to move lower ext, unable to move upper ext, weakness. Hematologic/Endocrine: Reports: HLD, ck *TG. Denies: bruising, bleeding, polyuria, polydipsia. Immunologic/Allergic: Denies: splenectomy, HIV/AIDS, lymphadenopathy. All Other Systems: Reviewed and Negative. Objective Vital Signs and I&Os Vital Signs Date Time Temp Pulse Resp B/P B/P Pulse O2 O2 Flow FiO2 Mean Ox Delivery Rate 11/27 0734 97.9 77 20 120/76 97 Room Air 11/26 2247 98.2 79 20 116/80 97 Room Air 11/26 1528 98.6 76 20 128/86 99 Intake & Output 11/27 1600 11/27 0400 11/26 1600 11/26 0400 11/25 1600 11/25 0400 Intake Total 6830 674 7242 1200 3200 1880 Output Total Balance 2582 379 1597 1200 3200 1880 Intake, IV 831 107 8682 1200 3200 1600 Intake, Oral 300 300 500 0 280 Physical Exam: Well-developed, well-nourished, obese female, in NAD. Sclera anicteric. Conjunctiva pink. Oropharynx clear. No oral thrush. No apthous ulcers. There is no adenopathy, thyromegaly, or JVD. No peripheral stigmata of inflammatory bowel disease or chronic liver disease on exam. No spiders on the anterior chest wall. No CVA tenderness. Lungs: clear to A&P. No wheezing, rales, or rhonchi. Heart exam: regular rate rhythm, S1 and S2, without any murmur. Abdominal exam: normal bowel sounds, soft obese belly, *currently nontender, without guarding or rebound. Tiny reducible umbilical hernia, otherwise, no mass. No splenomegaly. Enlarged liver approximately 15 cm. Negative Naik sign. No fluid shift. No pulsatile mass. Digital rectal exam: deferred by patient ("recently normal at Dr. Guajardo"). Extremities: without cyanosis or clubbing. Trace pedal edema B/ L. No palpable cords. No acute arthropathy. No rash. No palmar erythema. No Dupuytren's contractures. Distal pulses 1+ bilaterally. DTRs 1+ bilaterally. Alert and oriented x 3. No tremor or asterixis. Motor 5/5 B/L. Current Medications: Current Medications Sig/Adam Start time Last Medication Dose Route Stop Time Status Admin Acetaminophen/ 1 TAB Q4P PRN 11/25 2115 DC 11/27 Butalbital/Caffeine PO 0802 Alprazolam 1 MG TID PRN 11/24 1000 AC 11/27 PO 12/01 0959 1150 Calcium Carbonate 500 MG DAILY 11/25 0115 AC 11/27 PO 0842 Enoxaparin Sodium 40 MG DAILY 11/24 1000 AC 11/27 SC 0841 Fenofibrate 48 MG DAILY 11/24 1000 AC 11/27 PO 0842 Fish Oil 1,050 MG DAILY 11/25 1846 AC 11/27 PO 0842 Hydromorphone HCl 1 MG Q4 HRS NEEDED PRN 11/24 0645 DC 11/27 IV 0837 Lactated Ringer's 1,000 ML .Q10H 11/24 0645 DC 11/26 IV 2219 Magnesium Chloride 64 MG BID 11/26 1132 DC 11/26 PO 11/26 2201 2106 Magnesium Sulfate 1 GM ONCE ONE 11/27 1145 AC Dextrose/Water 100 ML IV 11/27 1544 Ondansetron HCl 4 MG Q6P PRN 11/24 0645 AC 11/24 IV 1502 Oxycodone/ 2 TAB Q6P PRN 11/27 1015 AC 11/27 Acetaminophen PO 1255 Pantoprazole Sodium 40 MG DAILY 11/24 1000 AC 11/27 IV 0839 Potassium Chloride 60 MEQ ONCE ONE 11/27 1145 DC PO 11/27 1146 Results Pertinent Lab Results: Laboratory Tests 11/27 11/26 0758 0755 Chemistry Sodium (137 - 145 mmol/L) 140 139 Potassium (3.5 - 5.1 mmol/L) 3.4 L 3.8 Chloride (98 - 107 mmol/L) 104 103 Carbon Dioxide (22 - 30 mmol/L) 27 28 Anion Gap (5 - 16) 9 8 BUN (7 - 17 mg/dL) < 2 L 2 L Creatinine (0.5 - 1.0 mg/dL) 0.5 0.5 Estimated GFR (>60 ml/min) > 60 > 60 BUN/Creatinine Ratio (7 - 25 %) 4.0 L 4.0 L Magnesium (1.6 - 2.3 mg/dL) 1.5 L 1.5 L Lactate Dehydrogenase (313 - 618 U/L) 282 L Troponin I (< 0.11 ng/ml) < 0.01 Hematology CBC w Diff NO MAN DIFF REQ NO MAN DIFF REQ WBC (4.8 - 10.8 /CUMM) 3.5 L 3.7 L RBC (4.20 - 5.40 /CUMM) 3.60 L 3.40 L Hgb (12.0 - 16.0 G/DL) 11.1 L 10.5 L Hct (37 - 47 %) 33.0 L 31.0 L MCV (81.0 - 99.0 FL) 91.7 91.1 MCH (27.0 - 31.0 PG) 30.7 30.8 MCHC (33.0 - 37.0 G/DL) 33.5 33.9 RDW (11.5 - 14.5 %) 14.6 H 14.6 H Plt Count (130 - 400 /CUMM) 227 196 MPV (7.4 - 10.4 FL) 6.6 L 6.6 L Gran % (42.2 - 75.2 %) 47.3 48.6 Lymphocytes % (20.5 - 51.1 %) 40.9 40.0 Monocytes % (1.7 - 9.3 %) 7.3 6.7 Eosinophils % (0 - 5 %) 3.9 4.1 Basophils % (0.0 - 2.0 %) 0.6 0.6 Absolute Granulocytes (1.4 - 6.5 /CUMM) 1.6 1.8 Absolute Lymphocytes (1.2 - 3.4 /CUMM) 1.4 1.5 Absolute Monocytes (0.10 - 0.60 /CUMM) 0.3 0.2 Absolute Eosinophils (0.0 - 0.7 /CUMM) 0.1 0.2 Absolute Basophils (0.0 - 0.2 /CUMM) 0 0 11/25 0805 Chemistry Hemoglobin A1c (4.2 - 5.8 %) 5.0 Triglycerides (<150 mg/dL) 212 H Imaging/Other Studies: 08/21/17: CT ABDOMEN AND PELVIS WITHOUT CONTRAST (*per ER, limited study w/o IV cont)- Mild dilatation of the common bile duct measuring up to 1 cm in diameter. It appears slightly increased when compared to prior. Otherwise, no acute findings in the abdomen or pelvis. No significant inflammatory changes of the pancreas are seen. 09/25/17: MR ABDOMEN WITH AND WITHOUT CONTRAST- 1. Mild acute pancreatitis at the pancreatic head at the pancreaticoduodenal groove. No evidence of fluid collections or pancreatic necrosis. No obstructing lesions or calculi. 2. Dilatation of the common bile duct 1.6 cm (w/o change) and pancreatic duct (6 mm), likely related to the inflammation at the pancreatic head. No pancreatic cysts or lesions seen. Mild intrahepatic dilitation. No choledocholithiasis. 3. Hydropic GB without cholelithiasis or cholecystitis. 4. Tiny fat-containing umbilical hernia. [No imaging studies obtained from ER at time of 10/17/17: admission, nor at time of 11/24/17 admission]. 10/18/17: XRY-PORTABLE CHEST XRAY- Unremarkable examination. There is no pleural effusion, CHF, or infiltrate. 11/24/17: EKG-NSR @ 71, nl axis, nl intervals,w/o acute ischemic changes. 11/26/17: XRY-PORTABLE CHEST XRAY- Unremarkable examination.
[2017-11-27 14:20] VITALS: BP 110/80
[2017-11-27 22:15] VITALS: BP 100/60
[2017-11-28 02:00] VITALS: BP 110/76
--- NOTE | 2017-11-28 07:33 | PN- Housestaff ---
Tati Horton 11/28/17 0732: Subjective Follow-up For: Recurrent pancreatitis in the setting of poorly controlled hypertriglyceridemia along with alcohol abuse. History of anxiety Subjective: Patient is seen and examined this morning seems much better, denies any more nausea and abdominal pain improved vitals are stable overnight. If patient remains stable will discharge the patient home today. Patient will be discharged with few pills of Percocet, has been advised to follow-up with her pain specialist as an outpatient for further pain management. Review of Systems Constitutional: Denies: chills, diaphoresis, fever. EENTM: Denies: blurred vision, double vision, visual changes. Cardiovascular: Denies: chest pain, edema, orthopena. Respiratory: Denies: cough, hemoptysis, orthopnea. Gastrointestinal: Denies: bloating, constipation, diarrhea. Genitourinary: Denies: discharge, dysuria, frequency. Musculoskeletal: Denies: back pain, gout, joint pain. Skin: Denies: cysts, change in skin color, change in hair/nails. Objective Last 24 Hrs of Vital Signs/I&O Vital Signs Date Time Temp Pulse Resp B/P B/P Pulse O2 O2 Flow FiO2 Mean Ox Delivery Rate 11/28 0200 97.4 77 20 110/76 96 Room Air 11/27 2215 98.2 70 20 100/60 96 11/27 1420 98.3 86 18 110/80 96 Intake & Output 11/28 1600 11/28 0800 11/28 0000 Intake Total 100 290 Output Total Balance 100 290 Intake, IV 10 Intake, Oral 100 280 Physical Exam General Appearance: Alert, Oriented X3 Skin: No Rashes HEENT: Atraumatic, PERRLA, EOMI Neck: Supple, No JVD Cardiovascular: Regular Rate, Normal S1, Normal S2 Lungs: Clear to Auscultation, Normal Air Movement Abdomen: Normal Bowel Sounds Neurological: Normal Gait, Normal Speech Extremities: No Clubbing, No Cyanosis Current Medications: Current Medications Sig/Adam Start time Last Medication Dose Route Stop Time Status Admin Alprazolam 1 MG TID PRN 11/24 1000 AC 11/28 PO 12/01 0959 0814 Calcium Carbonate 500 MG DAILY 11/25 0115 AC 11/28 PO 0941 Docusate Sodium 100 MG DAILY NEEDED PRN 11/27 2044 AC 11/27 PO 2047 Enoxaparin Sodium 40 MG DAILY 11/24 1000 AC 11/27 SC 0841 Fenofibrate 48 MG DAILY 11/24 1000 AC 11/28 PO 0941 Fish Oil 1,050 MG DAILY 11/25 1846 AC 11/28 PO 0940 Magnesium Sulfate 1 GM ONCE ONE 11/27 1145 DC 11/27 Dextrose/Water 100 ML IV 11/27 1544 1220 Ondansetron HCl 4 MG Q6P PRN 11/24 0645 AC 11/24 IV 1502 Oxycodone/ 2 TAB Q6P PRN 11/27 1015 AC 11/28 Acetaminophen PO 0639 Pantoprazole Sodium 40 MG DAILY 11/24 1000 AC 11/28 IV 0941 Polyethylene Glycol 17 GM DAILY PRN 11/27 2045 AC PO Potassium Chloride 60 MEQ ONCE ONE 11/27 1145 DC 11/27 PO 11/27 1146 1446 Last 24 Hrs of Lab/Hansel Results Last 24 Hrs of Labs/Mics: Laboratory Tests 11/28/17 0710: Anion Gap 10, Estimated GFR > 60, BUN/Creatinine Ratio 6.0 L, Magnesium 3.4 H Assessment/Plan Assessment: Patient is a 41-year-old with past medical history significant for recurrent pancreatitis due to poorly controlled hypertriglyceridemia and alcohol abuse Plan 1.Recurrent pancreatitis in the setting of poorly controlled hypertriglyceridemia along with alcohol abuse. * Abdominal pain much better today patient has been switched to regular diet and tolerating it well * Continue on TriCor for hypertriglyceridemia. * If patient remains stable will discharge the patient home today. * Patient will be discharged with few pills of Percocet, has been advised to follow-up with her pain specialist as an outpatient for further pain management. * Patient has been advised to follow-up with a grazing aide( Dr. Munson ) within 1 week after discharge to schedule EUS at [facility]. 2. Chest heaviness(less likely cardiac)-more due to anxiety * Improved , with negative troponin and no significant STT changes EKG to rule out any underlying cardiac issues. 3. Acute drop in H&H * H&H stable 4. Hypokalemia/hypomagnesemia * Resolved 5 History of alcohol abuse * CIWA scores remained low. 6. History of anxiety * Continue with Xanax. Maintain DVT prophylaxis with Lovenox Patient is full Problem List: 1. Acute pancreatitis Pain Ratin Pain Location: Abdominal pain Pain Goal: Remain pain free Pain Plan: When necessary Percocet Tomorrow's Labs & Rationales: NO need of labs today Laurie Barreto MD 11/28/17 1024: Attending MD Review Statement Attending Statement Attending MD Statement: examined this patient, discuss w/resident/PA/BLASTING CLAY MINER, agreed w/resident/PA/BLASTING CLAY MINER, reviewed EMR data (avail), discussed with nursing, discussed with case mgmt, amended to note Attending Assessment/Plan: Patient seen and examined, overall feeling better. Patient tolerating low-fat diet. Abdominal pain has improved. Vital signs are stable. Potassium is repleted. Patient is medically stable for discharge home today. She wants to see a pain management doctor and is trying to get a pain management doctor through her insurance. Patient will be provided with few fairly prescription for Percocet to go home with. Patient should follow-up with her primary care doctor and GI as an outpatient. Patient was recommended that she should call Dr. Munson's office ALANNA to schedule EUS at [facility].
--- NOTE | 2017-11-28 07:45 | Patient Discharge Instructions ---
Discharge Instructions General Discharge Information You were seen/treated for: Recurrent pancreatitis in the setting of poorly controlled hypertriglyceridemia along with alcohol abuse. Special Instructions: 1. Please follow up with your primary care physician within 1 week after discharge. 2. Please f/u with your manager news within [address] Munson's office ALANNA to schedule EUS at [facility]. Diet Recommended Diet: LOW FAT DIET Activity Activity Self Limited: Yes Acute Coronary Syndrome Inclusion Criteria At DC or during hospital stay patient has or had the following: ACS DIAGNOSIS No Discharge Core Measures Meds if any: Prescribed or Continued at Discharge Meds if any: NOT Prescribed or Continued at Discharge Congestive Heart Failure Inclusion Criteria At DC or during hospital stay patient has or had the following: CHF DIAGNOSIS No Discharge Core Measures Meds if any: Prescribed or Continued at Discharge Meds if any: NOT Prescribed or Continued at Discharge Cerebrovascular accident Inclusion Criteria At DC or during hospital stay patient has or had the following: CVA/TIA Diagnosis No Discharge Core Measures Meds if any: Prescribed or Continued at Discharge Meds if any: NOT Prescribed or Continued at Discharge Venous thromboembolism Inclusion Criteria VTE Diagnosis No VTE Type NONE VTE Confirmed by (Test) NONE Discharge Core Measures - Per Current guidelines, there needs to be overlap - treatment for the first 5 days of Warfarin therapy. - If discharged on Warfarin prior to 5 days of - overlap therapy, the patient will need to be - assessed for post discharge needs including - *Post discharge parental anticoagulation - *Warfarin and/or parental anticoagulation education - *Follow up date to check INR post discharge At least 5 days overlap therapy as Inpatient No Meds if any: Prescribed or Continued at Discharge Note: Overlap Therapy is Warfarin and Anticoagulant Meds if any: NOT Prescribed or Continued at Discharge
[2017-11-28] MEDS ORDERED: PERCOCET 5-3251 EACH PO (09:25)
== END 2017-11-28 13:45 | DRG 282 ==
LOC: ERH 02:56 → 2NA 05:02 → ERHI 05:02 → ENRESERV 05:23 → 2NA 06:14 → ENPENDDIS 11-28 10:35 → 2NA 11-28 13:45
PROVIDERS: Pediatrics; Student in an Organized Health Care Education/Training Program
DX: K85.90 Acute pancreatitis without necrosis or infection, unspecified (principal); K86.1 Other chronic pancreatitis; E83.42 Hypomagnesemia; K76.0 Fatty (change of) liver, not elsewhere classified; J45.909 Unspecified asthma, uncomplicated; K21.9 Gastro-esophageal reflux disease without esophagitis; K58.9 Irritable bowel syndrome, unspecified; M79.7 Fibromyalgia; F41.9 Anxiety disorder, unspecified; E78.5 Hyperlipidemia, unspecified; E66.9 Obesity, unspecified; I10 Essential (primary) hypertension; Z68.32 Body mass index [BMI] 32.0-32.9, adult; E78.1 Pure hyperglyceridemia; E87.6 Hypokalemia; Z87.891 Personal history of nicotine dependence; Z87.898 Personal history of other specified conditions
CPT/HCPCS: 2NASP; 36415; 71045; 82436; 93005; 93010; 96361; 96374; 96375; G0480; J0131; J1650; J2405; J3250

== ENCOUNTER 2018-05-18 15:26 | Inpatient (IN) | payer OTHER ==
[~2018-05-18] VITALS: Ht 172.7 cm; Wt 98.0 kg
[~2018-05-18 15:26] MED LIST changes: +BUTALB-CAFF-AC1 EACH PO; +DICYCLOMINE HCL10 M1 PO; +LOMOTIL 2.5-0.1 EACH PO
[2018-05-18 16:11] LABS: ABSOLUTE BASOPHIL COUNT 0 /CUMM (0.0-0.2); ABSOLUTE EOSINOPHIL COUNT 0.1 /CUMM (0.0-0.7); ABSOLUTE GRANULOCYTE CT 5.1 /CUMM (1.4-6.5); ABSOLUTE LYMPH COUNT 1.6 /CUMM (1.2-3.4); ABSOLUTE MONOCYTE COUNT 0.3 /CUMM (0.10-0.60); BASOPHIL % 0.1 % (0.0-2.0); EOSINOPHIL % 0.8 % (0-5); GRANULOCYTE % 72.6 % (42.2-75.2); HEMATOCRIT 39.2 % (37-47); MEAN CORPUSCULAR HGB 30.8 PG (27.0-31.0); MEAN CORPUSCULAR HGB CONC 33.6 G/DL (33.0-37.0); MEAN CORPUSCULAR VOLUME 91.6 FL (81.0-99.0); MEAN PLATELET VOLUME 6.4 FL (7.4-10.4); PLATELET COUNT 236 /CUMM (130-400); RBC DISTRIBUTION WIDTH 16.1 % (11.5-14.5); RED BLOOD CELL CT 4.28 /CUMM (4.20-5.40)
[2018-05-18] MEDS ORDERED: ZOFRAN ODT4 M1 SL (16:45)
--- NOTE | 2018-05-18 17:29 | ED GI/GU/ABDOMINAL COMPLAINT ---
History of Present Illness General Chief Complaint: Abdominal Pain/Flank Pain Stated Complaint: "PANCREAS PAIN" ABD FRONT AND BACK PAIN Source: patient, old records Exam Limitations: no limitations Vital Signs & Intake/Output Vital Signs & Intake/Output Vital Signs Date Time Temp Pulse Resp B/P B/P Pulse O2 O2 Flow FiO2 Mean Ox Delivery Rate 05/18 1815 97.7 88 18 149/74 98 Room Air 05/18 1538 98.5 90 18 145/110 98 Room Air Allergies Coded Allergies: lisinopril (COLD SWEATS, DIZZY, NAUSEA 05/18/18) Reconcile Medications Albuterol Sulfate (Ventolin Hfa) 18 GM HFA.AER.AD 2 PUF INH Q4-6 PRN PRN breathing (Reported) Alprazolam 1 MG TABLET 1 TAB PO TIDPRN ANXIETY (Reported) Butalbit/Acetamin/Caff/Codeine (Bftubm-Kbyh-Lgtefepwilq-Codein) 50 MG-325 MG-40 MG-30 MG CAPSULE 1 CAP PO Q12 PRN HEADACHE (Reported) Dicyclomine HCl 10 MG CAPSULE 1 CAP PO Q6P PRN IBS (Reported) Diphenoxylate HCl/Atropine (Lomotil 2.5-0.025 MG Tablet) 2.5 MG-0.025 MG TABLET 1 TAB PO TID PRN IBS (Reported) Esomeprazole (Nexium) 40 MG CAPSULE. 1 CAP PO DAILY GI (Reported) Fenofibrate (Tricor) 48 MG TABLET 1 TAB PO DAILY LIPID [place]-3/Dha/Epa/Dpa/Fish Oil ([place]-3 1,050 MG Softgel) 1,050-1200 CAPSULE 1 TAB PO DAILY LIPID Ondansetron (Zofran Odt) (Unknown Strength) TAB.RAPDIS (Unknown Dose) SL AD PRN N/V (Reported) Triage Note: 42F WITH CHRONIC PANCREATITIS AND ETOH ABUSE C/O SEVERE UPPER ABD PAIN AND CRAMPING WITH VOMITING SINCE 10AM. DRY HEAVING IN TRIAGE, NO EMESIS AT THIS TIME. FOLLOWED BY DR CHARLIE JEAN. HYPERTENSIVE IN TRIAGE, NOT TAKING BP MEDS Triage Nurses Notes Reviewed? yes LMP (ages 10-50): unknown ? N Is pt currently ? No Onset: Abrupt Duration: day(s): (1), constant, continues in ED, getting worse Timing: recent history Quality/Severity: sharpness, severe Severity Numbers: 10 Location: epigastric Radiation: back Activities at Onset: ETOH Prior Abdominal Problems: similar symptoms Past Sexual History: Unobtainable at this time No Modifying Factors: none Associated Symptoms: abdominal pain, lower back pain, nausea/vomiting HPI: 42-year-old female history of alcohol abuse, pancreatitis presents for evaluation of nausea vomiting epigastric and back pain. Patient states symptoms started this morning and been getting worse. Feels similar to previous pancreatitis. She reports that she did not drink today but drank heavily yesterday. She states she does not drink every day. She denies any history of withdrawal seizures. She reports vomiting multiple times unable tolerate fluids. No diarrhea and no fevers no hematemesis no urinary symptoms vaginal discharge or bleeding. She is status post cholecystectomy. No other recent surgeries. No chest pain or shortness of breath. (Watson Cruz) Past History Travel History Traveled to [place] past 21 day No Medical History Any Pertinent Medical History? see below for history Neurological: NONE EENT: NONE Cardiovascular: hypertension, hyperlipidemia (TG) Respiratory: asthma Gastrointestinal: GERD, pancreatitis Hepatic: fatty liver Renal: NONE Musculoskeletal: disk herniation Psychiatric: anxiety, opioid dependence (on Fioricet; prev on Percocet) Endocrine: obesity Blood Disorders: NONE Cancer(s): NONE EXPERIENTIAL THERAPIST/Reproductive: NONE History of MRSA: No History of VRE: No History of CDIFF: No Influenza Vaccine: 06/16/17 Surgical History Surgical History: breast biopsy (FCBD) Psychosocial History Who do you live with Family Services at Home None What is your primary language Syrian Tobacco Use: Current Daily Use Daily Tobacco Use Amount/Type: => 5 Cigarettes daily ETOH Use: alcoholic Illicit Drug Use: marijuana Family History Family History, If Any: FATHER (Crohns). MOTHER (diverticulitis). , Age 55; Cause: Lung cancer. Hx Contributory? No (Watson Cruz) Review of Systems Review of Systems Constitutional: Reports: no symptoms. EENTM: Reports: no symptoms. Respiratory: Reports: no symptoms. Cardiovascular: Reports: no symptoms. GI: Reports: see HPI, abdominal pain, nausea, vomiting. Genitourinary: Reports: no symptoms. Musculoskeletal: Reports: see HPI, back pain. Skin: Reports: no symptoms. Neurological/Psychological: Reports: no symptoms. Hematologic/Endocrine: Reports: no symptoms. Immunologic/Allergic: Reports: no symptoms. All Other Systems: Reviewed and Negative (Phong MEDINA,Watson) Physical Exam Physical Exam General Appearance: well developed/nourished, alert, awake, anxious, moderate distress Head: atraumatic, normal appearance Eyes: Bilateral: normal appearance, PERRL, EOMI. Ears, Nose, Throat, Mouth: hearing grossly normal, moist mucous membrane Neck: normal inspection, supple, full range of motion Respiratory: normal breath sounds, chest non-tender, no respiratory distress, lungs clear Cardiovascular: regular rate/rhythm, normal peripheral pulses Peripheral Pulses: 2+ radial (R), 2+ radial (L) Gastrointestinal: normal bowel sounds, soft, no organomegaly, tenderness ( diffuse wORSE EPIGASTRIC ) Back: normal inspection, normal range of motion, no vertebral tenderness Extremities: normal range of motion Neurologic/Psych: no motor/sensory deficits, awake, alert, oriented x 3, normal gait, normal mood/affect Skin: intact, normal color, warm/dry Core Measures ACS in differential dx? No Sepsis Present: No Sepsis Focused Exam Completed? No (Phong MEDINA,Watson) Progress Differential Diagnosis: AAA, appendicitis, biliary colic, bowel obstruction, diverticulitis, ectopic , gastritis, hepatitis, ischemic bowel, inflamm bowel dis, kidney stone, Susan-Jonnie tear, ovarian cyst, ovarian torsion, pancreatitis, peptic ulcer, PUD/GERD, SBO, threatened AB Plan of Care: Orders Procedure Date/time Status Nothing by Mouth 05/19 B Active CBC WITHOUT DIFFERENTIAL 05/19 0600 Active BASIC ELECTROLYTES PLUS BUN&CR 05/19 0600 Active Pathway - chart 05/18 1911 Active Pathway - chart 05/18 1852 Active House Staff 05/18 1852 Active Admit to inpatient 05/18 1832 Active Vital Signs 05/18 1832 Active Code Status 05/18 1832 Active Patient Data 05/18 1830 Active Add-on Test (ER Only) 05/18 1806 Active Add-on Test (ER Only) 05/18 1638 Active TRIGLYCERIDES 05/18 1557 Complete MAGNESIUM 05/18 1557 Complete LACTIC ACID 05/18 1557 Complete URINE DRUG SCREEN FOR ER ONLY 05/18 1536 Active URINALYSIS 05/18 1536 Active TROPONIN LEVEL 05/18 1536 Complete LIPASE 05/18 1536 Complete HUMAN BETA HCG SCREEN 05/18 1536 Complete ETHANOL 05/18 1536 Complete COMPREHENSIVE METABOLIC PANEL 05/18 153 Complete CBC WITHOUT DIFFERENTIAL 05/18 153 Complete AMYLASE 05/18 153 Complete EKG 05/18 1536 Active VTE Mechanical Prophylaxis 05/18 UNK Active CIWA 05/18 UNK Active Current Medications Sig/Adam Start time Last Medication Dose Stop Time Status Admin Enoxaparin Sodium 40 MG DAILY 05/19 900 UNVr (Lovenox) Pantoprazole Sodium 40 MG DAILY 05/19 900 UNVr (Protonix) Lorazepam 0 Q1P PRN 05/18 1945 UNVr (Ativan) Acetaminophen 650 MG Q6P PRN 05/18 1915 UNVr (Tylenol) Hydromorphone HCl 1 MG Q4-6 PRN PRN 05/18 1915 UNVr (Dilaudid) Lactated Ringer's 1,000 ML .Q5H 05/18 1915 UNVr (Lactated Ringers) Ondansetron HCl 4 MG Q6P PRN 05/18 1915 UNVr (Zofran) Magnesium Sulfate 1 GM Q2H 05/18 1830 AC (Mag Sulfate in D5) 05/18 2229 Dextrose/Water 100 ML (D5W) Morphine Sulfate 4 MG ONCE ONE 05/18 1645 CAN (MORPHINE SULFATE) 05/18 1646 Laboratory Tests 05/18/18 1557: Anion Gap 9, Estimated GFR > 60, BUN/Creatinine Ratio 10.0, Glucose 99, Lactic Acid 2.0, Calcium 9.0, Magnesium 1.3 L, Total Bilirubin 0.9, AST 65 H, ALT 43, Alkaline Phosphatase 93, Troponin I < 0.01, Total Protein 6.8, Albumin 3.9, Globulin 2.9, Albumin/Globulin Ratio 1.3, Triglycerides 166 H, Amylase 290 H, Lipase 7205 H, Total Beta HCG NEGATIVE, CBC w Diff NO MAN DIFF REQ, RBC 4.28, MCV 91.6, MCH 30.8, MCHC 33.6, RDW 16.1 H, MPV 6.4 L, Gran % 72.6, Lymphocytes % 22.5, Monocytes % 4.0, Eosinophils % 0.8, Basophils % 0.1, Absolute Granulocytes 5.1, Absolute Lymphocytes 1.6, Absolute Monocytes 0.3, Absolute Eosinophils 0.1, Absolute Basophils 0, Serum Alcohol < 10.0 Patient is here with severe epigastric pain radiating to her back. This similar previous pancreatitis presentations. Her vital signs are stable other than she is mildly hypertensive. She does appear to be in significant pain. Labs EKG chest x-ray CT scan ordered. Patient medicated with fluids and protonIX Zofran and Dilaudid. Patient is told to get pain after a milligram of Dilaudid. She was given a second milligram. Labs are back and show a lipase of 7200. CT scan confirms pancreatitis without gallstones necrosis or other complication. Patient will require admission to the hospital. She is not showing any signs of alcohol withdrawal at this time she denies any history of withdrawal seizures ETOH level is 0 here. Case was discussed with Dr. Santos he agrees. Diagnostic Imaging: Viewed by Me: Radiology Read, CT Scan. Discussed w/RAD: Radiology Read, CT Scan. Radiology Impression: PATIENT: ISRAEL TIJERINA PRESENT AGE: 42 PATIENT ACCOUNT NO: [id number] : 74 LOCATION: [facility] ORDERING PHYSICIAN: Watson MEDINA SERVICE DATE: 05/18/18 EXAM TYPE: CAT - CT ABD & PELVIS W IV CONTRAST EXAMINATION: CT ABDOMEN AND PELVIS WITH CONTRAST CLINICAL INFORMATION: Epigastric pain radiating to the back COMPARISON: CT scan abdomen pelvis 08/21/2017, 08/09/2017, 05/25/2016. MR abdomen 09/25/2017 TECHNIQUE: Multidetector volumetric imaging was performed of the abdomen and pelvis following IV administration of 75 mL of Optiray 320 intravenous contrast. Sagittal and coronal reformatted images were obtained on the technologist's workstation. DLP: 770.85 mGy-cm FINDINGS: LUNG BASES: The visualized lung bases are unremarkable. LIVER, GALLBLADDER, AND BILIARY TREE: There is diffuse low attenuation of liver parenchyma due to fatty change. No focal liver lesion. Status post cholecystectomy. PANCREAS: There is a pancreatitis. There is edema around the pancreatic head and body with fluid extending along the anterior pararenal fascia. The fluid extends into the tamiko hepatis.. Enhancement of the pancreatic head is heterogeneous. There is pancreatic duct dilatation measuring about 3 mm of the pancreatic head. The CBD measures about 4 mm at the pancreatic head. No calcified stone seen within the bile ducts. There is normal enhancement seen of the portal vein and superior mesenteric vein and splenic vein. No thrombus. There is no pseudocyst formation. SPLEEN: Unremarkable. ADRENAL GLANDS : Unremarkable. KIDNEYS AND URETERS: The kidneys are normal in size, shape, and attenuation. No hydronephrosis, hydroureter, or calculi seen. No perinephric stranding. BLADDER: Unremarkable. GASTROINTESTINAL TRACT: The small and large bowel are unremarkable. The appendix is unremarkable. ABDOMINAL WALL: No significant hernia is appreciated. LYMPH NODES: Normal. VASCULAR: Unremarkable. PELVIC VISCERA: Unremarkable. OSSEOUS STRUCTURES: Unremarkable. IMPRESSION: Pancreatitis. DICTATED BY: Manav Beckford MD DATE/TIME DICTATED:05/18/181803 CAN CONVEYOR FEEDER:TAMIKO DATE/TIME TRANSCRIBED:05/18/181803 CONFIDENTIAL, DO NOT COPY WITHOUT APPROPRIATE AUTHORIZATION. <Electronically signed in Other Vendor System> SIGNED BY: Manav Beckford MD 05/18/181813, PATIENT: ISRAEL TIJERINA PRESENT AGE: 42 PATIENT ACCOUNT NO: [id number] : 74 LOCATION: [facility] ORDERING PHYSICIAN: Michelle MEDINA SERVICE DATE: 05/18/18 EXAM TYPE: RAD - XRY-CHEST XRAY, TWO VIEWS EXAMINATION: XR CHEST CLINICAL INFORMATION: Chest pain, abdominal pain COMPARISON: 11/26/2017 TECHNIQUE: 2 views of the chest were obtained. FINDINGS: No significant abnormality is noted involving the heart, lungs, mediastinum, bony thorax or soft tissues. IMPRESSION: Unremarkable examination. DICTATED BY: Geri Mcnair MD DATE/TIME DICTATED:05/18/181723 CAN CONVEYOR FEEDER:DEXTER DATE/TIME TRANSCRIBED:05/18/181723 CONFIDENTIAL, DO NOT COPY WITHOUT APPROPRIATE AUTHORIZATION. Initial ED EKG: normal sinus rhythm, no ST T wave changes (Watson Cruz) Departure Departure Disposition: STILL A PATIENT Condition: Stable Clinical Impression Primary Impression: Pancreatitis, alcoholic, acute Qualifiers: Acute pancreatitis complication: unspecified Qualified Code: K85.20 - Alcohol induced acute pancreatitis without necrosis or infection Referrals: Ana Lilia Fuentes (PCP/Family) Departure Forms: Customer Survey General Discharge Information Admission Note Spoke With: Phil Rizzo MD Documentation of Exam: Documentation of any treatments & extenuating circumstances including Concerns Regarding Discharge (functional status, medication knowledge or non-compliance, living conditions, etc.) that warrant an admission rather than observation: [ Serial labs, IV fluids, IV pain meds, IV antiemetics, GI consult, CIWA, abdominal ultrasound] (Phong MEDINA,Watson) Departure Comments 05/18/18 6:33 PM I saw and personally examined the patient and I agree with the PAs evaluation. 42-year-old female with past medical history of pancreatitis; now comes in with severe abdominal pain. She has epigastric tenderness. Markedly elevated lipase. PA/POSTING CLERK Co-Sign Statement Statement: ED Attending supervision documentation- [x] I saw and evaluated the patient. I have also reviewed all the pertinent lab results and diagnostic results. I agree with the findings and the plan of care as documented in the PA's/POSTING CLERK's documentation. [] I have reviewed the ED Record and agree with the PA's/POSTING CLERK's documentation. [] Additions or exceptions (if any) to the PAs/POSTING CLERK's note and plan are summarized below: [] (Hi Santos DO
--- NOTE | 2018-05-18 18:14 | CT SCAN REPORT ---
EXAMINATION: CT ABDOMEN AND PELVIS WITH CONTRAST CLINICAL INFORMATION: Epigastric pain radiating to the back COMPARISON: CT scan abdomen pelvis 08/21/2017, 08/09/2017, 05/25/2016. MR abdomen 09/25/2017 TECHNIQUE: Multidetector volumetric imaging was performed of the abdomen and pelvis following IV administration of 75 mL of Optiray 320 intravenous contrast. Sagittal and coronal reformatted images were obtained on the technologist's workstation. DLP: 770.85 mGy-cm FINDINGS: LUNG BASES: The visualized lung bases are unremarkable. LIVER, GALLBLADDER, AND BILIARY TREE: There is diffuse low attenuation of liver parenchyma due to fatty change. No focal liver lesion. Status post cholecystectomy. PANCREAS: There is a pancreatitis. There is edema around the pancreatic head and body with fluid extending along the anterior pararenal fascia. The fluid extends into the tamiko hepatis.. Enhancement of the pancreatic head is heterogeneous. There is pancreatic duct dilatation measuring about 3 mm of the pancreatic head. The CBD measures about 4 mm at the pancreatic head. No calcified stone seen within the bile ducts. There is normal enhancement seen of the portal vein and superior mesenteric vein and splenic vein. No thrombus. There is no pseudocyst formation. SPLEEN: Unremarkable. ADRENAL GLANDS: Unremarkable. KIDNEYS AND URETERS: The kidneys are normal in size, shape, and attenuation. No hydronephrosis, hydroureter, or calculi seen. No perinephric stranding. BLADDER: Unremarkable. GASTROINTESTINAL TRACT: The small and large bowel are unremarkable. The appendix is unremarkable. ABDOMINAL WALL: No significant hernia is appreciated. LYMPH NODES: Normal. VASCULAR: Unremarkable. PELVIC VISCERA: Unremarkable. OSSEOUS STRUCTURES: Unremarkable. IMPRESSION: Pancreatitis.
--- NOTE | 2018-05-18 18:31 | History & Physical ---
Jami Khalil 05/18/18 8431: General Information and HPI MD Statement: I have seen and personally examined ISRAEL TIJERINA and documented this H&P. The patient is a 42 year old F who presented with a patient stated chief complaint of severe abdominal pain. Source of Information: patient History of Present Illness: 42-year-old woman with past medical history of hypertension, hyperlipidemia,, asthma, GERD, fatty liver, anxiety, opioid dependence, multiple episodes of pancreatitis status post cholecystectomy in January presents to the ER of severe abdominal pain. She reports that the pain started about 10 in the morning. She went to work, but the pain became unbearable and so she came to the ER before "something burst". She reports that the pain as 10 on 10, bandlike, radiating to the back, worsening when she lies flat or tries to take a deep breath. The pain is accompanied by nausea and dry heaving but no vomiting. She admitted that she had more than usual to drink last night which included 4 drinks (Vodka ) and some wine. She reports that she has had multiple attacks of pancreatitis which were "way worse" than the current one. However, she thinks the pain medications which helped her with her pain in the past did not seem to have helped her uh today. She has been following up with Dr. Linares for her IBS and had last visit April 19. She states she has upto 12 bowel movements a day given the IBS, but is relieved with Lomotil and Dicyclomine. She denies diarrhea, constipation, headache, shortness of breath, chest pain. Review of systems is negative except chills, diaphoresis, and abdominal pain and subjective abdominal distension. Her vitals in the ED for temperature, 97.7, heart rate: 88, RR: 18, BP: 149/74, pulse ox: 98% Family History is siginificant for a lung cancer in her mother and severe Crohn' s disease in her father Social History: She says she is a "social" smoker. She can go thorugh a pack or two a day sometimes and sometimes a pack lasts her a whole week. She reports she drinks socially. 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 MOTHER (diverticulitis). , Age 55; Cause: Lung cancer. Psychosocial History Who Do You Live With? child Services at Home: None Primary Language: Irish ETOH Use: alcoholic Illicit Drug Use: marijuana Living Will? no Power of Ethanol Operator/HCP? no Functional Ability ADLs Independent: dressing, eating, toileting, bathing. Ambulation: independent IADLs Independent: shopping, housework, finances, food prep, telephone, transportation , medication admin. Review of Systems Review of Systems Constitutional: Reports: chills, diaphoresis. Denies: fever, malaise, weakness. Cardiovascular: Denies: chest pain, edema, palpitations. Respiratory: Denies: cough, short of breath. GI: Reports: abdominal pain, distention, nausea. Denies: bloody stool, vomiting. Genitourinary: Denies: dysuria, frequency, hematuria. Skin: Denies: jaundice, lesions. Neurological/Psychological: Denies: anxiety, confusion, depressed. Hematologic/Endocrine: Denies: bruising, bleeding, polyuria. Immunologic/Allergic: Reports: see HPI. Exam & Diagnostic Data Last 24 Hrs of Vital Signs/I&O Vital Signs Date Time Temp Pulse Resp B/P B/P Pulse O2 O2 Flow FiO2 Mean Ox Delivery Rate 05/18 2046 98.4 82 18 117/76 100 Room Air 05/18 1815 97.7 88 18 149/74 98 Room Air 05/18 1538 98.5 90 18 145/110 98 Room Air Intake & Output 05/18 1600 05/18 0800 05/18 0000 Intake Total Output Total Balance Patient 213 lb Weight Physical Exam General Appearance Alert, Oriented X3, Cooperative, Moderate Distress Skin No Rashes, No Breakdown Skin Temp/Moisture Exam: Cool/Diaphoretic HEENT Atraumatic, PERRLA Neck Supple Cardiovascular Regular Rate, Normal S1, Normal S2, No Murmurs Lungs Clear to Auscultation Abdomen Soft with guarding and diffuse tenderness, no rebound tenderness appreciated, no fluid thrill appreciated Extremities No Edema Vascular Normal Pulses Assessment/Plan Assessment: This is a 42 yo female with past medical history of hyperlipidmeia, recurrent pancreatitic attacks, alcohol use disorder, IBS presents to the ER with severe abdominal pain which she describes as a band like pain across her chest radiating to her back, worsening with lying flat and deep inspiration, minimally relieved with Dilaudid given to her in the ED. Her pain is acoompanied with some nausea and dry heaving . She reports some chills but denies fever, chest pain, diarrhea or respiratory distress. On examination, the patient appears to be in moderate distress writhing around in the bed clutching on her abdomen. She is consciously avoiding taking deep breaths. On palapation, her abdomen is soft, with guarding and diffusely tender. She did admit that she drank more than usual last night which was a weekday with her having to report to work in the [employer]. Her current blood alcohol levels are less than 10. Her vitals are temperature 97.7, HR: 88, RR: 18, BP: 149/74, pulse ox: 98% Labs show WBC count, 7.0, Na is slightly ow at 135, M.3 status post Mag sulphate infusion total bilirubin: 0.9, AST: 65, ALT: 43. Her amylase is 290 and a lipase of 7205 Chest Xray is normal. CT chest and abdomen findings are consistent with acute pancreatitis. The CT also shows a 3mm duct dilatation in the region of the pancreatic head. My differential diagoses would be acute pancreatitis vs peptic ulcer vs gastritis vs peritonitis PROBLEM LIST: 1. Acute Pancreatitis 2. History of Hypertriglyceridemia 3. Alcohol Use Disorder 4. Hypomagnesemia 5. Irritable bowel disease 6. History of Hypertension/GERD/Asthma PLAN: We will admit the patient to the GM floor. Vitals and I/O charting per protocol 1. Acute Pancreatitis -We will keep the patient NPO - We will start RInger's lactate @ 200cc an hour -Adequate pain control with pain pathway -Zofran iv PRN for nausea -GI consult in the am for evaluating duct dilatation in the pancreatic head 2. History of Triglyceridemia - f/u Triglyceride levels 3. Alcohol Use Disorder -The patient admitted that she drank heavily last night -She does have a history of alcohol use disorder -We would monitor for the signs of withdrawal -We would chart a CIWA score and start Atavan PRN 4.Hypomagnesemia We would replete the Magnesiium levels with a Magnesium infusion 5. Irritable Bowel Disease -The patient reports having upto 12 bowel movements a day given her IBS -We would continue her on her home meds and request her f/u with GI as an outpatient We would continue the home meds for hypertension, asthma and GERD DVT prophylaxis: subcutaneous Lovenox and ALPS Code status: Full Code NPO As Ranked By This Provider Problem List: 1. Pancreatitis 2. Hyperlipidemia 3. Irritable bowel syndrome 4. Hypertriglyceridemia 5. Fatty liver 6. Hypomagnesemia 7. Alcohol use disorder 8. Hypertension 9. Recurrent pancreatitis 10. Nausea Core Measures/Misc (07/02) Acute Coronary Syndrome ACS Diagnosis: No Congestive Heart Failure Congestive Heart Failure Diagnosis No Cerebrovascular Accident CVA/TIA Diagnosis: No VTE (View Protocol) VTE Risk Factors Age>40 No Mechanical VTE Prophylaxis d/t N/A MechProphylax Ordered No VTE Pharm Prophylaxis d/t NA PharmProphylax ordered Sepsis (View protocol) Sepsis Present: No If YES complete Sepsis Event Note If YES complete Sepsis Event Note Christopher ALBA,[facility] 05/18/18 1903: Core Measures/Misc (07/02) Sepsis (View protocol) If YES complete Sepsis Event Note If YES complete Sepsis Event Note Resident Review Statement Resident Statement: examined this patient, discussed with internal wholesaler, agreed with internal wholesaler, amended to note Other Findings: 41-year-old lady with a significant past medical history of hypertriglyceridemia -induced pancreatitis and alcohol abuse presents with 1 day hx of acute onset of abdominal pain in the setting of elevated lipase and radiological findings consistent with pancreatic inflammation. Impression * Acute pancreatitis as evident by steorotypical epigastric pain with radiation to the back, elevated lipase of 7205 and positive radiological finding of pancreatic inflamation. No necrotic or pseudocyst features. She has a BISAP score of 0 indicating a less than 1% risk of mortality. * Pancreatic duct dilatation (present in previous imaging) * Hypomagnesemia * Etoh abuse * History of chronic diseases: Asthma,GERD,HLD, IBS Plan * Admit to general medicine * Bowel rest via NPO * Lactated ringer at 200 mls per hour * Strict ins and outs * Monitor for hemoconcentration * Serial abdominal exams * IV Zofran as needed * IV hydromorphone as needed * Aggressive replenishment of electrolyte derangement * Will obtain CRP on admission and repeat in 48 hours to assess prognosis (an important prognostic indicator of severity). * Obtain Triglyceride level * Will obtain GI consult to assist with management as patient also has pancreatic ductal dilatation which is not new. If patient did not already have an EUS or MRCP, she will need one to further assess the pancreatic duct, this could be done on outpatient basis once patient defervesce. * CIWA monitoring for withdrawal symptoms * Symptom triggered Ativan IV prn * CODE STATUS: Full code * DVT prophylaxis; enoxaparin Matthias ALBAColdwater 05/19/18 0503: General Information and HPI MD Statement: I have seen and personally examined ISRAEL TIJERINA and documented this H&P. The patient is a 42 year old F who presented with a patient stated chief complaint of [abdominal pain]. Source of Information: patient Allergies/Medications Allergies: Coded Allergies: lisinopril (COLD SWEATS, DIZZY, NAUSEA 05/18/18) Home Med list Albuterol Sulfate (Ventolin Hfa) 18 GM HFA.AER.AD 2 PUF INH Q4-6 PRN PRN breathing (Reported) Alprazolam 1 MG TABLET 1 TAB PO TIDPRN ANXIETY (Reported) Butalbit/Acetamin/Caff/Codeine (Cpdqnt-Qciw-Uqwgewldbic-Codein) 50 MG-325 MG-40 MG-30 MG CAPSULE 1 CAP PO Q12 PRN HEADACHE (Reported) Dicyclomine HCl 10 MG CAPSULE 1 CAP PO Q6P PRN IBS (Reported) Diphenoxylate HCl/Atropine (Lomotil 2.5-0.025 MG Tablet) 2.5 MG-0.025 MG TABLET 1 TAB PO TID PRN IBS (Reported) Esomeprazole (Nexium) 40 MG CAPSULE.DR 1 CAP PO DAILY GI (Reported) Fenofibrate (Tricor) 48 MG TABLET 1 TAB PO DAILY LIPID [place]-3/Dha/Epa/Dpa/Fish Oil ([place]-3 1,050 MG Softgel) 1,050-1200 CAPSULE 1 TAB PO DAILY LIPID Ondansetron (Zofran Odt) (Unknown Strength) TAB.RAPDIS (Unknown Dose) SL AD PRN N/V (Reported) Past History Medical History Cardiovascular: hypertension, hyperlipidemia Respiratory: asthma Gastrointestinal: GERD, pancreatitis Hepatic: fatty liver Musculoskeletal: disk herniation Psychiatric: anxiety, opioid dependence Endocrine: obesity Surgical History Surgical History: breast biopsy Past Family/Social History Psychosocial History Smoking Status: Current Some Day Smoker ETOH Use: alcoholic Illicit Drug Use: marijuana Employment History 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 Exam & Diagnostic Data Last 24 Hrs of Vital Signs/I&O Vital Signs Date Time Temp Pulse Resp B/P B/P Pulse O2 O2 Flow FiO2 Mean Ox Delivery Rate 05/19 0045 97.7 86 18 134/82 97 Room Air 05/18 2200 97.9 72 18 130/70 05/18 2200 97.9 72 18 130/70 97 Room Air 05/18 2046 98.4 82 18 117/76 100 Room Air 05/18 1815 97.7 88 18 149/74 98 Room Air 05/18 1538 98.5 90 18 145/110 98 Room Air Intake & Output 05/19 0800 0804 0000 05/18 1600 Intake Total 400 Output Total 0 Balance 400 Intake, IV 400 Intake, Oral 0 Number 0 Bowel Movements Output, Urine 0 Patient 215 lb 213 lb Weight Physical Exam General Appearance Alert, Oriented X3, Cooperative, Mild Distress Skin No Rashes, No Breakdown Skin Temp/Moisture Exam: Cool/Diaphoretic Sepsis Skin Exam (color): Normal for Ethnicity HEENT Atraumatic, PERRLA Neck Supple Lymphatic Axillary nl, Cervical nl Cardiovascular Regular Rate, Normal S1, Normal S2, No Murmurs Lungs Clear to Auscultation Abdomen Soft with guarding and diffuse tenderness, no rebound tenderness appreciated, no fluid thrill appreciated Neurological Normal Speech Extremities No Edema Vascular Normal Pulses Sepsis Peripheral Pulse Location: Dorsalis Pedis Sepsis Peripheral Pulse Exam: Normal Sepsis Cap Refill Exam: <2 Sec Last 24 Hrs of Labs/Hansel: Laboratory Tests 05/19/18 0405: Urine Opiates Screen 2146.00 H, Methadone Screen < 40, Barbiturate Screen < 60, Ur Phencyclidine Scrn < 6.00, Amphetamines Screen < 100, U Benzodiazepines Scrn > 800 H, Urine Cocaine Screen 603 H, Urine Cannabis Screen > 80.00 H, Urinalysis LIGHT H, Urine Color YEL, Urine Clarity HAZY H, Urine pH 6.0, Ur Specific [place] 1.025, Urine Protein TRACE H, Urine Ketones NEG, Urine Nitrite NEG, Urine Bilirubin NEG, Urine Urobilinogen 0.2, Ur Leukocyte Esterase NEG, Ur Microscopic SEDIMENT EXAMINED, Urine WBC 1-3 H, Ur Epithelial Cells MANY H, Urine Bacteria MANY H, Urine Hemoglobin NEG, Urine Glucose NEG 05/18/18 1557: Anion Gap 9, Estimated GFR > 60, BUN/Creatinine Ratio 10.0, Glucose 99, Lactic Acid 2.0, Calcium 9.0, Magnesium 1.3 L, Total Bilirubin 0.9, AST 65 H, ALT 43, Alkaline Phosphatase 93, Troponin I < 0.01, Total Protein 6.8, Albumin 3.9, Globulin 2.9, Albumin/Globulin Ratio 1.3, Triglycerides 166 H, Amylase 290 H, Lipase 7205 H, Total Beta HCG NEGATIVE, CBC w Diff NO MAN DIFF REQ, RBC 4.28, MCV 91.6, MCH 30.8, MCHC 33.6, RDW 16.1 H, MPV 6.4 L, Gran % 72.6, Lymphocytes % 22.5, Monocytes % 4.0, Eosinophils % 0.8, Basophils % 0.1, Absolute Granulocytes 5.1, Absolute Lymphocytes 1.6, Absolute Monocytes 0.3, Absolute Eosinophils 0.1, Absolute Basophils 0, Serum Alcohol < 10.0 Core Measures/Misc (07/02) Sepsis (View protocol) If YES complete Sepsis Event Note If YES complete Sepsis Event Note Attending MD Review Statement Attending Statement Attending MD Statement: examined this patient, discuss w/resident/PA/UNIFORMER, agreed w/resident/PA/UNIFORMER, reviewed EMR data (avail), amended to note Attending Assessment/Plan: This patient is a 42 year old female with a significant past medical history for pancreatitis, IBS, hyperlipidemia who came into the ED today with abdominal pain similar to her past episodes of pancreatitis. Around 10am the day of admission she felt nauseous and developed abdominal pain under her ribs and radiated to her back. She has had pancreatitis eight times in the past, the most recent being in November. She drank alcohol excessively yesterday. In the ED, patient presents afebrile and vitals stable. Amylase 290, lipase 7205. Chest Xray is normal. CT chest and abdomen findings are consistent with acute pancreatitis. The CT also shows a 4mm duct dilatation in the region of the pancreatic head. 41 -year-old lady with a significant past medical history of hypertriglyceridemia- induced pancreatitis and alcohol abuse presents with 1 day hx of acute onset of abdominal pain in the setting of elevated lipase and radiological findings consistent with pancreatic inflammation. She will be admitted to [facility] for Acute pancreatitis (epigastric pain with radiation to the back, elevated lipase of 7205 and positive radiological finding of pancreatic inflammation). Bowel rest via NPO, IV Zofran, IV hydromorphone, GI consult (assist in management of pancreatic ductal dilatation). CIWA monitoring for withdrawal symptoms.
[2018-05-18 22:00] VITALS: BP 130/70
[2018-05-19 00:45] VITALS: BP 134/82
--- NOTE | 2018-05-19 05:12 | PN- Housestaff ---
Christopher ALBA,Cole 05/19/18 0512: Subjective Follow-up For: Acute pancreatitis Subjective: When seen early in the morning today she was fast asleep but arousable to verbal stimuli. Her pain seemed to be better control now. No acute overnight event reported by nursing staff. The patient does not endorse any fever/chills, nausea/vomiting. Review of Systems Constitutional: Reports: see HPI. Objective Last 24 Hrs of Vital Signs/I&O Vital Signs Date Time Temp Pulse Resp B/P B/P Pulse O2 O2 Flow FiO2 Mean Ox Delivery Rate 05/19 0045 97.7 86 18 134/82 97 Room Air 05/18 2200 97.9 72 18 130/70 08 2200 97.9 72 18 130/70 97 Room Air 05/18 2046 98.4 82 18 117/76 100 Room Air 05/18 1815 97.7 88 18 149/74 98 Room Air 05/18 1538 98.5 90 18 145/110 98 Room Air Intake & Output 05/19 0800 05/19 0000 05/18 1600 Intake Total 400 Output Total 0 Balance 400 Intake, IV 400 Intake, Oral 0 Number 0 Bowel Movements Output, Urine 0 Patient 97.522 kg 96.615 kg Weight Physical Exam General Appearance: Alert, Oriented X3, Cooperative, Mild Distress Skin: NON JAUNDICED Cardiovascular: Regular Rate, Normal S1, Normal S2 Lungs: Clear to Auscultation, Normal Air Movement Abdomen: Normal Bowel Sounds, Soft, mild epigastric pain Neurological: Normal Gait, Normal Speech, Strength at 5/5 X4 Ext Current Medications: Current Medications Sig/Adam Start time Last Medication Dose Route Stop Time Status Admin Acetaminophen 1,000 MG ONCE ONE 05/18 2330 DC 05/19 N/A 1 UNIT IV 05/18 2344 0023 Acetaminophen 650 MG Q6P PRN 05/18 1915 AC PO Enoxaparin Sodium 40 MG DAILY 05/19 900 AC SC Hydromorphone HCl 0 .STK-MED ONE 05/18 2052 DC .ROUTE Hydromorphone HCl 1 MG Q4-6 PRN PRN 05/18 1915 AC 05/19 IV 0432 Hydromorphone HCl 0 .STK-MED ONE 05/18 1809 DC .ROUTE Hydromorphone HCl 1 MG ONCE ONE 05/18 1745 DC 08/ IV 05/18 1746 1811 Hydromorphone HCl 0 .STK-MED ONE 05/18 1713 DC .ROUTE Hydromorphone HCl 1 MG ONCE ONE 05/18 1700 DC 08/ IV 05/18 1701 1713 Lactated Ringer's 1,000 ML .Q5H 05/18 1915 AC 05/19 IV 0208 Lorazepam 0.5 MG Q8 05/19 0047 AC 05/19 IV 0602 Lorazepam 1 MG Q6 05/19 0045 CAN PO Lorazepam 0 Q1P PRN 05/18 1945 AC IV Magnesium Sulfate 1 GM Q2H 05/18 1900 DC Dextrose/Water 100 ML IV 05/18 2259 Magnesium Sulfate 1 GM Q2H 05/18 1830 DC 05/18 Dextrose/Water 100 ML IV 05/18 2229 2101 Morphine Sulfate 4 MG ONCE ONE 05/18 1645 CAN IV 05/18 1646 Morphine Sulfate 0 .STK-MED ONE 05/18 1645 DC .ROUTE Ondansetron HCl 0 .STK-MED ONE 05/18 2053 DC .ROUTE Ondansetron HCl 4 MG Q6P PRN 05/18 1915 AC 05/18 IV 2101 Ondansetron HCl 4 MG ONCE ONE 05/18 1645 DC 08/ IV 05/18 1646 1705 Ondansetron HCl 0 .STK-MED ONE 05/18 1645 DC .ROUTE Pantoprazole Sodium 40 MG DAILY 05/19 0900 AC IV Pantoprazole Sodium 40 MG ONCE ONE 05/18 1645 DC 05/18 IV 05/18 1646 1705 Pantoprazole Sodium 0 .STK-MED ONE 05/18 1645 DC IV Sodium Chloride 1,000 ML BOLUS ONE 05/18 1745 DC 08/ IV 05/18 1844 1826 Sodium Chloride 1,000 ML BOLUS ONE 05/18 1645 DC 08/ IV 05/18 1744 1705 Last 24 Hrs of Lab/Hansel Results Last 24 Hrs of Labs/Mics: Laboratory Tests 05/19/18 0405: Urine Opiates Screen 2146.00 H, Methadone Screen < 40, Barbiturate Screen < 60, Ur Phencyclidine Scrn < 6.00, Amphetamines Screen < 100, U Benzodiazepines Scrn > 800 H, Urine Cocaine Screen 603 H, Urine Cannabis Screen > 80.00 H, Urinalysis LIGHT H, Urine Color YEL, Urine Clarity HAZY H, Urine pH 6.0, Ur Specific [place] 1.025, Urine Protein TRACE H, Urine Ketones NEG, Urine Nitrite NEG, Urine Bilirubin NEG, Urine Urobilinogen 0.2, Ur Leukocyte Esterase NEG, Ur Microscopic SEDIMENT EXAMINED, Urine WBC 1-3 H, Ur Epithelial Cells MANY H, Urine Bacteria MANY H, Urine Hemoglobin NEG, Urine Glucose NEG 05/18/18 1557: Anion Gap 9, Estimated GFR > 60, BUN/Creatinine Ratio 10.0, Glucose 99, Lactic Acid 2.0, Calcium 9.0, Magnesium 1.3 L, Total Bilirubin 0.9, AST 65 H, ALT 43, Alkaline Phosphatase 93, Troponin I < 0.01, Total Protein 6.8, Albumin 3.9, Globulin 2.9, Albumin/Globulin Ratio 1.3, Triglycerides 166 H, Amylase 290 H, Lipase 7205 H, Total Beta HCG NEGATIVE, CBC w Diff NO MAN DIFF REQ, RBC 4.28, MCV 91.6, MCH 30.8, MCHC 33.6, RDW 16.1 H, MPV 6.4 L, Gran % 72.6, Lymphocytes % 22.5, Monocytes % 4.0, Eosinophils % 0.8, Basophils % 0.1, Absolute Granulocytes 5.1, Absolute Lymphocytes 1.6, Absolute Monocytes 0.3, Absolute Eosinophils 0.1, Absolute Basophils 0, Serum Alcohol < 10.0 Assessment/Plan Assessment: 41-year-old lady with a significant past medical history of hypertriglyceridemia -induced pancreatitis and alcohol abuse presents with 1 day hx of acute onset of abdominal pain in the setting of elevated lipase and radiological findings consistent with pancreatic inflammation. Impression * Acute pancreatitis as evident by steorotypical epigastric pain with radiation to the back, elevated lipase of 7205 and positive radiological finding of pancreatic inflamation. No necrotic or pseudocyst features. She has a BISAP score of 0 indicating a less than 1% risk of mortality. * Pancreatic duct dilatation (present in previous imaging) * Hypomagnesemia * Etoh abuse * History of chronic diseases: Asthma,GERD,HLD, IBS Plan * Keep in Gen Med * continue bowel rest via NPO * Lactated ringer at 200 mls per hour * Strict ins and outs * Continue to Monitor for hemoconcentration * Continue serial abdominal exams * IV Zofran as needed * IV hydromorphone as needed * Aggressive replenishment of electrolyte derangement * CRP repeated tomorrow to assess prognosis (an important prognostic indicator of severity). * Obtain Triglyceride level * Await GI consult to assist with management as patient also has pancreatic ductal dilatation which is not new. If patient did not already have an EUS or MRCP, she will need one to further assess the pancreatic duct, this could be done on outpatient basis once patient defervesce. * CIWA monitoring for withdrawal symptoms * Symptom triggered Ativan IV prn * Scheduled low dose lorazepam of 0.5 mg every 8hr to prevent benzo withdrawal, this is due to patient's history of taking alprazolam 3 times a day as needed for anxiety on daily basis (verified through [place]). Once patient is able to eat we can switch back to her home benzo regimen. * CODE STATUS: Full code * DVT prophylaxis; enoxaparin Problem List: 1. Acute pancreatitis Pain Ratin Pain Location: abdomen Pain Goal: Pain 4 or less Pain Plan: per pathway Tomorrow's Labs & Rationales: cbc Carlos Braun 05/19/18 1030: Attending MD Review Statement Attending Statement Attending MD Statement: examined this patient, discuss w/resident/PA/BIN FILLER, agreed w/resident/PA/BIN FILLER, discussed with family, reviewed EMR data (avail), discussed with nursing, discussed with case mgmt, reviewed images, amended to note Attending Assessment/Plan: Patient admitted with pancreatitis, NPO, IVF aggressive hydration and GI consult. Continue plan of care..
[2018-05-19 06:00] VITALS: BP 110/68
[2018-05-19 08:08] LABS: ABSOLUTE BASOPHIL COUNT 0 /CUMM (0.0-0.2); ABSOLUTE EOSINOPHIL COUNT 0.1 /CUMM (0.0-0.7); ABSOLUTE GRANULOCYTE CT 3.5 /CUMM (1.4-6.5); ABSOLUTE LYMPH COUNT 0.8 /CUMM (1.2-3.4); ABSOLUTE MONOCYTE COUNT 0.2 /CUMM (0.10-0.60); BASOPHIL % 0.2 % (0.0-2.0); EOSINOPHIL % 1.4 % (0-5); MEAN CORPUSCULAR HGB 31.5 PG (27.0-31.0); MEAN CORPUSCULAR HGB CONC 34.4 G/DL (33.0-37.0); MEAN CORPUSCULAR VOLUME 91.7 FL (81.0-99.0); MEAN PLATELET VOLUME 6.7 FL (7.4-10.4); PLATELET COUNT 170 /CUMM (130-400); RBC DISTRIBUTION WIDTH 16.7 % (11.5-14.5); RED BLOOD CELL CT 3.69 /CUMM (4.20-5.40); WHITE BLOOD CELL COUNT 4.6 /CUMM (4.8-10.8)
[2018-05-19 08:54] LABS: HEMATOCRIT 33.8 % (37-47)
--- NOTE | 2018-05-19 11:41 | Cons- Gastroenterology ---
General Information and HPI Consulting Request Date of Consult: 05/19/18 Requested By: Phil Rizzo MD Reason for Consult: Pancreatitis with an abnormal ct scan showing a dilated PD. Source of Information: patient, old records Exam Limitations: no limitations History of Present Illness: Ms. Mcnamara is a 42 year old female with a history of etoh pancreatitis who presented to yesterday with reports of acute onset of abdominal pain earlier that day. She notes the pain started in her mid-epigastrium and radiated around to her back and she notes that the pain is typical for her prior presentation of pancreatitis albeit not quite as severe. She has had some associated bilious vomiting, but for the most part she states that she has just been having dry heaving. She is without any reports of fevers and she also denies any jaundice, yifan colored stool or dark urine. She does have chronic diarrhea that is at its baseline and for which she uses lomotil at home with good benefit and she also notes using dicyclomine for cramping, but that didn't help her current pain. In the ER she was afebrile and hemodynamically stable. She was found to have a markedly elevated lipase of around 7k with only minimally elevated LFTs. She had a ct scan that showed mild pancreatitis without fluid collections and a mildly dilated pancreatic duct for which a GI consultation was placed. Since admission she has been kept NPO and given narcotics and anti-emetics as needed with some improvement in her discomfort, but she continues to complain of pain. She is tolerating ice chips and hasn't had any further vomiting since admission. Allergies/Medications Allergies: Coded Allergies: lisinopril (COLD SWEATS, DIZZY, NAUSEA 05/18/18) Home Med List: Albuterol Sulfate (Ventolin Hfa) 18 GM HFA.AER.AD 2 PUF INH Q4-6 PRN PRN breathing (Reported) Alprazolam 1 MG TABLET 1 TAB PO TIDPRN ANXIETY (Reported) Butalbit/Acetamin/Caff/Codeine (Xkwxln-Mbad-Plbyiwswzzb-Codein) 50 MG-325 MG-40 MG-30 MG CAPSULE 1 CAP PO Q12 PRN HEADACHE (Reported) Dicyclomine HCl 10 MG CAPSULE 1 CAP PO Q6P PRN IBS (Reported) Diphenoxylate HCl/Atropine (Lomotil 2.5-0.025 MG Tablet) 2.5 MG-0.025 MG TABLET 1 TAB PO TID PRN IBS (Reported) Esomeprazole (Nexium) 40 MG CAPSULE.DR 1 CAP PO DAILY GI (Reported) Fenofibrate (Tricor) 48 MG TABLET 1 TAB PO DAILY LIPID Mcintosh-3/Dha/Epa/Dpa/Fish Oil (Mcintosh-3 1,050 MG Softgel) 1,050-1200 CAPSULE 1 TAB PO DAILY LIPID Ondansetron (Zofran Odt) (Unknown Strength) TAB.RAPDIS (Unknown Dose) SL AD PRN N/V (Reported) Current Medications: Current Medications Sig/Adam Start time Last Medication Dose Route Stop Time Status Admin Acetaminophen 1,000 MG ONCE ONE 05/19 1045 DC N/A 1 UNIT IV 05/19 1059 Acetaminophen 1,000 MG .STK-MED ONE 05/19 0014 DC IV 05/19 0015 Acetaminophen 1,000 MG ONCE ONE 05/18 2330 DC 05/19 N/A 1 UNIT IV 05/18 2344 0023 Acetaminophen 650 MG Q6P PRN 05/18 1915 AC PO Enoxaparin Sodium 40 MG DAILY 05/19 0900 AC 05/19 SC 0805 Hydromorphone HCl 0 .STK-MED ONE 05/18 2052 DC .ROUTE Hydromorphone HCl 1 MG Q4-6 PRN PRN 05/18 1915 AC 05/19 IV 0804 Hydromorphone HCl 0 .STK-MED ONE 05/18 1809 DC .ROUTE Hydromorphone HCl 1 MG ONCE ONE 05/18 1745 DC 05/18 IV 05/18 1746 1811 Hydromorphone HCl 0 .STK-MED ONE 05/18 1713 DC .ROUTE Hydromorphone HCl 1 MG ONCE ONE 05/18 1700 DC 05/18 IV 05/18 1701 1713 Lactated Ringer's 1,000 ML .Q5H 05/18 1915 AC 08 IV 0959 Lorazepam 0.5 MG Q8 05/19 0047 AC 05/19 IV 0602 Lorazepam 1 MG Q6 05/19 0045 CAN PO Lorazepam 0 Q1P PRN 05/18 1945 AC IV Magnesium Sulfate 1 GM Q2H 05/18 1900 DC Dextrose/Water 100 ML IV 05/18 2259 Magnesium Sulfate 1 GM Q2H 05/18 1830 DC 05/18 Dextrose/Water 100 ML IV 05/18 2229 2101 Morphine Sulfate 4 MG ONCE ONE 05/18 1645 CAN IV 05/18 1646 Morphine Sulfate 0 .STK-MED ONE 05/18 1645 DC .ROUTE Ondansetron HCl 0 .STK-MED ONE 05/18 2053 DC .ROUTE Ondansetron HCl 4 MG Q6P PRN 05/18 1915 AC 05/18 IV 2101 Ondansetron HCl 4 MG ONCE ONE 05/18 1645 DC 05/18 IV 05/18 1646 1705 Ondansetron HCl 0 .STK-MED ONE 05/18 1645 DC .ROUTE Pantoprazole Sodium 40 MG DAILY 05/19 0900 AC 05/19 IV 0805 Pantoprazole Sodium 40 MG ONCE ONE 05/18 1645 DC 05/18 IV 05/18 1646 1705 Pantoprazole Sodium 0 .STK-MED ONE 05/18 1645 DC IV Sodium Chloride 1,000 ML BOLUS ONE 05/18 1745 DC 05/18 IV 05/18 1844 1826 Sodium Chloride 1,000 ML BOLUS ONE 05/18 1645 DC 05/18 IV 05/18 1744 1705 Past History Travel History Traveled to [place] past 21 day No Medical History Blood Transfusion Hx: No Neurological: migraine EENT: NONE Cardiovascular: hypertension, hyperlipidemia Respiratory: asthma Gastrointestinal: GERD, pancreatitis Hepatic: fatty liver Renal: NONE Musculoskeletal: disk herniation Psychiatric: anxiety, opioid dependence Endocrine: obesity Blood Disorders: NONE Cancer(s): NONE 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 MOTHER (diverticulitis). , Age 55; Cause: Lung cancer. Psychosocial History Where Do You Live? Home Who Do You Live With? child Services at Home: None Primary Language: Panamanian Smoking Status: Current Some Day Smoker ETOH Use: alcoholic Illicit Drug Use: marijuana Living Will? no Power of Park Activities Coordinator/HCP? no Functional Ability ADLs Independent: dressing, eating, toileting, bathing. Ambulation: independent IADLs Independent: shopping, housework, finances, food prep, telephone, transportation , medication admin. 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 Denies: chills, fever, unexplained weight loss. EENTM: Denies: no symptoms. Cardiovascular: Reports: chest pain. Respiratory: Denies: no symptoms. GI: Reports: see HPI. Genitourinary: Denies: no symptoms. Musculoskeletal: Reports: muscle pain. Denies: joint pain, joint swelling. Skin: Denies: no symptoms. Neurological/Psychological: Denies: no symptoms. Hematologic/Endocrine: Denies: no symptoms. Immunologic/Allergic: Denies: no symptoms. All Other Systems: Reviewed and Negative Exam & Diagnostic Data Vital Signs and I&O Vital Signs Date Time Temp Pulse Resp B/P B/P Pulse O2 O2 Flow FiO2 Mean Ox Delivery Rate 05/19 0600 97.6 82 18 110/68 97 Room Air 05/19 0045 97.7 86 18 134/82 97 Room Air 05/18 2200 97.9 72 18 130/70 08 2200 97.9 72 18 130/70 97 Room Air 05/18 2046 98.4 82 18 117/76 100 Room Air 05/18 1815 97.7 88 18 149/74 98 Room Air 05/18 1538 98.5 90 18 145/110 98 Room Air Intake & Output 05/19 1600 05/19 0400 05/18 1600 05/18 0400 05/17 1600 05/17 0400 Intake Total 1600 400 Output Total 250 0 Balance 1350 400 Intake, IV 1600 400 Intake, Oral 0 0 Number 0 0 Bowel Movements Output, Urine 250 0 Patient 215 lb 213 lb Weight Physical Exam General Appearance: well developed/nourished, mild distress Head: atraumatic, normal appearance Eyes: Bilateral: normal appearance. Ears, Nose, Throat: normal pharynx, normal ENT inspection Neck: normal inspection, supple, full range of motion Respiratory: normal breath sounds, chest non-tender, no respiratory distress Cardiovascular: regular rate/rhythm Gastrointestinal: normal bowel sounds, soft, guarding, tenderness Rectal: deferred Extremities: normal inspection, no edema Neurologic/Psych: no motor/sensory deficits, awake, alert, oriented x 3 Results Pertinent Lab Results: Laboratory Tests 05/19 05/19 0655 0405 Chemistry Sodium (137 - 145 mmol/L) 134 L Potassium (3.5 - 5.1 mmol/L) 3.7 Chloride (98 - 107 mmol/L) 104 Carbon Dioxide (22 - 30 mmol/L) 25 Anion Gap (5 - 16) 4 L BUN (7 - 17 mg/dL) 6 L Creatinine (0.5 - 1.0 mg/dL) 0.7 Estimated GFR (>60 ml/min) > 60 BUN/Creatinine Ratio (7 - 25 %) 8.6 Magnesium (1.6 - 2.3 mg/dL) 1.7 Hematology CBC w Diff NO MAN DIFF REQ WBC (4.8 - 10.8 /CUMM) 4.6 L RBC (4.20 - 5.40 /CUMM) 3.69 L Hgb (12.0 - 16.0 G/DL) 11.6 L Hct (37 - 47 %) 33.8 L MCV (81.0 - 99.0 FL) 91.7 MCH (27.0 - 31.0 PG) 31.5 H MCHC (33.0 - 37.0 G/DL) 34.4 RDW (11.5 - 14.5 %) 16.7 H Plt Count (130 - 400 /CUMM) 170 MPV (7.4 - 10.4 FL) 6.7 L Gran % (42.2 - 75.2 %) 76.0 H Lymphocytes % (20.5 - 51.1 %) 17.6 L Monocytes % (1.7 - 9.3 %) 4.8 Eosinophils % (0 - 5 %) 1.4 Basophils % (0.0 - 2.0 %) 0.2 Absolute Granulocytes (1.4 - 6.5 /CUMM) 3.5 Absolute Lymphocytes (1.2 - 3.4 /CUMM) 0.8 L Absolute Monocytes (0.10 - 0.60 /CUMM) 0.2 Absolute Eosinophils (0.0 - 0.7 /CUMM) 0.1 Absolute Basophils (0.0 - 0.2 /CUMM) 0 Toxicology Urine Opiates Screen (>2000 NG/ML) 2146.00 H Methadone Screen (>300 NG/ML) < 40 Barbiturate Screen (>200 NG/ML) < 60 Ur Phencyclidine Scrn (>25 NG/ML) < 6.00 Amphetamines Screen (>1000 NG/ML) < 100 U Benzodiazepines Scrn (>200 NG/ML) > 800 H Urine Cocaine Screen (>300 NG/ML) 603 H Urine Cannabis Screen (>50 NG/ML) > 80.00 H Urines Urinalysis LIGHT H Urine Color (YEL,AMB,STR) YEL Urine Clarity (CLEAR) HAZY H Urine pH (5.0 - 8.0) 6.0 Ur Specific [place] (1.001 - 1.035) 1.025 Urine Protein (NEG,<30 MG/DL) TRACE H Urine Ketones (NEG) NEG Urine Nitrite (NEG) NEG Urine Bilirubin (NEG) NEG Urine Urobilinogen (0.1 - 1.0 EU/dl) 0.2 Ur Leukocyte Esterase (NEG) NEG Ur Microscopic SEDIMENT EXAMINED Urine WBC (0 - 2 /HPF) 1-3 H Ur Epithelial Cells (NONE,FEW) MANY H Urine Bacteria (NEG/NONE) MANY H Urine Hemoglobin (NEG) NEG Urine Glucose (N MG/DL) NEG 05/18 1557 Chemistry Sodium (137 - 145 mmol/L) 135 L Potassium (3.5 - 5.1 mmol/L) 3.8 Chloride (98 - 107 mmol/L) 102 Carbon Dioxide (22 - 30 mmol/L) 24 Anion Gap (5 - 16) 9 BUN (7 - 17 mg/dL) 8 Creatinine (0.5 - 1.0 mg/dL) 0.8 Estimated GFR (>60 ml/min) > 60 BUN/Creatinine Ratio (7 - 25 %) 10.0 Glucose (65 - 99 mg/dL) 99 Lactic Acid (0.7 - 2.1 mmol/L) 2.0 Calcium (8.4 - 10.2 mg/dL) 9.0 Magnesium (1.6 - 2.3 mg/dL) 1.3 L Total Bilirubin (0.2 - 1.3 mg/dL) 0.9 AST (14 - 36 U/L) 65 H ALT (9 - 52 U/L) 43 Alkaline Phosphatase (<127 U/L) 93 Troponin I (< 0.11 ng/ml) < 0.01 Total Protein (6.3 - 8.2 g/dL) 6.8 Albumin (3.5 - 5.0 g/dL) 3.9 Globulin (1.9 - 4.2 gm/dL) 2.9 Albumin/Globulin Ratio (1.1 - 2.2 %) 1.3 Triglycerides (<150 mg/dL) 166 H Amylase (30 - 110 U/L) 290 H Lipase (23 - 300 U/L) 7205 H Total Beta HCG (NEGATIVE) NEGATIVE Hematology CBC w Diff NO MAN DIFF REQ WBC (4.8 - 10.8 /CUMM) 7.0 RBC (4.20 - 5.40 /CUMM) 4.28 Hgb (12.0 - 16.0 G/DL) 13.1 Hct (37 - 47 %) 39.2 MCV (81.0 - 99.0 FL) 91.6 MCH (27.0 - 31.0 PG) 30.8 MCHC (33.0 - 37.0 G/DL) 33.6 RDW (11.5 - 14.5 %) 16.1 H Plt Count (130 - 400 /CUMM) 236 MPV (7.4 - 10.4 FL) 6.4 L Gran % (42.2 - 75.2 %) 72.6 Lymphocytes % (20.5 - 51.1 %) 22.5 Monocytes % (1.7 - 9.3 %) 4.0 Eosinophils % (0 - 5 %) 0.8 Basophils % (0.0 - 2.0 %) 0.1 Absolute Granulocytes (1.4 - 6.5 /CUMM) 5.1 Absolute Lymphocytes (1.2 - 3.4 /CUMM) 1.6 Absolute Monocytes (0.10 - 0.60 /CUMM) 0.3 Absolute Eosinophils (0.0 - 0.7 /CUMM) 0.1 Absolute Basophils (0.0 - 0.2 /CUMM) 0 Toxicology Serum Alcohol (<10 MG/DL) < 10.0 Imaging/Other Studies: SERVICE DATE: 05/18/18 EXAM TYPE: CAT - CT ABD & PELVIS W IV CONTRAST EXAMINATION: CT ABDOMEN AND PELVIS WITH CONTRAST CLINICAL INFORMATION: Epigastric pain radiating to the back COMPARISON: CT scan abdomen pelvis 08/21/2017, 08/09/2017, 05/25/2016. MR abdomen 09/25/2017 TECHNIQUE: Multidetector volumetric imaging was performed of the abdomen and pelvis following IV administration of 75 mL of Optiray 320 intravenous contrast. Sagittal and coronal reformatted images were obtained on the technologist's workstation. DLP: 770.85 mGy-cm FINDINGS: LUNG BASES: The visualized lung bases are unremarkable. LIVER, GALLBLADDER, AND BILIARY TREE: There is diffuse low attenuation of liver parenchyma due to fatty change. No focal liver lesion. Status post cholecystectomy. PANCREAS: There is a pancreatitis. There is edema around the pancreatic head and body with fluid extending along the anterior pararenal fascia. The fluid extends into the tamiko hepatis.. Enhancement of the pancreatic head is heterogeneous. There is pancreatic duct dilatation measuring about 3 mm of the pancreatic head. The CBD measures about 4 mm at the pancreatic head. No calcified stone seen within the bile ducts. There is normal enhancement seen of the portal vein and superior mesenteric vein and splenic vein. No thrombus. There is no pseudocyst formation. SPLEEN: Unremarkable. ADRENAL GLANDS: Unremarkable. KIDNEYS AND URETERS: The kidneys are normal in size, shape, and attenuation. No hydronephrosis, hydroureter, or calculi seen. No perinephric stranding. BLADDER: Unremarkable. GASTROINTESTINAL TRACT: The small and large bowel are unremarkable. The appendix is unremarkable. ABDOMINAL WALL: No significant hernia is appreciated. LYMPH NODES: Normal. VASCULAR: Unremarkable. PELVIC VISCERA: Unremarkable. OSSEOUS STRUCTURES: Unremarkable. IMPRESSION: Pancreatitis. Assessment/Plan Assessment/Recommendations: Assessment: Ms. Mcnamara is a 42 year old female with a history of IBS and etoh pancreatitis who presented yesterday with severe abdominal pain apparently after some heavy etoh use the night before who was found to have a lipase over 7K and a ct scan that showed inflammation around the pancreatic head and a mildly dilated pancreatic duct to about 4 mm (nl is around 2 mm). While her etoh level was negative her history is somewhat typical and as she has had her GB removed, has relatively normal LFTs and nl TG levels I don't feel any further work up to investigate the etiology of her pancreatitis is necessary. I am also not too concerned about the mildly dilated pancreatic duct which likely a sequele of repeated attacks of pancreatitis leading to chronic pancreatitis. It may ultimately be reasonable to obtain an MRCP and/or an EUS to evaluate this further and rule out an occult malignancy, but this isn't urgent and should be pursued as an outpatient. She also notes that she had an MRCP relatively recently at [facility] so this likely doesn't need to be repeated. Of note, as she does appear to radiographically be developing chronic pancreatitis it is also possible that some of her diarrhea is from pancreatic insufficiency, but a recent pancreatic elastase was normal which makes this less likely. She is currently doing well from a pancreatitis standpoint and her decreasing BUN is indicative that she has been getting adequat hydration and I am hopeful that her diet will be able to be advanced and she will be able to be discharged home shortly. Recommendations. 1. Supportive care for pancreatitis with IVF, analgesia and bowel rest as per primary care team, but if she remains without significant pain would consider advancing to liquids later today. 2. Once she is taking POs would decrease IVF to maintenance rate 3. Follow lytes and replete as needed 4. Consideration will be given for an outpatient EUS or MRCP at the discretion of her primary litigation counsel Dr. Linares. 5. Ok to restart imodium as needed for diarrhea and dicyclomine as needed for lower abdominal cramping. 6. Administer anti-emetics as needed. 7. In addition to counseling her to stop etoh she should also be encourged to stop smoking which can be equally damaging to the pancreas. I will continue to follow this patient and make further recommendations based on her clinical course Problem List: 1. Acute pancreatitis 2. Irritable bowel syndrome 3. Abdominal pain 4. Nausea & vomiting Consult Acknowledgment - Thank you for your consult request.
[2018-05-19 14:16] VITALS: BP 118/62
[2018-05-19 18:30] VITALS: BP 142/84
[2018-05-19 22:00] VITALS: BP 123/74
[2018-05-19 22:14] VITALS: BP 123/74
[2018-05-20] VITALS (7 sets, daily range): BP systolic 112–139; BP diastolic 58–78
[2018-05-20 07:48] LABS: ABSOLUTE BASOPHIL COUNT 0 /CUMM (0.0-0.2); ABSOLUTE EOSINOPHIL COUNT 0.1 /CUMM (0.0-0.7); ABSOLUTE GRANULOCYTE CT 5.1 /CUMM (1.4-6.5); ABSOLUTE LYMPH COUNT 0.8 /CUMM (1.2-3.4); ABSOLUTE MONOCYTE COUNT 0.3 /CUMM (0.10-0.60); BASOPHIL % 0.3 % (0.0-2.0); EOSINOPHIL % 1.4 % (0-5); GRANULOCYTE % 79.9 % (42.2-75.2); HEMATOCRIT 33.2 % (37-47); MEAN CORPUSCULAR HGB 31.7 PG (27.0-31.0); MEAN CORPUSCULAR HGB CONC 34.1 G/DL (33.0-37.0); MEAN CORPUSCULAR VOLUME 92.9 FL (81.0-99.0); MEAN PLATELET VOLUME 7.1 FL (7.4-10.4); PLATELET COUNT 162 /CUMM (130-400); RBC DISTRIBUTION WIDTH 16.3 % (11.5-14.5); RED BLOOD CELL CT 3.57 /CUMM (4.20-5.40); WHITE BLOOD CELL COUNT 6.4 /CUMM (4.8-10.8)
--- NOTE | 2018-05-20 11:22 | PN- Housestaff ---
Charles Vance 05/20/18 1109: Subjective Follow-up For: Acute pancreatitis 9th episode, Hypomagnesemia, Complaints: Abdominal pain Subjective: Patient seen and examine on bed. She did well overnight. She is concerned about her pain in belly and radiated to her back and regurge. Her pain is specially aggravated by movement and walking. She denies any fever, chills, tremors, anxiety, shortness of breath, burning micturation, diarrhea, loose motion, Review of Systems Constitutional: Reports: see HPI. Objective Last 24 Hrs of Vital Signs/I&O Vital Signs Date Time Temp Pulse Resp B/P B/P Pulse O2 O2 Flow FiO2 Mean Ox Delivery Rate 05/20 1426 99.7 92 18 128/58 94 Room Air 08/ 1000 99.0 107 16 122/70 95 Room Air / 0800 Room Air 08/05 0602 99.5 82 20 112/78 95 08/05 0600 99.5 82 20 112/78 08/05 0207 98.9 90 20 126/68 97 /05 0200 98.9 90 20 126/68 08/05 0059 99.4 /04 2214 99.7 94 20 123/74 97 Room Air 08/04 2200 99.7 94 20 123/74 08/04 2000 99.9 08/04 1830 98.9 86 20 142/84 96 Room Air Intake & Output 08/ 1600 08/05 0800 08/05 0000 Intake Total 1240 1660 1210 Output Total Balance 1240 1660 1210 Intake, IV 1000 1600 1210 Intake, Oral 240 60 0 Physical Exam General Appearance: Alert, Oriented X3, Cooperative Assessment/Plan Assessment: 41-year-old lady with a significant past medical history of hypertriglyceridemia -induced/alcohol induced pancreatitis, hypertension, hyperlipidemia, alcohol dependency disorder,, gout, asthma, irritable bowel syndrome presents with 1 day hx of acute onset of abdominal pain in the setting of elevated lipase and radiological findings consistent with pancreatic inflammation. Problems list: -Acute pancreatitis. -Hypomagnesemia. -Alcohol abuse alcohol dependency. -Abdominal pain. Plan: -Acute pancreatitis this is her ninth time that she get medical attention for pancreatitis.Pancreatitis as evident by steorotypical epigastric pain with radiation to the back, elevated lipase of 7205 and positive radiological finding of pancreatic inflamation. No necrotic or pseudocyst features. -Pancreatic duct dilatation (present in previous imaging) -Hypomagnesemia, keep patient on general medical floor, toda according to advice of medical attending the patient is allowed to take clear liquid fluid and lunch and then liquid fluid from dinner. One bolus of Dilaudid as needed. Continue Ringer lactate solution, monitor for hemoconcentration, continue serious abdominal exam, strict input and output monitoring, -Gastroenterology review done . They advised to administer antiemetics as needed. -Ok to use Lomotil or Imodium for diarrhea and dicyclomine for lower abdominal cramping. -Use benzodiazepines as needed for alcohol withdrawal symptoms which she states she does not feel she needs any longer. -Was she able to take her regular diet and pain controlled on oral medication discharged her home to follow-up with Dr. Jeimy meade for MD composite bond technician for further management on coming . -CIWA monitoring -Full code -DVT prophylaxis Tomorrow's Labs & Rationales: cbc Problem List: 1. Pancreatitis Pain Ratin Pain Location: Abdomin and radiating toward back Pain Goal: Remain pain free Pain Plan: Pain medication Tomorrow's Labs & Rationales: cbc Patient's Concerns: Carlos Braun 05/19/18 1030: Attending MD Review Statement Attending Statement Attending MD Statement: examined this patient, discuss w/resident/PA/MASONRY INSTALLER, agreed w/resident/PA/MASONRY INSTALLER, discussed with family, reviewed EMR data (avail), discussed with nursing, discussed with case mgmt, reviewed images, amended to note Attending Assessment/Plan: Patient admitted with pancreatitis, NPO, IVF aggressive hydration and GI consult. Continue plan of care.. Carlos Braun 05/20/18 1148: Attending MD Review Statement Attending Statement Attending MD Statement: examined this patient, discuss w/resident/PA/MASONRY INSTALLER, agreed w/resident/PA/MASONRY INSTALLER, discussed with family, reviewed EMR data (avail), discussed with nursing, discussed with case mgmt, reviewed images, amended to note Attending Assessment/Plan: Patient admitted with pancreatitis, Advanced clear liquids today, IVF hydration and GI consulted with no further intervention, pancreatic dilation most likely due to repeated injury and now possible chronic pancreatitis. Continue plan of care.. states she does not feel she needs any longer. -Was she able to take her regular diet and pain controlled on oral medication discharged her home to follow-up with Dr. Munson her for MD composite bond technician for further management on coming . -CIWA monitoring -Full code -DVT prophylaxis Tomorrow's Labs & Rationales: cbc Carlos Braun 05/19/18 1030: Attending MD Review Statement Attending Statement Attending MD Statement: examined this patient, discuss w/resident/PA/MASONRY INSTALLER, agreed w/resident/PA/MASONRY INSTALLER, discussed with family, reviewed EMR data (avail), discussed with nursing, discussed with case mgmt, reviewed images, amended to note Attending Assessment/Plan: Patient admitted with pancreatitis, NPO, IVF aggressive hydration and GI consult. Continue plan of care.. Carlos Braun 05/20/18 1148: Attending MD Review Statement Attending Statement Attending MD Statement: examined this patient, discuss w/resident/PA/MASONRY INSTALLER, agreed w/resident/PA/MASONRY INSTALLER, discussed with family, reviewed EMR data (avail), discussed with nursing, discussed with case mgmt, reviewed images, amended to note Attending Assessment/Plan: Patient admitted with pancreatitis, Advanced clear liquids today, IVF hydration and GI consulted with no further intervention, pancreatic dilation most likely due to repeated injury and now possible chronic pancreatitis. Continue plan of care..
--- NOTE | 2018-05-20 12:35 | PN- Gastroenterology ---
Assessment/Plan GI Assessment/Recommendations: Assessment: Ms. Mcnamara is a 42-year-old female admitted with alcoholic pancreatitis yesterday who continues to have some pain, but it is improved from when she was admitted and she is without any significant nausea or vomiting. She has been getting hydrated with lactated Ringer's solution for the past 48 hours at a rate of 200 cc/h which at this point I think can be decreased to a maintenance rate. I also feel would be reasonable to attempt to advance her diet today. Recommendations: 1. Advance diet as tolerated. 2. Administer analgesia as needed. 3. Administer antiemetics as needed. 4. Ok to use Lomotil or Imodium for diarrhea and dicyclomine for lower abdominal cramping. 5. Use benzodiazepines as needed for alcohol withdrawal symptoms which she states she does not feel she needs any longer. 6. Once she is tolerating a regular diet and her pain is under control with oral pain medications consideration given to discharge her home to follow-up with her primary can bander operator Dr. Munson as an outpatient who she has an appointment with this coming . I will continue to follow this patient and make further recommendations based on her clinical course. Problem List: 1. Acute pancreatitis 2. Pancreatitis Subjective Subjective: Pt notes still having a significant amount of pain, but it is improving. She has not had any significant vomiting. Objective Vital Signs and I&Os Vital Signs Date Time Temp Pulse Resp B/P B/P Pulse O2 O2 Flow FiO2 Mean Ox Delivery Rate 05/20 1000 99.0 107 16 122/70 95 Room Air / 0800 Room Air / 0602 99.5 82 20 112/78 95 / 0600 99.5 82 20 112/78 08/ 0207 98.9 90 20 126/68 97 / 0200 98.9 90 20 126/68 08/05 0059 99.4 08/ 2214 99.7 94 20 123/74 97 Room Air / 2200 99.7 94 20 123/74 / 2000 99.9 08/ 1830 98.9 86 20 142/84 96 Room Air 05/19 1416 8.4 84 18 118/62 97 Room Air Intake & Output 05/20 1600 05/20 0400 05/19 1600 05/19 0400 05/18 1600 05/18 040 Intake Total 1660 1210 3200 400 Output Total 1000 0 Balance 1660 1210 2200 400 Intake, IV 1600 1210 3200 400 Intake, Oral 60 0 0 0 Number 0 0 Bowel Movements Output, Urine 1000 0 Patient 215 lb 213 lb Weight Physical Exam General Appearance: well developed/nourished, mild distress Head: atraumatic, normal appearance Neck: normal inspection, supple Respiratory: normal breath sounds Cardiovascular: regular rate/rhythm Abdomen: normal bowel sounds, soft, guarding, tenderness Back: normal inspection Neurologic/Psychiatric: no motor/sensory deficits, awake, alert, oriented x 3 Skin: intact, normal color Current Medications: Current Medications Sig/Adam Start time Last Medication Dose Route Stop Time Status Admin Acetaminophen 650 MG Q6P PRN 05/18 1915 AC PO Acetaminophen/ 1 TAB Q4P PRN 05/20 0030 05/20 Butalbital/Caffeine PO 0107 Dicyclomine HCl 20 MG 4 TIMES/DAY PRN 05/19 1845 PO Enoxaparin Sodium 40 MG DAILY 05/19 900 AC 05/20 SC 0933 Hydromorphone HCl 0.4 MG ONCE ONE 05/19 1430 DC 05/20 IV 05/19 1431 0532 Hydromorphone HCl 1 MG Q4-6 PRN PRN 05/18 191 AC 05/20 IV 0936 Lactated Ringer's 1,000 ML .Q6H40M 05/18 1915 AC 05/20 IV 1114 Loperamide HCl 2 MG Q6P PRN 05/19 1845 AC PO Lorazepam 0.5 MG Q8 05/19 0047 AC 05/20 IV 0517 Lorazepam 0 Q1P PRN 05/18 1945 IV Ondansetron HCl 4 MG Q6P PRN 05/18 191 AC 05/19 IV 1206 Pantoprazole Sodium 40 MG DAILY 05/19 09 AC 05/20 IV 0933 Results Pertinent Lab Results: Laboratory Tests 05/20 05/19 0620 0655 Chemistry Sodium (137 - 145 mmol/L) 134 L 134 L Potassium (3.5 - 5.1 mmol/L) 3.4 L 3.7 Chloride (98 - 107 mmol/L) 103 104 Carbon Dioxide (22 - 30 mmol/L) 23 25 Anion Gap (5 - 16) 8 4 L BUN (7 - 17 mg/dL) 2 L 6 L Creatinine (0.5 - 1.0 mg/dL) 0.6 0.7 Estimated GFR (>60 ml/min) > 60 > 60 BUN/Creatinine Ratio (7 - 25 %) 3.3 L 8.6 Magnesium (1.6 - 2.3 mg/dL) 1.4 L 1.7 C-Reactive Prot, Quant (<1.0 mg/dL) > 9.0 H C-React Prot High Sens (1.0 - 3.0 mg/L) > 15.0 H Hematology CBC w Diff NO MAN DIFF REQ NO MAN DIFF REQ WBC (4.8 - 10.8 /CUMM) 6.4 4.6 L RBC (4.20 - 5.40 /CUMM) 3.57 L 3.69 L Hgb (12.0 - 16.0 G/DL) 11.3 L 11.6 L Hct (37 - 47 %) 33.2 L 33.8 L MCV (81.0 - 99.0 FL) 92.9 91.7 MCH (27.0 - 31.0 PG) 31.7 H 31.5 H MCHC (33.0 - 37.0 G/DL) 34.1 34.4 RDW (11.5 - 14.5 %) 16.3 H 16.7 H Plt Count (130 - 400 /CUMM) 162 170 MPV (7.4 - 10.4 FL) 7.1 L 6.7 L Gran % (42.2 - 75.2 %) 79.9 H 76.0 H Lymphocytes % (20.5 - 51.1 %) 13.0 L 17.6 L Monocytes % (1.7 - 9.3 %) 5.4 4.8 Eosinophils % (0 - 5 %) 1.4 1.4 Basophils % (0.0 - 2.0 %) 0.3 0.2 Absolute Granulocytes (1.4 - 6.5 /CUMM) 5.1 3.5 Absolute Lymphocytes (1.2 - 3.4 /CUMM) 0.8 L 0.8 L Absolute Monocytes (0.10 - 0.60 /CUMM) 0.3 0.2 Absolute Eosinophils (0.0 - 0.7 /CUMM) 0.1 0.1 Absolute Basophils (0.0 - 0.2 /CUMM) 0 0 08/04 08/03 0405 1557 Chemistry Sodium (137 - 145 mmol/L) 135 L Potassium (3.5 - 5.1 mmol/L) 3.8 Chloride (98 - 107 mmol/L) 102 Carbon Dioxide (22 - 30 mmol/L) 24 Anion Gap (5 - 16) 9 BUN (7 - 17 mg/dL) 8 Creatinine (0.5 - 1.0 mg/dL) 0.8 Estimated GFR (>60 ml/min) > 60 BUN/Creatinine Ratio (7 - 25 %) 10.0 Glucose (65 - 99 mg/dL) 99 Lactic Acid (0.7 - 2.1 mmol/L) 2.0 Calcium (8.4 - 10.2 mg/dL) 9.0 Magnesium (1.6 - 2.3 mg/dL) 1.3 L Total Bilirubin (0.2 - 1.3 mg/dL) 0.9 AST (14 - 36 U/L) 65 H ALT (9 - 52 U/L) 43 Alkaline Phosphatase (<127 U/L) 93 Troponin I (< 0.11 ng/ml) < 0.01 Total Protein (6.3 - 8.2 g/dL) 6.8 Albumin (3.5 - 5.0 g/dL) 3.9 Globulin (1.9 - 4.2 gm/dL) 2.9 Albumin/Globulin Ratio (1.1 - 2.2 %) 1.3 Triglycerides (<150 mg/dL) 166 H Amylase (30 - 110 U/L) 290 H Lipase (23 - 300 U/L) 7205 H Total Beta HCG (NEGATIVE) NEGATIVE Hematology CBC w Diff NO MAN DIFF REQ WBC (4.8 - 10.8 /CUMM) 7.0 RBC (4.20 - 5.40 /CUMM) 4.28 Hgb (12.0 - 16.0 G/DL) 13.1 Hct (37 - 47 %) 39.2 MCV (81.0 - 99.0 FL) 91.6 MCH (27.0 - 31.0 PG) 30.8 MCHC (33.0 - 37.0 G/DL) 33.6 RDW (11.5 - 14.5 %) 16.1 H Plt Count (130 - 400 /CUMM) 236 MPV (7.4 - 10.4 FL) 6.4 L Gran % (42.2 - 75.2 %) 72.6 Lymphocytes % (20.5 - 51.1 %) 22.5 Monocytes % (1.7 - 9.3 %) 4.0 Eosinophils % (0 - 5 %) 0.8 Basophils % (0.0 - 2.0 %) 0.1 Absolute Granulocytes (1.4 - 6.5 /CUMM) 5.1 Absolute Lymphocytes (1.2 - 3.4 /CUMM) 1.6 Absolute Monocytes (0.10 - 0.60 /CUMM) 0.3 Absolute Eosinophils (0.0 - 0.7 /CUMM) 0.1 Absolute Basophils (0.0 - 0.2 /CUMM) 0 Toxicology Urine Opiates Screen (>2000 NG/ML) 2146.00 H Methadone Screen (>300 NG/ML) < 40 Barbiturate Screen (>200 NG/ML) < 60 Ur Phencyclidine Scrn (>25 NG/ML) < 6.00 Amphetamines Screen (>1000 NG/ML) < 100 U Benzodiazepines Scrn (>200 NG/ML) > 800 H Urine Cocaine Screen (>300 NG/ML) 603 H Urine Cannabis Screen (>50 NG/ML) > 80.00 H Serum Alcohol (<10 MG/DL) < 10.0 Urines Urinalysis LIGHT H Urine Color (YEL,AMB,STR) YEL Urine Clarity (CLEAR) HAZY H Urine pH (5.0 - 8.0) 6.0 Ur Specific [place] (1.001 - 1.035) 1.025 Urine Protein (NEG,<30 MG/DL) TRACE H Urine Ketones (NEG) NEG Urine Nitrite (NEG) NEG Urine Bilirubin (NEG) NEG Urine Urobilinogen (0.1 - 1.0 EU/dl) 0.2 Ur Leukocyte Esterase (NEG) NEG Ur Microscopic SEDIMENT EXAMINED Urine WBC (0 - 2 /HPF) 1-3 H Ur Epithelial Cells (NONE,FEW) MANY H Urine Bacteria (NEG/NONE) MANY H Urine Hemoglobin (NEG) NEG Urine Glucose (N MG/DL) NEG
[2018-05-21] VITALS (8 sets, daily range): BP systolic 100–120; BP diastolic 66–70
--- NOTE | 2018-05-21 07:29 | PN- Housestaff ---
Jami Khalil 05/21/18 0728: Subjective Follow-up For: Acute pancreatitis Subjective: The patient was seen and examined at bedside this morning. She was tearful and distressed as she has been having breakthrough diarrhea since yesterday, not being able to make it to the bathroom at times. She states that due to the diarrhea, she is feeling dehydrated since"everything passes right through her". she reports that she had been given her Imodium only once at about 3:30am last night. She says that she has been asking for it repeatedly but has been denied. She did report some chills last night and had a T-max of 101.1F yesterday. She states she feels better at this time, except for feeling a little hot which she says is probably due to her having so many episodes of diarrhea. He states that her pain is currently 7.5-8 mostly located in the left and right upper quadrants, which he says is typical to the pain that she has at the end of her previous pancreatitis episodes. She denies shortness of breath, sweating, chest pain, vomiting, nausea. Review of Systems Constitutional: Reports: see HPI. Objective Last 24 Hrs of Vital Signs/I&O Vital Signs Date Time Temp Pulse Resp B/P B/P Pulse O2 O2 Flow FiO2 Mean Ox Delivery Rate 05/21 0407 99.3 92 20 120/66 94 05/20 2345 100.4 05/20 2327 100.4 05/20 2306 101.1 100 20 139/62 98 Room Air 05/20 2228 101.1 05/20 1426 99.7 92 18 128/58 94 Room Air 05/20 1000 99.0 107 16 122/70 95 Room Air Intake & Output 05/21 1600 05/21 0800 05/21 0000 Intake Total 700 Output Total Balance 700 Intake, IV 600 Intake, Oral 100 Physical Exam General Appearance: Alert, Oriented X3, Cooperative, Mild Distress Skin: No Rashes Neck: Supple Cardiovascular: Regular Rate, Normal S1, Normal S2 Lungs: Clear to Auscultation Abdomen: Soft, tenderness located in the RUQ and LUQ, no rebound tenderness Assessment/Plan Assessment: This is a 42 yo female with past medical history of hyperlipidmeia, recurrent pancreatitic attacks, alcohol use disorder, IBS is admitted to the floor with acute pancreatitis. The patient reports improvement in the pain with the pain mostly localized to the RUQ and LUQ, not radiating to the back. The patient has been having breakthrough diarrhea since yesterday, but she does not think this is a change from her baseline. The patient was given one dose of Imodium at about 3.30 last night which apparently transiently relieved her. She did spike a Tmax of 101.1 F yesterday, but has been afebrile since. Her WBC is normal at 7.5. Her Serum Potasssium is low at 3.4. Her CRP is >9. Her urine is positive for many bacteria and WBC but is negative for leukocyte esterase. Her urine toxicilogy screen came back positive for Opiods, Cocaine and Benzodiazapines. CT chest and abdomen findings in the ED were consistent with acute pancreatitis. The CT also shows a 3mm duct dilatation in the region of the pancreatic head. The dialtation could be possibly due to repeated attacks of pancreatitis leading to pancreati injury according to GI assessment. PROBLEMS: 1. Acute Pancreatitis 2.IBS 3.Alcohol Use Disorder 4.Cocaine abuse 5.Cannabis abuse 1. Acute Pancreatitis -Pain is resolving and is now localised to the RUQ anbd LUQ -GI input appreciated. Lactated Ringer's @ 150cc per GI -Adequate pain control with pain pathway -Zofran iv PRN for nausea -We would order a chest X-ray to rule out Pleural effusion -We would monitor the patient for now for sepsis. We would hold off on the antibiotics and repeat imaging for now and would re-consider if she spipkes a fever again 2. History of Triglyceridemia - f/u Triglyceride levels, initial level of 166 in the ED 3. Alcohol Use Disorder/Urine tox positive for Opiod and Cocaine, Benzodiazepine and Cannabis -Patient does have a history of alcohol use disorder. -She does not seem to beb displaying any signs of alcohol withdrawal -We would actively monitor her for potential drug withdrawal 4. Irritable Bowel Disease -The patient reports having upto 12 bowel movements a day given her IBS -She does report breakthrough diarrhea -We will continue with Imodium Q6 PRN -We would follow up on C.diff cultures -We would continue her on her home meds and request her f/u with GI as an outpatient We would continue the home meds for hypertension, asthma and GERD DVT prophylaxis: subcutaneous Lovenox and ALPS Code status: Full Code Full liquid diet Problem List: 1. Pancreatitis 2. Hyperlipidemia 3. GERD (gastroesophageal reflux disease) 4. Hypertriglyceridemia 5. Fatty liver 6. Alcohol use disorder 7. Cocaine abuse 8. Cannabis abuse Pain Ratin Pain Location: LUQ and RUQ Pain Goal: Pain 4 or less Pain Plan: pathway Tomorrow's Labs & Rationales: cbc and bep Carlos Braun 05/21/18 1027: Attending MD Review Statement Attending Statement Attending MD Statement: examined this patient, discuss w/resident/PA/POSITION DESCRIPTION MANAGER, agreed w/resident/PA/POSITION DESCRIPTION MANAGER, discussed with family, reviewed EMR data (avail), discussed with nursing, discussed with case mgmt, reviewed images, amended to note Attending Assessment/Plan: Patient seen/examined bedside. Patient isolated spike of temp 101 overnight with multiple loose stools. Patient c/o abdominal pain (LUQ) which is not worse than before and was given trial of full liquids. Patient urine came positive for cocaine. Plan is to obtain chest xray for any pleural effusion. Send panculture, observe off abx. If fever spikes consider repeat imaging. Provide supportive care for diarrhea. She is on dicycloamine and loperamide for diarrhea. Follow GI recommendations. GI/DVT Prophyalxis full code.
[2018-05-21 08:19] LABS: ABSOLUTE BASOPHIL COUNT 0 /CUMM (0.0-0.2); ABSOLUTE EOSINOPHIL COUNT 0.1 /CUMM (0.0-0.7); ABSOLUTE GRANULOCYTE CT 5.8 /CUMM (1.4-6.5); ABSOLUTE LYMPH COUNT 1.1 /CUMM (1.2-3.4); ABSOLUTE MONOCYTE COUNT 0.5 /CUMM (0.10-0.60); BASOPHIL % 0.2 % (0.0-2.0); EOSINOPHIL % 1.2 % (0-5); HEMATOCRIT 32.8 % (37-47); MEAN CORPUSCULAR HGB 31.1 PG (27.0-31.0); MEAN CORPUSCULAR HGB CONC 33.3 G/DL (33.0-37.0); MEAN CORPUSCULAR VOLUME 93.5 FL (81.0-99.0); MEAN PLATELET VOLUME 7.4 FL (7.4-10.4); PLATELET COUNT 159 /CUMM (130-400); RBC DISTRIBUTION WIDTH 16.8 % (11.5-14.5); RED BLOOD CELL CT 3.51 /CUMM (4.20-5.40); WHITE BLOOD CELL COUNT 7.5 /CUMM (4.8-10.8)
--- NOTE | 2018-05-21 16:59 | RADIOLOGY REPORT ---
EXAMINATION: XR CHEST CLINICAL INFORMATION: Shortness of breath. Fever. Acute pancreatitis. COMPARISON: CT abdomen pelvis and chest x-ray 05/18/2018 TECHNIQUE: 2 views of the chest were obtained. FINDINGS: Cardiac silhouette is stable in size. Lungs are well aerated. No lobar consolidation. No gross pleural effusion. No pneumothorax. Mild diffuse degenerative changes of the spine. Surgical clips of the right upper quadrant consistent with prior cholecystectomy. IMPRESSION: No acute cardiopulmonary pathology.
--- NOTE | 2018-05-21 20:17 | PN- Gastroenterology ---
Assessment/Plan GI Assessment/Recommendations: Assessment: Ms. Mcnamara is a 42 year old female admitted with etoh pancreatitis from which she is slowly improving with a period of bowel rest and hydration. Her main complaint today is LUQ pain and while I don't appreciate any masses it is conceivable that a fluid collection could be forming which could be pushing on her stomach, but it would be unsual for her to feel that and it is too early in her course to have developed a pseudocyst and while it is conceivable that a pseudocyst was forming from one of her prior attacks of pancreatitis this likely would of been seen on her admission ct scan. While repeat imaging at some point may be appropriate I don't feel it is necessary at this time. Recommendations: 1. Advance diet as tolearted. 2. Analgesia and anti-emetics as needed. 3. If taking adequate PO would d/c IVF as she appears adequately hydrated. 4. Continue imodium as needed 5. Change IV protonix to PO daily. 6. If her diet is not able to be advanced will consider repeat imaging and/or a diagnostic EGD, but I don't think either are necessary at this time. 7. Follow electrolytes and repelte as needed I will continue to follow this patient and make further recommendations based on her clinical course and results of repeat lab work. Problem List: 1. Irritable bowel syndrome 2. Acute pancreatitis 3. Abdominal pain 4. Nausea & vomiting Subjective Subjective: She is improving and is now tolerating liquids without any vomiting. She still has abodminal pain which at this point is primarily under her sherry rib cage where she feels something popping or clicking and is worse with movement, but not necessarily with eating. Objective Vital Signs and I&Os Vital Signs Date Time Temp Pulse Resp B/P B/P Pulse O2 O2 Flow FiO2 Mean Ox Delivery Rate 05/21 1600 Room Air 05/21 1600 97.0 79 20 100/66 / 1459 98.2 79 20 100/66 97 Room Air / 1400 98.2 79 20 100/66 / 1000 98.5 84 20 110/70 / 0407 99.3 92 20 120/66 94 08/05 2345 100.4 / 2327 100.4 / 2306 101.1 100 20 139/62 98 Room Air 05/20 2228 101.1 Intake & Output 05/21 1600 05/21 0400 05/20 1600 05/20 0400 05/19 1600 05/19 0400 Intake Total 2950 700 2900 1210 3200 400 Output Total 1000 0 Balance 2950 700 2900 1210 2200 400 Intake, IV 2250 600 2600 1210 3200 400 Intake, Oral 700 100 300 0 0 0 Number 3 0 0 Bowel Movements Output, Urine 1000 0 Patient 216 lb 215 lb Weight Physical Exam General Appearance: well developed/nourished, no apparent distress, alert, comfortable Head: atraumatic Neck: supple Respiratory: normal breath sounds, chest non-tender, no respiratory distress Cardiovascular: regular rate/rhythm Abdomen: normal bowel sounds, soft, tenderness, LUQ tender, but no palpable masses Extremities: no edema Neurologic/Psychiatric: no motor/sensory deficits, awake, alert, oriented x 3 Current Medications: Current Medications Sig/Adam Start time Last Medication Dose Route Stop Time Status Admin Acetaminophen 650 MG .STK-MED ONE 05/20 2226 DC PO 05/20 2227 Acetaminophen 650 MG Q6P PRN 05/18 1915 05/20 PO 2228 Acetaminophen/ 1 TAB Q4P PRN 05/20 0030 AC 05/21 Butalbital/Caffeine PO 1643 Dicyclomine HCl 20 MG 4 TIMES/DAY PRN 05/19 184 AC PO Enoxaparin Sodium 40 MG DAILY 05/19 900 05/21 SC 0819 Hydromorphone HCl 0.2 MG ONCE ONE 05/21 0115 DC 05/21 IV 05/21 0116 0126 Hydromorphone HCl 1 MG Q4-6 PRN PRN 05/18 1915 05/21 IV 1643 Lactated Ringer's 1,000 ML .Q6H40M 05/18 1915 05/21 IV 1515 Loperamide HCl 2 MG Q6P PRN 05/19 1845 AC 05/21 PO 1235 Lorazepam 0.5 MG TID PRN 05/20 1730 AC 05/21 PO 05/27 1729 1407 Lorazepam 0 Q1P PRN 05/18 1945 AC IV Ondansetron HCl 4 MG Q6P PRN 05/18 191 AC 05/21 IV 0136 Pantoprazole Sodium 40 MG DAILY 05/19 900 05/21 IV 0817 Patient Medication 1 ED ONE ONE 05/[address] [facility] ED 05/21 1216 Potassium Chloride 40 MEQ ONCE ONE 05/205 DC 05/20 PO 05/20 2246 3422 Results Pertinent Lab Results: Laboratory Tests 05/21 05/20 0640 0620 Chemistry Sodium (137 - 145 mmol/L) 136 L 134 L Potassium (3.5 - 5.1 mmol/L) 3.4 L 3.4 L Chloride (98 - 107 mmol/L) 104 103 Carbon Dioxide (22 - 30 mmol/L) 27 23 Anion Gap (5 - 16) 6 8 BUN (7 - 17 mg/dL) < 2 L 2 L Creatinine (0.5 - 1.0 mg/dL) 0.6 0.6 Estimated GFR (>60 ml/min) > 60 > 60 BUN/Creatinine Ratio (7 - 25 %) 3.3 L 3.3 L Magnesium (1.6 - 2.3 mg/dL) 1.4 L C-Reactive Prot, Quant (<1.0 mg/dL) > 9.0 H C-React Prot High Sens (1.0 - 3.0 mg/L) > 15.0 H Hematology CBC w Diff NO MAN DIFF REQ NO MAN DIFF REQ WBC (4.8 - 10.8 /CUMM) 7.5 6.4 RBC (4.20 - 5.40 /CUMM) 3.51 L 3.57 L Hgb (12.0 - 16.0 G/DL) 10.9 L 11.3 L Hct (37 - 47 %) 32.8 L 33.2 L MCV (81.0 - 99.0 FL) 93.5 92.9 MCH (27.0 - 31.0 PG) 31.1 H 31.7 H MCHC (33.0 - 37.0 G/DL) 33.3 34.1 RDW (11.5 - 14.5 %) 16.8 H 16.3 H Plt Count (130 - 400 /CUMM) 159 162 MPV (7.4 - 10.4 FL) 7.4 7.1 L Gran % (42.2 - 75.2 %) 77.0 H 79.9 H Lymphocytes % (20.5 - 51.1 %) 14.8 L 13.0 L Monocytes % (1.7 - 9.3 %) 6.8 5.4 Eosinophils % (0 - 5 %) 1.2 1.4 Basophils % (0.0 - 2.0 %) 0.2 0.3 Absolute Granulocytes (1.4 - 6.5 /CUMM) 5.8 5.1 Absolute Lymphocytes (1.2 - 3.4 /CUMM) 1.1 L 0.8 L Absolute Monocytes (0.10 - 0.60 /CUMM) 0.5 0.3 Absolute Eosinophils (0.0 - 0.7 /CUMM) 0.1 0.1 Absolute Basophils (0.0 - 0.2 /CUMM) 0 0 05/19 05/19 0655 0405 Chemistry Sodium (137 - 145 mmol/L) 134 L Potassium (3.5 - 5.1 mmol/L) 3.7 Chloride (98 - 107 mmol/L) 104 Carbon Dioxide (22 - 30 mmol/L) 25 Anion Gap (5 - 16) 4 L BUN (7 - 17 mg/dL) 6 L Creatinine (0.5 - 1.0 mg/dL) 0.7 Estimated GFR (>60 ml/min) > 60 BUN/Creatinine Ratio (7 - 25 %) 8.6 Magnesium (1.6 - 2.3 mg/dL) 1.7 Hematology CBC w Diff NO MAN DIFF REQ WBC (4.8 - 10.8 /CUMM) 4.6 L RBC (4.20 - 5.40 /CUMM) 3.69 L Hgb (12.0 - 16.0 G/DL) 11.6 L Hct (37 - 47 %) 33.8 L MCV (81.0 - 99.0 FL) 91.7 MCH (27.0 - 31.0 PG) 31.5 H MCHC (33.0 - 37.0 G/DL) 34.4 RDW (11.5 - 14.5 %) 16.7 H Plt Count (130 - 400 /CUMM) 170 MPV (7.4 - 10.4 FL) 6.7 L Gran % (42.2 - 75.2 %) 76.0 H Lymphocytes % (20.5 - 51.1 %) 17.6 L Monocytes % (1.7 - 9.3 %) 4.8 Eosinophils % (0 - 5 %) 1.4 Basophils % (0.0 - 2.0 %) 0.2 Absolute Granulocytes (1.4 - 6.5 /CUMM) 3.5 Absolute Lymphocytes (1.2 - 3.4 /CUMM) 0.8 L Absolute Monocytes (0.10 - 0.60 /CUMM) 0.2 Absolute Eosinophils (0.0 - 0.7 /CUMM) 0.1 Absolute Basophils (0.0 - 0.2 /CUMM) 0 Toxicology Urine Opiates Screen (>2000 NG/ML) 2146.00 H Methadone Screen (>300 NG/ML) < 40 Barbiturate Screen (>200 NG/ML) < 60 Ur Phencyclidine Scrn (>25 NG/ML) < 6.00 Amphetamines Screen (>1000 NG/ML) < 100 U Benzodiazepines Scrn (>200 NG/ML) > 800 H Urine Cocaine Screen (>300 NG/ML) 603 H Urine Cannabis Screen (>50 NG/ML) > 80.00 H Urines Urinalysis LIGHT H Urine Color (YEL,AMB,STR) YEL Urine Clarity (CLEAR) HAZY H Urine pH (5.0 - 8.0) 6.0 Ur Specific [place] (1.001 - 1.035) 1.025 Urine Protein (NEG,<30 MG/DL) TRACE H Urine Ketones (NEG) NEG Urine Nitrite (NEG) NEG Urine Bilirubin (NEG) NEG Urine Urobilinogen (0.1 - 1.0 EU/dl) 0.2 Ur Leukocyte Esterase (NEG) NEG Ur Microscopic SEDIMENT EXAMINED Urine WBC (0 - 2 /HPF) 1-3 H Ur Epithelial Cells (NONE,FEW) MANY H Urine Bacteria (NEG/NONE) MANY H Urine Hemoglobin (NEG) NEG Urine Glucose (N MG/DL) NEG
[2018-05-22 06:28] VITALS: BP 118/86
[2018-05-22 06:30] VITALS: BP 118/86
--- NOTE | 2018-05-22 07:18 | PN- Housestaff ---
Bernardino Khalili 05/22/18 0718: Subjective Follow-up For: Pancreatitis Subjective: Patient was seen and examined at bedside. She reports that she is feeling a lot better and that she got up and walked for about 45min last night. She reports the pain has improved a lot since yesterday. She did not report any more diarrheal episodes. She says she slept comfortably and has been able to eat well. She denies fever, chills, nausea, vomiting. Review of Systems Constitutional: Reports: see HPI. Objective Last 24 Hrs of Vital Signs/I&O Vital Signs Date Time Temp Pulse Resp B/P B/P Pulse O2 O2 Flow FiO2 Mean Ox Delivery Rate 05/22 0628 98.2 76 22 118/86 97 Room Air 05/21 2230 98.0 74 20 110/70 /06 2213 98.0 74 20 110/70 97 Room Air / 2030 98.7 74 110/70 /06 1600 Room Air / 1600 97.0 79 20 100/66 08/06 1459 98.2 79 20 100/66 97 Room Air 08/06 1400 98.2 79 20 100/66 08/06 1000 98.5 84 20 110/70 Intake & Output 05/22 0800 08/07 0000 06 1600 Intake Total 1200 1700 1850 Output Total Balance 1200 1700 1850 Intake, IV 1200 1200 1250 Intake, Oral 500 600 Number 0 0 3 Bowel Movements Patient 216 lb Weight Physical Exam General Appearance: Alert, Oriented X3, Cooperative, No Acute Distress Skin: No Rashes, No Breakdown Sepsis Skin Exam (color): Flushed Neck: Supple Cardiovascular: Regular Rate, Normal S1, Normal S2 Lungs: Clear to Auscultation Abdomen: mild tenderness in LUQ and RUQ, no rebound tenderness Extremities: No Edema Assessment/Plan Assessment: This is a 42 yo female with past medical history of hyperlipidmeia, recurrent pancreatitic attacks, alcohol use disorder, IBS is admitted to the floor with acute pancreatitis. The patient reports significant improvement in the pain. The diarhhea has improved, with the patient having slept comfortably through the night. The patient has been afebrile except for spiking a Tmax of 101.1 days ago. She is ambulatory without assistance and has been eating and drinking well. Her WBC is normal at 6.8 Her Serum Potasssium is 4.0. The patient is afebrile with a significant improvment in her symptoms. We can anticipate discharge today, if she is able to tolerate her switch to the regular diet in the afternoon. PROBLEMS: 1. Acute Pancreatitis 2.IBS 3.Alcohol Use Disorder 4.Cocaine abuse 5.Cannabis abuse 1. Acute Pancreatitis -Pain is resolving and is m uch better now -GI input appreciated. Discontinue Lactated Ringer's -Adequate pain control with pain pathway -Zofran iv PRN for nausea -Chest X-ray normal. -Patient has been afebrile, Blood cultures negative on Day 1 -We will start the patient on a Regular diet. 2. History of Triglyceridemia - f/u outpatient for monitoring of Triglyceride levels 3. Alcohol Use Disorder/Urine tox positive for Opiod and Cocaine, Benzodiazepine and Cannabis -Patient does have a history of alcohol use disorder. -She does not seem to be displaying any signs of alcohol withdrawal 4. Irritable Bowel Disease -The patient reports an improvment in the diarrhea and she slept well through the night -We would continue her on her home meds and request her f/u with GI as an outpatient We would continue the home meds for hypertension, asthma and GERD DVT prophylaxis: subcutaneous Lovenox and ALPS Code status: Full Code Regular diet Problem List: 1. Hypertriglyceridemia 2. Irritable bowel syndrome 3. GERD (gastroesophageal reflux disease) 4. Pancreatitis 5. Alcohol use disorder 6. Cocaine abuse 7. Cannabis abuse Pain Ratin Pain Location: LUQ Pain Goal: Pain 4 or less Pain Plan: pathway Tomorrow's Labs & Rationales: Carlos Feliciano 05/22/18 1011: Attending MD Review Statement Attending Statement Attending MD Statement: examined this patient, discuss w/resident/PA/MAINTENANCE SHOP WELDER, agreed w/resident/PA/MAINTENANCE SHOP WELDER, discussed with family, reviewed EMR data (avail), discussed with nursing, discussed with case mgmt, reviewed images, amended to note Attending Assessment/Plan: Pateint feeling much better today morning. Afebrile. Diarrhea improved. Patient wants to go home. GI noted. No other intervention. Patient advance diet in lunch. If she tolerates she can go home. I disccused with her in great detail about her urine drug screen postive for cocaine and marijuana. She says she has prescription for marijuana. She was taking antipyschotics which can alter test results. Advise abstinence from alcohol and smoking. She needs to follow up with GI Dr Linares her primary GI in 2-3 weeks of discharge. She understands and in agreement to plan.
--- NOTE | 2018-05-22 07:53 | Patient Discharge Instructions ---
Discharge Instructions General Discharge Information You were seen/treated for: Pancreatitis Special Instructions: 1. Seek immediate medical attention if your belly pain worsens 2.Please follow up with your PCP within 1 week of discharge 3.Please schedule an appointment with within 1 week of discharge. Diet Continue normal diet: Yes Activity Full Activity/No Limits: Yes Acute Coronary Syndrome Inclusion Criteria At DC or during hospital stay patient has or had the following: ACS DIAGNOSIS No Discharge Core Measures Meds if any: Prescribed or Continued at Discharge Meds if any: NOT Prescribed or Continued at Discharge Congestive Heart Failure Inclusion Criteria At DC or during hospital stay patient has or had the following: CHF DIAGNOSIS No Discharge Core Measures Meds if any: Prescribed or Continued at Discharge Meds if any: NOT Prescribed or Continued at Discharge Cerebrovascular accident Inclusion Criteria At DC or during hospital stay patient has or had the following: CVA/TIA Diagnosis No Discharge Core Measures Meds if any: Prescribed or Continued at Discharge Meds if any: NOT Prescribed or Continued at Discharge Venous thromboembolism Inclusion Criteria VTE Diagnosis No VTE Type NONE VTE Confirmed by (Test) NONE Discharge Core Measures - Per Current guidelines, there needs to be overlap - treatment for the first 5 days of Warfarin therapy. - If discharged on Warfarin prior to 5 days of - overlap therapy, the patient will need to be - assessed for post discharge needs including - *Post discharge parental anticoagulation - *Warfarin and/or parental anticoagulation education - *Follow up date to check INR post discharge At least 5 days overlap therapy as Inpatient No Meds if any: Prescribed or Continued at Discharge Note: Overlap Therapy is Warfarin and Anticoagulant Meds if any: NOT Prescribed or Continued at Discharge
[2018-05-22 08:34] LABS: ABSOLUTE BASOPHIL COUNT 0 /CUMM (0.0-0.2); ABSOLUTE EOSINOPHIL COUNT 0.2 /CUMM (0.0-0.7); ABSOLUTE GRANULOCYTE CT 4.3 /CUMM (1.4-6.5); ABSOLUTE LYMPH COUNT 1.7 /CUMM (1.2-3.4); ABSOLUTE MONOCYTE COUNT 0.6 /CUMM (0.10-0.60); BASOPHIL % 0.3 % (0.0-2.0); EOSINOPHIL % 2.4 % (0-5); GRANULOCYTE % 64.3 % (42.2-75.2); HEMATOCRIT 33.6 % (37-47); MEAN CORPUSCULAR HGB 31.6 PG (27.0-31.0); MEAN CORPUSCULAR HGB CONC 33.7 G/DL (33.0-37.0); MEAN CORPUSCULAR VOLUME 93.8 FL (81.0-99.0); MEAN PLATELET VOLUME 7.4 FL (7.4-10.4); PLATELET COUNT 213 /CUMM (130-400); RBC DISTRIBUTION WIDTH 16.8 % (11.5-14.5); RED BLOOD CELL CT 3.58 /CUMM (4.20-5.40); WHITE BLOOD CELL COUNT 6.8 /CUMM (4.8-10.8)
--- NOTE | 2018-05-22 11:13 | Discharge Summary ---
Visit Information Visit Dates Admission Date: 05/18/18 Discharge Date: 05/22/2018 Hospital Course Course Attending Physician: Carlos Braun MD Primary Care Physician: Ana Lilia Fuentes Consulting Request: Consulting Specialty: Gastroenterology Hospital Course: 42-year-old woman with past medical history of hypertension, hyperlipidemia, asthma, GERD, fatty liver, anxiety, opioid dependence, multiple episodes of pancreatitis was admitted to the [facility] floor for evaluation and management of acute pancreatitis Her vitals are temperature 97.7, HR: 88, RR: 18, BP: 149/74, pulse ox: 98% Labs show WBC count, 7.0, Na is slightly ow at 135, M.3 status post Mag sulphate infusion total bilirubin: 0.9, AST: 65, ALT: 43. Her amylase is 290 and a lipase of 7205 She has the following issue while she was in the hospital: 1. Acute Pancreatitis secondary to EtOH -The patient presented with severe 10/10 abdomainal pain . -CT imaging revealed changes consisitent with pancreatitisa and a pancreatic duct dilatation measuring about 3 mm ofthe pancreatic head. -Lipase on admission was 7205 and amylase was 290. -She was kept NPO, given iv fluids and adequate analgesia with Dialudid 1mg Q6 PRN and iv Acetaminophen PRN -She responded well to the treatment with her pain improving significantly, and was bridged back to a full liquid diet to regular diet at discharge 2. Hypomagnesemia -Serum Mg levels was 1.2 on admission and improved with iv Magnesium Sulphate 3. IBS -The patient is was following outpatient for the treatment of her IBS -She had an episode of breakthrough episode of diarrhea in the hospital -She respnded well to Imodium and Dicyclomine 4. Alcohol Dependance Disorder The patient admitted to a drinking binge on the day prior to her admission. However, she did not display any withdrawal symptoms while she was in the hospital. 5. Urine drug screen was positive for Cocaine. However, the patient denied using Cocaine . The patient was resumed on her home medications for hypertension, hyperlipidemia , anxiety, The patient was tolerating a regular diet and was adequately ambulatory on discharge. Allergies: Coded Allergies: lisinopril (COLD SWEATS, DIZZY, NAUSEA 05/18/18) Disposition Summary Disposition Principal Diagnosis: Acute Pancreatitis Additional Diagnosis: Hypomagnesemia Discharge Disposition: home or self care Discharge Instructions General Discharge Information Code Status: Full Code Patient's Diet: Regular Diet Patient's Activity: Ambulatory Follow-Up Instructions/Appts: Patient would be following up with his [facility] physician in a week. She would also follow up with Dr. Linares in a week from his discharge. Medications at Discharge Discharge Medications: Continue taking these medications: Alprazolam (Alprazolam) 1 MG TABLET 1 Tablet ORAL THREE TIMES A DAY NEEDED Comments: NOT TAKEN IN HOSPITAL Albuterol Sulfate (Ventolin Hfa) 18 GM HFA.AER.AD 2 Puff Inhale through mouth EVERY 4-6 HOURS NEEDED as needed for breathing Days = 30 Comments: NOT GIVEN IN HOSPITAL Esomeprazole (Nexium) 40 MG CAPSULE.DR 1 Capsule ORAL DAILY Qty = 30 Comments: NOT GIVEN THIS ADMISSION Fenofibrate (Tricor) 48 MG TABLET 1 Tablet ORAL DAILY Qty = 30 Comments: NOT GIVEN IN HOSPITAL [place]-3/Dha/Epa/Dpa/Fish Oil ([place]-3 1,050 MG Softgel) 1,050-1200 CAPSULE 1 Tablet ORAL DAILY Qty = 30 Comments: NOT GIVEN IN HOSPITAL Butalbit/Acetamin/Caff/Codeine (Rgfyxo-Drra-Cjayhvnhpza-Codein) 50 MG-325 MG-40 MG-30 MG CAPSULE 1 Capsule ORAL EVERY 12 HOURS as needed for HEADACHE Qty = 30 Comments: NOT GIVEN IN HOSPITAL Dicyclomine HCl (Dicyclomine HCl) 10 MG CAPSULE 1 Capsule ORAL EVERY SIX HOURS NEEDED as needed for IBS Qty = 90 Comments: NOT GIVEN THIS ADMISSION Diphenoxylate HCl/Atropine (Lomotil 2.5-0.025 MG Tablet) 2.5 MG-0.025 MG TABLET 1 Tablet ORAL THREE TIMES DAILY as needed for IBS Qty = 60 Comments: NOT GIVEN THIS ADMISSION Ondansetron (Zofran Odt) (Unknown Strength) TAB.RAPDIS Unknown Dose SUBLINGUAL As Directed as needed for N/V Comments: Last Taken: 05/21/18 Time: 1:36 AM Start taking the following new medications: Oxycodone HCl/Acetaminophen (Percocet 5-325 MG Tablet) 5 MG-325 MG TABLET 1 Tablet ORAL Q6H as needed for PAIN Qty = 16 No Refills Comments: NOT YET GIVEN IN HOSPITAL Copies To: Ana Lilia Fuentes
[2018-05-22] MEDS ORDERED: PERCOCET 5-3251 EACH PO (13:30)
[2018-05-22 14:22] VITALS: BP 122/72
== END 2018-05-22 18:31 | DRG 282 ==
LOC: ERH 15:26 → ERHI 18:32 → 2NA 18:32 → ENRESERV 19:02 → ENTRNSPT 21:05 → 2NA 21:05 → EDTRNSPT 21:10 → EDTRNSPTSTS 21:10 → 2NB 21:20 → CMPTRNSPT 21:28 → 2NA 05-19 13:58 → CMPTRNSPT 05-19 21:47 → 2NA 05-21 09:04 → ENPENDDIS 05-22 13:45 → 2NA 05-22 18:31
PROVIDERS: Hospitalist; Physician Assistant; Student in an Organized Health Care Education/Training Program
DX: K85.20 Alcohol induced acute pancreatitis without necrosis or infection (principal); E83.42 Hypomagnesemia; K76.0 Fatty (change of) liver, not elsewhere classified; E78.5 Hyperlipidemia, unspecified; J45.909 Unspecified asthma, uncomplicated; K21.9 Gastro-esophageal reflux disease without esophagitis; I10 Essential (primary) hypertension; E66.9 Obesity, unspecified; E78.1 Pure hyperglyceridemia; K58.0 Irritable bowel syndrome with diarrhea; F14.10 Cocaine abuse, uncomplicated; F10.20 Alcohol dependence, uncomplicated; Y90.0 Blood alcohol level of less than 20 mg/100 ml; Z68.32 Body mass index [BMI] 32.0-32.9, adult; F17.200 Nicotine dependence, unspecified, uncomplicated; Z90.49 Acquired absence of other specified parts of digestive tract; Z88.8 Allergy status to other drugs, medicaments and biological substances
CPT/HCPCS: 2NASP; 2NBSP; 36415; 36592; 71046; 74177; 80307; 81001; 82436; 87040; 87086; 93005; 93010; 96374; 96375; 96376; G0480; J0131; J1650; J2405; J7120